=== PATIENT | female | born 1945 | race Caucasian/White ===

== ENCOUNTER 2016-10-29 09:59 | Outpatient (CLI) | payer MEDICARE, MEDICAID | END 2016-10-29 10:00 | disposition home or self-care (01) | DX: G47.33 Obstructive sleep apnea (adult) (pediatric) (principal); G47.00 Insomnia, unspecified | CPT/HCPCS: 99214; G0463 ==

== ENCOUNTER 2016-11-17 | Emergency (ER) | payer MEDICARE, MEDICAID | END 2016-11-17 23:41 | disposition home or self-care (01) ==

== ENCOUNTER 2016-12-16 10:54 | Outpatient (CLI) | payer MEDICARE, MEDICAID | END 2016-12-16 10:55 | disposition home or self-care (01) | DX: M54.89 Other dorsalgia (principal) ==

== ENCOUNTER 2016-12-28 22:06 | Emergency (ER) | payer MEDICARE, MEDICAID | END 2016-12-29 00:50 | disposition home or self-care (01) | DX: R10.9 Unspecified abdominal pain (principal); I10 Essential (primary) hypertension; G47.30 Sleep apnea, unspecified; E11.9 Type 2 diabetes mellitus without complications; Z87.440 Personal history of urinary (tract) infections; F32.9 Major depressive disorder, single episode, unspecified; F41.9 Anxiety disorder, unspecified; M19.90 Unspecified osteoarthritis, unspecified site; Z79.01 Long term (current) use of anticoagulants; Z79.891 Long term (current) use of opiate analgesic; Z79.51 Long term (current) use of inhaled steroids; Z79.899 Other long term (current) drug therapy ==

== ENCOUNTER 2017-01-02 04:14 | Emergency (ER) | payer MEDICARE, MEDICAID | END 2017-01-02 05:25 | disposition home or self-care (01) | DX: M25.562 Pain in left knee (principal); Z96.652 Presence of left artificial knee joint; I10 Essential (primary) hypertension; G47.30 Sleep apnea, unspecified; E11.9 Type 2 diabetes mellitus without complications; F03.90 Unspecified dementia, unspecified severity, without behavioral disturbance, psychotic disturbance, mood disturbance, and anxiety; M19.90 Unspecified osteoarthritis, unspecified site; Z79.01 Long term (current) use of anticoagulants ==

== ENCOUNTER 2017-01-18 09:50 | Outpatient (CLI) | payer MEDICARE, MEDICAID ==
[2017-01-18] MEDS ORDERED: IOPAMIDOL-300 100 ML VIAL IVP ONE (11:21)
[2017-01-18] MEDS ORDERED: IOPAMIDOL-300 50 ML VIAL PO ONE (11:21)
== END 2017-01-18 09:51 | disposition home or self-care (01) ==
DX: R10.32 Left lower quadrant pain (principal); K57.30 Diverticulosis of large intestine without perforation or abscess without bleeding; Z90.49 Acquired absence of other specified parts of digestive tract
CPT/HCPCS: 74177; Q9967

== ENCOUNTER 2017-01-25 10:17 | Outpatient (CLI) | payer MEDICARE, MEDICAID | END 2017-01-25 10:18 | disposition home or self-care (01) | DX: G47.33 Obstructive sleep apnea (adult) (pediatric) (principal) | CPT/HCPCS: 99214; G0463 ==

== ENCOUNTER 2017-02-02 11:04 | Outpatient (CLI) | payer MEDICARE, MEDICAID | END 2017-02-02 11:05 | disposition home or self-care (01) | DX: N83.202 Unspecified ovarian cyst, left side (principal); N85.8 Other specified noninflammatory disorders of uterus; D25.1 Intramural leiomyoma of uterus ==

== ENCOUNTER 2017-06-19 18:10 | Outpatient (CLI) | payer MEDICARE, MEDICAID | END 2017-06-19 18:11 | disposition critical access hospital (66) | LOC: EMS 18:10 | PROVIDERS: ATTEND Surgery | DX: M25.512 Pain in left shoulder (principal); M25.562 Pain in left knee; W01.0XXA Fall on same level from slipping, tripping and stumbling without subsequent striking against object, initial encounter; Y92.038 Other place in apartment as the place of occurrence of the external cause | CPT/HCPCS: A0425; A0429 ==

== ENCOUNTER 2017-06-19 18:30 | Emergency (ER) | payer MEDICARE, MEDICAID ==
--- NOTE | 2017-06-19 20:18 | CT Preliminary Report ---
Exam: CT Head W/O IMPRESSION: Generalized age-related cortical atrophic changes without evidence of acute intracranial abnormality. [facility] SITE ID: [id number]
--- NOTE | 2017-06-19 20:31 | CT Report ---
EXAM: CT HEAD EXAM DATE: 06/19/2017 08:00 p.m.. CLINICAL HISTORY: Fall, head injury. Patient on Eliquis. COMPARISON: 06/01/2015. Head MRI 07/02/2016. TECHNIQUE: Multiaxial CT images were obtained from the foramen magnum to the vertex. IV contrast: Non e. Reformats: Coronal. In accordance with CT protocol optimization, one or more of the following dose reduction techniques w ere utilized for this exam: automated exposure control, adjustment of mA and/or KV based on patient s ize, or use of iterative reconstructive technique. FINDINGS: Parenchyma: No intraparenchymal hemorrhage. No evidence of mass, midline shift, or CT findings of acu te infarction. Ribeiro-white differentiation is distinct. Extraaxial Spaces: Normal for age. No subdural or epidural collections identified. Ventricles: The ventricles and cortical sulci are enlarged, consistent with age-related tissue loss. Sinuses: Imaged paranasal sinuses, orbits, and mastoids show no significant abnormality. Bones: No evidence of fracture or calvarial defect. Other: Diffuse chronic microangiopathic white matter changes are evident. IMPRESSION: Generalized age-related cortical atrophic changes without evidence of acute intracranial abnormality. [facility] Referring Provider Line: [phone] SITE ID: [id number]
--- NOTE | 2017-06-19 20:39 | ED Physician Documentation ---
PD HPI Fall - Stated complaint Stated Complaint: GLF/L SHOULDER INJ - Chief complaint Chief Complaint: Ext Problem - History obtained from History obtained from: Patient, Family - History of Present Illness Mechanism of injury: Slipped Fall distance: Standing position Where injury occurred: Home Timing - onset: How many hours ago (1) Injury(ies) location: Head, Left Uppper Extremity (Shoulder), Left Lower Extremity (Hip and knee) Pain level max: 6 Pain level now: 3 Quality of pain: Pain, Aching, Dull Associated symptoms: No: LOC, AMS, Amnesia, Seizures, Ear drainage, Nasal drainage, Neck pain, Weakness, Paresthesias, Dyspnea, Nausea / vomiting, Hematemesis, Abdominal distension Symptoms improve with: Rest Worsens with: Movement, Palpation Contributing factors: Anticoagulated (Patient is on Eliquis). No: Intoxicated Recently seen: Not recently seen - Additional information Additional information: Patient tripped and fell while carrying water drugs today, she landed on her left shoulder, left hip left knee and did strike her head on the wall. No loss of consciousness. No vomiting Review of Systems Constitutional: denies: Fever, Chills Ears: denies: Ear pain Nose: denies: Rhinorrhea / runny nose, Congestion Throat: denies: Sore throat Cardiac: denies: Chest pain / pressure Respiratory: denies: Cough GI: denies: Abdominal Pain, Nausea, Vomiting Skin: denies: Rash Musculoskeletal: denies: Neck pain, Back pain Neurologic: denies: Focal weakness, Numbness, Confused, Altered mental status, LOC PD PAST MEDICAL HISTORY - Past Medical History Cardiovascular: Hypertension Respiratory: Sleep apnea, CPAP use Neuro: Dementia Endocrine/Autoimmune: Type 2 diabetes GI: None 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 : Chronic bladder infection, Other HEENT: None Psych: Depression, Anxiety Musculoskeletal: Osteoarthritis Derm: None - Past Surgical History Past Surgical History: Yes General: Cholecystectomy Ortho: Knee replacement HEENT: Tonsil/Adenoidectomy - Present Medications Home Medications: Ambulatory Orders Medication Instructions Recorded Confirmed Apixaban [Eliquis] 205 mg PO DAILY 06/19/17 06/19/17 Atorvastatin [Lipitor] 10 mg PO DAILY 06/19/17 06/19/17 Bupropion HCl [Bupropion HCl Sr] 150 mg PO DAILY 06/19/17 06/19/17 Fluoxetine HCl 40 mg PO DAILY 06/19/17 06/19/17 Gabapentin 100 mg PO DAILY 06/19/17 06/19/17 Gabapentin 400 mg PO DAILY PM 06/19/17 06/19/17 Lisinopril 10 mg PO DAILY 06/19/17 06/19/17 Loratadine 10 mg PO DAILY 06/19/17 06/19/17 Oxybutynin Chloride [Ditropan Xl] 10 mg PO DAILY 06/19/17 06/19/17 Prazosin [Minipress] 4 mg PO DAILY 06/19/17 06/19/17 Propranolol [Inderal] 10 mg PO DAILY 06/19/17 06/19/17 Ziprasidone HCl 60 mg PO DAILY 06/19/17 06/19/17 - Allergies Allergies/Adverse Reactions: Allergies Allergy/AdvReac Type Severity Reaction Status Date / Time hydromorphone Allergy Intermediate Itching Verified 06/19/17 18:44 iodine Allergy Intermediate Hives Verified 06/19/17 19:02 acetaminophen [From Percocet] Allergy Unknown Verified 06/19/17 19:02 acyclovir Allergy Unknown Verified 06/19/17 19:02 amoxicillin Allergy Unknown Verified 06/19/17 19:02 doxycycline Allergy Unknown Verified 06/19/17 19:02 hydrocodone bitartrate * Allergy Unknown Verified 06/19/17 19:02 [From Vicodin] naproxen [From Naprosyn] Allergy Unknown Verified 06/19/17 19:02 oxycodone HCl * Allergy Unknown Verified 06/19/17 19:02 [From Percocet] risperidone [From Risperdal] Allergy Unknown Verified 06/19/17 19:02 Tetanus Vaccines and Toxoid Allergy Hives Verified 06/19/17 19:02 [Tetanus Vaccines & Toxoid] adhesive tape AdvReac Intermediate Rash Verified 06/19/17 18:44 - Social History Does the pt smoke?: No Smoking Status: Never smoker Does the pt drink ETOH?: No Does the pt have substance abuse?: No - Immunizations Immunizations are current?: Yes - POLST Patient has POLST: No PD ED PE NORMAL - Vitals Vital signs reviewed: Yes - General General: Alert and 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, No acute distress, Well developed/nourished - HEENT HEENT: Atraumatic, PERRL, EOMI, Ears normal, Moist mucous membranes, Pharynx benign - Neck Neck: Supple, no meningeal sign, No bony TTP - Cardiac Cardiac: RRR, Strong equal pulses - Respiratory Respiratory: No respiratory distress, Clear bilaterally - Abdomen Abdomen: Soft, Non tender, Non distended - Derm Derm: Warm and dry - Extremities Extremities: No deformity, Other (Diffuse tenderness about the left shoulder, mainly over the glenohumeral joints and over the AC joint. No gross deformity. Neurovascularly intact. Axillary nerve intact. L hip Tender to palpation over the greater trochanter. neurovascularly intact. Left knee is diffusely tender. 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, No motor deficit, No sensory deficit, Normal speech GCS Score: 15 - Psych Psych: Normal mood, Normal affect Results - Vitals Vitals: Vital Signs - 24 hr 06/19/17 06/19/17 18:38 20:55 Temperature 36.4 C L 36.4 C L Heart Rate 77 72 Respiratory 18 18 Rate Blood Pressure 149/92 H 178/98 H O2 Saturation 98 98 Oxygen O2 Source [Without Activity] Room air O2 Source Room air - Rads (name of study) head CT Radiology: Prelim report reviewed, EMP read contemporaneously, See rad report ( No acute intracranial abnormality) L shoulder xray Radiology: Prelim report reviewed, EMP read contemporaneously, See rad report ( No acute bony abnormality) L hip xray Radiology: Prelim report reviewed, EMP read contemporaneously, See rad report ( No acute bony abnormality) L knee xray Radiology: Prelim report reviewed, EMP read contemporaneously, See rad report ( No acute bony abnormality) PD MEDICAL DECISION MAKING - ED course Complexity details: reviewed results, re-evaluated patient, considered differential, d/w patient ED course: Patient is a 71-year-old female status post a ground-level fall today. The patient does take Eliquis and did strike her head, therefore head CT was performed with no acute findings. No acute findings on other plain film x- rays. Declines anything for pain here for home. Ambulating well. We will have her follow-up with her doctor for further evaluation and care. Patient counseled regarding signs and symptoms for which I believe and urgent re- evaluation would be necessary. Patient with good understanding of and agreement to plan and is comfortable going home at this time This document was made in part using voice recognition software. While efforts are made to proofread this document, sound alike and grammatical errors may occur. Departure - Departure Disposition: 01 Home, Self Care Clinical Impression: Contusion, hip Qualifiers: Encounter type: initial encounter Laterality: left Qualified Code(s): S70.02XA - Contusion of left hip, initial encounter Knee contusion Qualifiers: Encounter type: initial encounter Laterality: left Qualified Code(s): S80.02XA - Contusion of left knee, initial encounter Shoulder contusion Qualifiers: Encounter type: initial encounter Laterality: left Qualified Code(s): S40.012A - Contusion of left shoulder, initial encounter Head injury Qualifiers: Encounter type: initial encounter Qualified Code(s): S09.90XA - Unspecified injury of head, initial encounter Condition: Good Instructions: ED Head Injury Closed, ED Contusion Soft Tissue Follow-Up: your,doctor in 1 week [Other] Comments: Your x-rays are normal tonight. Return if you worsen. Discharge Date/Time: 06/19/17 21:05
--- NOTE | 2017-06-19 20:54 | XRAY Preliminary Report ---
Exam: XR Hip w/Pelvis 2-3V LT IMPRESSION: 1. No fracture. 2. Increased moderate bilateral hip degenerative joint disease since 2005. [facility] SITE ID: [id number]
--- NOTE | 2017-06-19 20:55 | XRAY Preliminary Report ---
Exam: XR Shoulder 3 View LT IMPRESSION: 1. No evidence of fracture or dislocation. 2. Mild acromioclavicular and glenohumeral degenerative joint disease. [facility] SITE ID: [id number]
[2017-06-19 20:56] VITALS: BP 178/98
--- NOTE | 2017-06-19 20:56 | XRAY Preliminary Report ---
Exam: XR Knee 2 View LT IMPRESSION: 1. Left knee arthroplasty in the expected position. No evidence of fracture or loosening. [facility] SITE ID: [id number]
--- NOTE | 2017-06-19 20:56 | XRAY Report ---
EXAM: LEFT HIP AND PELVIS RADIOGRAPHY EXAM DATE: 06/19/2017 08:31 PM. HISTORY: Fall and left hip pain COMPARISONS: 09/19/2006. TECHNIQUE: 1 view of the pelvis and 1 view of the hip. FINDINGS: Bones: Normal. No fracture or bone lesion. Joints: Moderate bilateral hip degenerative joint disease, slightly progressed since 2005. Lower lumb ar degenerative disk disease. Soft Tissues: Normal. No soft tissue swelling. IMPRESSION: 1. No fracture. 2. Increased moderate bilateral hip degenerative joint disease since 2005. [facility] Referring Provider Line: [phone] SITE ID: [id number]
--- NOTE | 2017-06-19 20:57 | XRAY Report ---
EXAM: LEFT SHOULDER RADIOGRAPHY EXAM DATE: 06/19/2017 08:32 PM. CLINICAL HISTORY: Fall and left shoulder and clavicle pain. COMPARISON: 02/25/2013. TECHNIQUE: 3 views. FINDINGS: Bones: Normal. No fracture or bone lesion. Joints: Mild glenohumeral degenerative joint disease. Mild acromioclavicular degenerative joint disea se. Alignment normal. Soft tissues: The visualized hemithorax is unremarkable. No soft tissue swelling. IMPRESSION: 1. No evidence of fracture or dislocation. 2. Mild acromioclavicular and glenohumeral degenerative joint disease. [facility] Referring Provider Line: [phone] SITE ID: [id number]
--- NOTE | 2017-06-19 20:59 | XRAY Report ---
EXAM: LEFT KNEE RADIOGRAPHY EXAM DATE: 06/19/2017 08:32 PM. CLINICAL HISTORY: Fall and left knee pain. COMPARISON: 01/02/2017. TECHNIQUE: 2 views. FINDINGS: Bones: 3 component total left knee arthroplasty in the expected position. No evidence of fracture or loosening. Joints: Normal. No effusion. No subluxations. Soft Tissues: Enthesopathy of the distal quadriceps. IMPRESSION: 1. Left knee arthroplasty in the expected position. No evidence of fracture or loosening. VERON[facility]QUE Referring Provider Line: [phone] SITE ID: [id number]
== END 2017-06-19 21:05 | disposition home or self-care (01) ==
LOC: EDUNIT# → ED 18:30
DX: S40.012A Contusion of left shoulder, initial encounter (principal); S70.02XA Contusion of left hip, initial encounter; S80.02XA Contusion of left knee, initial encounter; S09.90XA Unspecified injury of head, initial encounter; W01.0XXA Fall on same level from slipping, tripping and stumbling without subsequent striking against object, initial encounter; Y92.019 Unspecified place in single-family (private) house as the place of occurrence of the external cause; Z96.652 Presence of left artificial knee joint; I10 Essential (primary) hypertension; G47.30 Sleep apnea, unspecified; F03.90 Unspecified dementia, unspecified severity, without behavioral disturbance, psychotic disturbance, mood disturbance, and anxiety; E11.9 Type 2 diabetes mellitus without complications; M19.90 Unspecified osteoarthritis, unspecified site; Z79.01 Long term (current) use of anticoagulants
CPT/HCPCS: 70450; 99283

== ENCOUNTER 2017-07-05 09:11 | Outpatient (CLI) | payer MEDICARE, MEDICAID ==
[2017-07-05 14:04] LABS: CALCIUM 9.3 mg/dL (8.5-10.3); CREATININE 1.2 mg/dL (0.4-1.0); POTASSIUM 3.8 mmol/L (3.5-5.0)
[2017-07-05 14:21] LABS: HEMOGLOBIN A1C 0.54 g/dL
== END 2017-07-05 09:12 | disposition home or self-care (01) ==
LOC: LAB.WCP 09:11
PROVIDERS: ATTEND Physician Assistant Medical
DX: R73.9 Hyperglycemia, unspecified (principal)
CPT/HCPCS: 36415; 80048; 83036

== ENCOUNTER 2017-07-27 10:20 | Outpatient (CLI) | payer MEDICARE, MEDICAID | END 2017-07-27 10:21 | disposition home or self-care (01) | LOC: SC 10:20 | PROVIDERS: ATTEND Nurse Practitioner Family | DX: G47.33 Obstructive sleep apnea (adult) (pediatric) (principal); G47.00 Insomnia, unspecified | CPT/HCPCS: 99214; G0463; 99212 ==

== ENCOUNTER 2017-08-13 11:42 | Outpatient (CLI) | payer MEDICARE, MEDICAID ==
--- NOTE | 2017-08-13 13:48 | Ultrasound Report ---
PELVIC ULTRASOUND: 08/13/2017 CLINICAL INDICATION: Followup left ovarian cyst. COMPARISON: 02/02/2017 TECHNIQUE: Transabdominal pelvic ultrasound performed for global evaluation. Transvaginal pelvic ult rasound performed for detailed evaluation. Real-time scanning performed and static images obtained. FINDINGS: The uterus is anteverted, measuring 6.4 x 4.4 x 2.6 cm. The endometrial echo complex mary ures 2 mm. An 8 mm intramural leiomyoma is noted in the right posterior myometrium. The right ovary was not confidently identified on transabdominal or transvaginal scanning, but no right adnexal mass is seen. The left ovary measures 4.1 x 3.5 x 2.0 cm, and again contains a cyst, measuring 3.8 x 3.2 x 2.0 cm. Normal flow is seen in the surrounding ovarian tissue. No free fluid is present. IMPRESSION: NO SIGNIFICANT INTERVAL CHANGE IN LEFT OVARIAN CYST. JOB #: [id number] EXT JOB #:[id number]
== END 2017-08-13 11:43 | disposition home or self-care (01) ==
LOC: DI 11:42
PROVIDERS: ATTEND Obstetrics & Gynecology
DX: N83.202 Unspecified ovarian cyst, left side (principal)
CPT/HCPCS: 76830; 76856

== ENCOUNTER 2017-09-11 00:29 | Outpatient (CLI) | payer MEDICARE, MEDICAID | END 2017-09-11 00:30 | disposition EMS.NT | LOC: EMS 00:29 | PROVIDERS: ATTEND Surgery | DX: Z03.89 Encounter for observation for other suspected diseases and conditions ruled out (principal); W01.0XXA Fall on same level from slipping, tripping and stumbling without subsequent striking against object, initial encounter; Y92.009 Unspecified place in unspecified non-institutional (private) residence as the place of occurrence of the external cause ==

== ENCOUNTER 2017-09-20 14:50 | Outpatient (CLI) | payer MEDICARE, MEDICAID | END 2017-09-20 14:51 | disposition critical access hospital (66) | LOC: EMS 14:50 | PROVIDERS: ATTEND Surgery | DX: T14.90XA Injury, unspecified, initial encounter (principal); W18.39XA Other fall on same level, initial encounter; Y92.838 Other recreation area as the place of occurrence of the external cause | CPT/HCPCS: A0425; A0427 ==

== ENCOUNTER 2017-09-20 15:14 | Emergency (ER) | payer MEDICARE, MEDICAID ==
--- NOTE | 2017-09-20 15:36 | ED Physician Documentation ---
History of Present Illness - Stated complaint Stated Complaint: GLF - Chief complaint Chief Complaint: General - History obtained from History obtained from: Patient - History of Present Illness Timing: Other (72-year-old woman has had 2 recent ground-level falls. The the first one was Wednesday night, she tripped in her bedroom and hit the floor with the left side of her face. No loss of consciousness, she did have a headache at the time but that is now gone. She had a second fall today, again at her house , simple trip and fall without loss of consciousness. Because of her anticoagulated status she sought medical attention. Of note prehospital her blood pressure was low, and she notes the paramedics told her that they were asymmetric, however on arrival here she had one low blood pressure, but subsequent blood pressures were normal and equal in both arms. She denies any other injury. 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 : Chronic bladder infection, Other HEENT: None Psych: Depression, Anxiety Musculoskeletal: Osteoarthritis Derm: None - Past Surgical History Past Surgical History: Yes General: Cholecystectomy Ortho: Knee replacement HEENT: Tonsil/Adenoidectomy - Present Medications Home Medications: Ambulatory Orders Medication Instructions Recorded Confirmed Apixaban [Eliquis] 205 mg PO DAILY 06/19/17 06/19/17 Atorvastatin [Lipitor] 10 mg PO DAILY 06/19/17 06/19/17 Bupropion HCl [Bupropion HCl Sr] 150 mg PO DAILY 06/19/17 06/19/17 Fluoxetine HCl 40 mg PO DAILY 06/19/17 06/19/17 Gabapentin 100 mg PO DAILY 06/19/17 06/19/17 Gabapentin 400 mg PO DAILY PM 06/19/17 06/19/17 Lisinopril 10 mg PO DAILY 06/19/17 06/19/17 Loratadine 10 mg PO DAILY 06/19/17 06/19/17 Oxybutynin Chloride [Ditropan Xl] 10 mg PO DAILY 06/19/17 06/19/17 Prazosin [Minipress] 4 mg PO DAILY 06/19/17 06/19/17 Propranolol [Inderal] 10 mg PO DAILY 06/19/17 06/19/17 Ziprasidone HCl 60 mg PO DAILY 06/19/17 06/19/17 - Allergies Allergies/Adverse Reactions: Allergies Allergy/AdvReac Type Severity Reaction Status Date / Time hydromorphone Allergy Intermediate Itching Verified 09/20/17 15:22 iodine Allergy Intermediate Hives Verified 09/20/17 15:22 acetaminophen [From Percocet] Allergy Unknown Verified 09/20/17 15:22 acyclovir Allergy Unknown Verified 09/20/17 15:22 amoxicillin Allergy Unknown Verified 09/20/17 15:22 doxycycline Allergy Unknown Verified 09/20/17 15:22 hydrocodone bitartrate * Allergy Unknown Verified 09/20/17 15:22 [From Vicodin] naproxen [From Naprosyn] Allergy Unknown Verified 09/20/17 15:22 oxycodone HCl * Allergy Unknown Verified 09/20/17 15:22 [From Percocet] risperidone [From Risperdal] Allergy Unknown Verified 09/20/17 15:22 Tetanus Vaccines and Toxoid Allergy Hives Verified 09/20/17 15:22 [Tetanus Vaccines & Toxoid] adhesive tape AdvReac Intermediate Rash Verified 09/20/17 15:22 - Social History Does the pt smoke?: No Smoking Status: Never smoker Does the pt drink ETOH?: No Does the pt have substance abuse?: No - Immunizations Immunizations are current?: Yes - POLST Patient has POLST: No PD ED PE NORMAL - Vitals Vital signs reviewed: Yes - General General: Alert and 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, No acute distress - HEENT HEENT: PERRL, EOMI, Ears normal, Moist mucous membranes, Pharynx benign - Neck Neck: Supple, no meningeal sign, No bony TTP - Cardiac Cardiac: RRR, No murmur, Strong equal pulses (radial) - Respiratory Respiratory: No respiratory distress, Clear bilaterally - Abdomen Abdomen: Soft, Non tender - Extremities Extremities: No edema, No calf tenderness / cord - Neuro Neuro: Alert and 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, Normal speech Eye Opening: Spontaneous Motor: Obeys Commands Verbal: Oriented GCS Score: 15 - Psych Psych: Normal mood, Normal affect Results - Vitals Vitals: Vital Signs - 24 hr 09/20/17 09/20/17 09/20/17 15:17 15:55 15:56 Temperature 36.4 C L Heart Rate 66 Respiratory 20 Rate Blood Pressure 75/45 L 108/58 L 118/65 O2 Saturation 95 09/20/17 09/20/17 09/20/17 16:13 17:17 18:23 Temperature Heart Rate 69 75 76 Respiratory 18 16 18 Rate Blood Pressure 98/46 L 121/53 L 138/66 H O2 Saturation 96 94 100 Oxygen O2 Source [] Room air O2 Source Room air - Labs Labs: Laboratory Tests 09/20/17 09/20/17 09/20/17 15:20 15:20 15:20 WBC 11.4 H RBC 4.36 Hgb 12.8 Hct 39.9 MCV 91.4 MCH 29.4 MCHC 32.2 RDW 14.9 Plt Count 257 MPV 8.8 Neut # 7.7 H Lymph # 2.2 Andrews # 0.9 Eos # 0.5 Baso # 0.1 Absolute Nucleated RBC 0.01 Nucleated RBC % 0.1 PT 12.9 H INR 1.1 Sodium 136 Potassium 3.4 L Chloride 101 Carbon Dioxide 24 Anion Gap 11.0 BUN 19 Creatinine 2.2 H Estimated GFR (MDRD) 22 L Glucose 114 H Calcium 9.2 Total Bilirubin 0.6 AST 23 ALT 29 Alkaline Phosphatase 85 Total Protein 7.4 Albumin 3.8 Globulin 3.6 Albumin/Globulin Ratio 1.1 Lipase 19 L - Rads (name of study) CT Head and cspinje Radiology: EMP read contemporaneously (She has acute on chronic sinus disease which is not bothering her. She has degenerative spine disease of the cervical spine without acute trauma.) PD MEDICAL DECISION MAKING - ED course ED course: 72-year-old woman with 2 recent falls. She is anticoagulated so CT scan was done and negative. She does have an acutely elevated creatinine at 2.2. No elevated BUN to suggest dehydration. Spoke with her PA, Gosia Borges we agreed to stop her lisinopril and she will have close follow-up. She was hypotensive on arrival but this resolved with time and IV fluids. Departure - Departure Disposition: 01 Home, Self Care Clinical Impression: Adequate anticoagulation on anticoagulant therapy ARF (acute renal failure) Qualifiers: Acute renal failure type: unspecified Qualified Code(s): N17.9 - Acute kidney failure, unspecified Fall Qualifiers: Encounter type: initial encounter Qualified Code(s): W19.XXXA - Unspecified fall, initial encounter Head injury Qualifiers: Encounter type: initial encounter Qualified Code(s): S09.90XA - Unspecified injury of head, initial encounter Condition: Good Record reviewed to determine appropriate education?: Yes Instructions: ED Head Injury Closed Comments: Stop your lisinopril, follow-up with ROBB Borges in the next 2 days, call her office tomorrow morning for an appointment. Return if worse. Discharge Date/Time: 09/20/17 18:39
[2017-09-20 15:39] LABS: BASOPHILS # (AUTO) 0.1 10^3/uL (0.0-0.1); EOSINOPHILS # (AUTO) 0.5 10^3/uL (0.0-0.7); EOSINOPHILS % (AUTO) 4.1 %; HCT - HEMATOCRIT 39.9 % (37.0-47.0); HGB - HEMOGLOBIN 12.8 g/dL (12.0-16.0); LYMPHOCYTES # (AUTO) 2.2 10^3/uL (1.5-3.5); LYMPHOCYTES % (AUTO) 19.1 %; MEAN CORPUSCULAR HEMOGLOBIN 29.4 pg (27.0-31.0); MEAN CORPUSCULAR HGB CONC 32.2 g/dL (32.0-36.0); MEAN CORPUSCULAR VOLUME 91.4 fL (81.0-99.0); MEAN PLATELET VOLUME 8.8 fL (7.9-10.8); MONOCYTES # (AUTO) 0.9 10^3/uL (0.0-1.0); MONOCYTES % (AUTO) 7.7 %; NEUTROPHILS # (AUTO) 7.7 10^3/uL (1.5-6.6); NEUTROPHILS % (AUTO) 68.1 %; NUCLEATED RED BLOOD CELLS AUTO 0.1 /100WBC; RED BLOOD COUNT 4.36 10^6/uL (4.20-5.40); RED CELL DISTRIBUTION WIDTH 14.9 % (12.0-15.0); UNCORRECTED WHITE BLOOD COUNT 11.4 x10^3/uL; WHITE BLOOD COUNT 11.4 x10^3/uL (4.8-10.8)
[2017-09-20 15:48] LABS: ALBUMIN/GLOBULIN RATIO 1.1 (1.0-2.2); BILIRUBIN,TOTAL 0.6 mg/dL (0.2-1.0); CALCIUM 9.2 mg/dL (8.5-10.3); CREATININE 2.2 mg/dL (0.4-1.0); POTASSIUM 3.4 mmol/L (3.5-5.0); TOTAL PROTEIN 7.4 g/dL (6.7-8.2)
[2017-09-20 16:01] LABS: INR 1.1 (0.8-1.2); PT - PROTHROMBIN TIME 12.9 secs (9.9-12.6)
--- NOTE | 2017-09-20 16:21 | CT Preliminary Report ---
Exam: CT HEAD W/O IMPRESSION: Acute on chronic sinus disease. No acute intracranial findings or calvarial fracture. [facility] SITE ID: [id number]
--- NOTE | 2017-09-20 16:23 | CT Report ---
EXAM: CT HEAD EXAM DATE: 09/20/2017 03:50 PM. CLINICAL HISTORY: Head injury . COMPARISON: Head CT 06/19/2017. TECHNIQUE: Multiaxial CT images were obtained from the foramen magnum to the vertex. Reformats: Coron al. IV contrast: None. In accordance with CT protocol optimization, one or more of the following dose reduction techniques w ere utilized for this exam: automated exposure control, adjustment of mA and/or KV based on patient s ize, or use of iterative reconstructive technique. FINDINGS: Parenchyma: No intraparenchymal hemorrhage. No evidence of mass, midline shift, or CT findings of inf arction. Ribeiro-white differentiation is distinct. Extraaxial Spaces: Normal for age. No subdural or epidural collections identified. Ventricles: Normal in size and position. Sinuses and Orbits: There is acute on chronic appearing maxillary, ethmoid, and sphenoid sinus diseas e. The mastoid air cells appear well-aerated. Bones: Hyperostosis frontalis is noted. IMPRESSION: Acute on chronic sinus disease. No acute intracranial findings or calvarial fracture. [facility] Referring Provider Line: [phone] SITE ID: [id number]
--- NOTE | 2017-09-20 16:29 | CT Preliminary Report ---
Exam: CT CERVICAL SPINE W/O IMPRESSION: Moderate cervical spondylosis. No acute findings. [facility] SITE ID: [id number]
--- NOTE | 2017-09-20 16:31 | CT Report ---
EXAM: CT CERVICAL SPINE WITHOUT CONTRAST DATE: 09/20/2017 03:50 PM. HISTORY: Fall neck pain. COMPARISONS: Cervical spine CT 06/01/2015. TECHNIQUE: Thin-section axial images were acquired of the cervical spine without contrast. Post-proce ssing: Coronal and sagittal reformats. Other: None. In accordance with CT protocol optimization, one or more of the following dose reduction techniques w ere utilized for this exam: automated exposure control, adjustment of mA and/or KV based on patient s ize, or use of iterative reconstructive technique. FINDINGS: Alignment: Normal. No scoliosis or spondylolisthesis. Bones: No fracture or bone lesion. Interspace Levels/Facets: C1-C2: Unremarkable. C2-C3: Unremarkable. C3-C4: There are small anterior and posterior osteophytes. Osteophytosis narrowing of the bony neural foramina, moderate bilaterally. C4-C5: Moderate anterior bridging osteophyte. Mild disk space narrowing. Osteophytes is narrowing of the bony neural foramina, minimal on the right and moderate on the left. C5-C6: Large anterior bridging osteophytes. Moderate disk space narrowing. Osteophytes cause narrowing of the bony neural foramina, mild to moderate on the right and mild on th e left. C6-C7: Small anterior bridging osteophytes. Moderate disk space narrowing. Osteophyte is narrowing of the bony neural foramina, mild bilaterally C7-T1: Unremarkable. Musculature: Normal. No fatty atrophy. Other: The paravertebral and prevertebral soft tissues are unremarkable. The lung apices are clear. IMPRESSION: Moderate cervical spondylosis. No acute findings. [facility] Referring Provider Line: [phone] SITE ID: [id number]
[2017-09-20 18:23] VITALS: BP 138/66
== END 2017-09-20 18:39 | disposition home or self-care (01) ==
LOC: EDUNIT# → ED 15:14
DX: N17.9 Acute kidney failure, unspecified (principal); Z79.01 Long term (current) use of anticoagulants; I10 Essential (primary) hypertension; J01.90 Acute sinusitis, unspecified; J32.9 Chronic sinusitis, unspecified; E11.9 Type 2 diabetes mellitus without complications; Z96.659 Presence of unspecified artificial knee joint; W01.0XXA Fall on same level from slipping, tripping and stumbling without subsequent striking against object, initial encounter; Y92.009 Unspecified place in unspecified non-institutional (private) residence as the place of occurrence of the external cause
CPT/HCPCS: 36415; 70450; 72125; 80053; 83690; 85025; 85610; 99284

== ENCOUNTER 2017-09-24 13:10 | Outpatient (CLI) | payer MEDICARE, MEDICAID ==
[2017-09-24 19:12] LABS: BASOPHILS % (AUTO) 0.4 %; EOSINOPHILS # (AUTO) 0.4 10^3/uL (0.0-0.7); EOSINOPHILS % (AUTO) 4.1 %; HCT - HEMATOCRIT 39.9 % (37.0-47.0); HGB - HEMOGLOBIN 12.9 g/dL (12.0-16.0); LYMPHOCYTES # (AUTO) 1.6 10^3/uL (1.5-3.5); LYMPHOCYTES % (AUTO) 18.8 %; MEAN CORPUSCULAR HEMOGLOBIN 29.8 pg (27.0-31.0); MEAN CORPUSCULAR HGB CONC 32.4 g/dL (32.0-36.0); MEAN PLATELET VOLUME 9.6 fL (7.9-10.8); MONOCYTES # (AUTO) 0.6 10^3/uL (0.0-1.0); MONOCYTES % (AUTO) 7.2 %; NEUTROPHILS # (AUTO) 6.1 10^3/uL (1.5-6.6); NEUTROPHILS % (AUTO) 69.5 %; RED BLOOD COUNT 4.34 10^6/uL (4.20-5.40); RED CELL DISTRIBUTION WIDTH 14.7 % (12.0-15.0); UNCORRECTED WHITE BLOOD COUNT 8.8 x10^3/uL; WHITE BLOOD COUNT 8.8 x10^3/uL (4.8-10.8)
[2017-09-24 19:40] LABS: CALCIUM 9.1 mg/dL (8.5-10.3); CREATININE 1.1 mg/dL (0.4-1.0)
== END 2017-09-24 13:11 | disposition home or self-care (01) ==
LOC: LAB.WCP 13:10
PROVIDERS: ATTEND Physician Assistant Medical
DX: N18.9 Chronic kidney disease, unspecified (principal)
CPT/HCPCS: 36415; 80048; 85025

== ENCOUNTER 2017-10-04 15:50 | Outpatient (CLI) | payer MEDICARE, MEDICAID | END 2017-10-04 15:51 | disposition EMS.NT | LOC: EMS 15:50 | PROVIDERS: ATTEND Surgery | DX: Z03.89 Encounter for observation for other suspected diseases and conditions ruled out (principal); W18.39XA Other fall on same level, initial encounter; Y92.009 Unspecified place in unspecified non-institutional (private) residence as the place of occurrence of the external cause ==

== ENCOUNTER 2017-11-04 09:52 | Outpatient (CLI) | payer MEDICARE, MEDICAID | END 2017-11-04 09:53 | disposition home or self-care (01) | LOC: SC 09:52 | PROVIDERS: ATTEND Nurse Practitioner Family | DX: G47.33 Obstructive sleep apnea (adult) (pediatric) (principal); G47.00 Insomnia, unspecified | CPT/HCPCS: 99215; G0463; 99212 ==

== ENCOUNTER 2018-03-01 08:00 | Outpatient (CLI) | payer MEDICARE, MEDICAID | END 2018-03-01 08:01 | disposition home or self-care (01) | LOC: LAB.WCP 08:00 | PROVIDERS: ATTEND Physician Assistant Medical | DX: N39.0 Urinary tract infection, site not specified (principal) | CPT/HCPCS: 87086 ==

== ENCOUNTER 2018-03-10 09:09 | Outpatient (CLI) | payer MEDICARE, MEDICAID ==
[2018-03-10 12:46] LABS: BASOPHILS % (AUTO) 0.6 %; EOSINOPHILS # (AUTO) 0.4 10^3/uL (0.0-0.7); EOSINOPHILS % (AUTO) 5.7 %; HGB - HEMOGLOBIN 12.7 g/dL (12.0-16.0); LYMPHOCYTES % (AUTO) 26.3 %; MEAN CORPUSCULAR HEMOGLOBIN 29.8 pg (27.0-31.0); MEAN CORPUSCULAR HGB CONC 33.3 g/dL (32.0-36.0); MEAN CORPUSCULAR VOLUME 89.7 fL (81.0-99.0); MEAN PLATELET VOLUME 9.8 fL (7.9-10.8); MONOCYTES # (AUTO) 0.6 10^3/uL (0.0-1.0); MONOCYTES % (AUTO) 8.1 %; NEUTROPHILS # (AUTO) 4.6 10^3/uL (1.5-6.6); NEUTROPHILS % (AUTO) 59.3 %; PLT - PLATELET COUNT 223 10^3/uL (130-450); RED BLOOD COUNT 4.25 10^6/uL (4.20-5.40); RED CELL DISTRIBUTION WIDTH 14.7 % (12.0-15.0); WHITE BLOOD COUNT 7.7 x10^3/uL (4.8-10.8)
[2018-03-10 13:10] LABS: ALBUMIN 3.5 g/dL (3.2-5.5); ALBUMIN/GLOBULIN RATIO 0.9 (1.0-2.2); ALKALINE PHOSPHATASE 67 IU/L (42-121); ALT ALANINE AMINOTRANSFERASE 33 IU/L (10-60); AST ASPARTATE AMINOTRANSFERASE 26 IU/L (10-42); BILIRUBIN,TOTAL 0.5 mg/dL (0.2-1.0); BUN - BLOOD UREA NITROGEN 15 mg/dL (6-20); CALCIUM 8.9 mg/dL (8.5-10.3); CARBON DIOXIDE - CO2 24 mmol/L (21-32); CHLORIDE 108 mmol/L (101-111); CHOL/HDL RATIO 2.8 (<4.4); CHOLESTEROL 126 mg/dL; CREATININE 1.1 mg/dL (0.4-1.0); GFR - MDRD 49 (>89); GLUCOSE 107 mg/dL (70-100); HDL CHOLESTEROL 45 mg/dL; LDL CHOLESTEROL,CALCULATED 66 mg/dL; LDL/HDL RATIO 1.5 (<4.4); SODIUM 138 mmol/L (135-145); TOTAL PROTEIN 7.2 g/dL (6.7-8.2); VLDL CHOLESTEROL 15 mg/dL
== END 2018-03-10 09:10 ==
LOC: LAB.WCP 09:09
PROVIDERS: ATTEND Physician Assistant Medical
DX: E78.5 Hyperlipidemia, unspecified (principal); J30.9 Allergic rhinitis, unspecified
CPT/HCPCS: 36415; 80053; 80061; 83721; 85025

== ENCOUNTER 2018-03-15 08:00 | Outpatient (CLI) | payer MEDICARE, MEDICAID ==
[2018-03-15 16:23] LABS: BILIRUBIN,URINE NEGATIVE (NEGATIVE); GLUCOSE, URINE (UA) NEGATIVE (NEGATIVE); KETONES,URINE (UA) NEGATIVE (NEGATIVE); LEUKOCYTE ESTERASE, URINE NEGATIVE (NEGATIVE); NITRITE,URINE NEGATIVE (NEGATIVE); OCCULT BLOOD,URINE NEGATIVE (NEGATIVE); PH,URINE 5.5 PH (5.0-7.5); PROTEIN,URINE NEGATIVE (NEGATIVE); UROBILINOGEN,URINE 0.2 (NORMAL) E.U./dL (NORMAL)
[2018-03-15 16:36] LABS: CLARITY,URINE CLEAR (CLEAR)
[2018-03-15 16:37] LABS: BACTERIA,URINE None Seen /HPF (None Seen); RBC,URINE None Seen /HPF (0-5); SQUAMOUS EPITHELIAL CELL,UR FEW Squamous (<= Few)
== END 2018-03-15 08:01 | disposition home or self-care (01) ==
LOC: LAB.R 08:00
PROVIDERS: ATTEND Obstetrics & Gynecology
DX: R35.0 Frequency of micturition (principal)
CPT/HCPCS: 81001; 87086

== ENCOUNTER 2018-05-10 09:26 | Outpatient (CLI) | payer MEDICARE, MEDICAID ==
[2018-05-10] MEDS ORDERED: ALBUTEROL NEB 2.5 MG/3 ML INH ONE (10:00)
== END 2018-05-10 23:59 ==
LOC: RT 09:26
PROVIDERS: ATTEND Physician Assistant Medical
DX: R06.00 Dyspnea, unspecified (principal)
CPT/HCPCS: 94010

== ENCOUNTER 2018-05-26 08:47 | Outpatient (CLI) | payer MEDICARE, MEDICAID | END 2018-05-26 08:48 | disposition home or self-care (01) | LOC: DI.N 08:47 | PROVIDERS: ATTEND Obstetrics & Gynecology | DX: Z53.9 Procedure and treatment not carried out, unspecified reason (principal) ==

== ENCOUNTER 2018-08-09 10:21 | Outpatient (CLI) | payer MEDICARE, MEDICAID | END 2018-08-09 10:22 | disposition home or self-care (01) | LOC: SC 10:21 | PROVIDERS: ATTEND Nurse Practitioner Family | DX: G47.33 Obstructive sleep apnea (adult) (pediatric) (principal) | CPT/HCPCS: 99214; G0463; 99212 ==

== ENCOUNTER → 2018-08-19 | Outpatient (CLI) | payer MEDICARE, MEDICAID ==
[2018-08-19 13:14] LABS: ALBUMIN 3.6 g/dL (3.2-5.5); ALBUMIN/GLOBULIN RATIO 0.8 (1.0-2.2); BILIRUBIN,TOTAL 0.6 mg/dL (0.2-1.0); CALCIUM 9.4 mg/dL (8.5-10.3); CREATININE 0.9 mg/dL (0.4-1.0); TOTAL PROTEIN 7.9 g/dL (6.7-8.2)
[2018-08-19 14:04] LABS: HB2 TOTAL 13.7 g/dL; HEMOGLOBIN A1C 0.58 g/dL
== END ==
LOC: LAB.WCP 10:02
PROVIDERS: ATTEND Physician Assistant Medical
DX: R73.9 Hyperglycemia, unspecified (principal)
CPT/HCPCS: 36415; 80053; 83036

== ENCOUNTER 2018-11-01 09:52 | Outpatient (CLI) | payer MEDICARE, MEDICAID ==
--- NOTE | 2018-11-02 09:35 | Mammography Report ---
Reason: SCREENING MAMMO Procedure Date: 11/01/2018 Accession Number: [id number] / [id number] Procedure: [facility] - Screening Mammo w/[place] CPT Code: FULL RESULT: EXAM: Screening Mammo w/[place] DATE: 11/01/2018 10:20 AM CLINICAL HISTORY: Screening encounter. Family history of breast cancer in a sister at unknown age. TECHNIQUE: Bilateral CC and MLO views were obtained. COMPARISON: 09/30/2017 through 01/02/2014. FINDINGS: The breasts demonstrate scattered fibroglandular densities bilaterally. There are large rodlike typically benign calcifications bilaterally. In the right breast is a isodense 5 mm nodule partially obscured and 2-D view which is best seen on the cc projection on 3-D slice 40 and likely corresponds to a right MLO view nodule best seen on the 3-D slice 56 central right breast 6 cm from the nipple at the 2:00 position. This requires additional imaging by ultrasound. No suspicious masses, clustered microcalcifications, or regions of architectural distortion are identified in the left breast. IMPRESSION: Incomplete examination RECOMMENDATION: Additional evaluation as above; focused right breast ultrasound. BIRADS CATEGORY 0: Incomplete examination STANDARD QUALIFYING STATEMENTS: 1. This examination was not reviewed with the aid of Computer-Aided Detection (CAD). 2. A negative or benign imaging report should not preclude biopsy if clinically suspicious findings are present. 3. Dense breasts may obscure an underlying neoplasm. 4. This examination was reviewed with the aid of 3D breast imaging (tomosynthesis).
== END 2018-11-01 09:53 | disposition home or self-care (01) ==
LOC: DI 09:52
DX: Z12.31 Encounter for screening mammogram for malignant neoplasm of breast (principal); N63.12 Unspecified lump in the right breast, upper inner quadrant; R92.8 Other abnormal and inconclusive findings on diagnostic imaging of breast; Z80.3 Family history of malignant neoplasm of breast
CPT/HCPCS: 77063; 77067

== ENCOUNTER 2018-11-22 08:59 | Outpatient (CLI) | payer MEDICARE, MEDICAID ==
--- NOTE | 2018-11-23 06:28 | Ultrasound Report ---
Reason: RT BREAST Procedure Date: 11/22/2018 Accession Number: [id number] / [id number] Procedure: US - Breast Unilateral Limited CPT Code: FULL RESULT: EXAM: Breast Unilateral Limited DATE: 11/22/2018 9:41 AM CLINICAL HISTORY: RT BREAST COMPARISON: Mammograms 11/01/2018 through 01/02/2014. TECHNIQUE: Targeted ultrasound was performed of the right breast in the area of concern identified on screening mammogram at approximately 2 o'clock and 5-6 cm distance from the nipple. Color Doppler was employed as appropriate. FINDINGS: Proximally 2 cm from the nipple at the 12:00 position a 0.6 x 0.8 x 0.3 cm cystic dilation of a glandular duct is identified, typically benign finding. Additionally, at the 2:00 position, 6 cm from the nipple, tortuous ectatic vascular structures that collapse with compression and demonstrate normal expected vascular flow with color Doppler are identified. No suspicious sonographic findings are seen. IMPRESSION: Probable benign findings RECOMMENDATION: Recommend diagnostic right breast mammogram in 6 months. BIRADS CATEGORY 3 RADIA
== END 2018-11-22 09:00 | disposition home or self-care (01) ==
LOC: DI 08:59
PROVIDERS: ATTEND Physician Assistant Medical
DX: R92.8 Other abnormal and inconclusive findings on diagnostic imaging of breast (principal)
CPT/HCPCS: 76642

== ENCOUNTER 2019-03-02 09:56 | Outpatient (CLI) | payer MEDICARE, MEDICAID ==
--- NOTE | 2019-03-02 11:17 | XRAY Report ---
Reason: DYSPNEA ON EXERTION Procedure Date: 03/02/2019 Accession Number: [id number] / [id number] Procedure: WCP - Chest 2 View X-Ray CPT Code: 76081 FULL RESULT: EXAM: CHEST RADIOGRAPHY EXAM DATE: 03/02/2019 10:09 AM. CLINICAL HISTORY: Dyspnea on exertion. COMPARISON: CHEST 2 VIEW PA/LAT 04/11/2018 9:29 AM. TECHNIQUE: 2 views. FINDINGS: Examination is limited by motion on the lateral radiograph. Lungs/Pleura: No focal opacities evident. No pleural effusion. No pneumothorax. Normal volumes. Mediastinum: The cardiomediastinal silhouette is stable with tortuous aorta. Other: None. IMPRESSION: No airspace disease is detected. RADIA
== END 2019-03-02 09:57 | disposition home or self-care (01) ==
LOC: DI.WCP 09:56
PROVIDERS: ATTEND Physician Assistant Medical
DX: R06.00 Dyspnea, unspecified (principal); R73.9 Hyperglycemia, unspecified; E78.5 Hyperlipidemia, unspecified; R19.09 Other intra-abdominal and pelvic swelling, mass and lump; N39.0 Urinary tract infection, site not specified
CPT/HCPCS: 36415; 71046; 80053; 80061; 82378; 83721; 85025; 86304; 87086

== ENCOUNTER 2019-03-02 10:13 | Outpatient (CLI) | payer MEDICARE, MEDICAID ==
[2019-03-02 13:03] LABS: BASOPHILS # (AUTO) 0.1 10^3/uL (0.0-0.1); BASOPHILS % (AUTO) 1.2 %; EOSINOPHILS # (AUTO) 0.4 10^3/uL (0.0-0.7); EOSINOPHILS % (AUTO) 4.9 %; HGB - HEMOGLOBIN 12.5 g/dL (12.0-16.0); LYMPHOCYTES # (AUTO) 1.9 10^3/uL (1.5-3.5); LYMPHOCYTES % (AUTO) 22.4 %; MEAN CORPUSCULAR HEMOGLOBIN 29.1 pg (27.0-31.0); MEAN CORPUSCULAR HGB CONC 32.9 g/dL (32.0-36.0); MEAN CORPUSCULAR VOLUME 88.6 fL (81.0-99.0); MEAN PLATELET VOLUME 9.4 fL (7.9-10.8); MONOCYTES # (AUTO) 0.6 10^3/uL (0.0-1.0); MONOCYTES % (AUTO) 7.3 %; NEUTROPHILS # (AUTO) 5.5 10^3/uL (1.5-6.6); NEUTROPHILS % (AUTO) 64.2 %; PLT - PLATELET COUNT 271 10^3/uL (130-450); RED BLOOD COUNT 4.28 10^6/uL (4.20-5.40); WHITE BLOOD COUNT 8.6 x10^3/uL (4.8-10.8)
[2019-03-02 13:48] LABS: ALBUMIN 3.6 g/dL (3.2-5.5); ALBUMIN/GLOBULIN RATIO 0.9 (1.0-2.2); ALKALINE PHOSPHATASE 82 IU/L (42-121); ALT ALANINE AMINOTRANSFERASE 25 IU/L (10-60); AST ASPARTATE AMINOTRANSFERASE 24 IU/L (10-42); BILIRUBIN,TOTAL 0.7 mg/dL (0.2-1.0); BUN - BLOOD UREA NITROGEN 17 mg/dL (6-20); CALCIUM 9.1 mg/dL (8.5-10.3); CARBON DIOXIDE - CO2 25 mmol/L (21-32); CHLORIDE 107 mmol/L (101-111); CHOL/HDL RATIO 3.2 (<4.4); CHOLESTEROL 143 mg/dL; CREATININE 0.9 mg/dL (0.4-1.0); GFR - MDRD 62 (>89); GLUCOSE 105 mg/dL (70-100); HDL CHOLESTEROL 45 mg/dL; LDL CHOLESTEROL,CALCULATED 76 mg/dL; LDL/HDL RATIO 1.7 (<4.4); SODIUM 138 mmol/L (135-145); TOTAL PROTEIN 7.4 g/dL (6.7-8.2); VLDL CHOLESTEROL 22 mg/dL
== END 2019-03-02 23:59 | disposition home or self-care (01) ==
LOC: LAB.WCP 10:13
PROVIDERS: ATTEND Physician Assistant Medical
DX: R73.9 Hyperglycemia, unspecified (principal); E78.5 Hyperlipidemia, unspecified; R19.09 Other intra-abdominal and pelvic swelling, mass and lump; N39.0 Urinary tract infection, site not specified
CPT/HCPCS: 36415; 80053; 80061; 82378; 83721; 85025; 86304; 87086

== ENCOUNTER 2019-03-13 08:08 | Outpatient (CLI) | payer MEDICARE, MEDICAID ==
--- NOTE | 2019-03-13 11:42 | Ultrasound Report ---
Reason: ADNEXAL MASS, LEFT Procedure Date: 03/13/2019 Accession Number: [id number] / [id number] Procedure: US - Pelvic w/Transvaginal CPT Code: FULL RESULT: EXAM: PELVIC ULTRASOUND EXAM DATE: 03/13/2019 08:50 AM. CLINICAL HISTORY: Adnexal mass, left. COMPARISON: PELVIC W/TRANSVAGINAL 08/13/2017 12:07 PM. TECHNIQUE: Realtime transabdominal pelvic scan performed to identify the uterus and adnexa and as an overview of other pelvic structures, followed by transvaginal scan to provide greater detail of the uterus and adnexa, with static image documentation. FINDINGS: Uterus: 7.4 x 2.4 x 4.0 cm, volume 37 cc. Anteverted position. Normal overall size and echotexture. Masses: Ill-defined heterogeneous partially calcified region measuring 1.8 x 0.8 x 0.8 cm near the cervix, likely fibroid. Endometrium: 2 mm. Normal. Cervix: Unremarkable. Right Ovary: 1.9 x 1.3 x 1.4 cm, volume 1.8 cc. Normal echotexture and blood flow. Left Ovary: 4.4 x 2.6 x 2.9 cm, volume 17 cc. Redemonstration of a septated cyst measuring 2.9 x 2.3 x 2.3 cm on today's exam. The remainder of the ovary is within normal limits. Free Fluid: None. Other: None. IMPRESSION: Septated left adnexal cyst measuring up to 2.9 cm as described. No suspicious interval change for this finding. Suspect uterine fibroids. RADIA
== END 2019-03-13 08:09 | disposition home or self-care (01) ==
LOC: DI 08:08
PROVIDERS: ATTEND Physician Assistant Medical
DX: N94.89 Other specified conditions associated with female genital organs and menstrual cycle (principal)
CPT/HCPCS: 76830; 76856

== ENCOUNTER 2019-03-30 09:30 | Outpatient (CLI) | payer MEDICARE, MEDICAID ==
[2019-03-30 12:47] LABS: BASOPHILS # (AUTO) 0.1 10^3/uL (0.0-0.1); BASOPHILS % (AUTO) 1.6 %; EOSINOPHILS # (AUTO) 0.6 10^3/uL (0.0-0.7); EOSINOPHILS % (AUTO) 6.5 %; HGB - HEMOGLOBIN 12.5 g/dL (12.0-16.0); LYMPHOCYTES # (AUTO) 2.1 10^3/uL (1.5-3.5); LYMPHOCYTES % (AUTO) 24.3 %; MEAN CORPUSCULAR HEMOGLOBIN 29.2 pg (27.0-31.0); MEAN CORPUSCULAR HGB CONC 32.6 g/dL (32.0-36.0); MEAN CORPUSCULAR VOLUME 89.5 fL (81.0-99.0); MEAN PLATELET VOLUME 9.8 fL (7.9-10.8); MONOCYTES # (AUTO) 0.7 10^3/uL (0.0-1.0); MONOCYTES % (AUTO) 8.5 %; NEUTROPHILS # (AUTO) 5.2 10^3/uL (1.5-6.6); NEUTROPHILS % (AUTO) 59.1 %; PLT - PLATELET COUNT 274 10^3/uL (130-450); RED BLOOD COUNT 4.29 10^6/uL (4.20-5.40); RED CELL DISTRIBUTION WIDTH 15.2 % (12.0-15.0); WHITE BLOOD COUNT 8.8 x10^3/uL (4.8-10.8)
[2019-03-30 13:07] LABS: ALBUMIN 3.9 g/dL (3.2-5.5); BILIRUBIN,TOTAL 0.6 mg/dL (0.2-1.0); CALCIUM 9.4 mg/dL (8.5-10.3); TOTAL PROTEIN 7.7 g/dL (6.7-8.2)
== END 2019-03-30 09:31 | disposition home or self-care (01) ==
LOC: LAB.WCP 09:30
PROVIDERS: ATTEND Physician Assistant Medical
DX: R10.32 Left lower quadrant pain (principal)
CPT/HCPCS: 36415; 80053; 83690; 85025; 87077; 87086; 87181

== ENCOUNTER 2019-03-31 14:09 | Outpatient (CLI) | payer MEDICARE, MEDICAID ==
[2019-03-31] MEDS ORDERED: IOVERSOL 320 100 ML VIAL IVP ONE (14:37)
[2019-03-31] MEDS ORDERED: IOVERSOL 320 50 ML VIAL ONE (14:37)
[2019-03-31] MEDS: IOVERSOL 320 100 ML VIAL IVP ONE (16:16)
[2019-03-31] MEDS: IOVERSOL 320 50 ML VIAL PO ONE (16:16)
--- NOTE | 2019-03-31 17:25 | CT Report ---
Reason: ABDOMINAL PAIN,LLQ Procedure Date: 03/31/2019 Accession Number: [id number] / [id number] Procedure: CT - Abdomen/Pelvis W CPT Code: FULL RESULT: EXAM: CT ABDOMEN AND PELVIS EXAM DATE: 03/31/2019 04:13 PM. CLINICAL HISTORY: ABDOMINAL PAIN,LLQ. COMPARISONS: ABDOMEN/PELVIS W/ 01/18/2017 11:07 AM. TECHNIQUE: Routine helical CT imaging was performed through the abdomen and pelvis. IV contrast: 90 cc Optiray 320 IV. Enteric contrast: Yes. Reconstructions: Coronal and sagittal. In accordance with CT protocol optimization, one or more of the following dose reduction techniques were utilized for this exam: automated exposure control, adjustment of mA and/or KV based on patient size, or use of iterative reconstructive technique. FINDINGS: Lung Bases: Unremarkable. Liver: Normal. No masses. Gallbladder/Bile Ducts: The gallbladder is surgically absent. Spleen: Normal. Pancreas: Normal. Adrenal Glands: Normal. Kidneys: There is a 4 mm nonobstructing calyceal stone inferior pole left kidney. There is a simple appearing cortical cyst in the upper pole of the right kidney measuring 19 mm. Kidneys are normal in size. No hydronephrosis. Peritoneal Cavity/Bowel: There is a fat-containing umbilical hernia measuring 3 cm in diameter. There is oral contrast within stomach, small bowel and right colon. No dilated bowel loops or transition zone. No focal bowel wall thickening. No abnormal fluid or gas collection. Pelvic Organs: Urinary bladder appears unremarkable. Uterus is anteverted. Ovaries are normal in size for age. Vasculature: No aneurysms or other significant abnormality. 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 No acute fracture. Other: None. IMPRESSION: 1. 4 mm nonobstructing left kidney stone. No ureter stone or hydronephrosis. 2. No localized acute inflammatory process of bowel. 3. Fat-containing umbilical hernia unchanged. 4. No other CT finding to explain clinical symptoms of pain. RADIA
== END 2019-03-31 14:10 | disposition home or self-care (01) ==
LOC: DI 14:09
PROVIDERS: ATTEND Physician Assistant Medical
DX: R10.32 Left lower quadrant pain (principal); N20.0 Calculus of kidney; K42.9 Umbilical hernia without obstruction or gangrene
CPT/HCPCS: 74177; Q9967

== ENCOUNTER 2019-04-06 12:50 | Outpatient (CLI) | payer MEDICARE, MEDICAID ==
[2019-04-06 19:15] LABS: BILIRUBIN,URINE NEGATIVE (NEGATIVE); GLUCOSE, URINE (UA) NEGATIVE (NEGATIVE); KETONES,URINE (UA) NEGATIVE (NEGATIVE); LEUKOCYTE ESTERASE, URINE TRACE (NEGATIVE); NITRITE,URINE POSITIVE (NEGATIVE); OCCULT BLOOD,URINE NEGATIVE (NEGATIVE); PH,URINE 6.5 PH (5.0-7.5); PROTEIN,URINE NEGATIVE (NEGATIVE); UROBILINOGEN,URINE 0.2 (NORMAL) E.U./dL (NORMAL)
[2019-04-06 19:20] LABS: CLARITY,URINE HAZY (CLEAR)
[2019-04-06 19:25] LABS: RBC,URINE None Seen /HPF (0-5); SQUAMOUS EPITHELIAL CELL,UR MANY Squamous (<= Few)
[2019-04-06 19:26] LABS: BACTERIA,URINE Moderate /HPF (None Seen)
== END 2019-04-06 12:51 | disposition home or self-care (01) ==
LOC: LAB.WCP 12:50
PROVIDERS: ATTEND Family Medicine
DX: N39.0 Urinary tract infection, site not specified (principal); R10.32 Left lower quadrant pain
CPT/HCPCS: 81001; 81003; 87086

== ENCOUNTER 2019-04-07 08:00 | Outpatient (CLI) | payer MEDICARE, MEDICAID ==
[2019-04-07 18:37] LABS: BASOPHILS # (AUTO) 0.1 10^3/uL (0.0-0.1); BASOPHILS % (AUTO) 0.8 %; EOSINOPHILS # (AUTO) 0.6 10^3/uL (0.0-0.7); EOSINOPHILS % (AUTO) 6.4 %; HGB - HEMOGLOBIN 12.5 g/dL (12.0-16.0); LYMPHOCYTES # (AUTO) 2.3 10^3/uL (1.5-3.5); LYMPHOCYTES % (AUTO) 26.2 %; MEAN CORPUSCULAR HEMOGLOBIN 29.1 pg (27.0-31.0); MEAN CORPUSCULAR HGB CONC 32.4 g/dL (32.0-36.0); MEAN CORPUSCULAR VOLUME 89.8 fL (81.0-99.0); MEAN PLATELET VOLUME 9.5 fL (7.9-10.8); MONOCYTES # (AUTO) 0.7 10^3/uL (0.0-1.0); MONOCYTES % (AUTO) 7.8 %; NEUTROPHILS # (AUTO) 5.1 10^3/uL (1.5-6.6); NEUTROPHILS % (AUTO) 58.8 %; PLT - PLATELET COUNT 260 10^3/uL (130-450); RED BLOOD COUNT 4.31 10^6/uL (4.20-5.40); RED CELL DISTRIBUTION WIDTH 14.8 % (12.0-15.0); WHITE BLOOD COUNT 8.7 x10^3/uL (4.8-10.8)
[2019-04-07 18:43] LABS: ALBUMIN 3.5 g/dL (3.2-5.5); ALBUMIN/GLOBULIN RATIO 0.9 (1.0-2.2); BILIRUBIN,TOTAL 0.5 mg/dL (0.2-1.0); CALCIUM 9.1 mg/dL (8.5-10.3); CREATININE 0.9 mg/dL (0.4-1.0); TOTAL PROTEIN 7.2 g/dL (6.7-8.2)
== END 2019-04-07 23:59 | disposition home or self-care (01) ==
LOC: LAB.WCP 08:00
PROVIDERS: ATTEND Family Medicine
DX: R10.32 Left lower quadrant pain (principal)
CPT/HCPCS: 36415; 80053; 85025

== ENCOUNTER 2019-04-13 12:40 | Outpatient (CLI) | payer MEDICARE, MEDICAID ==
[2019-04-13 20:00] LABS: BILIRUBIN,URINE NEGATIVE (NEGATIVE); OCCULT BLOOD,URINE NEGATIVE (NEGATIVE)
[2019-04-13 20:01] LABS: CLARITY,URINE HAZY (CLEAR)
[2019-04-13 20:09] LABS: EPITHELIAL CELLS,UR FEW Transitional /HPF (<= Few); RBC,URINE 0-5 /HPF (0-5); SQUAMOUS EPITHELIAL CELL,UR MANY Squamous (<= Few)
[2019-04-13 20:10] LABS: BACTERIA,URINE Rare /HPF (None Seen); CRYSTALS,URINE 3-5 Calcium Oxalate /LPF
== END 2019-04-13 12:41 | disposition home or self-care (01) ==
LOC: LAB.WCP 12:40
PROVIDERS: ATTEND Physician Assistant Medical
DX: R10.32 Left lower quadrant pain (principal)
CPT/HCPCS: 81001; 81003; 87086

== ENCOUNTER 2019-05-09 11:53 | Outpatient (CLI) | payer MEDICARE, MEDICAID ==
--- NOTE | 2019-05-09 14:52 | XRAY Report ---
Reason: KNEE PAIN,LEFT Procedure Date: 05/09/2019 Accession Number: [id number] / [id number] Procedure: WCP - Knee 3 View LT CPT Code: FULL RESULT: EXAM: LEFT KNEE RADIOGRAPHY EXAM DATE: 05/09/2019 11:46 AM. CLINICAL HISTORY: Knee pain, left, after a fall. COMPARISON: KNEE 3 VIEW LT 08/19/2018 9:32 AM. TECHNIQUE: 3 views. FINDINGS: Bones: Normal. No fractures or bone lesions. Joints: Patient is status post tricompartmental knee arthroplasty. No overt hardware failure. Small joint effusion. 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 IMPRESSION: Status post knee arthroplasty, stable appearance. RADIA
== END 2019-05-09 11:54 | disposition home or self-care (01) ==
LOC: DI.WCP 11:53
PROVIDERS: ATTEND Physician Assistant Medical
DX: M25.562 Pain in left knee (principal); Z96.652 Presence of left artificial knee joint

== ENCOUNTER 2019-05-31 10:36 | Day surgery (SDC) | payer MEDICARE, MEDICAID ==
--- NOTE | 2019-05-31 09:40 | ANESTHESIA ---
Pre-Anesthesia VS, & Labs - Diagnosis LLQ pain - Procedure colonoscopy Height 5 ft 6 in Body Mass Index 41.3 - NPO >8 hours - Is Patient ?: No Home Medications and Allergies Home Medications: Ambulatory Orders Dicyclomine [Bentyl] 10 mg PO QID 05/30/19 RX: Loratadine 10 mg PO DAILY 05/30/19 RX: Meloxicam 7.5 mg PO BID 05/30/19 RX: Montelukast Sodium 10 mg PO DAILY 05/30/19 Apixaban [Eliquis] 205 mg PO DAILY 06/19/17 Atorvastatin [Lipitor] 20 mg PO DAILY 06/19/17 Bupropion HCl [Bupropion HCl Sr] 300 mg PO DAILY 06/19/17 Fluoxetine HCl 20 mg PO DAILY 06/19/17 Gabapentin 100 mg PO DAILY 06/19/17 Gabapentin 400 mg PO DAILY PM 06/19/17 Lisinopril 10 mg PO DAILY 06/19/17 Oxybutynin Chloride [Ditropan Xl] 10 mg PO DAILY 06/19/17 Prazosin [Minipress] 5 mg PO DAILY PM 06/19/17 Propranolol [Inderal] 10 mg PO BID 06/19/17 Dicyclomine [Bentyl] 10 mg PO QID 05/30/19 Loratadine 10 mg PO DAILY 05/30/19 Meloxicam 7.5 mg PO BID 05/30/19 Montelukast Sodium 10 mg PO DAILY 05/30/19 Allergies/Adverse Reactions: Allergies Allergy/AdvReac Type Severity Reaction Status Date / Time hydromorphone Allergy Intermediate Itching Verified 05/30/19 11:56 iodine Allergy Intermediate Hives Verified 05/30/19 11:56 acetaminophen [From Percocet] Allergy Unknown Verified 05/30/19 11:56 acyclovir Allergy Unknown Verified 05/30/19 11:56 amoxicillin Allergy Unknown Verified 05/30/19 11:56 doxycycline Allergy Unknown Verified 05/30/19 11:56 hydrocodone bitartrate * Allergy Unknown Verified 05/30/19 11:56 [From Vicodin] naproxen [From Naprosyn] Allergy Unknown Verified 05/30/19 11:56 NSAIDS (Non-Steroidal Allergy Unknown Verified 05/30/19 11:56 Anti-Inflamma oxycodone HCl * Allergy Itching Verified 05/30/19 11:56 [From Percocet] risperidone [From Risperdal] Allergy Unknown Verified 05/30/19 11:56 Tetanus Vaccines and Toxoid Allergy Hives Verified 05/30/19 11:56 [Tetanus Vaccines & Toxoid] adhesive tape AdvReac Intermediate Rash Verified 05/30/19 11:56 Anes History & Medical History - Anesthetic History Anesthesia Complications: reports: No previous complications Family history of Anesthesia Complications: Denies Family history of Malignant Hyperthermia: Denies - Medical History Cardiovascular: reports: Hypertension, High cholesterol, Deep vein thrombosis Pulmonary: reports: Shortness of breath, Sleep apnea, CPAP use Gastrointestinal: reports: Other Urinary: reports: Chronic bladder infection Musculoskeletal: reports: Osteoarthritis Endocrine/Autoimmune: reports: None Blood Disorders: reports: None Skin: reports: None Smoking Status: Never smoker Psychosocial: reports: Other (bi-polar) - Surgical History General: Cholecystectomy, Appendectomy, Colonoscopy Eyes Ears Nose Throat (EENT): Tonsil/Adenoidectomy Orthopedic: Knee replacement Exam General: Alert, Oriented x3, Cooperative Dental: Poor dentition Mouth Openin Fingerbreadth Neck Mobility: Normal Mallampati classification: II Thyromental Distance: 4-6 cm Respiratory: Lungs clear, Normal breath sounds, Decreased breath sounds Cardiovascular: Regular rate Neurological: Normal speech Mental/Cognitive Status: Alert/Oriented X3, Normal for patient Cognitive Status: Within normal limits Plan Anesthesia Type: MAC Consent for Procedure(s) Verified and Reviewed: Yes Code Status: Attempt Resuscitation ASA classification: 3-Severe systemic disease Is this case an emergency?: No
[2019-05-31] MEDS ORDERED: PROPOFOL 200 MG/20 ML VIAL IVP ONE (10:37)
[2019-05-31] MEDS ORDERED: MIDAZOLAM 2 MG/2 ML VIAL IVP ONE (10:37)
[2019-05-31] MEDS ORDERED: LIDOCAINE-MPF 2% 5 ML VIAL IM ONE (10:37)
[2019-05-31] MEDS ORDERED: LACTATED RINGERS 1,000 ML IV ONE ×2 (13:23)
[2019-05-31 14:08] VITALS: BP 171/94
== END 2019-05-31 10:37 | disposition home or self-care (01) ==
LOC: SDS 10:36
PROVIDERS: ATTEND Surgery
PROC: 0DJD8ZZ Inspection of Lower Intestinal Tract, Via Natural or Artificial Opening Endoscopic (ICD-10-PCS; principal; 2019-05-31 12:30)
DX: R10.32 Left lower quadrant pain (principal); K57.30 Diverticulosis of large intestine without perforation or abscess without bleeding; I10 Essential (primary) hypertension; J45.909 Unspecified asthma, uncomplicated; G47.30 Sleep apnea, unspecified; F41.0 Panic disorder [episodic paroxysmal anxiety]; F31.9 Bipolar disorder, unspecified; Z87.440 Personal history of urinary (tract) infections
CPT/HCPCS: 45378; J7120

== ENCOUNTER 2019-06-15 10:53 | Outpatient (CLI) | payer MEDICARE, MEDICAID ==
--- NOTE | 2019-06-15 12:20 | Mammography Report ---
Reason: CYST OF RIGHT BREAST Procedure Date: 06/15/2019 Accession Number: [id number] / [id number] Procedure: CRISTOBAL - Diagnostic Dig RT CPT Code: FULL RESULT: EXAM: Diagnostic Dig RT DATE: 06/15/2019 11:57 AM CLINICAL HISTORY: Short interval follow-up for probably benign finding medial right breast. TECHNIQUE: (R) - Right CC and MLO views were obtained. Additional 90 degree ML 2-D/3-D. COMPARISON: 11/01/2018 through 01/02/2014 PARENCHYMAL PATTERN: (A) - The breasts demonstrate scattered fibroglandular densities bilaterally. FINDINGS: Right breast: There are no suspicious masses, calcifications, or areas of distortion. Previous finding of concern no longer visualized. Appearance of the breast has returned to baseline. IMPRESSION: Negative examination. BI-RADS category 1. RECOMMENDATION: (ANNUAL) - Recommend routine annual screening mammography. Next bilateral exam due in October 2019. BI-RADS CATEGORY: (1) - Negative. STANDARD QUALIFYING STATEMENTS: 1. This examination was not reviewed with the aid of Computer-Aided Detection (CAD). 2. A negative or benign imaging report should not preclude biopsy if clinically suspicious findings are present. 3. Dense breasts may obscure an underlying neoplasm. 4. This examination was reviewed with the aid of 3D breast imaging (tomosynthesis).
== END 2019-06-15 10:54 | disposition home or self-care (01) ==
LOC: DI 10:53
PROVIDERS: ATTEND Surgery
DX: N60.01 Solitary cyst of right breast (principal)

== ENCOUNTER 2019-09-12 17:22 | Outpatient (CLI) | payer MEDICARE, MEDICAID | END 2019-09-12 17:23 | disposition short-term general hospital (02) | LOC: EMS 17:22 | PROVIDERS: ATTEND Surgery | DX: R10.9 Unspecified abdominal pain (principal); R29.898 Other symptoms and signs involving the musculoskeletal system; W18.39XA Other fall on same level, initial encounter; Y92.009 Unspecified place in unspecified non-institutional (private) residence as the place of occurrence of the external cause | CPT/HCPCS: A0425; A0429 ==

== ENCOUNTER 2019-09-14 08:13 | Outpatient (CLI) | payer MEDICARE, MEDICAID ==
[2019-09-14 09:52] VITALS: BP 130/70
--- NOTE | 2019-09-14 09:52 | SLEEP CARE CONSULTATION ---
Information from patient questionnaire entered by Alysha Rangel. I have reviewed and concur with the information entered by Alysha Rangel. This document represents the service I personally performed and the decisions made by me, Neela Pacheco, RN, MSN, MANAGER PSYCHOLOGY. History of Present Illness Previous diagnosis: Mild, Obstructive Sleep Apnea-Hypopnea Syndrome AHI: 6.4 Reason for follow up: annual (last seen 2018) Accompanied by: caregiver Meri Hunt Equipment type: CPAP Equipment obtained from: [employer] Mask style: Full face (Air Fit) Mask brand: Resmed Backup mask available: Yes Last cushion change: unknown , washes daily HPI additional information: Patient has 3 surgeries planned. Left knee for repair of nerves for pain control. Possible repair of an umbilical hernia and is in discomfort and an umbilical belt has been prescribed. Seen by dentist who referred to oral surgery of right jaw. CPAP Compliance Data - Data Reviewed with Patient Average duration of nightly device use: 10 Compliance rate %: 93 (relaxes in bed with cat before sleeping ) Current pressure setting (cmH2O): 8-12 Humidity settin Average residual AHI: 3.0 (95th pressure 14.8) Average large leak: 5.9 liters per minute Subjective Patient concerns: reports: dry mouth, nose, throat, other (nasal bridge skin erythema no skin breakage). denies: aerophagia, mask discomfort, air blowing in eyes, mask leak noise, condensation in mask/hose, nasal congestion, epistaxis Observed to snore while using device: No Current pressure setting perceived as: comfortable On therapy, patient: reports: sleeping better, awakening more refreshed, being more awake and alert during the day, more rested overall. denies: drowsiness while driving (does not drive) Initial [place] Sleepiness Scale score: 4 Current [place] Sleepiness Scale score: 9 Allergies and Home Medications Known drug allergies: Yes (see list) Home medication list reviewed: Yes Allergy and home medication list: Calcium 500/D Tab two daily Fluoxetine HCL 20mg cap one daily Atorvastatin Calcium 20mg tab one daily at bedtime Oxybutynin Chloride ER 10mg tab one daily in the morning Lortadine 10mg tab one daily prn allergies Multivitamin Adult Tab one daily Gabapentin 300mg cap one at 2pm and 4 at bedtime Ziprasidone HCL 40mg cap one daily Propranolol HCL 10mg tab one twice daily Ellbutrin XL 300mg tab one daily Prazosin HCL 5mg cap one daily Breo Ellipta 200-25 mcg/inh powder Inhale one puff once daily Bupropion HCL XL 300mg daily Review of Systems Review of systems same as previous: No (see HPI) Physical Exam Blood Pressure: 130/70 Cuff size: long Heart Rate: 85 O2 Saturation: 95 Weight: 274 lb Impression and Plan 1. Obstructive Sleep Apnea-Hypopnea Syndrome, mild , with good treatment compliance and good apnea control. On CPAP therapy, the patient has better sleep quality and is more rested overall. She is here with her new caregiver Meri who is unfamiliar with CPAP equipment and its care. For oral dryness, I showed patient and her healthcare business analyst that her device she brought in was set at lowest setting of 1. I changed setting for patient to 4 and instructed how to change further. Web printed instructions given. For concerns about need for heated hose, this was ordered. It is unclear why this has not been sent. In addition to prevent her mask from leaking and from skin irritation to nasal bridge I ordered a new mask interface for her current mask, the Air touch. This has a memory foam which can be more gentle to the skin. She is also to change her mask cushion monthly to reduce further skin breakdown of skin from a worn mask cushion. The supply replacement schedule given to caregiver with instructions as well as other supplies. Until then she is to protect her nasal bridge with a bandaid when using CPAP until the area is completely healed. She has also gained weight since last seen. I counseled her how her weight gain can increase her apnea risks and CPAP pressure requirements. Currently her CPAP autorange is working to control her apnea but is at the highest range now. She is advised to attempt to lose weight. Symptoms to report for further pressure adjustment discussed. Patient agreed with plan. Patient's apnea severity and rationale for treatment to reduce apnea, improve sleep quality and reduce cardiovascular and cerebrovascular events was reviewed. I also reviewed the benefit of consistent device use of CPAP for hypertension, depression/anxiety * Continue CPAP pressure at 8-12 cmH2O * new mask cushion - Air Touch * Update CPAP supplies regularly * Adjust humidity as discussed. * Notify me if snoring with mask or feeling that the pressure is too much or too little * Attempt to lose weight * Return for follow up in 1 year , or sooner if concerns arise . I spent 100% of this 35 minute visit face to face with the patient with greater than 50% of this was spent time counseling the patient and coordination of care.
== END 2019-09-14 08:14 | disposition home or self-care (01) ==
LOC: SC 08:13
PROVIDERS: ATTEND Nurse Practitioner Family
DX: G47.33 Obstructive sleep apnea (adult) (pediatric) (principal)
CPT/HCPCS: 99214; G0463; 99212

== ENCOUNTER 2019-09-22 18:17 | Outpatient (CLI) | payer MEDICARE, MEDICAID | END 2019-09-22 18:18 | disposition critical access hospital (66) | LOC: EMS 18:17 | PROVIDERS: ATTEND Surgery | DX: R10.33 Periumbilical pain (principal) | CPT/HCPCS: A0425; A0429 ==

== ENCOUNTER 2019-09-22 18:37 | Emergency (ER) | payer MEDICARE, MEDICAID ==
[2019-09-22 18:47] VITALS: BP 195/75
--- NOTE | 2019-09-22 19:07 | ED Physician Documentation ---
History of Present Illness - Stated complaint Stated Complaint: ABD PAIN - Chief complaint Chief Complaint: Abd Pain - History obtained from History obtained from: Patient - History of Present Illness Pain level max: 6 Pain level now: 4 - Additonal information Additional information: 74-year-old female states that she has had abdominal pain for several months. She states that she is supposed to see a surgeon about her umbilical hernia. She states that she has not seen a surgeon for this. She states that it is hurting for the past several weeks. She denies any vomiting. No nausea. No diarrhea or constipation. Has not taken anything for this. Review of Systems Ten Systems: 10 systems reviewed and negative Constitutional: denies: Fever, Chills Ears: denies: Ear pain Nose: denies: Rhinorrhea / runny nose, Congestion Throat: denies: Sore throat Cardiac: denies: Chest pain / pressure Respiratory: denies: Cough GI: denies: Vomiting, Diarrhea, Hematemesis, Bloody / black stool : denies: Dysuria Skin: denies: Rash Musculoskeletal: denies: Neck pain, Back pain Neurologic: denies: Headache PD PAST MEDICAL HISTORY - Past Medical History Cardiovascular: Hypertension, High cholesterol, Deep vein thrombosis Respiratory: Shortness of breath, Sleep apnea, CPAP use Endocrine/Autoimmune: None GI: Other PRECISION DANCER: None : Chronic bladder infection HEENT: None Psych: Depression, Anxiety Musculoskeletal: Osteoarthritis Derm: None - Past Surgical History Past Surgical History: Yes General: Cholecystectomy, Appendectomy, Colonoscopy Ortho: Knee replacement HEENT: Tonsil/Adenoidectomy - Present Medications Home Medications: Ambulatory Orders Medication Instructions Recorded Confirmed Apixaban [Eliquis] 205 mg PO DAILY 06/19/17 06/19/17 Atorvastatin [Lipitor] 20 mg PO DAILY 06/19/17 05/30/19 Bupropion HCl [Bupropion HCl Sr] 300 mg PO DAILY 06/19/17 05/30/19 Fluoxetine HCl 20 mg PO DAILY 06/19/17 05/30/19 Gabapentin 100 mg PO DAILY 06/19/17 05/30/19 Gabapentin 400 mg PO DAILY PM 06/19/17 05/30/19 Lisinopril 10 mg PO DAILY 06/19/17 06/19/17 Oxybutynin Chloride [Ditropan Xl] 10 mg PO DAILY 06/19/17 05/30/19 Prazosin [Minipress] 5 mg PO DAILY PM 06/19/17 05/31/19 Propranolol [Inderal] 10 mg PO BID 06/19/17 05/30/19 Dicyclomine [Bentyl] 10 mg PO QID 05/30/19 05/30/19 Loratadine 10 mg PO DAILY 05/30/19 05/30/19 Meloxicam 7.5 mg PO BID 05/30/19 05/30/19 Montelukast Sodium 10 mg PO DAILY 05/30/19 05/30/19 - Allergies Allergies/Adverse Reactions: Allergies Allergy/AdvReac Type Severity Reaction Status Date / Time hydromorphone Allergy Intermediate Itching Verified 09/22/19 18:43 iodine Allergy Intermediate Hives Verified 09/22/19 18:43 acetaminophen [From Percocet] Allergy Unknown Verified 09/22/19 18:43 acyclovir Allergy Unknown Verified 09/22/19 18:43 amoxicillin Allergy Unknown Verified 09/22/19 18:43 doxycycline Allergy Unknown Verified 09/22/19 18:43 hydrocodone bitartrate * Allergy Unknown Verified 09/22/19 18:43 [From Vicodin] naproxen [From Naprosyn] Allergy Unknown Verified 09/22/19 18:43 NSAIDS (Non-Steroidal Allergy Unknown Verified 09/22/19 18:43 Anti-Inflamma oxycodone HCl * Allergy Itching Verified 09/22/19 18:43 [From Percocet] risperidone [From Risperdal] Allergy Unknown Verified 09/22/19 18:43 Tetanus Vaccines and Toxoid Allergy Hives Verified 09/22/19 18:43 [Tetanus Vaccines & Toxoid] adhesive tape AdvReac Intermediate Rash Verified 09/22/19 18:43 - Social History Does the pt smoke?: No Smoking Status: Never smoker Does the pt drink ETOH?: No Does the pt have substance abuse?: No - Immunizations Immunizations are current?: Yes - POLST Patient has POLST: No PD ED PE NORMAL - Vitals Vital signs reviewed: Yes - General General: Alert and 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, No acute distress, Other (Obese female) - HEENT HEENT: PERRL, Moist mucous membranes - Neck Neck: Supple, no meningeal sign - Cardiac Cardiac: RRR - Respiratory Respiratory: No respiratory distress, Clear bilaterally - Abdomen Abdomen: Soft, Non tender, Other (Small umbilical hernia, easily reducible. Rotund abdomen. Soft.) - Back Back: No CVA TTP, No spinal TTP - Derm Derm: Warm and dry - Extremities Extremities: No edema - Neuro Neuro: Alert and 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 - Psych Psych: Normal mood, Normal affect Results - Vitals Vitals: Vital Signs - 24 hr 09/22/19 18:40 Temperature 36.8 C Heart Rate 84 Respiratory 20 Rate Blood Pressure 195/75 H O2 Saturation 97 Oxygen O2 Source [Without Activity] Room air O2 Source Room air - Labs Labs: Laboratory Tests 09/22/19 09/22/19 09/22/19 19:08 19:08 19:25 WBC 9.8 RBC 4.18 L Hgb 12.4 Hct 38.5 MCV 92.1 MCH 29.7 MCHC 32.2 RDW 14.3 Plt Count 283 MPV 10.9 H Neut # (Auto) 5.8 Lymph # (Auto) 2.4 [place] # (Auto) 0.9 Eos # (Auto) 0.6 Baso # (Auto) 0.1 Absolute Nucleated RBC 0.00 Nucleated RBC % 0.0 Sodium 139 Potassium 3.6 Chloride 104 Carbon Dioxide 26 Anion Gap 9.0 BUN 13 Creatinine 1.0 Estimated GFR (MDRD) 55 L Glucose 153 H Calcium 9.2 Total Bilirubin 0.5 AST 24 ALT 27 Alkaline Phosphatase 94 Total Protein 7.2 Albumin 3.5 Globulin 3.7 Albumin/Globulin Ratio 0.9 L Lipase 24 Urine Color YELLOW Urine Clarity CLEAR Urine pH 7.0 Ur Specific [place] 1.010 Urine Protein NEGATIVE Urine Glucose (UA) NEGATIVE Urine Ketones NEGATIVE Urine Occult Blood NEGATIVE Urine Nitrite NEGATIVE Urine Bilirubin NEGATIVE Urine Urobilinogen 0.2 (NORMAL) Ur Leukocyte Esterase NEGATIVE Ur Microscopic Review NOT INDICATED Urine Culture Comments NOT INDICATED - Rads (name of study) CT abd/pelvis Radiology: Prelim report reviewed, EMP read contemporaneously, See rad report PD MEDICAL DECISION MAKING - ED course Complexity details: reviewed old records, reviewed results, re-evaluated patient, considered differential, d/w patient ED course: 74-year-old female with abdominal pain of unclear etiology. No acute laboratory findings or CT findings. She has a fat-containing, easily reducible umbilical hernia. No vomiting. No diarrhea. We will have her follow-up with her doctor for further care. Patient counseled regarding signs and symptoms for which I believe and urgent re-evaluation would be necessary. Patient with good unde rstanding of and agreement to plan and is comfortable going home at this time This document was made in part using voice recognition software. While efforts are made to proofread this document, sound alike and grammatical errors may occur. Departure - Departure Disposition: Home, Self Care Clinical Impression: Abdominal pain Condition: Good Instructions: ED Abdominal Pain Unkn Cause Follow-Up: Gosia Borges PA-C [Primary Care Provider] - Within 1 week Comments: Your laboratory testing and CT scan do not show any acute abnormalities tonight. Follow-up with your doctor for further care. Return if you worsen Discharge Date/Time: 09/22/19 20:39
[2019-09-22 19:16] LABS: BASOPHILS # (AUTO) 0.1 10^3/uL (0.0-0.1); BASOPHILS % (AUTO) 0.6 %; EOSINOPHILS # (AUTO) 0.6 10^3/uL (0.0-0.7); EOSINOPHILS % (AUTO) 5.7 %; HGB - HEMOGLOBIN 12.4 g/dL (12.0-16.0); LYMPHOCYTES # (AUTO) 2.4 10^3/uL (1.5-3.5); LYMPHOCYTES % (AUTO) 24.2 %; MEAN CORPUSCULAR HEMOGLOBIN 29.7 pg (27.0-31.0); MEAN CORPUSCULAR HGB CONC 32.2 g/dL (32.0-36.0); MEAN CORPUSCULAR VOLUME 92.1 fL (81.0-99.0); MEAN PLATELET VOLUME 10.9 fL (7.9-10.8); MONOCYTES # (AUTO) 0.9 10^3/uL (0.0-1.0); MONOCYTES % (AUTO) 9.4 %; NEUTROPHILS # (AUTO) 5.8 10^3/uL (1.5-6.6); NEUTROPHILS % (AUTO) 59.5 %; PLT - PLATELET COUNT 283 10^3/uL (130-450); RED BLOOD COUNT 4.18 10^6/uL (4.20-5.40); RED CELL DISTRIBUTION WIDTH 14.3 % (12.0-15.0); WHITE BLOOD COUNT 9.8 x10^3/uL (4.8-10.8)
[2019-09-22 19:29] LABS: ALBUMIN 3.5 g/dL (3.2-5.5); ALBUMIN/GLOBULIN RATIO 0.9 (1.0-2.2); BILIRUBIN,TOTAL 0.5 mg/dL (0.2-1.0); CALCIUM 9.2 mg/dL (8.5-10.3); TOTAL PROTEIN 7.2 g/dL (6.7-8.2)
[2019-09-22 19:40] LABS: BILIRUBIN,URINE NEGATIVE (NEGATIVE); GLUCOSE, URINE (UA) NEGATIVE (NEGATIVE); KETONES,URINE (UA) NEGATIVE (NEGATIVE); LEUKOCYTE ESTERASE, URINE NEGATIVE (NEGATIVE); NITRITE,URINE NEGATIVE (NEGATIVE); OCCULT BLOOD,URINE NEGATIVE (NEGATIVE); PROTEIN,URINE NEGATIVE (NEGATIVE); UROBILINOGEN,URINE 0.2 (NORMAL) E.U./dL (NORMAL)
[2019-09-22 19:41] LABS: CLARITY,URINE CLEAR (CLEAR)
--- NOTE | 2019-09-22 20:24 | CT Report ---
Reason: abd pain Procedure Date: 09/22/2019 Accession Number: [id number] / [id number] Procedure: CT - Abdomen/Pelvis WO CPT Code: Final Report FULL RESULT: EXAM: CT ABDOMEN AND PELVIS EXAM DATE: 09/22/2019 08:08 PM. CLINICAL HISTORY: Abd pain. COMPARISONS: ABDOMEN/PELVIS W/ 03/31/2019 4:07 PM. TECHNIQUE: Routine helical CT imaging was performed through the abdomen and pelvis. IV contrast: None. Enteric contrast: No. Reconstructions: Coronal and sagittal. In accordance with CT protocol optimization, one or more of the following dose reduction techniques were utilized for this exam: automated exposure control, adjustment of mA and/or KV based on patient size, or use of iterative reconstructive technique. FINDINGS: Lung Bases: Unremarkable. Liver: Normal. No masses. Gallbladder/Bile Ducts: Surgically absent. No ductal dilation. Spleen: Normal. Pancreas: Normal. Adrenal Glands: Normal. Kidneys: Nonobstructing left lower pole stone measuring about 4 x 5 mm. Otherwise unremarkable. No ureteral stone or hydronephrosis. Peritoneal Cavity/Bowel: Mild colonic diverticulosis. No free fluid, free air or adenopathy. No masses or acute inflammatory process. Unremarkable region of the appendix. Pelvic Organs: Normal. The bladder and visualized pelvic organs are within normal limits. Vasculature: No aneurysms or other significant abnormality. Bones: Prominent degenerative changes including prominent posterior osteophytes at L1-L2 and L2-L3. Other: Umbilical hernia measuring 5.1 x 3.6 x 3.6 cm with an opening measuring 2.4 cm, with fat involvement only, not significant changed. IMPRESSION: 1. No significant interval change of umbilical hernia. 2. Nonobstructing left renal stone. 3. Mild diverticulosis and other chronic or incidental findings. [facility]
== END 2019-09-22 20:39 | disposition home or self-care (01) ==
LOC: EDUNIT# → ED 18:37
DX: R10.9 Unspecified abdominal pain (principal); K42.9 Umbilical hernia without obstruction or gangrene; I10 Essential (primary) hypertension
CPT/HCPCS: 36415; 74176; 80053; 81001; 81003; 83690; 85025; 87086; 99284

== ENCOUNTER 2019-10-26 10:30 | Outpatient (CLI) | payer MEDICARE, MEDICAID ==
--- NOTE | 2019-10-26 12:33 | XRAY Report ---
Reason: LEFT KNEE PAIN Procedure Date: 10/26/2019 Accession Number: [id number] / [id number] Procedure: WCP - Knee 3 View LT CPT Code: Final Report FULL RESULT: EXAM: LEFT KNEE RADIOGRAPHY EXAM DATE: 10/26/2019 10:30 AM. CLINICAL HISTORY: Left knee pain. COMPARISON: KNEE 3 VIEW LT 05/09/2019 11:46 AM. TECHNIQUE: 3 views. FINDINGS: Bones: Normal. No fractures or bone lesions. Joints: The patient is status post tricompartmental knee arthroplasty without evidence of hardware failure. A joint effusion is again seen, similar appearance to prior. A 0.6 cm relatively well rounded calcific/osseous fragment projecting over the joint space on the lateral view may potentially have been present on the previous examination, potential loose body. Soft Tissues: There is partial ossification of the quadriceps tendon, essentially unchanged from prior. IMPRESSION: Arthroplasty with degenerative changes including joint effusion and potential loose body without evidence of acute hardware failure or fracture/dislocation. [facility]
== END 2019-10-26 23:59 ==
LOC: DI.WCP 10:30
PROVIDERS: ATTEND Family Medicine
DX: M25.462 Effusion, left knee (principal); Z96.652 Presence of left artificial knee joint

== ENCOUNTER 2019-10-31 11:04 | Outpatient (CLI) | payer MEDICARE, MEDICAID | END 2019-10-31 11:05 | disposition home or self-care (01) | LOC: DI 11:04 | PROVIDERS: ATTEND Physician Assistant | DX: R06.09 Other forms of dyspnea (principal); I51.7 Cardiomegaly; I27.20 Pulmonary hypertension, unspecified | CPT/HCPCS: 93306 ==

== ENCOUNTER 2019-10-31 11:04 | Outpatient (CLI) | payer MEDICARE, MEDICAID ==
--- NOTE | 2019-11-02 09:29 | Mammography Report ---
Reason: ROUTINE MAMMO Procedure Date: 10/31/2019 Accession Number: [id number] / [id number] Procedure: [facility] - Screening Mammo w/[place] CPT Code: Final Report FULL RESULT: EXAM: Screening Mammo w/[place] DATE: 10/31/2019 11:42 AM CLINICAL HISTORY: The patient is an asymptomatic 74-year-old female. Family history (sister) with breast cancer. TECHNIQUE: (B) - Bilateral CC and MLO views were obtained. COMPARISON: 06/15/2019, 11/01/2018, 09/30/2017, 09/13/2016, 01/02/2014, 07/25/2012 PARENCHYMAL PATTERN: (A) - The breasts demonstrate scattered fibroglandular densities bilaterally. FINDINGS: RIGHT BREAST: The pattern of asymmetry is stable. Few benign calcifications noted. There are no suspicious masses, calcifications, or areas of distortion. LEFT BREAST: Evaluation limited by positioning and motion artifact - MLO view. Recommend technical repeat. IMPRESSION: RIGHT BREAST: Benign examination. BI-RADS category 2. LEFT BREAST: Incomplete examination. BI-RADS category 0. RECOMMENDATION: (REPEAT) - ;eft breast MLO view. BI-RADS CATEGORY: (0) - Incomplete Examination - need additional evaluation. STANDARD QUALIFYING STATEMENTS: A negative or benign imaging report should not preclude biopsy if clinically suspicious findings are present. Dense breasts may obscure an underlying neoplasm. This examination was reviewed with the aid of 3D breast imaging (tomosynthesis).
== END 2019-10-31 11:05 | disposition home or self-care (01) ==
LOC: DI 11:04
DX: Z12.31 Encounter for screening mammogram for malignant neoplasm of breast (principal); Z80.3 Family history of malignant neoplasm of breast
CPT/HCPCS: 77063; 77067

== ENCOUNTER 2019-12-16 17:14 | Outpatient (CLI) | payer MEDICARE, MEDICAID | END 2019-12-16 17:15 | disposition EMS.NT | LOC: EMS 17:14 | PROVIDERS: ATTEND Surgery | DX: R53.1 Weakness (principal) ==

== ENCOUNTER 2020-01-04 11:10 | Outpatient (CLI) | payer MEDICARE, MEDICAID ==
--- NOTE | 2020-01-04 13:02 | Mammography Report ---
Reason: TECH REPEAT - ROUTINE MAMMO Procedure Date: 01/04/2020 Accession Number: [id number] / [id number] Procedure: [facility] - Screening Mammo w/[place] CPT Code: Final Report FULL RESULT: EXAM: Screening Mammo w/[place], No Charge Procedure DATE: 01/04/2020 11:42 AM CLINICAL HISTORY: The patient is an asymptomatic 74-year-old female. Family history (sister) with breast cancer. TECHNIQUE: (B) - Bilateral CC and MLO views were obtained. Images obtained 01/04/2020 are interpreted in conjunction with images obtained at 10/31/2019, technical repeat imaging of the left MLO view was performed. COMPARISON: 06/15/2019, 11/01/2018, 09/30/2017, 09/13/2016, 01/02/2014, 07/25/2012 PARENCHYMAL PATTERN: (A) - The breasts demonstrate scattered fibroglandular densities bilaterally. FINDINGS: RIGHT BREAST: The pattern of asymmetry is stable. Few benign calcifications noted. There are no suspicious masses, calcifications, or areas of distortion. LEFT BREAST: Typically benign coarse and vascular calcifications are redemonstrated. There are no suspicious masses, calcifications or architectural distortions. IMPRESSION: RIGHT BREAST: Benign examination. BI-RADS category 2. LEFT BREAST: Benign findings. BI-RADS category 2. RECOMMENDATION: (ANNUAL) - Recommend routine annual screening mammography. BI-RADS CATEGORY: (2) - Benign Findings. STANDARD QUALIFYING STATEMENTS: A negative or benign imaging report should not preclude biopsy if clinically suspicious findings are present. Dense breasts may obscure an underlying neoplasm. This examination was reviewed with the aid of 3D breast imaging (tomosynthesis).
--- NOTE | 2020-01-04 13:02 | Mammography Report ---
Reason: TECH REPEAT - NO CHARGE - ROUTINE MAMMO Procedure Date: 01/04/2020 Accession Number: [id number] / [id number] Procedure: MGN - No Charge Procedure CPT Code: Final Report FULL RESULT: EXAM: Screening Mammo w/[place], No Charge Procedure DATE: 01/04/2020 11:42 AM CLINICAL HISTORY: The patient is an asymptomatic 74-year-old female. Family history (sister) with breast cancer. TECHNIQUE: (B) - Bilateral CC and MLO views were obtained. Images obtained 01/04/2020 are interpreted in conjunction with images obtained at 10/31/2019, technical repeat imaging of the left MLO view was performed. COMPARISON: 06/15/2019, 11/01/2018, 09/30/2017, 09/13/2016, 01/02/2014, 07/25/2012 PARENCHYMAL PATTERN: (A) - The breasts demonstrate scattered fibroglandular densities bilaterally. FINDINGS: RIGHT BREAST: The pattern of asymmetry is stable. Few benign calcifications noted. There are no suspicious masses, calcifications, or areas of distortion. LEFT BREAST: Typically benign coarse and vascular calcifications are redemonstrated. There are no suspicious masses, calcifications or architectural distortions. IMPRESSION: RIGHT BREAST: Benign examination. BI-RADS category 2. LEFT BREAST: Benign findings. BI-RADS category 2. RECOMMENDATION: (ANNUAL) - Recommend routine annual screening mammography. BI-RADS CATEGORY: (2) - Benign Findings. STANDARD QUALIFYING STATEMENTS: A negative or benign imaging report should not preclude biopsy if clinically suspicious findings are present. Dense breasts may obscure an underlying neoplasm. This examination was reviewed with the aid of 3D breast imaging (tomosynthesis).
== END 2020-01-04 11:11 | disposition home or self-care (01) ==
LOC: DI.N 11:10
DX: Z12.31 Encounter for screening mammogram for malignant neoplasm of breast (principal)
CPT/HCPCS: 77063; 77067

== ENCOUNTER 2020-02-10 07:15 | Outpatient (CLI) | payer MEDICARE, MEDICAID | END 2020-02-10 07:16 | disposition EMS.NT | LOC: EMS 07:15 | PROVIDERS: ATTEND Surgery | DX: M25.561 Pain in right knee (principal); W08.XXXA Fall from other furniture, initial encounter; Y92.039 Unspecified place in apartment as the place of occurrence of the external cause ==

== ENCOUNTER 2020-03-15 09:41 | Outpatient (CLI) | payer MEDICARE, MEDICAID ==
[2020-03-15 14:28] LABS: ALBUMIN 3.7 g/dL (3.2-5.5); ALKALINE PHOSPHATASE 102 IU/L (42-121); ALT ALANINE AMINOTRANSFERASE 21 IU/L (10-60); AST ASPARTATE AMINOTRANSFERASE 22 IU/L (10-42); BILIRUBIN,TOTAL 0.6 mg/dL (0.2-1.0); BUN - BLOOD UREA NITROGEN 9 mg/dL (6-20); CARBON DIOXIDE - CO2 27 mmol/L (21-32); CHLORIDE 105 mmol/L (101-111); CHOL/HDL RATIO 3.6 (<4.4); CHOLESTEROL 137 mg/dL; CREATININE 0.9 mg/dL (0.4-1.0); GLUCOSE 156 mg/dL (70-100); HDL CHOLESTEROL 38 mg/dL; LDL CHOLESTEROL,CALCULATED 64 mg/dL; LDL/HDL RATIO 1.7 (<4.4); SODIUM 140 mmol/L (135-145); TOTAL PROTEIN 7.4 g/dL (6.7-8.2); VLDL CHOLESTEROL 35 mg/dL
== END 2020-03-15 23:59 | disposition home or self-care (01) ==
LOC: LAB.WCP 09:41
PROVIDERS: ATTEND Physician Assistant Medical
DX: E78.5 Hyperlipidemia, unspecified (principal)
CPT/HCPCS: 36415; 80053; 80061; 83721

== ENCOUNTER 2020-03-28 11:09 | Outpatient (CLI) | payer MEDICARE, MEDICAID ==
[2020-03-28 19:04] LABS: HB2 TOTAL 13.8 g/dL; HEMOGLOBIN A1C 0.77 g/dL; HEMOGLOBIN A1C % 7.3 % (4.6-6.2)
== END 2020-03-28 23:59 | disposition home or self-care (01) ==
LOC: LAB.WCP 11:09
PROVIDERS: ATTEND Physician Assistant Medical
DX: R73.9 Hyperglycemia, unspecified (principal)
CPT/HCPCS: 36415; 83036

== ENCOUNTER 2020-06-06 13:21 | Outpatient (CLI) | payer MEDICARE, MEDICAID ==
[2020-06-06 18:26] LABS: BASOPHILS # (AUTO) 0.1 10^3/uL (0.0-0.1); BASOPHILS % (AUTO) 0.6 %; EOSINOPHILS # (AUTO) 0.6 10^3/uL (0.0-0.7); EOSINOPHILS % (AUTO) 5.5 %; HGB - HEMOGLOBIN 12.6 g/dL (12.0-16.0); LYMPHOCYTES # (AUTO) 2.4 10^3/uL (1.5-3.5); LYMPHOCYTES % (AUTO) 22.5 %; MEAN CORPUSCULAR HEMOGLOBIN 29.3 pg (27.0-31.0); MEAN CORPUSCULAR HGB CONC 31.4 g/dL (32.0-36.0); MEAN CORPUSCULAR VOLUME 93.3 fL (81.0-99.0); MEAN PLATELET VOLUME 11.7 fL (7.9-10.8); MONOCYTES # (AUTO) 0.9 10^3/uL (0.0-1.0); MONOCYTES % (AUTO) 8.5 %; NEUTROPHILS # (AUTO) 6.6 10^3/uL (1.5-6.6); NEUTROPHILS % (AUTO) 62.3 %; PLT - PLATELET COUNT 311 10^3/uL (130-450); RED CELL DISTRIBUTION WIDTH 14.5 % (12.0-15.0); WHITE BLOOD COUNT 10.5 x10^3/uL (4.8-10.8)
[2020-06-06 19:00] LABS: ALBUMIN/GLOBULIN RATIO 1.1 (1.0-2.2); ALKALINE PHOSPHATASE 95 IU/L (42-121); ALT ALANINE AMINOTRANSFERASE 19 IU/L (10-60); AST ASPARTATE AMINOTRANSFERASE 19 IU/L (10-42); BILIRUBIN,TOTAL 0.4 mg/dL (0.2-1.0); BUN - BLOOD UREA NITROGEN 16 mg/dL (6-20); CALCIUM 9.1 mg/dL (8.5-10.3); CARBON DIOXIDE - CO2 25 mmol/L (21-32); CHLORIDE 105 mmol/L (101-111); CHOL/HDL RATIO 3.4 (<4.4); CHOLESTEROL 130 mg/dL; GLUCOSE 95 mg/dL (70-100); HDL CHOLESTEROL 38 mg/dL; LDL CHOLESTEROL,CALCULATED 64 mg/dL; LDL/HDL RATIO 1.7 (<4.4); SODIUM 139 mmol/L (135-145); TOTAL PROTEIN 7.5 g/dL (6.7-8.2); VLDL CHOLESTEROL 28 mg/dL
[2020-06-06 19:01] LABS: CREATININE,URINE 351.5 mg/dL; MICROALBUM/CREATININE RATIO,UR 5.1 ug/mg (<30.0); MICROALBUMIN,URINE 1.8 mg/dL (0-300.0)
[2020-06-06 19:25] LABS: HEMOGLOBIN A1C 0.67 g/dL; HEMOGLOBIN A1C % 6.9 % (4.6-6.2)
== END 2020-06-06 23:59 | disposition home or self-care (01) ==
LOC: LAB.WCP 13:21
PROVIDERS: ATTEND Family Medicine
DX: E11.9 Type 2 diabetes mellitus without complications (principal)
CPT/HCPCS: 36415; 80053; 80061; 82043; 82570; 83036; 83721; 85025

== ENCOUNTER 2020-06-27 12:53 | Outpatient (CLI) | payer MEDICARE, MEDICAID ==
--- NOTE | 2020-06-27 13:21 | SLEEP CARE CONSULTATION ---
Information from patient questionnaire entered by Alysha Rangel. I have reviewed and concur with the information entered by Alysha Rangel. This document represents the service I personally performed and the decisions made by , Shawna Rosario ARNP. History of Present Illness Service Date and Time: 06/27/2020 1253 Previous diagnosis: Mild, Obstructive Sleep Apnea-Hypopnea Syndrome AHI: 6.4 (in 2010) Reason for follow up: other (9 month) Equipment type: CPAP Equipment obtained from: [employer] (getting supplies as needed) Mask style: Full face Mask brand: Resmed Backup mask available: Yes (old mask) Last cushion change: 1 week ago Prior sleep studies: Yes Year and Where: 2010 - [facility] Type of Sleep Study: Polysomnography HPI additional information: NAHEED RAMIREZ was diagnosed to have mild, AHI 6.4, obstructive sleep apnea-hypopnea syndrome and returned today for CPAP therapy nine month follow- up. She states she was told it was time to update her machine since it has been 5 years. CPAP Compliance Data - Data Reviewed with Patient Average duration of nightly device use: 10 Compliance rate %: 99 (180 days) Current pressure setting (cmH2O): 8-15 Average residual AHI: 2.0 Central apnea: 0.2 Obstructive apnea: 0.3 Average large leak: 17.7 Subjective Patient concerns: denies: aerophagia, mask discomfort, air blowing in eyes, mask leak noise, condensation in mask/hose, nasal congestion, dry mouth, nose, throat, epistaxis, other Observed to snore while using device: No Current pressure setting perceived as: comfortable On therapy, patient: reports: sleeping better, awakening more refreshed, being more awake and alert during the day, more rested overall, other (does not drive). denies: drowsiness while driving Initial [place] Sleepiness Scale score: 4 (in 2010) Current [place] Sleepiness Scale score: 7 Allergies and Home Medications Drug allergies reviewed: Yes (see list) Home medication list reviewed: Yes (no changes) Review of Systems Review of systems same as previous: Yes (no changes) Physical Exam Heart Rate: 70 O2 Saturation: 97 Height: 5 ft 6 in Weight: 265 lb Body Mass Index: 42.7 BMI Classification: Morbidly Obese Impression and Plan 1. Obstructive Sleep Apnea-Hypopnea Syndrome, mild, with good treatment compliance and good apnea control. On CPAP therapy, the patient has better sleep quality and is more rested overall. The patients CPAP is over 5 years old and of reasonable use. Thus, the CPAP will be updated. A DWO prescription will be made. Compliance guidelines for new device and follow up discussed. Patient's apnea severity and rationale for treatment to reduce apnea, improve sleep quality and reduce cardiovascular and cerebrovascular events was reviewed. I also reviewed the benefit of consistent device use of CPAP for her hypertension and depression/anxiety. * Continue auto CPAP pressure at 8-15 cmH2O * Update CPAP machine * Notify me if snoring with mask or feeling that the pressure is too much or too little * Attempt to lose weight * Call this office if any problems using CPAP * Return for follow up in 1 month after getting new machine, or sooner if concerns arise Visit Type: In Office Time Spent with Patient (minutes): 17 Provider Statement: I spent 100% of the Face to Face Visit with the patient with greater than 50% spent counseling the patient and coordination of care.
== END 2020-06-27 12:54 | disposition home or self-care (01) ==
LOC: SC 12:53
PROVIDERS: ATTEND Nurse Practitioner Family
DX: G47.33 Obstructive sleep apnea (adult) (pediatric) (principal); E66.01 Morbid (severe) obesity due to excess calories; Z68.41 Body mass index [BMI] 40.0-44.9, adult
CPT/HCPCS: 99213; G0463; 99212

== ENCOUNTER 2020-08-08 12:41 | Outpatient (CLI) | payer MEDICARE, MEDICAID ==
--- NOTE | 2020-08-08 13:10 | SLEEP CARE CONSULTATION ---
Information from patient questionnaire entered by Alysha Rangel. I have reviewed and concur with the information entered by Alysha Rangel. This document represents the service I personally performed and the decisions made by , Shawna Rosario ARNP. History of Present Illness Service Date and Time: 08/08/2020 1241 Previous diagnosis: Mild, Obstructive Sleep Apnea-Hypopnea Syndrome AHI: 6.4 (in 2010) Reason for follow up: first compliance after device update Equipment type: CPAP Equipment obtained from: [employer] (getting supplies as needed) Mask style: Full face Backup mask available: Yes Last cushion change: 1 month Prior sleep studies: Yes Year and Where: 2010 - [facility] HPI additional information: NAHEED RAMIREZ was diagnosed to have mild, AHI 6.4, obstructive sleep apnea-hypopnea syndrome and returned today for CPAP therapy first compliance follow-up. Sleep Study - Results Prior sleep studies: Yes Year and Where: 2010 - [facility] CPAP Compliance Data - Data Reviewed with Patient Average duration of nightly device use: 10.55 Compliance rate %: 100 Current pressure setting (cmH2O): 8-15 Humidity settin Average residual AHI: 3.5 Central apnea: 0.6 Obstructive apnea: 1.6 On Oxygen: Yes Subjective Patient concerns: denies: aerophagia, mask discomfort, air blowing in eyes, mask leak noise, condensation in mask/hose, nasal congestion, dry mouth, nose, throat, epistaxis, other Observed to snore while using device: No Current pressure setting perceived as: comfortable On therapy, patient: reports: sleeping better, awakening more refreshed, being more awake and alert during the day, more rested overall. denies: drowsiness while driving Initial [place] Sleepiness Scale score: 4 (in 2010) Current [place] Sleepiness Scale score: 6 Allergies and Home Medications Drug allergies reviewed: Yes (no changes) Home medication list reviewed: Yes (no changes) Review of Systems Review of systems same as previous: No (possible surgery for an umbilical hernia) Physical Exam Heart Rate: 72 O2 Saturation: 98 Height: 5 ft 6 in Weight: 261 lb Body Mass Index: 42.1 BMI Classification: Morbidly Obese Impression and Plan 1. Obstructive Sleep Apnea-Hypopnea Syndrome, mild, with great treatment compliance and good apnea control. On CPAP therapy, the patient has better sleep quality and is more rested overall. She may have surgery for an umbilical hernia if her blood tests are good. She was instructed to take her CPAP machine to use post surgery/during recovery as there may not be one available for her to use. She voiced understanding. Patient's apnea severity and rationale for treatment to reduce apnea, improve sleep quality and reduce cardiovascular and cerebrovascular events was reviewed. I also reviewed the benefit of consistent device use of CPAP for hypertension and depression/anxiety. * Continue auto CPAP pressure at 8-15 cmH2O * Notify me if snoring with mask or feeling that the pressure is too much or too little * Attempt to lose weight * Call this office if any problems using CPAP * Return for follow up in 1 year, or sooner if concerns arise Counseling Topics: Spare mask, Weight loss health impact Visit Type: In Office Time Spent with Patient (minutes): 16 Provider Statement: I spent 100% of the Face to Face Visit with the patient with greater than 50% spent counseling the patient and coordination of care.
== END 2020-08-08 12:42 | disposition home or self-care (01) ==
LOC: SC 12:41
PROVIDERS: ATTEND Nurse Practitioner Family
DX: G47.33 Obstructive sleep apnea (adult) (pediatric) (principal); E66.01 Morbid (severe) obesity due to excess calories; Z68.41 Body mass index [BMI] 40.0-44.9, adult
CPT/HCPCS: 99213; G0463; 99212

== ENCOUNTER 2020-10-05 13:12 | Outpatient (CLI) | payer MEDICARE, MEDICAID | END 2020-10-05 13:13 | disposition critical access hospital (66) | LOC: EMS 13:12 | PROVIDERS: ATTEND Surgery | DX: M25.551 Pain in right hip (principal) | CPT/HCPCS: A0425; A0429 ==

== ENCOUNTER 2020-10-05 13:36 | Emergency (ER) | payer MEDICARE, MEDICAID ==
--- NOTE | 2020-10-05 14:14 | ED Physician Documentation ---
History of Present Illness - Stated complaint Stated Complaint: LEG INFECTION - Chief complaint Chief Complaint: Wound - History obtained from History obtained from: Patient - History of Present Illness Pain level max: 5 Pain level now: 3 - Additonal information Additional information: 75-year-old female states that she has had swelling behind her right knee for "some time". She states that it is been worsening recently and causing her pain. Also has pain now radiating up into her right hip. Worse with movement, better with rest. No drainage. No redness. Review of Systems Constitutional: denies: Fever, Chills Cardiac: denies: Chest pain / pressure Respiratory: denies: Cough GI: denies: Abdominal Pain, Nausea, Vomiting, Diarrhea : denies: Dysuria Skin: denies: Rash Musculoskeletal: denies: Neck pain, Back pain Neurologic: denies: Headache PD PAST MEDICAL HISTORY - Past Medical History Cardiovascular: Hypertension, High cholesterol, Deep vein thrombosis Respiratory: Shortness of breath, Sleep apnea, CPAP use Neuro: None Endocrine/Autoimmune: None GI: Other BUSINESS OFFICE COORDINATOR: None : Chronic bladder infection HEENT: None Psych: Depression, Anxiety Musculoskeletal: Osteoarthritis Derm: None - Past Surgical History Past Surgical History: Yes General: Cholecystectomy, Appendectomy, Colonoscopy Ortho: Knee replacement HEENT: Tonsil/Adenoidectomy - Present Medications Home Medications: Ambulatory Orders Medication Instructions Recorded Confirmed Atorvastatin [Lipitor] 20 mg PO DAILY 06/19/17 05/30/19 Fluoxetine HCl 20 mg PO DAILY 06/19/17 05/30/19 Gabapentin 100 mg PO DAILY 06/19/17 05/30/19 Oxybutynin Chloride [Ditropan Xl] 10 mg PO DAILY 06/19/17 05/30/19 Prazosin [Minipress] 5 mg PO DAILY PM 06/19/17 05/31/19 Propranolol [Inderal] 10 mg PO BID 06/19/17 05/30/19 buPROPion HCL [Bupropion HCl Sr] 300 mg PO DAILY 06/19/17 05/30/19 Dicyclomine [Bentyl] 10 mg PO QID 05/30/19 05/30/19 Loratadine 10 mg PO DAILY 05/30/19 05/30/19 Meloxicam 7.5 mg PO BID 05/30/19 05/30/19 Montelukast Sodium 10 mg PO DAILY 05/30/19 05/30/19 - Allergies Allergies/Adverse Reactions: Allergies Allergy/AdvReac Type Severity Reaction Status Date / Time hydromorphone Allergy Intermediate Itching Verified 10/05/20 14:06 iodine Allergy Intermediate Hives Verified 10/05/20 14:06 acetaminophen [From Percocet] Allergy Unknown Verified 10/05/20 14:06 acyclovir Allergy Unknown Verified 10/05/20 14:06 amoxicillin Allergy Unknown Verified 10/05/20 14:06 doxycycline Allergy Unknown Verified 10/05/20 14:06 hydrocodone bitartrate * Allergy Unknown Verified 10/05/20 14:06 [From Vicodin] naproxen [From Naprosyn] Allergy Unknown Verified 10/05/20 14:06 NSAIDS (Non-Steroidal Allergy Unknown Verified 10/05/20 14:06 Anti-Inflamma oxycodone HCl * Allergy Itching Verified 10/05/20 14:06 [From Percocet] risperidone [From Risperdal] Allergy Unknown Verified 10/05/20 14:06 Tetanus Vaccines and Toxoid Allergy Hives Verified 10/05/20 14:06 [Tetanus Vaccines & Toxoid] adhesive tape AdvReac Intermediate Rash Verified 10/05/20 14:06 - Social History Does the pt smoke?: No Smoking Status: Never smoker Does the pt drink ETOH?: No Does the pt have substance abuse?: No - Immunizations Immunizations are current?: Yes - POLST Patient has POLST: No PD ED PE NORMAL - Vitals Vital signs reviewed: Yes - General General: Alert and 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, No acute distress - HEENT HEENT: Moist mucous membranes - Neck Neck: Supple, no meningeal sign - Cardiac Cardiac: RRR - Respiratory Respiratory: No respiratory distress, Clear bilaterally - Derm Derm: Warm and dry - Extremities Extremities: No deformity, Normal ROM s pain, No edema, Other (Mild swelling to the posterior aspect of the right knee. No redness, no drainage. Mild tenderness. Otherwise normal examination of the right lower extremity including hip, knee and ankle.) - Neuro Neuro: Alert and 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 Results - Vitals Vitals: Vital Signs - 24 hr 10/05/20 10/05/20 13:45 15:34 Temperature 37.4 C 36.7 C Heart Rate 77 66 Respiratory 22 18 Rate Blood Pressure 203/107 H 197/82 H O2 Saturation 98 97 Oxygen O2 Source [] Room air O2 Source Room air - Rads (name of study) Duplex ultrasound right lower extremity Radiology: Prelim report reviewed, EMP read contemporaneously, See rad report (No DVT. No acute abnormality) PD MEDICAL DECISION MAKING - ED course Complexity details: reviewed results, re-evaluated patient, considered luzma aguilar, d/w patient ED course: No acute abnormality on ultrasound. Unclear etiology of her symptoms. Ambulating without difficulty. We will have her follow-up with her doctor for further care. No evidence of infection. No evidence of fracture. No bony tenderness. Patient counseled regarding signs and symptoms for which I believe and urgent re-evaluation would be necessary. Patient with good understanding of and agreement to plan and is comfortable going home at this time This document was made in part using voice recognition software. While efforts are made to proofread this document, sound alike and grammatical errors may occur. Departure - Departure Disposition: 01 Home, Self Care Clinical Impression: Leg pain Qualifiers: Laterality: right Qualified Code(s): M79.604 - Pain in right leg Condition: Good Instructions: ED Acute Pain [facility] Follow-Up: Gosia Borges PA-C [Primary Care Provider] - Within 1 week Comments: The cause of your leg pain is unclear. There is no DVT in your leg. A Rodriguez's cyst is not visible on your ultrasound. There is no sign of infection. You should follow up with your doctor for further care. Discharge Date/Time: 10/05/20 15:44
[2020-10-05 15:35] VITALS: BP 197/82
--- NOTE | 2020-10-05 15:51 | Ultrasound Report ---
PROCEDURE: Duplex Ext Veins Right INDICATIONS: R LE pain, swelling, TECHNIQUE: Real-time imaging, as well as color and pulse Doppler interrogation, were performed of the lower extr emity deep veins from the inguinal ligament to the popliteal fossa. COMPARISON: None. FINDINGS: The deep veins are normally compressible, and free of intraluminal thrombus. Color and pu lse Doppler demonstrate normal phasic intraluminal flow. There is normal augmentation response to di stal compression maneuver. Right posterior tibial and peroneal veins are patent. IMPRESSION: No DVT in the right lower extremity. Reviewed by: Joe Lucero MD on 10/05/2020 2:50 PM [facility] Approved by: Joe Lucero MD on 10/05/2020 2:50 PM [facility] Station ID: [id number]
== END 2020-10-05 15:44 | disposition home or self-care (01) ==
LOC: EDUNIT# → ED 13:36
DX: M79.604 Pain in right leg (principal); M25.551 Pain in right hip; Z86.718 Personal history of other venous thrombosis and embolism; I10 Essential (primary) hypertension
CPT/HCPCS: 99284

== ENCOUNTER 2020-10-11 11:44 | Outpatient (CLI) | payer MEDICARE, MEDICAID | END 2020-10-11 11:45 | disposition critical access hospital (66) | LOC: EMS 11:44 | PROVIDERS: ATTEND Surgery | DX: M79.661 Pain in right lower leg (principal) | CPT/HCPCS: A0425; A0429 ==

== ENCOUNTER 2020-10-11 12:05 | Emergency (ER) | payer MEDICARE, MEDICAID ==
--- NOTE | 2020-10-11 12:25 | ED Physician Documentation ---
PD HPI LOWER EXT INJURY - Stated complaint Stated Complaint: R LEG PX - Chief complaint Chief Complaint: Ext Problem - History obtained from History obtained from: Patient - Additional information Additional information: 75-year-old woman comes in for right leg pain, she is a vague historian and cannot really put a finger on how long its been going on. She was here 6 days ago and had an ultrasound done, no DVT. She went to the urgent care yesterday and it is unclear what the outcome of that visit was. She says they gave me a piece of paper and told me they would call me. Not sure who would call who about what. She has a bruise on the leg but does not remember injury. Review of Systems Constitutional: reports: Reviewed and negative Eyes: reports: Reviewed and negative Ears: reports: Reviewed and negative Nose: reports: Reviewed and negative PD PAST MEDICAL HISTORY - Past Medical History Cardiovascular: Hypertension, High cholesterol, Deep vein thrombosis Respiratory: Shortness of breath, Sleep apnea, CPAP use Neuro: None Endocrine/Autoimmune: None GI: Other VB NET DEVELOPER: None : Chronic bladder infection HEENT: None Psych: Depression, Anxiety Musculoskeletal: Osteoarthritis Derm: None - Past Surgical History Past Surgical History: Yes General: Cholecystectomy, Appendectomy, Colonoscopy Ortho: Knee replacement HEENT: Tonsil/Adenoidectomy - Present Medications Home Medications: Ambulatory Orders Medication Instructions Recorded Confirmed Atorvastatin [Lipitor] 20 mg PO DAILY 06/19/17 10/11/20 Fluoxetine HCl 20 mg PO DAILY 06/19/17 10/11/20 Gabapentin 100 mg PO DAILY 06/19/17 10/11/20 Oxybutynin Chloride [Ditropan Xl] 10 mg PO DAILY 06/19/17 05/30/19 Prazosin [Minipress] 5 mg PO DAILY PM 06/19/17 10/11/20 Propranolol [Inderal] 10 mg PO BID 06/19/17 10/11/20 buPROPion HCL [Bupropion HCl Sr] 300 mg PO DAILY 06/19/17 10/11/20 Dicyclomine [Bentyl] 10 mg PO QID 05/30/19 10/11/20 Meloxicam 7.5 mg PO BID 05/30/19 10/11/20 Montelukast Sodium 10 mg PO DAILY 05/30/19 10/11/20 Lidocaine Patch 5% [Lidoderm Patch] 1 patch TOP DAILY PRN #10 patch 10/11/20 Ondansetron [Zuplenz] 4 mg PO PRN PRN 10/11/20 10/11/20 - Allergies Allergies/Adverse Reactions: Allergies Allergy/AdvReac Type Severity Reaction Status Date / Time hydromorphone Allergy Intermediate Itching Verified 10/11/20 12:20 iodine Allergy Intermediate Hives Verified 10/11/20 12:20 acetaminophen [From Percocet] Allergy Unknown Verified 10/11/20 12:20 acyclovir Allergy Unknown Verified 10/11/20 12:20 amoxicillin Allergy Unknown Verified 10/11/20 12:20 doxycycline Allergy Unknown Verified 10/11/20 12:20 hydrocodone bitartrate * Allergy Unknown Verified 10/11/20 12:20 [From Vicodin] naproxen [From Naprosyn] Allergy Unknown Verified 10/11/20 12:20 NSAIDS (Non-Steroidal Allergy Unknown Verified 10/11/20 12:20 Anti-Inflamma oxycodone HCl * Allergy Itching Verified 10/11/20 12:20 [From Percocet] risperidone [From Risperdal] Allergy Unknown Verified 10/05/20 14:06 Tetanus Vaccines and Toxoid Allergy Hives Verified 10/05/20 14:06 [Tetanus Vaccines & Toxoid] adhesive tape AdvReac Intermediate Rash Verified 10/05/20 14:06 - Social History Does the pt smoke?: No Smoking Status: Never smoker Does the pt drink ETOH?: No Does the pt have substance abuse?: No - Immunizations Immunizations are current?: Yes - POLST Patient has POLST: No PD ED PE NORMAL - Vitals Vital signs reviewed: Yes - General General: Alert and 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, No acute distress - HEENT HEENT: PERRL, EOMI - Neck Neck: Supple, no meningeal sign, No bony TTP - Extremities Extremities: Other (There is a spotty area of ecchymosis with several quarter- sized bruises to the posterior lateral right calf. Mild tenderness there. No obvious asymmetry or limited range of motion of any joints. No evidence of infection.) - Neuro Neuro: Alert and 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 Results - Vitals Vitals: Vital Signs - 24 hr 10/11/20 10/11/20 12:07 12:11 Temperature 37.2 C Heart Rate 64 65 Respiratory 16 16 Rate Blood Pressure 174/85 H 171/88 H O2 Saturation 98 99 Oxygen O2 Source [Without Activity] Room air O2 Source Room air - Labs Labs: Laboratory Tests 10/11/20 10/11/20 10/11/20 12:40 12:40 12:40 WBC 9.2 RBC 4.45 Hgb 12.3 Hct 39.4 MCV 88.5 MCH 27.6 MCHC 31.2 L RDW 15.4 H Plt Count 286 MPV 10.4 Neut # (Auto) 5.2 Lymph # (Auto) 2.5 [place] # (Auto) 0.7 Eos # (Auto) 0.7 Baso # (Auto) 0.1 Absolute Nucleated RBC 0.00 Nucleated RBC % 0.0 PT 11.5 INR 1.0 Sodium 137 Potassium 4.0 Chloride 102 Carbon Dioxide 25 Anion Gap 10.0 BUN 15 Creatinine 1.0 Estimated GFR (MDRD) 54 L Glucose 137 H Calcium 9.6 PD MEDICAL DECISION MAKING - ED course ED course: 75-year-old woman with pain and bruising to the right calf. Ultrasound about a week ago was negative and this was repeated today and still negative. The bruising suggests on recollected trauma. She appears comfortable despite her pain level being a 10. Pain management is difficult given her extensive allergy list and a Lidoderm patch was placed. Departure - Departure Disposition: 01 Home, Self Care Clinical Impression: Leg pain Qualifiers: Laterality: right Qualified Code(s): M79.604 - Pain in right leg Condition: Good Record reviewed to determine appropriate education?: Yes Instructions: ED Acute Pain [facility] Prescriptions: Lidocaine Patch 5% [Lidoderm Patch] 1 patch TOP DAILY PRN #10 patch PRN Reason: pain Comments: The cause of your leg pain is not clear. Still no evidence of blood clots. The bruising in the setting of normal platelet levels and coagulation parameters suggests on recollected minor trauma. Follow-up with your doctor. Return if worsening.
[2020-10-11] MEDS ORDERED: LIDOCAINE PATCH 5% TOP STA ×2 (12:26→13:25)
[2020-10-11 12:49] LABS: BASOPHILS # (AUTO) 0.1 10^3/uL (0.0-0.1); BASOPHILS % (AUTO) 0.9 %; EOSINOPHILS # (AUTO) 0.7 10^3/uL (0.0-0.7); HGB - HEMOGLOBIN 12.3 g/dL (12.0-16.0); LYMPHOCYTES # (AUTO) 2.5 10^3/uL (1.5-3.5); LYMPHOCYTES % (AUTO) 26.6 %; MEAN CORPUSCULAR HEMOGLOBIN 27.6 pg (27.0-31.0); MEAN CORPUSCULAR HGB CONC 31.2 g/dL (32.0-36.0); MEAN CORPUSCULAR VOLUME 88.5 fL (81.0-99.0); MEAN PLATELET VOLUME 10.4 fL (7.9-10.8); MONOCYTES # (AUTO) 0.7 10^3/uL (0.0-1.0); NEUTROPHILS # (AUTO) 5.2 10^3/uL (1.5-6.6); PLT - PLATELET COUNT 286 10^3/uL (130-450); RED BLOOD COUNT 4.45 10^6/uL (4.20-5.40); RED CELL DISTRIBUTION WIDTH 15.4 % (12.0-15.0); WHITE BLOOD COUNT 9.2 x10^3/uL (4.8-10.8)
[2020-10-11 13:00] LABS: CALCIUM 9.6 mg/dL (8.5-10.3)
[2020-10-11 13:04] LABS: PT - PROTHROMBIN TIME 11.5 secs (9.9-12.6)
--- NOTE | 2020-10-11 13:19 | Ultrasound Report ---
PROCEDURE: Duplex Ext Veins Right INDICATIONS: RLE pain TECHNIQUE: Real-time imaging, as well as color and pulse Doppler interrogation, were performed of the lower extr emity deep veins from the inguinal ligament to the popliteal fossa. COMPARISON: None. FINDINGS: The deep veins are normally compressible, and free of intraluminal thrombus. Color and pu lse Doppler demonstrate normal phasic intraluminal flow. There is normal augmentation response to di stal compression maneuver. IMPRESSION: No sonographic evidence of DVT. Reviewed by: Celestino Downing MD on 10/11/2020 12:18 PM [facility] Approved by: Celestino Downing MD on 10/11/2020 12:18 PM [facility] Station ID: [id number]
[2020-10-11 13:56] VITALS: BP 175/103
== END 2020-10-11 14:03 | disposition home or self-care (01) ==
LOC: EDUNIT# → ED 12:05
DX: M79.661 Pain in right lower leg (principal); S80.11XA Contusion of right lower leg, initial encounter; X58.XXXA Exposure to other specified factors, initial encounter; I10 Essential (primary) hypertension; Z86.718 Personal history of other venous thrombosis and embolism; Z88.6 Allergy status to analgesic agent; Z88.5 Allergy status to narcotic agent
CPT/HCPCS: 36415; 80048; 85025; 85610; 93971; 99284; A9270

== ENCOUNTER 2020-11-15 11:48 | Outpatient (CLI) | payer MEDICARE, MEDICAID ==
[2020-11-15 18:31] LABS: CALCIUM 9.2 mg/dL (8.5-10.3)
[2020-11-15 18:53] LABS: HEMOGLOBIN A1c% 7.1 % (4.27-6.07)
== END 2020-11-15 23:59 | disposition home or self-care (01) ==
LOC: LAB.WCP 11:48
PROVIDERS: ATTEND Physician Assistant Medical
DX: E11.9 Type 2 diabetes mellitus without complications (principal)
CPT/HCPCS: 36415; 80048; 83036

== ENCOUNTER 2020-11-19 13:33 | Outpatient (CLI) | payer MEDICARE, MEDICAID ==
--- NOTE | 2020-11-19 14:44 | XRAY Report ---
PROCEDURE: Hip w/Pelvis 2-3V RT INDICATIONS: HIP PAIN,RIGHT TECHNIQUE: AP pelvis with lateral view(s) of the right hip(s). COMPARISON: None. FINDINGS: Bones: No fractures or dislocations. Pelvic ring appears intact. No suspicious bony lesions. Mild bilateral hip joint space narrowing. Moderate bilateral hip periarticular osteophyte formation. Soft tissues: The visualized bowel gas pattern is normal. No suspicious soft tissue calcifications. IMPRESSION: Bilateral hip osteoarthritis. No acute fracture. No osseous lesion. If symptoms and/or cl inical suspicion for pathology continue, further assessment with repeat plain films, or advanced imag ing (e.g., CT, MRI, or bone scan) is recommended for further assessment. Reviewed by: Ivan Drake MD on 11/19/2020 2:42 PM PST Approved by: Ivan Drake MD on 11/19/2020 2:42 PM PST Station ID: [id number]
== END 2020-11-19 13:34 | disposition home or self-care (01) ==
LOC: DI 13:33
PROVIDERS: ATTEND Physician Assistant Medical
DX: M16.0 Bilateral primary osteoarthritis of hip (principal)

== ENCOUNTER 2021-02-21 13:19 | Outpatient (CLI) | payer MEDICARE, MEDICAID ==
--- NOTE | 2021-02-21 15:00 | XRAY Report ---
PROCEDURE: Chest 2 View X-Ray INDICATIONS: DYSPNEA ON EXERTSION, ASTHMA TECHNIQUE: 2 view(s) of the chest. COMPARISON: Radiograph dated 04/11/2018. FINDINGS: Surgical changes and devices: Right upper quadrant surgical clips.. Lungs and pleura: No pleural effusions or pneumothorax. Lungs are clear. Mediastinum: Mediastinal contours are normal. Heart size is normal. Bones and chest wall: No suspicious bony abnormalities. Soft tissues appear unremarkable. IMPRESSION: Low lung volumes with scattered atelectasis. Reviewed by: Bk Nice MD on 02/21/2021 2:58 PM PDT Approved by: Bk Nice MD on 02/21/2021 2:58 PM PDT Station ID: [id number]
== END 2021-02-21 13:20 | disposition home or self-care (01) ==
LOC: DI 13:19
PROVIDERS: ATTEND Surgery
DX: Z01.818 Encounter for other preprocedural examination (principal); K42.9 Umbilical hernia without obstruction or gangrene; Z20.822 Contact with and (suspected) exposure to COVID-19
CPT/HCPCS: 71046; U0004

== ENCOUNTER 2021-02-24 06:18 | Day surgery (SDC) | payer MEDICARE, MEDICAID ==
--- OUTSIDE RECORDS SUMMARY | 2021-02-24 06:21 | EXTERNAL MEDICAL SUMMARY RPT | Continuity of Care Document ---
:1945 Demographics Phone Unavailable Preferred Language [place] Marital Status Unknown Gnosticist Affiliation Unknown Race Unknown Ethnic Group Unknown Author Organization [facility] Address [address] [phone] Phone Care Team Providers Name Role Phone Young Unavailable Unavailable Problems date description facility 20210115 Age-related nuclear cataract, right eye [facility] 20210113 Contact with and (suspected) exposure [address] 20210101 Age-related nuclear cataract, left eye [facility] [id number] Encounter for preprocedural laboratory examination [facility] [id number] Contact with and (suspected) exposure [address] Medications date description facility 20210101 [facility] Oxybutynin chloride 10 MG Extende d Release Tablet [facility] 20210101 meloxicam 7.5 MG Oral Tablet [facility] 20210101 Cholecalciferol 1000 UNT Oral Capsule [facility] 20210101 Calcium Carbonate 1500 MG Oral Tablet [facility] 20210101 montelukast 10 MG Oral Tablet [facility] Procedures date description facility 20210115 [facility] date description facility 20210113 [facility] date description facility 20210101 [facility] date description facility [id number] [facility] Vital Signs date measurement value source 20210101 weight_standard 224.98 lb 20210101 weight_metric 102.05 kg 20210101 temperature_standard 97.2 F 20210101 temperature_metric 36.22 C 20210101 respiration_rate 16 /min 20210101 height_standard 66 in 20210101 height_metric 167.64 cm 20210101 heart_rate 64 /min 20210101 BP_systolic 152 mm[Hg] 20210101 BP_diastolic 84 mm[Hg] 20210101 BMI 36.3 kg/m2 date measurement value source 20210115 weight_standard 104.33 lb 20210115 weight_metric 47.32 kg 20210115 temperature_standard 97.9 F 20210115 temperature_metric 36.61 C 20210115 respiration_rate 18 /min 20210115 height_standard 66 in 20210115 height_metric 167.64 cm 20210115 heart_rate 66 /min 20210115 BP_systolic 165 mm[Hg] 20210115 BP_diastolic 78 mm[Hg] 20210115 BMI 37.1 kg/m2 Social History date description facility [id number]
[2021-02-24] MEDS ORDERED: LACTATED RINGERS 1,000 ML IV ONE ×2 (06:50→09:01)
[2021-02-24] MEDS ORDERED: ONDANSETRON 4 MG/2 ML VIAL ONE (06:55)
[2021-02-24] MEDS ORDERED: LIDOCAINE-MPF 2% 5 ML VIAL ONE (06:55)
[2021-02-24] MEDS ORDERED: PROPOFOL 200 MG/20 ML VIAL IVP ONE ×2 (06:55→08:28)
[2021-02-24] MEDS ORDERED: DEXAMETHASONE 4 MG/ML VIAL ONE (06:55)
[2021-02-24] MEDS ORDERED: ceFAZolin 3 GM in SODIUM CHLORIDE 0.9% 100ML 100 ML IV ONE (07:00)
[2021-02-24] MEDS ORDERED: SODIUM CHLORIDE 0.9% 10 ML VIAL IVP ONE (07:08)
[2021-02-24] MEDS ORDERED: BUPIVACAINE 0.5%-EPI 1:200000 PF 30 ML VIAL ONE (07:08)
[2021-02-24] MEDS ORDERED: ceFAZolin 1 GM VIAL ONE (07:08)
[2021-02-24] MEDS ORDERED: LIDOCAINE 1% 50 ML MDV ONE (07:09)
--- NOTE | 2021-02-24 07:41 | ANESTHESIA ---
Pre-Anesthesia VS, & Labs - Diagnosis umbilical hernia - Procedure Umbilical hernia repair Vital Signs: Temp Pulse Resp BP Pulse Ox 36.8 C 81 22 110/58 L 94 02/24/21 06:26 02/24/21 06:26 02/24/21 06:26 02/24/21 06:26 02/24/21 06:26 Height: 5 ft 6 in Weight (kg): 117 kg Body Mass Index: 41.6 BMI Classification: Morbidly Obese - NPO >8 hours - Is Patient ?: No - Lab Results Current Lab Results: Laboratory Tests 02/24/21 06:43: POC Whole Bld Glucose 162 H Lab results reviewed: Yes Home Medications and Allergies Atorvastatin [Lipitor] 20 mg PO DAILY 06/19/17 Fluoxetine HCl 20 mg PO DAILY 06/19/17 Gabapentin 100 mg PO DAILY 06/19/17 Oxybutynin Chloride [Ditropan Xl] 10 mg PO DAILY 06/19/17 Prazosin [Minipress] 5 mg PO DAILY PM 06/19/17 Propranolol [Inderal] 10 mg PO BID 06/19/17 buPROPion HCL [Bupropion HCl Sr] 300 mg PO DAILY 06/19/17 Dicyclomine [Bentyl] 10 mg PO QID 05/30/19 Meloxicam 7.5 mg PO BID 05/30/19 Montelukast Sodium 10 mg PO DAILY 05/30/19 Ondansetron [Zuplenz] 4 mg PO PRN PRN 10/11/20 Allergies/Adverse Reactions: Allergies Allergy/AdvReac Type Severity Reaction Status Date / Time hydromorphone Allergy Intermediate Itching Verified 10/11/20 12:20 iodine Allergy Intermediate Hives Verified 10/11/20 12:20 acyclovir Allergy Unknown Verified 10/11/20 12:20 amoxicillin Allergy Unknown Verified 10/11/20 12:20 aspirin Allergy Unknown Verified 02/17/21 11:21 doxycycline Allergy Unknown Verified 10/11/20 12:20 hydrocodone bitartrate * Allergy Unknown Verified 10/11/20 12:20 [From Vicodin] naproxen [From Naprosyn] Allergy Unknown Verified 10/11/20 12:20 NSAIDS (Non-Steroidal Allergy Unknown Verified 10/11/20 12:20 Anti-Inflamma oxycodone HCl * Allergy Itching Verified 10/11/20 12:20 [From Percocet] risperidone [From Risperdal] Allergy Unknown Verified 10/05/20 14:06 Tetanus Vaccines and Toxoid Allergy Hives Verified 10/05/20 14:06 [Tetanus Vaccines & Toxoid] adhesive tape AdvReac Intermediate Rash Verified 10/05/20 14:06 Anes History & Medical History - Anesthetic History Anesthesia Complications: reports: Slow wake-up Family history of Anesthesia Complications: Denies Family history of Malignant Hyperthermia: Denies - Medical History Cardiovascular: reports: Hypertension, High cholesterol, Deep vein thrombosis Pulmonary: reports: Shortness of breath, Sleep apnea, CPAP use Gastrointestinal: reports: Other Urinary: reports: Chronic bladder infection Neuro: reports: None Musculoskeletal: reports: Osteoarthritis Endocrine/Autoimmune: reports: None Blood Disorders: reports: None Skin: reports: None Smoking Status: Never smoker Psychosocial: reports: Anxiety, Other (Bipolar) - Surgical History General: reports: Cholecystectomy, Appendectomy, Colonoscopy Eyes Ears Nose Throat (EENT): reports: Cataracts, Tonsil/Adenoidectomy Orthopedic: reports: Knee replacement Exam General: Alert, Oriented x3, Cooperative, Moderate distress Dental: Poor dentition, Other (patient states right mandible "broken" and is painful) Mouth Openin Fingerbreadth Neck Mobility: Normal Mallampati classification: III Respiratory: Lungs clear, Normal breath sounds, No respiratory distress, No accessory muscle use Cardiovascular: Regular rate, Normal S1, Normal S2, No murmurs Plan Anesthesia Type: General Consent for Procedure(s) Verified and Reviewed: Yes Code Status: Attempt Resuscitation ASA classification: 3-Severe systemic disease Is this case an emergency?: No
[2021-02-24] MEDS ORDERED: ePHEDrine 50 MG/ML VIAL IVP PRN (07:42)
[2021-02-24] MEDS ORDERED: HYDROmorphone 0.5 MG/0.5 ML SYRINGE IVP PRN ×2 (07:42→09:03)
[2021-02-24] MEDS ORDERED: NALOXONE 0.4 MG/ML VIAL IVP PRN (07:42)
[2021-02-24] MEDS ORDERED: METOCLOPRAMIDE 10 MG/2 ML VIAL IVP PRN (07:42)
[2021-02-24] MEDS ORDERED: MORPHINE 2 MG/ML CARPUJECT IVP PRN ×3 (07:42→10:41)
[2021-02-24] MEDS ORDERED: ONDANSETRON 4 MG/2 ML VIAL IVP PRN ×2 (07:42→09:03)
[2021-02-24] MEDS ORDERED: ATROPINE ABBOJECT 1 MG/10 ML SYRINGE IVP PRN (07:42)
[2021-02-24] MEDS ORDERED: fentaNYL 100 MCG/2 ML VIAL ONE ×2 (07:46→09:33)
[2021-02-24] MEDS ORDERED: ROCURONIUM 50 MG/5 ML VIAL ONE (07:51)
[2021-02-24] MEDS ORDERED: LACTATED RINGERS 1,000 ML IV SCH ×2 (08:00→10:00)
[2021-02-24] MEDS ORDERED: SUGAMMADEX 200 MG/2 ML VIAL IVP ONE (08:08)
[2021-02-24] MEDS ORDERED: ePHEDrine 50 MG/ML VIAL IVP ONE (08:12)
[2021-02-24] MEDS ORDERED: GLYCOPYRROLATE 1 MG/5 ML VIAL ONE (08:13)
[2021-02-24] MEDS ORDERED: ceFAZolin 1 GM VIAL IR ONE (08:14)
[2021-02-24] MEDS ORDERED: LIDOCAINE 1% 50 ML MDV SUBQ ONE ×2 (08:16)
[2021-02-24] MEDS ORDERED: BUPIVACAINE 0.5%-EPI 1:200000 PF 30 ML VIAL SUBQ ONE ×2 (08:17)
--- NOTE | 2021-02-24 08:59 | OPERATIVE REPORT ---
Operative Report - General Procedure Date: 02/24/21 Planned Procedure: Umbilical hernia repair with mesh Pre-Op Diagnosis: Large painful umbilical hernia Procedure Performed: Umbilical hernia repair with mesh Post Op Diagnosis: Large painful umbilical hernia - Procedure Note Primary Surgeon: Grace Anesthesia Provider: RAMONE Mercedes Anesthesia Technique: General LMA, Local Pathology: Hernia sac Estimated Blood Loss (mL): 5 Indications: Painful umbilical hernia limiting activities of daily living Findings: 4 x 4 centimeter umbilical hernia Complications: None apparent - Other Other Information/Narrative: After obtaining informed consent, the patient is brought the operating room and placed in the supine position on the operating table. Following successful induction of general anesthesia, appropriate padding of all bony prominences, and placement of appropriate monitors, the abdomen was prepped and draped in the standard surgical fashion. A timeout was held per scope protocol. All elements of the surgical safety checklist were followed before, during, and after the procedure. We began the procedure by infiltrating mixture of local anesthetics in and around the umbilical opening. The skin of the umbilicus was then grasped and elevated. An incision was created directly through the skin and carried down through the subcutaneous tissue to reveal the defect below.The defect was approximately 4 x 4 cm. The hernia sac was then carefully dissected free from the subcutaneous tissue and overlying skin using a mixture of sharp dissection and cautery. The umbilical sac was then amputated and passed from the table. I elected to repair the hernia directly placing an onlay patch for buttress. Interrupted #1 Prolene sutures were placed in the defect under direct vision. A 8 cm portion of Bard Prolene mesh was then placed on top of the sutures. The mesh was trimmed to an appropriate size. The sutures were fed through the mesh and tied on the anterior surface of the mesh thereby allowing the mesh to be in direct contact with the fascia and to provide a scaffolding for ingrowth. The fascia was cleared laterally on both sides the mesh tacked to the lateral aspects of the fascia as well. The wound was checked for hemostasis. It was irrigated with warm saline containing antibiotic solution and aspirated free of all fluid and particulate matter. The incision was then closed in 3 layers with Vicryl Monocryl suture and Dermabond was applied to the skin. All sponge, needle, and instrument counts were correct at the conclusion of the case. The patient was allowed to wake from anesthesia without difficulty and taken to the postanesthesia care unit in good condition.
[2021-02-24] MEDS ORDERED: SODIUM CHLORIDE FLUSH 0.9% 10 ML SYRINGE IVP PRN (09:03)
[2021-02-24] MEDS ORDERED: LORazepam 2 MG/ML VIAL IVP PRN (09:03)
[2021-02-24] MEDS ORDERED: ACETAMINOPHEN 325 MG TABLET PO PRN (09:03)
[2021-02-24] MEDS ORDERED: LABETALOL 20 MG/4 ML SYRINGE IVP PRN (09:29)
[2021-02-24] MEDS: fentaNYL 100 MCG/2 ML VIAL IVP PRN ×2 (09:33→09:48)
[2021-02-24] MEDS ORDERED: ACETAMINOPHEN 1,000 MG/100 ML 100 ML IV ONE (10:42)
--- NOTE | 2021-02-24 10:58 | ANESTHESIA POST OP EVALUATION ---
Anesthesia Post Eval - Post Anesthesia Eval Vitals: Last Vital Signs Temp 36.5 C 02/24/21 10:30 Pulse 78 02/24/21 10:51 Resp 18 02/24/21 10:51 BP 141/98 H 02/24/21 10:51 Pulse Ox 97 02/24/21 10:51 CV Function Including HR & BP: Stable Pain Control: Satisfactory Nausea & Vomiting: Negative Mental Status: Baseline Respiratory Status: Airway Patent Hydration Status: Satisfactory Anesthesia Complications: None
[2021-02-24] MEDS: KETOROLAC 15 MG/ML VIAL IVP SCH ×3 (11:03→21:28)
[2021-02-24] MEDS: GABAPENTIN 100 MG CAPSULE PO SCH (11:04)
--- NOTE | 2021-02-24 11:41 | ANESTHESIA POST OP EVALUATION ---
Anesthesia Post Eval - Post Anesthesia Eval Vitals: Last Vital Signs Temp 36.5 C 02/24/21 10:30 Pulse 78 02/24/21 11:30 Resp 18 02/24/21 11:30 BP 173/85 H 02/24/21 11:30 Pulse Ox 97 02/24/21 11:30 CV Function Including HR & BP: Stable Pain Control: Satisfactory Nausea & Vomiting: Negative Mental Status: Baseline Respiratory Status: Airway Patent Hydration Status: Satisfactory Anesthesia Complications: None
[2021-02-24] MEDS: PROPRANOLOL 10 MG TABLET PO SCH ×2 (12:11→20:59)
[2021-02-24] MEDS: INSULIN ASPART 300 UNIT/3 ML PEN SUBQ SCH ×3 (12:11→21:00)
[2021-02-24] MEDS: DICYCLOMINE 10 MG CAPSULE PO SCH ×3 (12:22→20:59)
[2021-02-24] MEDS: buPROPion XL 150 MG TABLET PO SCH (13:33)
[2021-02-24] MEDS: ceFAZolin 2 GM/50 ML 2 GM/50 ML BAG IV SCH ×2 (13:38→21:29)
--- NOTE | 2021-02-24 13:52 | PHARMACY PROGRESS NOTE ---
- Best Possible Medication History Admit Date and Time: Processed by: Pharmacy Medication History completed: Yes Patient Interview: Completed Secondary Source(s): Written medication list (PATIENT INTERVIEWED BY PHARMACY. PATIENT PROVIDED MED LIST), Physician records, Pharmacy records, Insurance records As the person ultimately responsible for medication therapy, providers are able to order a medication from an existing home medication list in [facility] via the "Reconcile Routine" prior to Confirmation of that medication by ground crewman mission support. Such practice is discouraged except when the physician, in their clinical judgment, deems that a medical need exists for a medication without regard to previous use.
[2021-02-24] MEDS: SODIUM CHLORIDE FLUSH 0.9% 10 ML SYRINGE IVP SCH (17:12)
[2021-02-24] MEDS: OXYBUTYNIN 5MG TABLET PO SCH (20:59)
[2021-02-24] MEDS ORDERED: ATORVASTATIN 10 MG TABLET PO SCH (21:00)
[2021-02-24] MEDS ORDERED: PRAZOSIN 1 MG CAPSULE PO SCH (21:00)
[2021-02-24] MEDS ORDERED: MONTELUKAST 10 MG TABLET PO SCH (21:00)
[2021-02-25] MEDS: SODIUM CHLORIDE FLUSH 0.9% 10 ML SYRINGE IVP SCH ×2 (00:18→08:57)
[2021-02-25] MEDS: KETOROLAC 15 MG/ML VIAL IVP SCH ×2 (03:32→10:29)
[2021-02-25] MEDS ORDERED: PANTOPRAZOLE 40 MG TABLET PO SCH (07:00)
[2021-02-25] MEDS: INSULIN ASPART 300 UNIT/3 ML PEN SUBQ SCH ×2 (07:54→11:45)
[2021-02-25] MEDS: OXYBUTYNIN 5MG TABLET PO SCH (08:56)
[2021-02-25] MEDS: buPROPion XL 150 MG TABLET PO SCH (08:56)
[2021-02-25] MEDS: DICYCLOMINE 10 MG CAPSULE PO SCH (08:57)
[2021-02-25] MEDS: PROPRANOLOL 10 MG TABLET PO SCH (08:57)
[2021-02-25] MEDS: GABAPENTIN 100 MG CAPSULE PO SCH (08:57)
[2021-02-25] MEDS ORDERED: FLUoxetine 10 MG CAPSULE PO SCH (09:00)
[2021-02-25] MEDS ORDERED: ENOXAPARIN 40 MG/0.4 ML SYRINGE SUBQ SCH (09:00)
--- NOTE | 2021-02-25 09:40 | PROVIDER PROGRESS NOTE ---
Subjective - General Procedure Date: 02/24/21 Post Op Days: 1 Procedure Performed: Umbilical Hernia repair - Review of Systems Wound/Incisions: positive: Healing well General: positive: No symptoms HEENT: positive: No symptoms Pulmonary: positive: No symptoms Gastrointestinal: positive: No symptoms Genitourinary: positive: No symptoms Musculoskeletal: positive: No symptoms Skin: positive: No symptoms All Other Systems: positive: Reviewed and negative Objective - Patient Data Reviewed Vital Signs: Yes Vital Signs: Vital Signs x48h Temp Pulse Pulse Resp BP Pulse Ox 02/25/21 08:00 36.7 C 64 18 123/52 L 98 02/25/21 05:42 70 18 128/66 100 02/25/21 02:30 70 Weight: Weight 02/23/21 02/24/21 02/25/21 23:59 23:59 23:59 Weight (kg) 117 kg Intake & Output: Intake and Output Totals x24h 02/23/21 02/24/21 02/25/21 23:59 23:59 23:59 Intake Total 2168 Balance 2168 - Lab Results Other Lab Results: Lab Results x24hrs 02/25/21 02/24/21 02/24/21 Range/Units 07:54 20:40 16:36 POC Whole Bld Glucose 181 H 240 H 211 H (70 - 100) mg/dL 02/24/21 Range/Units 11:30 POC Whole Bld Glucose 180 H (70 - 100) mg/dL - Current Medications Current Medications: Current Medications Generic Name Dose Route Start Last Admin Trade Name Freq PRN Reason Stop Dose Admin Acetaminophen 650 mg 02/24/21 09:03 02/25/21 00:18 Acetaminophen 325 Mg Tablet PO 650 mg Q4HR PRN Administration PAIN Atorvastatin Calcium 20 mg 02/24/21 21:00 02/24/21 20:59 Atorvastatin 10 Mg Tablet PO 20 mg QPM ARLEN Administration Bupropion HCl 300 mg 02/24/21 14:00 02/25/21 08:56 Bupropion Xl 150 Mg Tablet PO 300 mg DAILY ARLEN Administration Dicyclomine HCl 10 mg 02/24/21 13:00 02/25/21 08:57 Dicyclomine 10 Mg Capsule PO 10 mg QID ARLEN Administration Enoxaparin Sodium 40 mg 02/25/21 09:00 02/25/21 08:57 Enoxaparin 40 Mg/0.4 Ml Syringe SUBQ 40 mg DAILY ARLEN Administration Fluoxetine HCl 20 mg 02/25/21 09:00 02/25/21 08:56 Fluoxetine 10 Mg Capsule PO 20 mg DAILY ARLEN Administration Gabapentin 100 mg 02/24/21 11:00 02/25/21 08:57 Gabapentin 100 Mg Capsule PO 100 mg DAILY ARLEN Administration Insulin Aspart 1 - 5 unit 02/24/21 12:00 02/25/21 07:54 Insulin Aspart 300 Unit/3 Ml Pen SUBQ 2 unit 0800,1200,1700,2100 ARLEN Administration Protocol Ketorolac Tromethamine 15 mg 02/24/21 10:00 02/25/21 03:32 Ketorolac 15 Mg/Ml Vial IVP 03/01/21 09:59 15 mg Q6H ARLEN Administration Montelukast Sodium 10 mg 02/24/21 21:00 02/24/21 20:58 Montelukast 10 Mg Tablet PO 10 mg QPM ARLEN Administration Oxybutynin Chloride 5 mg 02/24/21 21:00 02/25/21 08:56 Oxybutynin 5mg Tablet PO 5 mg BID ARLEN Administration Pantoprazole Sodium 40 mg 02/25/21 07:00 02/25/21 06:35 Pantoprazole 40 Mg Tablet PO 40 mg QDAC ARLEN Administration Prazosin HCl 5 mg 02/24/21 21:00 02/24/21 20:58 Prazosin 1 Mg Capsule PO 5 mg QPM ARLEN Administration Propranolol HCl 10 mg 02/24/21 12:00 02/25/21 08:57 Propranolol 10 Mg Tablet PO 10 mg BID ARLEN Administration Sodium Chloride 10 ml 02/24/21 17:00 02/25/21 08:57 Sodium Chloride Flush 0.9% 10 Ml Syringe IVP 10 ml 0100,0900,1700 ARLEN Administration Sodium Chloride 10 ml 02/24/21 09:03 02/25/21 03:32 Sodium Chloride Flush 0.9% 10 Ml Syringe IVP 10 ml PRN PRN Administration NEEDED PER PROVIDER ORDERS - Physical Exam Wound/Incisions: positive: Healing well General Appearance: positive: No acute distress Eyes Bilateral: positive: Normal inspection, PERRL, EOMI ENT: positive: ENT inspection nml, Pharynx nml Neck: positive: Nml inspection, No JVD Respiratory: positive: Chest non-tender, No respiratory distress, Breath sounds nml Cardiovascular: positive: Regular rate & rhythm Abdomen: positive: Tenderness, Other (Wound is appropriately tender to palpation, Minimal bruising) Back: negative: CVA tenderness (R), CVA tenderness (L) Skin: positive: Color nml Neurologic/Psychiatric: positive: Oriented x3 ABX Reporting Has patient been on IV antibiotics over the past 48 hours?: Yes Impression/Plan - Problem List Problem List: Improved after umbilical hernia repair. Discharge to home. Follow up with me in 2 weeks.
[2021-02-25] MEDS ORDERED: oxyCODONE 5 MG TABLET PO PRN (09:54)
[2021-02-25] MEDS ORDERED: IBUPROFEN 600 MG TABLET PO PRN (09:54)
[2021-02-25] MEDS ORDERED: ACETAMINOPHEN 325 MG TABLET PO PRN (09:54)
[2021-02-25] MEDS ORDERED: ONDANSETRON 4 MG/2 ML VIAL IVP PRN (09:54)
[2021-02-25 11:24] VITALS: BP 140/90
== END 2021-02-25 13:15 | disposition home or self-care (01) ==
LOC: SDS 06:18 → MS2 10:31 → SDS 02-25 13:15
PROVIDERS: ATTEND Surgery
PROC: 0WUF0JZ Supplement Abdominal Wall with Synthetic Substitute, Open Approach (ICD-10-PCS; principal; 2021-02-24 07:30)
DX: K42.9 Umbilical hernia without obstruction or gangrene (principal); E66.01 Morbid (severe) obesity due to excess calories; Z68.41 Body mass index [BMI] 40.0-44.9, adult; G47.30 Sleep apnea, unspecified; J45.909 Unspecified asthma, uncomplicated
CPT/HCPCS: 49585; 94660; A9270; C1781; J0131; J0690; J1650; J7120

== ENCOUNTER 2021-03-03 10:33 | Outpatient (CLI) | payer MEDICARE, MEDICAID | END 2021-03-03 10:34 | disposition critical access hospital (66) | LOC: EMS 10:33 | DX: R50.9 Fever, unspecified (principal); R05 Cough; R49.0 Dysphonia; R07.0 Pain in throat | CPT/HCPCS: A0425; A0429 ==

== ENCOUNTER 2021-03-03 10:56 | Emergency (ER) | payer MEDICARE, MEDICAID ==
--- OUTSIDE RECORDS SUMMARY | 2021-03-03 11:26 | EXTERNAL MEDICAL SUMMARY RPT | Continuity of Care Document ---
:1945 Demographics Phone Unavailable Preferred Language Serbian Marital Status Unknown Zoroastrian Affiliation Unknown Race Unknown Ethnic Group Unknown Author Organization [place] Address [address] [phone] Phone Care Team Providers Name Role Phone Young Unavailable Unavailable Medications date description facility 20210101 Dicyclomine Hydrochloride 10 MG Oral Ca psule [facility] 20210101 24 HR Oxybutynin chloride 10 MG Extende d Release Tablet [facility] 20210101 meloxicam 7.5 MG Oral Tablet [facility] spital 20210101 Cholecalciferol 1000 UNT Oral Capsule [facility] 20210101 Calcium Carbonate 1500 MG Oral Tablet [facility] 20210101 montelukast 10 MG Oral Tablet [facility] ospital Problems date description facility 20210115 Age-related nuclear cataract, right eye [facility] 20210113 Contact with and (suspected) exposure [address] 20210101 Age-related nuclear cataract, left eye [facility] 20201230 Encounter for preprocedural laboratory examination [facility] [id number] Contact with and (suspected) exposure [address] Procedures date description facility 20210115 [facility] 20210113 [facility] 20210101 [facility] [id number] [facility] Vital Signs date measurement value source 20210101 weight_standard 224.98 lb 20210101 weight_metric 102.05 kg 20210101 temperature_standard 97.2 F 20210101 temperature_metric 36.22 C 20210101 respiration_rate 16 /min 20210101 height_standard 66 in 20210101 height_metric 167.64 cm 20210101 heart_rate 64 /min 20210101 BP_systolic 152 mm[Hg] 20210101 BP_diastolic 84 mm[Hg] 20210101 BMI 36.3 kg/m2 20210115 weight_standard 104.33 lb 20210115 weight_metric 47.32 kg 20210115 temperature_standard 97.9 F 20210115 temperature_metric 36.61 C 20210115 respiration_rate 18 /min 20210115 height_standard 66 in 20210115 height_metric 167.64 cm 20210115 heart_rate 66 /min 20210115 BP_systolic 165 mm[Hg] 20210115 BP_diastolic 78 mm[Hg] 20210115 BMI 37.1 kg/m2
--- NOTE | 2021-03-03 11:54 | ED Physician Documentation ---
History of Present Illness - Stated complaint Stated Complaint: COUGH/FEVER - Chief complaint Chief Complaint: Resp - Additonal information Additional information: 75-year-old female presents the emergency department for evaluation of increas ing lower abdominal pain at the site of her recent umbilical hernia repair, cough, shortness of air as well as subjective fevers. She underwent an umbilical hernia repair here [address] Cannon. She was discharged appropriately following the surgery. Had been doing well until 2 days ago when she began feeling the cough subjective fevers and shortness of air especially with exertion. She also reports that she removed her abdominal wrap yesterday and noted that she had increased swelling at the site of surgery with more pain than she had been used to. She denies any melena or hematochezia. Reports some mild chest pain. not well described, Not present right now. Patient is a very poor historian denies any past medical problems with the exception of diabetes though she has quite an extensive medication list. Review of Systems Constitutional: reports: Fever, Chills Eyes: reports: Reviewed and negative Ears: reports: Reviewed and negative Nose: reports: Reviewed and negative Throat: reports: Reviewed and negative Cardiac: reports: Chest pain / pressure. denies: Palpitations Respiratory: reports: Dyspnea, Cough, Wheezing GI: reports: Abdominal Pain. 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 : Chronic bladder infection HEENT: Chronic vision loss Psych: Depression, Anxiety Musculoskeletal: Osteoarthritis Derm: None - Past Surgical History Past Surgical History: Yes General: Cholecystectomy, Appendectomy, Colonoscopy Ortho: Knee replacement HEENT: Cataracts, Tonsil/Adenoidectomy - Present Medications Home Medications: Ambulatory Orders Medication Instructions Recorded Confirmed Atorvastatin [Lipitor] 20 mg PO DAILY 06/19/17 03/03/21 Gabapentin 100 mg PO DAILY 06/19/17 03/03/21 Oxybutynin Chloride [Ditropan Xl] 10 mg PO DAILY 06/19/17 03/03/21 Prazosin [Minipress] 5 mg PO QPM 06/19/17 03/03/21 Propranolol [Inderal] 10 mg PO BID 06/19/17 03/03/21 Dicyclomine [Bentyl] 10 mg PO QID PRN 05/30/19 03/03/21 Calcium Carbonate [Calcium] 1,200 mg PO DAILY 02/24/21 03/03/21 Cholecalciferol [Vitamin D3] 25 mcg PO DAILY 02/24/21 03/03/21 Fluoxetine HCl [Prozac] 20 mg PO DAILY 02/24/21 03/03/21 Gabapentin [Neurontin] 400 mg PO QPM 02/24/21 02/24/21 Lactobacillus Acidophilus 1 tab PO DAILY 02/24/21 03/03/21 [Probiotic Acidophilus] buPROPion HCL [Bupropion Xl] 300 mg PO DAILY 02/24/21 03/03/21 oxyCODONE [Roxicodone] 5 mg PO Q4-6H PRN #20 tablet 02/25/21 Albuterol Sulf [Ventolin Hfa 2 puffs PO Q4HR PRN 03/03/21 03/03/21 Inhaler] Fluticasone/Salmeterol [Advair 1 puffs PO DAILY 03/03/21 03/03/21 250-50 Diskus] Meloxicam [Mobic] 1 tab PO BID 03/03/21 03/03/21 Montelukast [Singulair] 1 tab PO DAILY 03/03/21 03/03/21 - Allergies Allergies/Adverse Reactions: Allergies Allergy/AdvReac Type Severity Reaction Status Date / Time hydromorphone Allergy Intermediate Itching Verified 03/03/21 11:04 iodine Allergy Intermediate Hives Verified 03/03/21 11:04 acyclovir Allergy Unknown Verified 03/03/21 11:04 amoxicillin Allergy Unknown Verified 03/03/21 11:04 aspirin Allergy Unknown Verified 03/03/21 11:04 doxycycline Allergy Unknown Verified 03/03/21 11:04 hydrocodone bitartrate * Allergy Unknown Verified 03/03/21 11:04 [From Vicodin] naproxen [From Naprosyn] Allergy Unknown Verified 03/03/21 11:04 NSAIDS (Non-Steroidal Allergy Unknown Verified 03/03/21 11:04 Anti-Inflamma oxycodone HCl * Allergy Itching Verified 03/03/21 11:04 [From Percocet] risperidone [From Risperdal] Allergy Unknown Verified 03/03/21 11:04 Tetanus Vaccines and Toxoid Allergy Hives Verified 03/03/21 11:04 [Tetanus Vaccines & Toxoid] adhesive tape AdvReac Intermediate Rash Verified 03/03/21 11:04 - Social History Does the pt smoke?: No Smoking Status: Never smoker Does the pt drink ETOH?: No Does the pt have substance abuse?: No - Immunizations Immunizations are current?: Yes - POLST Patient has POLST: No PD ED PE EXPANDED - General General: Alert, No acute distress - Cardiac Cardiac: Regular Rate, Radial strong equal, Pedal strong equal, Cap refill < 2 sec - Respiratory Respiratory: Clear to ausultation anant. No: Distress, Labored - Abdomen Abdomen: Tender to palpation, Other (lower umbilicus incision with generalized ecchymosis surrounding. Large area of firm swellign with but not erythema. no drainage) - Derm Derm: Normal color, Warm and dry, Bruising (periumbilical) - Neuro Neuro: Alert and Oriented X 3, CNII-XII intact - GCS Eye Opening: Spontaneous Motor: Obeys Commands Verbal: Oriented Total: 15 Results - Vitals Vitals: Vital Signs - 24 hr 03/03/21 03/03/21 11:04 11:55 Temperature 37.2 C Heart Rate 69 70 Respiratory 19 20 Rate Blood Pressure 167/92 H 160/138 H O2 Saturation 95 96 Oxygen O2 Source [] Room air O2 Source Room air - EKG (time done) 1136 Rate: Rate (enter#) (68) Rhythm: NSR [place]: Normal Intervals: Prolonged QT QRS: Normal Ischemia: Normal ST segments Compare to prior EKG: Unchanged from prior EKG Computer interpretation: Agree with computer - Labs Labs: Laboratory Tests 03/03/21 03/03/21 03/03/21 11:58 11:58 11:58 WBC 9.5 RBC 4.63 Hgb 13.5 Hct 41.4 MCV 89.4 MCH 29.2 MCHC 32.6 RDW 14.2 Plt Count 327 MPV 10.9 H Neut # (Auto) 6.1 Lymph # (Auto) 1.7 Gilchrist # (Auto) 0.9 Eos # (Auto) 0.7 Baso # (Auto) 0.0 Absolute Nucleated RBC 0.00 Nucleated RBC % 0.0 Sodium 134 L Potassium 3.4 L Chloride 100 L Carbon Dioxide 25 Anion Gap 9.0 BUN 7 Creatinine 0.8 Estimated GFR (MDRD) 70 L Glucose 165 H Lactic Acid Calcium 9.0 Total Bilirubin 0.7 AST 15 ALT 13 Alkaline Phosphatase 100 Troponin I High Sens 6.8 B-Natriuretic Peptide Total Protein 7.1 Albumin 3.6 Globulin 3.5 Albumin/Globulin Ratio 1.0 Lipase 15 L 03/03/21 03/03/21 11:58 12:19 WBC RBC Hgb Hct MCV MCH MCHC RDW Plt Count MPV Neut # (Auto) Lymph # (Auto) Gilchrist # (Auto) Eos # (Auto) Baso # (Auto) Absolute Nucleated RBC Nucleated RBC % Sodium Potassium Chloride Carbon Dioxide Anion Gap BUN Creatinine Estimated GFR (MDRD) Glucose Lactic Acid 0.9 Calcium Total Bilirubin AST ALT Alkaline Phosphatase Troponin I High Sens B-Natriuretic Peptide 291 H Total Protein Albumin Globulin Albumin/Globulin Ratio Lipase - Rads (name of study) CXR Radiology: Final report received (No pneumonia found. Source of chest pain is not seen.) CT chest Radiology: Final report received (No underlying pneumonia or neoplasm is found.) CT abd w/o Radiology: Final report received (Midline periumbilical herniation through the defect centered at and to the right of midline which measures up to 6.2 cm. This allows 11 cm diameter bowel herniation to extend into the subcutaneous fat near the pelvic midline showing no sign of incarceration or strangulation.) PD MEDICAL DECISION MAKING - ED course Complexity details: reviewed results, re-evaluated patient, d/w patient, d/w strategic solutions consultant (Grace) ED course: 75-year-old female presents the emergency department for evaluation of lower abdominal pain and swelling at the site of her recent umbilical hernia repair. Patient has no fevers or vomiting. Screening labs show no leukocytosis. On exam she does have a hard palpable lump that is consistent with a reoccurrence of the abdominal hernia. Given the recent surgical instrumentation a repeat CT was performed today and it does unfortunately show periumbilical herniation to the right of the midline measuring up to 6.2 cm. Reassuringly patient has no fevers, leukocytosis vomiting or melena. Her pain is relatively well controlled despite recurrence of this herniation. I did discuss this with our on-call surgeon Dr. Cannon who did not do the surgery. Unfortunately at this point the patient will need to be referred to [facility] for long-term abdominal hernia defect repair. I discussed with the patient that it was important she return to the emergency department for fevers melena nausea vomiting or worsening abdominal pain The other reason that the patient visited the emergency department was for shortness of air. She is not hypoxic chest x-ray and CT of the chest do not show any pneumonia or findings consistent with congestive heart failure. Her high-sensitivity troponin Is normal. Her BNP is only mildly elevated but there is no lower leg swelling edema. She has no crackles. My suspicion is lower for this patient that she has a PE as she has no pleuritic component of chest pain. Unfortunately given severe contrast allergy did not complete the CT pulmonary angio but patient had admitted to me that she had not used her inhalers recently which is likely the cause of her shortness of air. Departure - Departure Disposition: 01 Home, Self Care Clinical Impression: Lower abdominal pain, Periumbilical hernia, Shortness of breath Condition: Stable Record reviewed to determine appropriate education?: Yes Follow-Up: Nick Edwards MD [Provider Admit Priv/Credential] - Gosia Borges PA-C [Primary Care Provider] - Comments: Bhavna and fortunately the repair of your umbilical hernia has failed. You now have a reoccurrence of your umbilical hernia. This case was discussed with Dr. Cannon. You need to continue to follow-up with her in office but unfortunately you will require referral to [facility] for long- term repair of this hernia. If at any point you have fevers, black stools severe or worsening abdominal pain or uncontrolled vomiting please return immediately to the emergency department. Your labs today did not show any worrisome findings. Your chest x-ray and CAT scans did not show any pneumonia. Please continue to take your inhalers as already prescribed.
[2021-03-03 12:08] LABS: BASOPHILS % (AUTO) 0.4 %; EOSINOPHILS # (AUTO) 0.7 10^3/uL (0.0-0.7); EOSINOPHILS % (AUTO) 7.4 %; HCT - HEMATOCRIT 41.4 % (37.0-47.0); HGB - HEMOGLOBIN 13.5 g/dL (12.0-16.0); LYMPHOCYTES # (AUTO) 1.7 10^3/uL (1.5-3.5); LYMPHOCYTES % (AUTO) 17.6 %; MEAN CORPUSCULAR HEMOGLOBIN 29.2 pg (27.0-31.0); MEAN CORPUSCULAR HGB CONC 32.6 g/dL (32.0-36.0); MEAN CORPUSCULAR VOLUME 89.4 fL (81.0-99.0); MEAN PLATELET VOLUME 10.9 fL (7.9-10.8); MONOCYTES # (AUTO) 0.9 10^3/uL (0.0-1.0); MONOCYTES % (AUTO) 9.4 %; NEUTROPHILS # (AUTO) 6.1 10^3/uL (1.5-6.6); NEUTROPHILS % (AUTO) 64.5 %; PLT - PLATELET COUNT 327 10^3/uL (130-450); RED BLOOD COUNT 4.63 10^6/uL (4.20-5.40); RED CELL DISTRIBUTION WIDTH 14.2 % (12.0-15.0); WHITE BLOOD COUNT 9.5 x10^3/uL (4.8-10.8)
--- NOTE | 2021-03-03 12:08 | XRAY Report ---
PROCEDURE: Chest 1 View X-Ray INDICATIONS: Chest Pain TECHNIQUE: One view of the chest was acquired. COMPARISON: 02/21/2021 2 view chest FINDINGS: Surgical changes and devices: None. Lungs and pleura: No pleural effusions or pneumothorax. Lungs are mildly abnormal with reduced insp iratory volumes crowding the bronchovascular markings. Mediastinum: Mediastinal contours appear normal. Heart size is normal. Bones and chest wall: No suspicious bony lesions. Overlying soft tissues appear unremarkable. IMPRESSION: No pneumonia found, reduced inspiratory volume. Source of chest pain is not seen. Reviewed by: Ulices Dalal MD on 03/03/2021 12:07 PM PDT Approved by: Ulices Dalal MD on 03/03/2021 12:07 PM PDT Station ID: [id number]
[2021-03-03 12:38] LABS: ALBUMIN 3.6 g/dL (3.2-5.5); BILIRUBIN,TOTAL 0.7 mg/dL (0.2-1.0); CREATININE 0.8 mg/dL (0.4-1.0); POTASSIUM 3.4 mmol/L (3.5-5.0); TOTAL PROTEIN 7.1 g/dL (6.7-8.2)
--- NOTE | 2021-03-03 13:19 | CT Report ---
PROCEDURE: CHEST WO INDICATIONS: Chest Pain TECHNIQUE: Noncontrast 5 mm thick sections acquired from the pulmonary apices to the posterior costophrenic angl es. 7 mm thick coronal and sagittal MIP reformats were then acquired. For radiation dose reduction, the following was used: automated exposure control, adjustment of mA and/or kV according to patient size. COMPARISON: Chest plain films 02/21/2021 and 03/02/2019 reviewed. FINDINGS: Image quality: Excellent. Lungs and pleura: No acute air space opacities. No pleural effusions or pneumothorax. Central and peripheral airways are patent and normal in caliber. Mediastinum: Heart size is normal. No pericardial effusion. No mediastinal adenopathy by size crit eria. Thoracic aorta and central pulmonary arteries are normal in size. Esophagus is normal in angel lynn. No hiatal hernia. Bones and chest wall: No suspicious bony lesions. No vertebral body compression fractures. No axil joselo or supraclavicular adenopathy by size criteria. The thyroid is not well seen due to noncontrast technique. Abdomen: Visualized upper abdominal solid organs and bowel loops appear normal in the absence of con trast. IMPRESSION: A source of chest pain is not seen. No underlying pneumonia or neoplasm is found. No mediastinal or h ilar adenopathy is present. No acute bone or soft tissue lesion is found. Reviewed by: Ulices Dalal MD on 03/03/2021 1:18 PM PDT Approved by: Ulices Dalal MD on 03/03/2021 1:18 PM PDT Station ID: [id number]
--- NOTE | 2021-03-03 13:25 | CT Report ---
PROCEDURE: Abdomen/Pelvis WO INDICATIONS: hernia repair with increased swelling TECHNIQUE: Noncontrast 5 mm thick sections acquired from the diaphragms to the symphysis. 5 mm coronal and sagi ttal reformats were then performed. For radiation dose reduction, the following was used: automated exposure control, adjustment of mA and/or kV according to patient size. COMPARISON: None. FINDINGS: Image quality: Reduced by absence of both oral and intravenous contrast.. ABDOMEN: Lung bases: Lung bases are clear. Heart size is normal. Solid organs: Liver and spleen are normal in size. Gallbladder has been previously resected. Pancr eas is normal in contours. No adrenal nodules. Kidneys are normal in size, without hydronephrosis o r nephrolithiasis except at the lower third collecting system of the left kidney where a 4 x 6 mm non obstructive calculus can be seen.. Peritoneum and bowel: Unenhanced bowel loops demonstrate normal wall thickness and caliber. No free fluid or air. Nodes and vessels: No retroperitoneal or mesenteric adenopathy by size criteria. Aorta and inferior vena cava are normal in caliber. Miscellaneous: There is a midline ventral hernia through a periumbilical rectus sheath defect measuri ng up to 6.2 cm transverse dimension. Mesentery and bowel extends into the subcutaneous fat in this a brenda, as a herniation measuring up to 11.5 cm showing no evidence of incarceration or strangulation at this time.. PELVIS: Genitourinary: Bladder wall thickness is normal. Miscellaneous: No inguinal hernias or adenopathy. Bones: No suspicious bony lesions. No vertebral body compression fractures. IMPRESSION: Incidental note is made of a 4 x 6 mm nonobstructive lower third left renal collecting system calculu s. There is a midline periumbilical herniation through the defect centered at and to the right of midlin e which measures up to 6.2 centimeters, allowing a 11 cm diameter bowel herniation to extend into the subcutaneous fat near the pelvic midline, showing no sign of incarceration or strangulation. Prior cholecystectomy. Reviewed by: Ulices Dalal MD on 03/03/2021 1:24 PM PDT Approved by: Ulices Dalal MD on 03/03/2021 1:24 PM PDT Station ID: [id number]
[2021-03-03 13:59] VITALS: BP 178/87
== END 2021-03-03 14:06 | disposition home or self-care (01) ==
LOC: EDUNIT# → ED 10:56
DX: K42.9 Umbilical hernia without obstruction or gangrene (principal); G89.18 Other acute postprocedural pain
CPT/HCPCS: 36415; 80053; 83605; 83690; 83880; 84484; 85025; 93005; 99284

== ENCOUNTER 2021-03-04 21:55 | Outpatient (CLI) | payer MEDICARE, MEDICAID | END 2021-03-04 21:56 | disposition EMS.NT | LOC: EMS 21:55 | DX: Z03.89 Encounter for observation for other suspected diseases and conditions ruled out (principal) ==

== ENCOUNTER 2021-03-14 08:00 | Outpatient (CLI) | payer MEDICARE, MEDICAID ==
[2021-03-14 18:10] LABS: ALBUMIN 3.8 g/dL (3.2-5.5); ALBUMIN/GLOBULIN RATIO 1.1 (1.0-2.2); ALKALINE PHOSPHATASE 90 IU/L (42-121); ALT ALANINE AMINOTRANSFERASE 18 IU/L (10-60); AST ASPARTATE AMINOTRANSFERASE 18 IU/L (10-42); BILIRUBIN,TOTAL 0.6 mg/dL (0.2-1.0); BUN - BLOOD UREA NITROGEN 12 mg/dL (6-20); CALCIUM 9.1 mg/dL (8.5-10.3); CARBON DIOXIDE - CO2 27 mmol/L (21-32); CHLORIDE 105 mmol/L (101-111); CHOL/HDL RATIO 3.7 (<4.4); CHOLESTEROL 162 mg/dL; CREATININE 1.1 mg/dL (0.4-1.0); GFR - MDRD 49 (>89); GLUCOSE 135 mg/dL (70-100); HDL CHOLESTEROL 44 mg/dL; LDL CHOLESTEROL,CALCULATED 95 mg/dL; LDL/HDL RATIO 2.2 (<4.4); POTASSIUM 3.7 mmol/L (3.5-5.0); SODIUM 141 mmol/L (135-145); TOTAL PROTEIN 7.2 g/dL (6.7-8.2); TRIGLYCERIDES 113 mg/dL; VLDL CHOLESTEROL 23 mg/dL
[2021-03-14 18:39] LABS: ESTIMATED AVERAGE GLUCOSE 166 mg/dL (70-100); HEMOGLOBIN A1c% 7.4 % (4.27-6.07)
== END 2021-03-14 23:59 | disposition home or self-care (01) ==
LOC: LAB.WCP 08:00
PROVIDERS: ATTEND Physician Assistant Medical
DX: E11.9 Type 2 diabetes mellitus without complications (principal)
CPT/HCPCS: 36415; 80053; 80061; 83036; 83721

== ENCOUNTER 2021-04-18 11:56 | Outpatient (CLI) | payer MEDICARE, MEDICAID ==
--- NOTE | 2021-04-18 14:03 | DEXA Report ---
PROCEDURE: Dexa Spine and/or Hip INDICATIONS: post menopausal TECHNIQUE: Dual energy x-ray absorptiometry (DXA) was performed on a [employer] System. Regions measur ed are the AP Spine, femoral neck, and if needed forearm. COMPARISON: None. FINDINGS: Lumbar Spine: Bone Mineral Density 1.758 g/cm/cm,T score 4.8. There is interval 19.5% increase in total lumbar sp ine bone mineral density. Left Hip: Bone Mineral Density 0.980 g/cm/cm,T score -0.2, there is interval 5.7% increase in left total hip b one mineral density. Left Femoral Neck: Bone Mineral Density 0.914 g/cm/cm, T score -0.9. (T score greater or equal to -1.0: NORMAL) (T score from -1.1 to -2.4: OSTEOPENIA) (T score less than or equal to -2.5 to: OSTEOPOROSIS) Impression: Normal bone mineral density. Patients with diagnosis of osteoporosis or osteopenia should have regular bone mineral density assess ment. For those eligible for Medicare, routine testing is allowed once every 2 years. Testing frequ ency can be increased for patients who have rapidly progressing disease or for those who are receivin g medical therapy to restore bone mass. Reviewed by: Natalio Denson MD on 04/18/2021 2:02 PM PDT Approved by: Natalio Denson MD on 04/18/2021 2:02 PM PDT Station ID: [id number]
== END 2021-04-18 11:57 | disposition home or self-care (01) ==
LOC: DI 11:56
PROVIDERS: ATTEND Physician Assistant Medical
DX: Z78.0 Asymptomatic menopausal state (principal); K42.9 Umbilical hernia without obstruction or gangrene; K56.600 Partial intestinal obstruction, unspecified as to cause; E66.01 Morbid (severe) obesity due to excess calories; I10 Essential (primary) hypertension

== ENCOUNTER 2021-04-18 11:59 | Outpatient (CLI) | payer MEDICARE, MEDICAID ==
--- NOTE | 2021-04-21 13:44 | Mammography Report ---
BILATERAL DIGITAL SCREENING MAMMOGRAM 3D/2D: 04/18/2021 CLINICAL: Routine screening. Routine screening. Comparison is made to exams dated: 01/04/2020 mammogram, 10/31/2019 mammogram, 06/15/2019 mammogram, 11/01 mammogram, 09/30/2017 mammogram, and 09/21/2016 mammogram - [facility]. There are scattered fibroglandular elements in both breasts. No significant masses, calcifications, or other findings are seen in either breast. There has been no significant interval change. IMPRESSION: NEGATIVE There is no mammographic evidence of malignancy. A 1 year screening mammogram is recommended. This exam was interpreted at Station ID: [id number]. NOTE: For mammograms, a report in lay terms will be sent to the patient. Approximately 15% of breast malignancies will not be visualized mammographically. In the management of a palpable breast mass, a negative mammogram must not discourage biopsy of a clinically suspicious lesion. Electronically Signed By: Esau munoz/mandie:04/18/2021 13:04:09 ACR BI-RADS Category 1: Negative 3341F PARENCHYMAL PATTERN: (A) - The breast(s) demonstrate(s) scattered fibroglandular densities. BI-RADS CATEGORY: (1) - 1 RECOMMENDATION: (ANNUAL) - Recommend routine annual screening mammography. [id number] 1 year screening LATERALITY: (B)
== END 2021-04-18 12:00 | disposition home or self-care (01) ==
LOC: DI 11:59
DX: Z12.31 Encounter for screening mammogram for malignant neoplasm of breast (principal)

== ENCOUNTER 2021-04-18 19:44 | Outpatient (CLI) | payer MEDICARE, MEDICAID | END 2021-04-18 19:45 | disposition critical access hospital (66) | LOC: EMS 19:44 | DX: R10.9 Unspecified abdominal pain (principal) | CPT/HCPCS: A0425; A0429 ==

== ENCOUNTER 2021-04-18 20:20 | Emergency (ER) | payer MEDICARE, MEDICAID ==
[2021-04-18] MEDS ORDERED: ONDANSETRON 4 MG/2 ML VIAL IVP STA ×2 (20:32→21:35)
[2021-04-18 20:53] LABS: BASOPHILS # (AUTO) 0.1 10^3/uL (0.0-0.1); BASOPHILS % (AUTO) 0.6 %; EOSINOPHILS # (AUTO) 0.4 10^3/uL (0.0-0.7); EOSINOPHILS % (AUTO) 2.6 %; HCT - HEMATOCRIT 43.3 % (37.0-47.0); HGB - HEMOGLOBIN 13.9 g/dL (12.0-16.0); LYMPHOCYTES # (AUTO) 2.3 10^3/uL (1.5-3.5); LYMPHOCYTES % (AUTO) 13.7 %; MEAN CORPUSCULAR HEMOGLOBIN 28.7 pg (27.0-31.0); MEAN CORPUSCULAR HGB CONC 32.1 g/dL (32.0-36.0); MEAN CORPUSCULAR VOLUME 89.3 fL (81.0-99.0); MEAN PLATELET VOLUME 10.8 fL (7.9-10.8); MONOCYTES # (AUTO) 0.9 10^3/uL (0.0-1.0); MONOCYTES % (AUTO) 5.3 %; NEUTROPHILS # (AUTO) 13.3 10^3/uL (1.5-6.6); NEUTROPHILS % (AUTO) 77.3 %; PLT - PLATELET COUNT 345 10^3/uL (130-450); RED BLOOD COUNT 4.85 10^6/uL (4.20-5.40); RED CELL DISTRIBUTION WIDTH 14.3 % (12.0-15.0); WHITE BLOOD COUNT 17.1 x10^3/uL (4.8-10.8)
[2021-04-18 21:05] LABS: ALBUMIN 4.4 g/dL (3.2-5.5); ALBUMIN/GLOBULIN RATIO 1.2 (1.0-2.2); BILIRUBIN,TOTAL 0.9 mg/dL (0.2-1.0); CALCIUM 9.4 mg/dL (8.5-10.3); POTASSIUM 3.6 mmol/L (3.5-5.0)
[2021-04-18 21:27] LABS: BILIRUBIN,URINE NEGATIVE (NEGATIVE); GLUCOSE, URINE (UA) NEGATIVE (NEGATIVE); KETONES,URINE (UA) TRACE mg/dL (NEGATIVE); LEUKOCYTE ESTERASE, URINE SMALL (NEGATIVE); NITRITE,URINE NEGATIVE (NEGATIVE); OCCULT BLOOD,URINE MODERATE (NEGATIVE); PROTEIN,URINE 30 mg/dL (NEGATIVE); UROBILINOGEN,URINE 0.2 (NORMAL) E.U./dL (NORMAL)
[2021-04-18] MEDS ORDERED: HYDROmorphone 1 MG/ML CARPUJECT IVP STA (21:35)
[2021-04-18] MEDS ORDERED: SODIUM CHLORIDE 0.9% 1,000 ML IV STA (21:35)
[2021-04-18 21:37] LABS: BACTERIA,URINE Moderate /HPF (None Seen); CLARITY,URINE HAZY (CLEAR); SQUAMOUS EPITHELIAL CELL,UR MANY Squamous (<= Few)
[2021-04-18 21:39] LABS: WBC,URINE >25 /HPF (0-5)
[2021-04-18] MEDS ORDERED: diphenhydrAMINE INJ 50 MG/ML VIAL IVP STA (22:02)
[2021-04-18] MEDS ORDERED: DEXAMETHASONE 10 MG/ML VIAL IVP STA (22:03)
--- NOTE | 2021-04-18 22:03 | ED Physician Documentation ---
PD HPI ABD PAIN - Stated complaint Stated Complaint: ABD PAIN - Chief complaint Chief Complaint: General - History obtained from History obtained from: Patient - History of Present Illness Timing - onset: Today (He had hernia repair on 02/24/[address] Cannon with recurrence of it within a week later and has had distention since that time. However today with increased pain, firmness and tenderness and repetitive vomiting.) Timing - duration: Days Timing - details: Abrupt onset, Still present Quality: Cramping, Aching, Pain Location: Periumbilical Improved by: Vomiting Worsened by: Eating Associated symptoms: Nausea, Vomiting. No: Fever, Diarrhea, Constipation, Dysuria Recently seen: Not recently seen (has appt with surgery at this coming week to schedule operative time; no current pain meds (had had Rx but not continued by PCP since was over a month out from surgery.) Review of Systems Constitutional: denies: Fever, Chills, Myalgias Nose: denies: Rhinorrhea / runny nose, Congestion Throat: denies: Sore throat Cardiac: denies: Chest pain / pressure Respiratory: denies: Cough GI: reports: Abdominal Pain, Nausea, Vomiting. denies: Constipation, Diarrhea : denies: Dysuria Neurologic: reports: Generalized weakness. 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 : Chronic bladder infection HEENT: Chronic vision loss Psych: Depression, Anxiety Musculoskeletal: Osteoarthritis Derm: None - Past Surgical History Past Surgical History: Yes General: Cholecystectomy, Appendectomy, Colonoscopy Ortho: Knee replacement HEENT: Cataracts, Tonsil/Adenoidectomy - Present Medications Home Medications: Ambulatory Orders Medication Instructions Recorded Confirmed Atorvastatin [Lipitor] 20 mg PO DAILY 06/19/17 03/03/21 Gabapentin 100 mg PO DAILY 06/19/17 03/03/21 Oxybutynin Chloride [Ditropan Xl] 10 mg PO DAILY 06/19/17 03/03/21 Prazosin [Minipress] 5 mg PO QPM 06/19/17 03/03/21 Propranolol [Inderal] 10 mg PO BID 06/19/17 03/03/21 Dicyclomine [Bentyl] 10 mg PO QID PRN 05/30/19 03/03/21 Calcium Carbonate [Calcium] 1,200 mg PO DAILY 02/24/21 03/03/21 Cholecalciferol [Vitamin D3] 25 mcg PO DAILY 02/24/21 03/03/21 Fluoxetine HCl [Prozac] 20 mg PO DAILY 02/24/21 03/03/21 Gabapentin [Neurontin] 400 mg PO QPM 02/24/21 02/24/21 Lactobacillus Acidophilus 1 tab PO DAILY 02/24/21 03/03/21 [Probiotic Acidophilus] buPROPion HCL [Bupropion Xl] 300 mg PO DAILY 02/24/21 03/03/21 oxyCODONE [Roxicodone] 5 mg PO Q4-6H PRN #20 tablet 02/25/21 Albuterol Sulf [Ventolin Hfa 2 puffs PO Q4HR PRN 03/03/21 03/03/21 Inhaler] Fluticasone/Salmeterol [Advair 1 puffs PO DAILY 03/03/21 03/03/21 250-50 Diskus] Meloxicam [Mobic] 1 tab PO BID 03/03/21 03/03/21 Montelukast [Singulair] 1 tab PO DAILY 03/03/21 03/03/21 Acetaminophen [Tylenol] 650 mg PO TID #30 tab 04/19/21 Docusate Sodium 100Mg Capsule 100 mg PO DAILY #20 cap 04/19/21 [Colace 100Mg Capsule] Morphine Ir [Ms Ir] 7.5 mg PO BID PRN #8 tablet 04/19/21 Ondansetron Odt [Zofran] 4 mg TL Q6H PRN #10 tablet 04/19/21 - Allergies Allergies/Adverse Reactions: Allergies Allergy/AdvReac Type Severity Reaction Status Date / Time hydromorphone Allergy Intermediate Itching Verified 03/03/21 11:04 iodine Allergy Intermediate Hives Verified 03/03/21 11:04 acyclovir Allergy Unknown Verified 03/03/21 11:04 amoxicillin Allergy Unknown Verified 03/03/21 11:04 aspirin Allergy Unknown Verified 03/03/21 11:04 doxycycline Allergy Unknown Verified 03/03/21 11:04 hydrocodone bitartrate * Allergy Unknown Verified 03/03/21 11:04 [From Vicodin] naproxen [From Naprosyn] Allergy Unknown Verified 03/03/21 11:04 NSAIDS (Non-Steroidal Allergy Unknown Verified 03/03/21 11:04 Anti-Inflamma oxycodone HCl * Allergy Itching Verified 03/03/21 11:04 [From Percocet] risperidone [From Risperdal] Allergy Unknown Verified 03/03/21 11:04 Tetanus Vaccines and Toxoid Allergy Hives Verified 03/03/21 11:04 [Tetanus Vaccines & Toxoid] adhesive tape AdvReac Intermediate Rash Verified 03/03/21 11:04 - Social History Does the pt smoke?: No Smoking Status: Never smoker Does the pt drink ETOH?: No Does the pt have substance abuse?: No - Immunizations Immunizations are current?: Yes - POLST Patient has POLST: No PD ED PE NORMAL - Vitals Vital signs reviewed: Yes - General General: Alert and 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, Well developed/nourished, Other (appears in pain and is holding emesis bag. ) - HEENT HEENT: Pharynx benign - Neck Neck: Supple, no meningeal sign, No adenopathy - Cardiac Cardiac: RRR, No murmur - Respiratory Respiratory: Clear bilaterally - Abdomen Abdomen: Other (obese, umbilical hernia large defect felt left periumbilical, with tenderness and feels firm, bowel sounds present and hyperactive. Feels c/w incarceration. ) - Female Female : Deferred - Rectal Rectal: Deferred - Derm Derm: Normal color, Warm and dry - Extremities Extremities: No edema, No calf tenderness / cord - Neuro Neuro: Alert and 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, No motor deficit, Normal speech Results - Vitals Vitals: Vital Signs - 24 hr 04/18/21 04/18/21 04/19/21 20:22 22:22 00:36 Temperature 36.0 C L 36.8 C 36.7 C Heart Rate 80 71 83 Respiratory 20 12 26 H Rate Blood Pressure 173/92 H 143/101 H 184/153 H O2 Saturation 94 95 92 04/19/21 04/19/21 01:23 01:48 Temperature 36.7 C Heart Rate 82 82 Respiratory 19 19 Rate Blood Pressure 123/81 H 123/81 H O2 Saturation 96 96 Oxygen O2 Source [] Room air O2 Source Nasal cannula Oxygen Flow Rate 2 - Labs Labs: Laboratory Tests 06/04/18/21 04/18/21 20:46 20:46 21:12 WBC 17.1 H RBC 4.85 Hgb 13.9 Hct 43.3 MCV 89.3 MCH 28.7 MCHC 32.1 RDW 14.3 Plt Count 345 MPV 10.8 Neut # (Auto) 13.3 H Lymph # (Auto) 2.3 [place] # (Auto) 0.9 Eos # (Auto) 0.4 Baso # (Auto) 0.1 Absolute Nucleated RBC 0.00 Nucleated RBC % 0.0 Sodium 134 L Potassium 3.6 Chloride 99 L Carbon Dioxide 23 Anion Gap 12.0 BUN 16 Creatinine 1.0 Estimated GFR (MDRD) 54 L Glucose 201 H Calcium 9.4 Total Bilirubin 0.9 AST 18 ALT 20 Alkaline Phosphatase 101 Total Protein 8.0 Albumin 4.4 Globulin 3.6 Albumin/Globulin Ratio 1.2 Lipase 16 L Urine Color YELLOW Urine Clarity HAZY Urine pH 6.0 Ur Specific [place] 1.025 Urine Protein 30 H Urine Glucose (UA) NEGATIVE Urine Ketones TRACE Urine Occult Blood MODERATE H Urine Nitrite NEGATIVE Urine Bilirubin NEGATIVE Urine Urobilinogen 0.2 (NORMAL) Ur Leukocyte Esterase SMALL H Urine RBC 11-25 H Urine WBC >25 H Ur Squamous Epith Cells MANY Squamous H Urine Bacteria Moderate H Ur Microscopic Review INDICATED Urine Culture Comments NOT INDICATED - Rads (name of study) abd/pelvic CT Radiology: Prelim report reviewed, See rad report PD MEDICAL DECISION MAKING - ED course Complexity details: reviewed results (CT abd showing hernia with some fluid in hernia sac and bowel obstruction pattern. ), re-evaluated patient (she is feeling better after reduction, even though hernia is out again, but not hurting like it did. Not nauseated. She is feeling able to try going home.), considered differential (tender and firm hernia area with vomiting, c/w likely incarceration vs obstruction. ), d/w patient, d/w [employer] hyperion consultant (Surgery manager validation contacted and he came it and was able to reduce the hernia without sedation. ) ED course: Given IV pain meds. I tried to reduce the hernia but was very tender. Departure - Departure Disposition: 01 Home, Self Care Clinical Impression: Incarcerated umbilical hernia, Small bowel obstruction, partial Condition: Stable Record reviewed to determine appropriate education?: Yes Instructions: ED Hernia Inguinal Follow-Up: Young,Gosia L, PA-C [Primary Care Provider] - Prescriptions: Docusate Sodium 100Mg Capsule [Colace 100Mg Capsule] 100 mg PO DAILY #20 cap Morphine Ir [Ms Ir] 7.5 mg PO BID PRN #8 tablet PRN Reason: Pain Acetaminophen [Tylenol] 650 mg PO TID #30 tab Ondansetron Odt [Zofran] 4 mg TL Q6H PRN #10 tablet PRN Reason: Nausea / Vomiting Comments: Your hernia appeared to be causing a blockage of flow through the intestine (bowel obstruction). This can happen randomly due to twisting or trapping of the intestine in the hernia sac. This led to the increased pain and vomiting today. It should be improved now that it had been reduced even if the hernia comes back out. However it could retwist again. Return to the ER if you have increased pain associated with vomiting again. Otherwise the hernia will be distended and have some pain to it as it has over the past month. You can use Tylenol 4 times a day regularly for the pain and ondansetron if needed for nausea. Also use docusate stool softener daily. To that add half a tablet of the morphine 2 or 3 times daily if needed for worse pain. I wrote a limited prescription for you to help in the short-term. Follow-up with the on Wednesday as planned for surgical evaluation to repair the hernia. Return to the ER if worse as needed. I am prescribing a short course of narcotic pain medication for you. These are potentially dangerous and addictive medications that should be used carefully. These medications may constipate you. Take an [id number] stool softener such as docusate twice daily with plenty of water while taking these medications. If you go 24 hours without a bowel movement, take [id number] MiraLAX, per package instructions. Do not drink or drive while taking these medications. If you received narcotic or sedating medications while in the emergency department do not drive for 24 hours. Store this medication in a safe, secure place and out of reach of children. It is a violation of federal law to give or sell this medication to another person or to use in a manner other than prescribed. The ED will not refill narcotic prescriptions, including prescriptions lost or s tolen. You can dispose of unwanted medications at the [facility]'s office or at several pharmacies such as [facility]. Discharge Date/Time: 04/19/21 02:00
[2021-04-18] MEDS ORDERED: IOVERSOL 320 100 ML VIAL IVP ONE ×2 (22:44→23:21)
[2021-04-19] MEDS ORDERED: MORPHINE 2 MG/ML CARPUJECT IVP STA (00:07)
[2021-04-19] MEDS ORDERED: KETAMINE 500 MG/10 ML VIAL IVP STA (00:25)
[2021-04-19] MEDS ORDERED: MIDAZOLAM 2 MG/2 ML VIAL IVP STA (00:26)
[2021-04-19 01:23] VITALS: BP 123/81
--- NOTE | 2021-04-19 08:03 | CT Report ---
PROCEDURE: Abdomen/Pelvis W INDICATIONS: prior hernia, now firm and vomiting CONTRAST: IV CONTRAST: Optiray 320 ml: 100 PO CONTRAST: *NO PO CONTRAST TECHNIQUE: After the administration of intravenous contrast, 5 mm thick sections acquired from the diaphragms to the symphysis. 5 mm thick coronal and sagittal reformats were acquired. For radiation dose reducti on, the following was used: automated exposure control, adjustment of mA and/or kV according to aletha ent size. COMPARISON: None. FINDINGS: Image quality: Excellent. ABDOMEN: Lung bases: Lung bases are clear. Heart size is normal. Solid organs: Liver and spleen are normal in size and enhancement. Gallbladder is surgically absent Biliary system is non dilated. Pancreas enhances normally. No adrenal nodules. Kidneys demonstra te normal size and enhancement, without hydronephrosis. 6 x 4 mm nonobstructing lower pole left janessa l stone. Peritoneum and bowel: Bowel loops demonstrate normal wall thickness and caliber. No free fluid or a ir. Nodes and vessels: No retroperitoneal or mesenteric adenopathy by size criteria. Aorta and inferior vena cava are normal in size. Miscellaneous: Large ventral hernia through which small bowel enters, resulting in a small bowel obst ruction within the hernia and diffuse small bowel obstruction. There is mild ascites within the herni a. Small bowel loops are dilated to 3.5 cm. PELVIS: Genitourinary: Bladder wall thickness is normal. Miscellaneous: No inguinal hernias or adenopathy. Bones: No suspicious bony lesions. No vertebral body compression fractures. Degenerative spine wit h calcified disc protrusions at L1-L2 and L2-L3 contributing to multilevel canal stenosis, severe at L1-L2 and L2-L3 and L3-L4. IMPRESSION: 1. There is a large ventral abdominal wall hernia which contains obstructed small bowel. The obstruct ion appears to occur within the hernia. 2. Severe lumbar degenerative change with significant multilevel canal stenosis. 3. Incidental left renal stone. A preliminary report with the above findings was provided at the time of the study by [employer]. Reviewed by: Juliocesar Yap MD on 04/19/2021 7:02 AM [facility] Approved by: Juliocesar Yap MD on 04/19/2021 7:02 AM LADON[facility] Station ID: [id number]
--- NOTE | 2021-04-19 12:22 | CONSULTATION NOTE ---
Referring Provider Name of Referring Provider:: mehdi Consult Date: 04/18/21 Chief Complaint - Chief Complaint Chief Complaint: Abdominal pain History of Present Illness - History Obtained From History obtained from: Patient - History of Present Illness HPI Comment/Other: I was called by the emergency room regarding this postoperative patient from last month. She underwent a hernia repair with immediate recurrence. Presented this time with abdominal pain. She states the pain is crampy/colicky does not radiate is generalized is associated with nausea and emesis. She denies prior. Alleviating factors are lying still and medication. She denies anorexia fever chills diarrhea. In the ER she underwent imaging without obstruction. Although there was a question of partial small bowel obstruction but no secondary findings on my review of CT scan concerning for acute abdomen. That was similar to her exam which was benign. I reviewed and discussed CT scan with radiology. This is a large ventral hernia with small bowel dilitation and fluid consistent with pSBO. Patient was seen and examined within 30 minutes of the emergency room call Review of systems was performed without additional findings other than HPI. History - Past Medical History Cardiovascular: reports: Hypertension, High cholesterol, Deep vein thrombosis Respiratory: reports: Shortness of breath, Sleep apnea, CPAP use Neuro: reports: None Endocrine/Autoimmune: reports: None GI: reports: Other HOME IMPROVEMENT ADVISOR: reports: None : reports: Chronic bladder infection HEENT: reports: Chronic vision loss Psych: reports: Depression, Anxiety Musculoskeletal: reports: Osteoarthritis Derm: reports: None MRSA Hx?: No - Past Surgical History General: reports: Cholecystectomy, Appendectomy, Colonoscopy Ortho: reports: Knee replacement HEENT: reports: Cataracts, Tonsil/Adenoidectomy - POLST Patient has POLST: No Meds/Allgy - Home Medications Home Medications: Ambulatory Orders Medication Instructions Recorded Confirmed Atorvastatin [Lipitor] 20 mg PO DAILY 06/19/17 03/03/21 Gabapentin 100 mg PO DAILY 06/19/17 03/03/21 Oxybutynin Chloride [Ditropan Xl] 10 mg PO DAILY 06/19/17 03/03/21 Prazosin [Minipress] 5 mg PO QPM 06/19/17 03/03/21 Propranolol [Inderal] 10 mg PO BID 06/19/17 03/03/21 Dicyclomine [Bentyl] 10 mg PO QID PRN 05/30/19 03/03/21 Calcium Carbonate [Calcium] 1,200 mg PO DAILY 02/24/21 03/03/21 Cholecalciferol [Vitamin D3] 25 mcg PO DAILY 02/24/21 03/03/21 Fluoxetine HCl [Prozac] 20 mg PO DAILY 02/24/21 03/03/21 Gabapentin [Neurontin] 400 mg PO QPM 02/24/21 02/24/21 Lactobacillus Acidophilus 1 tab PO DAILY 02/24/21 03/03/21 [Probiotic Acidophilus] buPROPion HCL [Bupropion Xl] 300 mg PO DAILY 02/24/21 03/03/21 oxyCODONE [Roxicodone] 5 mg PO Q4-6H PRN #20 tablet 02/25/21 Albuterol Sulf [Ventolin Hfa 2 puffs PO Q4HR PRN 03/03/21 03/03/21 Inhaler] Fluticasone/Salmeterol [Advair 1 puffs PO DAILY 03/03/21 03/03/21 250-50 Diskus] Meloxicam [Mobic] 1 tab PO BID 03/03/21 03/03/21 Montelukast [Singulair] 1 tab PO DAILY 03/03/21 03/03/21 Acetaminophen [Tylenol] 650 mg PO TID #30 tab 04/19/21 Docusate Sodium 100Mg Capsule 100 mg PO DAILY #20 cap 04/19/21 [Colace 100Mg Capsule] Morphine Ir [Ms Ir] 7.5 mg PO BID PRN #8 tablet 04/19/21 Ondansetron Odt [Zofran] 4 mg TL Q6H PRN #10 tablet 04/19/21 - Allergies Allergies/Adverse Reactions: Allergies Allergy/AdvReac Type Severity Reaction Status Date / Time hydromorphone Allergy Intermediate Itching Verified 03/03/21 11:04 iodine Allergy Intermediate Hives Verified 03/03/21 11:04 acyclovir Allergy Unknown Verified 03/03/21 11:04 amoxicillin Allergy Unknown Verified 03/03/21 11:04 aspirin Allergy Unknown Verified 03/03/21 11:04 doxycycline Allergy Unknown Verified 03/03/21 11:04 hydrocodone bitartrate * Allergy Unknown Verified 03/03/21 11:04 [From Vicodin] naproxen [From Naprosyn] Allergy Unknown Verified 03/03/21 11:04 NSAIDS (Non-Steroidal Allergy Unknown Verified 03/03/21 11:04 Anti-Inflamma oxycodone HCl * Allergy Itching Verified 03/03/21 11:04 [From Percocet] risperidone [From Risperdal] Allergy Unknown Verified 03/03/21 11:04 Tetanus Vaccines and Toxoid Allergy Hives Verified 03/03/21 11:04 [Tetanus Vaccines & Toxoid] adhesive tape AdvReac Intermediate Rash Verified 03/03/21 11:04 Exam - Physical Exam General Appearance: positive: No acute distress Eyes Bilateral: positive: Normal inspection ENT: positive: ENT inspection nml Neck: positive: Trachea midline Respiratory: positive: No respiratory distress Cardiovascular: positive: Regular rate & rhythm Peripheral Pulses: positive: 2+ Abdomen: positive: Other (Obese, obvious hernia which was reducible. No peritoneal findings.) Skin: positive: Color nml Extremities: positive: Full ROM Neurologic/Psychiatric: positive: Oriented x3 Conclusion and Plan - Lab Results Laboratory Results 04/18/21 21:12: Urine Color YELLOW, Urine Clarity HAZY, Urine pH 6.0, Ur Specific [place] 1.025, Urine Protein 30 H, Urine Glucose (UA) NEGATIVE, Urine Ketones TRACE, Urine Occult Blood MODERATE H, Urine Nitrite NEGATIVE, Urine Bilirubin NEGATIVE, Urine Urobilinogen 0.2 (NORMAL), Ur Leukocyte Esterase SMALL H, Urine RBC 11-25 H, Urine WBC >25 H, Ur Squamous Epith Cells MANY Squamous H, Urine Bacteria Moderate H, Ur Microscopic Review INDICATED, Urine Culture Comments NOT INDICATED 04/18/21 20:46: Sodium 134 L, Potassium 3.6, Chloride 99 L, Carbon Dioxide 23, Anion Gap 12.0, BUN 16, Creatinine 1.0, Estimated GFR (MDRD) 54 L, Glucose 201 H, Calcium 9.4, Total Bilirubin 0.9, AST 18, ALT 20, Alkaline Phosphatase 101, Total Protein 8.0, Albumin 4.4, Globulin 3.6, Albumin/Globulin Ratio 1.2, Lipase 16 L 04/18/21 20:46: WBC 17.1 H, RBC 4.85, Hgb 13.9, Hct 43.3, MCV 89.3, MCH 28.7, MCHC 32.1, RDW 14.3, Plt Count 345, MPV 10.8, Neut # (Auto) 13.3 H, Lymph # (Auto) 2.3, Iron # (Auto) 0.9, Eos # (Auto) 0.4, Baso # (Auto) 0.1, Absolute Nucleated RBC 0.00, Nucleated RBC % 0.0 - Consultation Note Consultation Note: Morbidly obese female with recurrent incisional hernia and signs of partial obstruction. At this time there is no immediate surgical need. She is scheduled to be transferred to [place] for elective evaluation. 3 with the emergency physician regarding diet trial and home if able otherwise I will be happy to admit. This was discussed with the patient she understands the risk benefits of inpatient versus home management.
== END 2021-04-19 02:00 | disposition home or self-care (01) ==
LOC: EDUNIT# → ED 20:20 → SUPCPDRO 20:20 → ED 04-19 02:00
DX: K42.9 Umbilical hernia without obstruction or gangrene (principal); K56.600 Partial intestinal obstruction, unspecified as to cause; E66.01 Morbid (severe) obesity due to excess calories; I10 Essential (primary) hypertension
CPT/HCPCS: 36415; 74177; 80053; 81001; 83690; 85025; 93005; 96361; 96374; 96375; 96376; 99284; 99285; J1170; J1200; Q9967; 81003; 87086

== ENCOUNTER 2021-05-13 07:00 | Outpatient (CLI) | payer MEDICARE, MEDICAID | END 2021-05-13 23:59 | disposition home or self-care (01) | LOC: COV 07:00 | PROVIDERS: ATTEND Surgery | DX: Z01.812 Encounter for preprocedural laboratory examination (principal); Z20.822 Contact with and (suspected) exposure to COVID-19 ==

== ENCOUNTER 2021-05-13 13:31 | Outpatient (CLI) | payer MEDICARE, MEDICAID ==
[2021-05-13] MEDS ORDERED: GADOBUTROL 10 MMOL/10 ML VIAL ONE (13:55)
[2021-05-13] MEDS ORDERED: GADOBUTROL 10 MMOL/10 ML VIAL IVP ONE (15:01)
--- NOTE | 2021-05-13 15:47 | MRI Report ---
PROCEDURE: Brain W/WO INDICATIONS: ANISOCORIA CONTRAST: IV CONTRAST: Gadavist ml: 10 TECHNIQUE: Noncontrast axial T1 spin echo, axial T2 fast spin echo, sagittal and axial FLAIR, coronal T2 fast sp in echo, axial gradient echo, axial diffusion and ADC through the brain. After the administration of contrast, axial and coronal T1 spin echo with fat saturation through the brain. COMPARISON: 07/02/2016.. FINDINGS: Image quality: Degraded by patient motion artifact. CSF spaces: Basal cisterns are patent. No extra-axial fluid collections. Ventricles are normal in size and shape. Brain: No midline shift. No intracranial bleeds or masses. No abnormal intracranial enhancement. There is cerebral volume loss for age. There is periventricular white matter chronic small vessel is chemic change. The brainstem appears normal. Diffusion-weighted images demonstrate no acute ischemi c insults. No chronic ischemic insults. Normal intravascular flow voids are present. Dural sinuses demonstrate normal postcontrast enhancement. Fluid-containing pituitary fossa compatible with empty s virid[place] or partial intrasella is stable compared to the prior exam. Skull and face: Calvarial marrow is normal in signal. Orbits appear normal. Sinuses: Mucosal thickening noted in the maxillary sinuses bilaterally, the ethmoid air cells bilater ally, the left sphenoid sinus and the left frontal recess. 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 Mastoids appear clear. IMPRESSION: 1. Image quality degraded by patient motion artifact. 2. No acute intracranial disease process. 3. No abnormal intracranial mass or mass effect. 4. No suspicious postcontrast enhancement. 5. Pansinusitis. Reviewed by: Allison Randolph MD, PhD on 05/13/2021 3:45 PM PDT Approved by: Allison Randolph MD, PhD on 05/13/2021 3:45 PM PDT Station ID: [id number]
== END 2021-05-13 13:32 | disposition home or self-care (01) ==
LOC: DI 13:31
PROVIDERS: ATTEND Physician Assistant Medical
DX: H57.02 Anisocoria (principal); J32.4 Chronic pansinusitis; Z01.812 Encounter for preprocedural laboratory examination; Z20.822 Contact with and (suspected) exposure to COVID-19
CPT/HCPCS: 70553; A9585; U0004

== ENCOUNTER 2021-06-23 08:00 | Outpatient (CLI) | payer MEDICARE, MEDICAID ==
[2021-06-23 18:32] LABS: ALBUMIN 3.7 g/dL (3.2-5.5); ALBUMIN/GLOBULIN RATIO 1.1 (1.0-2.2); BILIRUBIN,TOTAL 0.6 mg/dL (0.2-1.0); POTASSIUM 3.4 mmol/L (3.5-5.0); TOTAL PROTEIN 7.2 g/dL (6.7-8.2)
[2021-06-23 20:27] LABS: ESTIMATED AVERAGE GLUCOSE 148 mg/dL (70-100); HEMOGLOBIN A1c% 6.8 % (4.27-6.07)
== END 2021-06-23 23:59 | disposition home or self-care (01) ==
LOC: LAB.WCP 08:00
PROVIDERS: ATTEND Physician Assistant Medical
DX: E11.9 Type 2 diabetes mellitus without complications (principal)
CPT/HCPCS: 36415; 80053; 83036

== ENCOUNTER 2021-07-09 14:31 | Outpatient (CLI) | payer MEDICARE, MEDICAID | END 2021-07-09 14:32 | disposition EMS.NT | LOC: EMS 14:31 | DX: I10 Essential (primary) hypertension (principal) ==

== ENCOUNTER 2021-08-14 13:11 | Outpatient (CLI) | payer MEDICARE, MEDICAID ==
--- NOTE | 2021-08-14 13:59 | SLEEP CARE CONSULTATION ---
Information from patient questionnaire entered by Cece Rogers. I have reviewed and concur with the information entered by Cece Rogers. This document represents the service I personally performed and the decisions made by , Shawna Rosario ARNP. History of Present Illness Service Date and Time: 08/14/2021 1311 Previous diagnosis: Mild, Obstructive Sleep Apnea-Hypopnea Syndrome AHI: 6.4 (in 2010) Reason for follow up: annual Equipment type: CPAP Equipment obtained from: [employer] (getting supplies as needed) Mask style: Full face Backup mask available: Yes (old mask) Last cushion change: 3-4 weeks ago Prior sleep studies: Yes Year and Where: 2010 - [facility] Type of Sleep Study: Polysomnography HPI additional information: NAHEED RAMIREZ was diagnosed to have mild, AHI 6.4, obstructive sleep apnea-hypopnea syndrome and returned today with caregiver for CPAP therapy annual follow-up. Sleep Study - Results Type of Sleep Study: Polysomnography Prior sleep studies: Yes Year and Where: 2010 [facility] Sleep CPAP Compliance Data - Data Reviewed with Patient Average duration of nightly device use: 9 hours 25 minutes Compliance rate %: 96 Current pressure setting (cmH2O): 8-15 Average residual AHI: 3.9 Central apnea: .4 Obstructive apnea: .9 Hypopnea: 1.4 Subjective Patient concerns: denies: aerophagia, mask discomfort, air blowing in eyes, mask leak noise, condensation in mask/hose, nasal congestion, dry mouth, nose, throat, epistaxis, other Observed to snore while using device: No Current pressure setting perceived as: comfortable On therapy, patient: reports: sleeping better, awakening more refreshed, being more awake and alert during the day, more rested overall. denies: drowsiness while driving (she does not drive) Initial [place] Sleepiness Scale score: 4 (in 2010) Current [place] Sleepiness Scale score: 5 Allergies and Home Medications Home medication list reviewed: Yes (Losartan, Metformin) Review of Systems Review of systems same as previous: No (Hernia repair, 2 months ago, end of April) Physical Exam Blood Pressure: 160/88 (right arm) Cuff size: long Heart Rate: 68 O2 Saturation: 97 Height: 5 ft 6 in Weight: 241 lb 9.6 oz Weight change since last visit: 20 lb loss Body Mass Index: 38.9 BMI Classification: Obese Impression and Plan 1. Obstructive Sleep Apnea-Hypopnea Syndrome, mild, with good treatment co mpliance and good apnea control. On CPAP therapy, the patient has better sleep quality and is more rested overall. Patient is very satisfied with current CPAP therapy and has significant improvement of her sleep apnea. Patient has no complaints or issues with CPAP use. Patient states she has lost weight and got down as much as 235 pounds with adjusting her diet to try and help control her diabetes. Patient has lost weight since her last visit. Currently patients BMI is 38.9. Patient encouraged to continue to try to lose weight. The patient's CPAP pressure range should accommodate some weight loss. Symptoms to report for additional pressure adjustment discussed. Patient's apnea severity and rationale for treatment to reduce apnea, improve sleep quality and reduce cardiovascular and cerebrovascular events was reviewed. I also reviewed the benefit of consistent device use of CPAP for hypertension, depression and anxiety. * Continue auto CPAP pressure at 8-15 cmH2O * Notify me if snoring with mask or feeling that the pressure is too much or too little * Continue to try to lose weight * Call this office if any problems using CPAP * Return for follow up in 1 year, or sooner if concerns arise Counseling Topics: Spare mask, Weight loss health impact Visit Type: In Office Time Spent with Patient (minutes): 16 Provider Statement: I spent 100% of the Face to Face Visit with the patient with greater than 50% spent counseling the patient and coordination of care.
[2021-08-14 14:00] VITALS: BP 160/88
== END 2021-08-14 13:12 | disposition home or self-care (01) ==
LOC: SC 13:11
PROVIDERS: ATTEND Nurse Practitioner Family
DX: G47.33 Obstructive sleep apnea (adult) (pediatric) (principal); E66.9 Obesity, unspecified; Z68.38 Body mass index [BMI] 38.0-38.9, adult
CPT/HCPCS: 99212; G0463

== ENCOUNTER 2021-08-20 07:18 | Outpatient (CLI) | payer MEDICARE, MEDICAID | END 2021-08-20 07:19 | disposition EMS.NT | LOC: EMS 07:18 | DX: I10 Essential (primary) hypertension (principal) ==

== ENCOUNTER 2021-09-02 21:47 | Outpatient (CLI) | payer MEDICARE, MEDICAID | END 2021-09-02 21:48 | disposition EMS.NT | LOC: EMS 21:47 | DX: I10 Essential (primary) hypertension (principal) ==

== ENCOUNTER 2021-09-23 08:00 | Outpatient (CLI) | payer MEDICARE, MEDICAID ==
[2021-09-23 12:01] LABS: BASOPHILS # (AUTO) 0.1 10^3/uL (0.0-0.1); BASOPHILS % (AUTO) 1.1 %; EOSINOPHILS # (AUTO) 0.7 10^3/uL (0.0-0.7); EOSINOPHILS % (AUTO) 7.9 %; HCT - HEMATOCRIT 41.9 % (37.0-47.0); LYMPHOCYTES % (AUTO) 24.2 %; MEAN CORPUSCULAR HEMOGLOBIN 27.5 pg (27.0-31.0); MEAN CORPUSCULAR VOLUME 88.6 fL (81.0-99.0); MEAN PLATELET VOLUME 11.1 fL (7.9-10.8); MONOCYTES # (AUTO) 0.6 10^3/uL (0.0-1.0); NEUTROPHILS # (AUTO) 4.9 10^3/uL (1.5-6.6); NEUTROPHILS % (AUTO) 59.4 %; PLT - PLATELET COUNT 302 10^3/uL (130-450); RED BLOOD COUNT 4.73 10^6/uL (4.20-5.40); RED CELL DISTRIBUTION WIDTH 14.3 % (12.0-15.0); WHITE BLOOD COUNT 8.3 x10^3/uL (4.8-10.8)
[2021-09-23 12:21] LABS: ALBUMIN 3.8 g/dL (3.2-5.5); ALKALINE PHOSPHATASE 85 IU/L (42-121); ALT ALANINE AMINOTRANSFERASE 18 IU/L (10-60); AST ASPARTATE AMINOTRANSFERASE 16 IU/L (10-42); BILIRUBIN,TOTAL 0.5 mg/dL (0.2-1.0); BUN - BLOOD UREA NITROGEN 20 mg/dL (6-20); CALCIUM 9.5 mg/dL (8.5-10.3); CARBON DIOXIDE - CO2 27 mmol/L (21-32); CHLORIDE 103 mmol/L (101-111); CHOL/HDL RATIO 4.3 (<4.4); CHOLESTEROL 170 mg/dL; GFR - MDRD 54 (>89); GLUCOSE 126 mg/dL (70-100); HDL CHOLESTEROL 40 mg/dL; LDL CHOLESTEROL,CALCULATED 95 mg/dL; LDL/HDL RATIO 2.4 (<4.4); POTASSIUM 4.4 mmol/L (3.5-5.0); SODIUM 138 mmol/L (135-145); TOTAL PROTEIN 7.6 g/dL (6.7-8.2); TRIGLYCERIDES 173 mg/dL; VLDL CHOLESTEROL 35 mg/dL
[2021-09-23 12:27] LABS: THYROID STIMULATING HORMONE 2.11 uIU/mL (0.34-5.60)
[2021-09-23 12:49] LABS: ESTIMATED AVERAGE GLUCOSE 128 mg/dL (70-100); HEMOGLOBIN A1c% 6.1 % (4.27-6.07)
[2021-09-23 12:56] LABS: CREATININE,URINE 91.7 mg/dL; MICROALBUM/CREATININE RATIO,UR 14.2 ug/mg (<30.0); MICROALBUMIN,URINE 1.3 mg/dL (0-300.0)
== END 2021-09-23 23:59 ==
LOC: LAB.WCP 08:00
PROVIDERS: ATTEND Physician Assistant Medical
DX: E11.9 Type 2 diabetes mellitus without complications (principal); J45.909 Unspecified asthma, uncomplicated
CPT/HCPCS: 36415; 80053; 80061; 82043; 82570; 83036; 83721; 84443; 85025

== ENCOUNTER 2021-11-16 19:31 | Outpatient (CLI) | payer MEDICARE, MEDICAID | END 2021-11-16 19:32 | disposition EMS.NT | LOC: EMS 19:31 | DX: I10 Essential (primary) hypertension (principal) ==

== ENCOUNTER 2021-11-24 19:21 | Outpatient (CLI) | payer MEDICARE, MEDICAID | END 2021-11-24 19:22 | disposition EMS.NT | LOC: EMS 19:21 | DX: Z03.89 Encounter for observation for other suspected diseases and conditions ruled out (principal) ==

== ENCOUNTER 2021-11-27 08:35 | Outpatient (CLI) | payer MEDICARE, MEDICAID ==
[2021-11-27 12:34] LABS: BASOPHILS # (AUTO) 0.1 10^3/uL (0.0-0.1); BASOPHILS % (AUTO) 0.8 %; EOSINOPHILS # (AUTO) 0.6 10^3/uL (0.0-0.7); EOSINOPHILS % (AUTO) 6.2 %; HCT - HEMATOCRIT 40.9 % (37.0-47.0); HGB - HEMOGLOBIN 12.9 g/dL (12.0-16.0); LYMPHOCYTES # (AUTO) 2.3 10^3/uL (1.5-3.5); MEAN CORPUSCULAR HGB CONC 31.5 g/dL (32.0-36.0); MEAN CORPUSCULAR VOLUME 88.9 fL (81.0-99.0); MONOCYTES # (AUTO) 0.8 10^3/uL (0.0-1.0); MONOCYTES % (AUTO) 8.2 %; NEUTROPHILS # (AUTO) 6.4 10^3/uL (1.5-6.6); NEUTROPHILS % (AUTO) 62.2 %; PLT - PLATELET COUNT 324 10^3/uL (130-450); RED CELL DISTRIBUTION WIDTH 16.8 % (12.0-15.0); WHITE BLOOD COUNT 10.3 x10^3/uL (4.8-10.8)
[2021-11-27 13:02] LABS: BILIRUBIN,TOTAL 0.8 mg/dL (0.2-1.0); CALCIUM 9.2 mg/dL (8.5-10.3); POTASSIUM 4.1 mmol/L (3.5-5.0); TOTAL PROTEIN 8.1 g/dL (6.7-8.2)
== END 2021-11-27 08:36 | disposition home or self-care (01) ==
LOC: LAB.N 08:35
PROVIDERS: ATTEND Family Medicine
DX: R10.12 Left upper quadrant pain (principal)
CPT/HCPCS: 36415; 80053; 85025

== ENCOUNTER 2021-11-28 07:59 | Outpatient (CLI) | payer MEDICARE, MEDICAID ==
[2021-11-28] MEDS ORDERED: IOPAMIDOL-300 50 ML VIAL ONE (08:12)
[2021-11-28] MEDS ORDERED: IOVERSOL 320 100 ML VIAL IVP ONE ×2 (08:12→09:41)
[2021-11-28] MEDS ORDERED: IOPAMIDOL-300 50 ML VIAL PO ONE (09:42)
--- NOTE | 2021-11-28 15:49 | CT Report ---
PROCEDURE: Abdomen/Pelvis W INDICATIONS: LEFT UPPER QUAD ABD PAIN CONTRAST: IV CONTRAST: Optiray 320 ml: 100 PO CONTRAST: Isovue 300 ml50 TECHNIQUE: After the administration of oral and intravenous contrast, 5 mm thick sections acquired from the diap hragms to the symphysis. 5 mm thick coronal and sagittal reformats were acquired. For radiation dos e reduction, the following was used: automated exposure control, adjustment of mA and/or kV accordin g to patient size. COMPARISON: CT abdomen and pelvis with contrast, 04/08/2021 and . FINDINGS: Image quality: Excellent. ABDOMEN: Lung bases: Respiratory motion artifacts and bibasilar atelectasis. Heart size is normal. Small hia seamus hernia. Solid organs: Mild hepatic steatosis. Liver and spleen are normal in size and enhancement. Gallblad treva is surgically absent. Biliary system is non dilated. Pancreas enhances normally. No adrenal no dules. Kidneys demonstrate normal size and enhancement, without hydronephrosis. There is a 6 mm stone in th e inferior pole of the left kidney, unchanged. A 2.5 cm low dense nodule in the superior pole of the right kidney is most likely a cyst. The left renal cortical nodules are also likely cysts. Peritoneum and bowel: There is gastric antral thickening. Bowel loops demonstrate normal wall thickn ess and caliber. Redundant sigmoid colon. Diverticulosis without diverticulitis. No free fluid or ai r. Nodes and vessels: No retroperitoneal or mesenteric adenopathy by size criteria. Aorta and inferior vena cava are normal in size. Miscellaneous: There are postsurgical changes related to ventral hernia appear. The large ventral her jose manuel seen on the last exam is no longer present. There is a 2.4 x 1.8 cm fluid collection at midline a long the surgical scar, most likely a postoperative seroma. PELVIS: Genitourinary: Uterus is normal. There is a 2.1 x 3.6 cm cyst in the left ovary, likely a dominant ov danish follicle. Right ovary is unremarkable. Bladder wall thickness is normal. Miscellaneous: No inguinal hernias or adenopathy. Bones: No suspicious bony lesions. No vertebral body compression fractures. There are degenerative changes in lumbar spine. IMPRESSION: 1. There is gastric antral thickening, which may be secondary to peptic ulcer disease or gastritis. R ecommend clinical correlation. 2. Mild hepatic steatosis. 3. Diverticulosis without diverticulitis. 4. Post surgical changes related to ventral hernia repair. There is a 2.4 x 1.8 cm fluid collection a long the surgical scar at midline, most likely a postoperative seroma. 5. A 6 mm nonobstructive left renal stone. 6. There is a 2.1 x 3.6 cm left ovarian cyst. Reviewed by: Sharmaine Nieves MD on 11/28/2021 3:48 PM PST Approved by: Sharmaine Nieves MD on 11/28/2021 3:48 PM PST Station ID: [id number]
== END 2021-11-28 08:00 | disposition home or self-care (01) ==
LOC: DI 07:59
PROVIDERS: ATTEND Family Medicine
DX: R10.12 Left upper quadrant pain (principal); R93.3 Abnormal findings on diagnostic imaging of other parts of digestive tract; K76.0 Fatty (change of) liver, not elsewhere classified; K57.90 Diverticulosis of intestine, part unspecified, without perforation or abscess without bleeding; R93.5 Abnormal findings on diagnostic imaging of other abdominal regions, including retroperitoneum; N20.0 Calculus of kidney; N83.202 Unspecified ovarian cyst, left side
CPT/HCPCS: 74177; Q9967; 82565

== ENCOUNTER 2021-11-30 09:39 | Outpatient (CLI) | payer MEDICARE, MEDICAID | END 2021-11-30 09:40 | disposition EMS.NT | LOC: EMS 09:39 | DX: R73.9 Hyperglycemia, unspecified (principal) ==

== ENCOUNTER 2021-12-08 22:05 | Outpatient (CLI) | payer MEDICARE, MEDICAID | END 2021-12-08 22:06 | disposition critical access hospital (66) | LOC: EMS 22:05 | DX: R10.9 Unspecified abdominal pain (principal) | CPT/HCPCS: A0425; A0429 ==

== ENCOUNTER 2021-12-08 22:24 | Emergency (ER) | payer MEDICARE, MEDICAID ==
--- NOTE | 2021-12-08 22:27 | ED Physician Documentation ---
PD HPI ABD PAIN - Stated complaint Stated Complaint: ABD PAIN - History obtained from History obtained from: Patient, EMS - History of Present Illness Timing - onset: How many days ago (3-4) Timing - details: Gradual onset, Waxing and waning Pain level now: 5 Quality: Pain Location: Other (across upper abdomen but predominantly LUQ) Radiation: Other (does not radiate) Improved by: Other (no ameliorating factors) Worsened by: Other (no exacerbating factors) Associated symptoms: Nausea (mild, occasional). No: Fever, Vomiting, Diarrhea, Constipation, Melena, Hematochezia - Additional information Additional information: BIBA. c/o abdominal pain across upper abdomen but predominantly LUQ. She describes waxing and waning pain x 1 week, worse past 3-4 days. She had outpatient blood tests and CT A/P 10 days ago. She has h/o ventral hernia for which she was evaluated in this ED March 2021; the hernia was reduced in ED and she was discharged, subsequently had surgical repair of the hernia at [facility]. Review of Systems Constitutional: reports: Reviewed and negative Cardiac: reports: Reviewed and negative Respiratory: reports: Reviewed and negative GI: reports: Abdominal Pain, Abdominal Swelling, Nausea. 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 : Chronic bladder infection HEENT: Chronic vision loss Psych: Depression, Anxiety Musculoskeletal: Osteoarthritis Derm: None - Past Surgical History Past Surgical History: Yes General: Cholecystectomy, Appendectomy, Colonoscopy Ortho: Knee replacement HEENT: Cataracts, Tonsil/Adenoidectomy - Present Medications Home Medications: Ambulatory Orders Medication Instructions Recorded Confirmed Atorvastatin [Lipitor] 20 mg PO DAILY 06/19/17 12/08/21 Gabapentin 100 mg PO DAILY 06/19/17 12/08/21 Oxybutynin Chloride [Ditropan Xl] 10 mg PO DAILY 06/19/17 12/08/21 Prazosin [Minipress] 5 mg PO QPM 06/19/17 12/08/21 Propranolol [Inderal] 10 mg PO BID 06/19/17 12/08/21 Dicyclomine [Bentyl] 10 mg PO QID PRN 05/30/19 12/08/21 Calcium Carbonate [Calcium] 1,200 mg PO DAILY 02/24/21 12/08/21 Cholecalciferol [Vitamin D3] 25 mcg PO DAILY 02/24/21 12/08/21 Fluoxetine HCl [Prozac] 20 mg PO DAILY 02/24/21 12/08/21 Gabapentin [Neurontin] 400 mg PO QPM 02/24/21 12/08/21 Lactobacillus Acidophilus 1 tab PO DAILY 02/24/21 12/08/21 [Probiotic Acidophilus] buPROPion HCL [Bupropion Xl] 300 mg PO DAILY 02/24/21 12/08/21 oxyCODONE [Roxicodone] 5 mg PO Q4-6H PRN #20 tablet 02/25/21 12/08/21 Albuterol Sulf [Ventolin Hfa 2 puffs PO Q4HR PRN 03/03/21 12/08/21 Inhaler] Fluticasone/Salmeterol [Advair 1 puffs PO DAILY 03/03/21 12/08/21 250-50 Diskus] Meloxicam [Mobic] 1 tab PO BID 03/03/21 12/08/21 Montelukast [Singulair] 1 tab PO DAILY 03/03/21 12/08/21 Acetaminophen [Tylenol] 650 mg PO TID #30 tab 04/19/21 12/08/21 Docusate Sodium 100Mg Capsule 100 mg PO DAILY #20 cap 04/19/21 12/08/21 [Colace 100Mg Capsule] Morphine Ir [Ms Ir] 7.5 mg PO BID PRN #8 tablet 04/19/21 12/08/21 Ondansetron Odt [Zofran] 4 mg TL Q6H PRN #10 tablet 04/19/21 12/08/21 Esomeprazole Magnesium 20 mg PO DAILY #14 tab 12/09/21 - Allergies Allergies/Adverse Reactions: Allergies Allergy/AdvReac Type Severity Reaction Status Date / Time hydromorphone Allergy Intermediate Itching Verified 12/08/21 22:30 iodine Allergy Intermediate Hives Verified 12/08/21 22:30 acyclovir Allergy Unknown Verified 12/08/21 22:30 amoxicillin Allergy Unknown Verified 12/08/21 22:30 aspirin Allergy Unknown Verified 12/08/21 22:30 doxycycline Allergy Unknown Verified 12/08/21 22:30 hydrocodone bitartrate * Allergy Unknown Verified 12/08/21 22:30 [From Vicodin] naproxen [From Naprosyn] Allergy Unknown Verified 12/08/21 22:30 NSAIDS (Non-Steroidal Allergy Unknown Verified 12/08/21 22:30 Anti-Inflamma oxycodone HCl * Allergy Itching Verified 12/08/21 22:30 [From Percocet] risperidone [From Risperdal] Allergy Unknown Verified 12/08/21 22:30 Tetanus Vaccines and Toxoid Allergy Hives Verified 12/08/21 22:30 [Tetanus Vaccines & Toxoid] adhesive tape AdvReac Intermediate Rash Verified 12/08/21 22:30 - Social History Does the pt smoke?: No Smoking Status: Never smoker Does the pt drink ETOH?: No Does the pt have substance abuse?: No - Immunizations Immunizations are current?: Yes - POLST Patient has POLST: No PD ED PE NORMAL - Vitals Vital signs reviewed: Yes - General General: Alert and 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, No acute distress, Other (obese female in NAD) - HEENT HEENT: Moist mucous membranes - Neck Neck: Supple, no meningeal sign - Cardiac Cardiac: RRR, No murmur - Respiratory Respiratory: No respiratory distress, Clear bilaterally - Abdomen Abdomen: Normal bowel sounds, Soft, Non distended, Other (midline surgical scar without tenderness or areas of firmness; there is mild-moderate TTP LUQ , mild epigastric TTP. no rebound or guarding) - Derm Derm: Normal color, Warm and dry Results - Vitals Vitals: Oxygen O2 Source [Without Activity] Room air O2 Source Room air - Labs Labs: Laboratory Tests 12/08/21 12/08/21 22:37 22:37 WBC 9.6 RBC 4.31 Hgb 12.2 Hct 37.9 MCV 87.9 MCH 28.3 MCHC 32.2 RDW 15.9 H Plt Count 296 MPV 11.0 H Neut # (Auto) 5.0 Lymph # (Auto) 2.9 [place] # (Auto) 0.8 Eos # (Auto) 0.8 H Baso # (Auto) 0.1 Absolute Nucleated RBC 0.00 Nucleated RBC % 0.0 Sodium 139 Potassium 3.3 L Chloride 104 Carbon Dioxide 25 Anion Gap 10.0 BUN 17 Creatinine 1.0 Estimated GFR (MDRD) 54 L Glucose 120 H Calcium 8.7 Total Bilirubin 0.6 AST 16 ALT 18 Alkaline Phosphatase 93 Total Protein 7.3 Albumin 3.5 Globulin 3.8 Albumin/Globulin Ratio 0.9 L Lipase 32 PD MEDICAL DECISION MAKING - ED course Complexity details: reviewed results, re-evaluated patient, considered differential, d/w patient ED course: presents with abdominal pain which she says has been episodic for approximately 1 week although she had outpatient blood tests and CT A/P 10 days ago with indication noted to be left upper quadrant pain. She is in NAD on my evaluation and reevaluation. She is tender to palpation LUQ and epigastrium without rebound or guarding. There are no areas of firmness on abdominal exam to suggest recurrence of ventral hernia. CBC and ER abdominal panel have no concerning findings/abnormalities. She says she does not feel constipated and has not noted decreased stool output. Her CT A/P performed 10 days ago showed mild gastric antral thickening, s/o PUD/gastritis. Other findings include left renal calculus, left ovarian cyst, small fluid collection in midline adjacent to scar s/o postoperative seroma, and divericulosis. The gastric wall thickening would be c/w potential cause for her symptoms at this time; the other findings are incidental. She is given maalox and viscous lidocaine PO, PPI IV, but declines IV pain medication (morphine had been discussed and she initially agreed but subsequently decided she didnt need it). She is requesting d/c home. She is instructed to follow up with primary care provider but return if worse in any way Departure - Departure Disposition: 01 Home, Self Care Clinical Impression: Abdominal pain Qualifiers: Abdominal location: upper abdomen, unspecified Qualified Code(s): R10.10 - Upper abdominal pain, unspecified Condition: Good Instructions: ED Abdominal Pain Female Non-Specific Abdominal Pain Follow-Up: Gosia Borges PA-C [Primary Care Provider] - Prescriptions: Esomeprazole Magnesium 20 mg PO DAILY #14 tab Comments: Your blood tests tonight do not have any significant nor concerning abnormalities. The cause of your pain is unclear at this time. As we discussed, the CT scan performed 11/28/21 showed some mild stomach wall irritation which could be consistent with an ulcer or gastritis (these do not typically show on a CT scan but can be diagnosed, if necessary, with an upper endoscopy). A prescription for an acid-blocking medication has been electronically submitted to [facility] pharmacy in [place]. Contact your primary care provider to let them know you had to come to the emergency department because of abdominal pain, as well as to arrange for follow-up with your primary care provider. Discharge Date/Time: 12/09/21 02:35
[2021-12-08 23:22] LABS: BASOPHILS # (AUTO) 0.1 10^3/uL (0.0-0.1); BASOPHILS % (AUTO) 0.8 %; EOSINOPHILS # (AUTO) 0.8 10^3/uL (0.0-0.7); HCT - HEMATOCRIT 37.9 % (37.0-47.0); HGB - HEMOGLOBIN 12.2 g/dL (12.0-16.0); LYMPHOCYTES # (AUTO) 2.9 10^3/uL (1.5-3.5); LYMPHOCYTES % (AUTO) 30.1 %; MEAN CORPUSCULAR HEMOGLOBIN 28.3 pg (27.0-31.0); MEAN CORPUSCULAR HGB CONC 32.2 g/dL (32.0-36.0); MEAN CORPUSCULAR VOLUME 87.9 fL (81.0-99.0); MONOCYTES # (AUTO) 0.8 10^3/uL (0.0-1.0); MONOCYTES % (AUTO) 8.6 %; NEUTROPHILS % (AUTO) 51.8 %; PLT - PLATELET COUNT 296 10^3/uL (130-450); RED BLOOD COUNT 4.31 10^6/uL (4.20-5.40); RED CELL DISTRIBUTION WIDTH 15.9 % (12.0-15.0); WHITE BLOOD COUNT 9.6 x10^3/uL (4.8-10.8)
[2021-12-08 23:33] LABS: ALBUMIN 3.5 g/dL (3.2-5.5); ALBUMIN/GLOBULIN RATIO 0.9 (1.0-2.2); BILIRUBIN,TOTAL 0.6 mg/dL (0.2-1.0); CALCIUM 8.7 mg/dL (8.5-10.3); POTASSIUM 3.3 mmol/L (3.5-5.0); TOTAL PROTEIN 7.3 g/dL (6.7-8.2)
[2021-12-09] MEDS ORDERED: MORPHINE 2 MG/ML CARPUJECT IVP STA (00:20)
[2021-12-09] MEDS ORDERED: LIDOCAINE VISCOUS 2% 15 ML UDC MM STA (00:20)
[2021-12-09] MEDS ORDERED: MAG HYDROX/AL HYDROX/SIMETH 30 ML UDC PO STA (00:20)
[2021-12-09] MEDS ORDERED: PANTOPRAZOLE 40 MG VIAL IVP STA (00:25)
[2021-12-09 02:14] VITALS: BP 132/80
== END 2021-12-09 02:35 | disposition home or self-care (01) ==
LOC: EDUNIT# → ED 22:24
DX: R10.10 Upper abdominal pain, unspecified (principal); I10 Essential (primary) hypertension; Z86.718 Personal history of other venous thrombosis and embolism
CPT/HCPCS: 36415; 80053; 83690; 85025; 93005; 96374; 99284; A9270

== ENCOUNTER 2021-12-19 08:00 | Outpatient (CLI) | payer MEDICARE, MEDICAID ==
[2021-12-19 20:50] LABS: FECAL OCCULT BLOOD (FIT) POSITIVE (NEGATIVE)
== END 2021-12-19 23:59 | disposition home or self-care (01) ==
LOC: LAB 08:00
PROVIDERS: ATTEND Physician Assistant Medical
DX: R10.12 Left upper quadrant pain (principal)
CPT/HCPCS: 82274

== ENCOUNTER 2021-12-31 13:15 | Outpatient (CLI) | payer MEDICARE, MEDICAID ==
--- NOTE | 2021-12-31 16:37 | Ultrasound Report ---
PROCEDURE: Pelvic w/Transvaginal INDICATIONS: LEFT ADNEXAL MASS TECHNIQUE: Real-time scanning was performed of the pelvic organs, with image documentation. Additional endovagi nal scanning was necessary due to incomplete visualization of the adnexal and endometrial structures by transabdominal scanning. COMPARISON: CT of abdomen and pelvis dated 11/28/2021. FINDINGS: Transabdominal scanning: Limited scanning through the kidneys shows no hydronephrosis. No pathologi c free abdominal or pelvic fluid. Endovaginal scanning: Uterus: Anteverted uterus is normal in size at 6 x 2.5 x 3.9 cm. Myometrium is heterogeneous in echot exture. No discrete uterine fibroids. The endometrium measures 3.1 mm in combined thickness. No endo metrial mass or fluid is seen. Ovaries: Right ovary is not visualized. No gross abnormality is seen in right adnexa. Left ovary vesna sures 5 x 3.3 x 2.9 cm in size. 3 x 3 x 2.2 cm simple cyst is seen in left ovary. A 2.4 x 1.6 x 2.1 c m simple cyst is also seen in left ovary. No solid-appearing ovarian lesion. IMPRESSION: 1. 2 simple cysts in left ovary as above. No solid-appearing ovarian lesion. Right ovary is not visua lized, no gross right adnexal mass is seen. 2. Normal-appearing uterus and endometrium. Reviewed by: Natalio Denson MD on 12/31/2021 4:35 PM PST Approved by: Natalio Denson MD on 12/31/2021 4:35 PM PST Station ID: [id number]
== END 2021-12-31 13:16 | disposition home or self-care (01) ==
LOC: DI 13:15
PROVIDERS: ATTEND Physician Assistant Medical
DX: N83.202 Unspecified ovarian cyst, left side (principal)

== ENCOUNTER 2022-01-18 02:31 | Emergency (ER) | payer MEDICARE, MEDICAID ==
[2022-01-18 03:14] LABS: BASOPHILS # (AUTO) 0.1 10^3/uL (0.0-0.1); BASOPHILS % (AUTO) 0.9 %; EOSINOPHILS # (AUTO) 0.8 10^3/uL (0.0-0.7); EOSINOPHILS % (AUTO) 8.5 %; HGB - HEMOGLOBIN 12.6 g/dL (12.0-16.0); LYMPHOCYTES # (AUTO) 2.5 10^3/uL (1.5-3.5); LYMPHOCYTES % (AUTO) 28.1 %; MEAN CORPUSCULAR HEMOGLOBIN 29.3 pg (27.0-31.0); MEAN CORPUSCULAR HGB CONC 33.2 g/dL (32.0-36.0); MEAN CORPUSCULAR VOLUME 88.4 fL (81.0-99.0); MEAN PLATELET VOLUME 10.5 fL (7.9-10.8); MONOCYTES # (AUTO) 0.7 10^3/uL (0.0-1.0); MONOCYTES % (AUTO) 7.4 %; NEUTROPHILS # (AUTO) 4.9 10^3/uL (1.5-6.6); NEUTROPHILS % (AUTO) 54.9 %; PLT - PLATELET COUNT 305 10^3/uL (130-450); RED CELL DISTRIBUTION WIDTH 14.4 % (12.0-15.0); WHITE BLOOD COUNT 8.9 x10^3/uL (4.8-10.8)
[2022-01-18] MEDS: DEXAMETHASONE 10 MG/ML VIAL IVP STA (03:14)
[2022-01-18] MEDS: diphenhydrAMINE INJ 50 MG/ML VIAL IVP STA (03:14)
[2022-01-18] MEDS ORDERED: IOVERSOL 320 100 ML VIAL IVP ONE (03:23)
[2022-01-18 03:28] LABS: ALBUMIN 3.5 g/dL (3.2-5.5); BILIRUBIN,TOTAL 0.5 mg/dL (0.2-1.0); CALCIUM 8.5 mg/dL (8.5-10.3); CREATININE 0.9 mg/dL (0.4-1.0); POTASSIUM 3.2 mmol/L (3.5-5.0); TOTAL PROTEIN 6.9 g/dL (6.7-8.2)
--- NOTE | 2022-01-18 03:45 | ED Physician Documentation ---
PD HPI ABD PAIN - Stated complaint Stated Complaint: L ABD PX - Chief complaint Chief Complaint: Abd Pain - History obtained from History obtained from: Patient - Additional information Additional information: Patient presenting for evaluation of left Upper quadrant painThis been intermittent for the past 1 week and progressively getting worse. She denies associated nausea or vomiting. The pain is sharp. Nothing makes it better or worse. She believes she has been having regular bowel movements. Denies dysuria or hematuria. Denies chest pain, back pain, fever, cough or congestion.She was seen approximately 1 month ago for similar pain without clear etiology. She has known ovarian cyst. Review of Systems Constitutional: denies: Fever Nose: denies: Congestion Cardiac: denies: Chest pain / pressure, Palpitations Respiratory: denies: Dyspnea, Cough GI: reports: Abdominal Pain. 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 : Chronic bladder infection HEENT: Chronic vision loss Psych: Depression, Anxiety Musculoskeletal: Osteoarthritis Derm: None - Past Surgical History Past Surgical History: Yes General: Cholecystectomy, Appendectomy, Colonoscopy Ortho: Knee replacement HEENT: Cataracts, Tonsil/Adenoidectomy - Present Medications Home Medications: Ambulatory Orders Medication Instructions Recorded Confirmed Atorvastatin [Lipitor] 20 mg PO DAILY 06/19/17 12/08/21 Gabapentin 100 mg PO DAILY 06/19/17 12/08/21 Oxybutynin Chloride [Ditropan Xl] 10 mg PO DAILY 06/19/17 12/08/21 Prazosin [Minipress] 5 mg PO QPM 06/19/17 12/08/21 Propranolol [Inderal] 10 mg PO BID 06/19/17 12/08/21 Dicyclomine [Bentyl] 10 mg PO QID PRN 05/30/19 12/08/21 Calcium Carbonate [Calcium] 1,200 mg PO DAILY 02/24/21 12/08/21 Cholecalciferol [Vitamin D3] 25 mcg PO DAILY 02/24/21 12/08/21 Fluoxetine HCl [Prozac] 20 mg PO DAILY 02/24/21 12/08/21 Gabapentin [Neurontin] 400 mg PO QPM 02/24/21 12/08/21 Lactobacillus Acidophilus 1 tab PO DAILY 02/24/21 12/08/21 [Probiotic Acidophilus] buPROPion HCL [Bupropion Xl] 300 mg PO DAILY 02/24/21 12/08/21 oxyCODONE [Roxicodone] 5 mg PO Q4-6H PRN #20 tablet 02/25/21 12/08/21 Albuterol Sulf [Ventolin Hfa 2 puffs PO Q4HR PRN 03/03/21 12/08/21 Inhaler] Fluticasone/Salmeterol [Advair 1 puffs PO DAILY 03/03/21 12/08/21 250-50 Diskus] Meloxicam [Mobic] 1 tab PO BID 03/03/21 12/08/21 Montelukast [Singulair] 1 tab PO DAILY 03/03/21 12/08/21 Acetaminophen [Tylenol] 650 mg PO TID #30 tab 04/19/21 12/08/21 Docusate Sodium 100Mg Capsule 100 mg PO DAILY #20 cap 04/19/21 12/08/21 [Colace 100Mg Capsule] Morphine Ir [Ms Ir] 7.5 mg PO BID PRN #8 tablet 04/19/21 12/08/21 Ondansetron Odt [Zofran] 4 mg TL Q6H PRN #10 tablet 04/19/21 12/08/21 Esomeprazole Magnesium 20 mg PO DAILY #14 tab 12/09/21 - Allergies Allergies/Adverse Reactions: Allergies Allergy/AdvReac Type Severity Reaction Status Date / Time hydromorphone Allergy Intermediate Itching Verified 12/08/21 22:30 iodine Allergy Intermediate Hives Verified 12/08/21 22:30 acyclovir Allergy Unknown Verified 12/08/21 22:30 amoxicillin Allergy Unknown Verified 12/08/21 22:30 aspirin Allergy Unknown Verified 12/08/21 22:30 doxycycline Allergy Unknown Verified 12/08/21 22:30 hydrocodone bitartrate * Allergy Unknown Verified 12/08/21 22:30 [From Vicodin] naproxen [From Naprosyn] Allergy Unknown Verified 12/08/21 22:30 NSAIDS (Non-Steroidal Allergy Unknown Verified 12/08/21 22:30 Anti-Inflamma oxycodone HCl * Allergy Itching Verified 12/08/21 22:30 [From Percocet] risperidone [From Risperdal] Allergy Unknown Verified 12/08/21 22:30 Tetanus Vaccines and Toxoid Allergy Hives Verified 12/08/21 22:30 [Tetanus Vaccines & Toxoid] adhesive tape AdvReac Intermediate Rash Verified 12/08/21 22:30 - Social History Does the pt smoke?: No Smoking Status: Never smoker Does the pt drink ETOH?: No Does the pt have substance abuse?: No - Immunizations Immunizations are current?: Yes - POLST Patient has POLST: No PD ED PE NORMAL - General General: Alert and 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, No acute distress, Well developed/nourished - HEENT HEENT: Atraumatic, Moist mucous membranes - Neck Neck: Supple, no meningeal sign - Cardiac Cardiac: RRR, No murmur, Strong equal pulses - Respiratory Respiratory: No respiratory distress, Clear bilaterally - Abdomen Abdomen: Normal bowel sounds, Soft, Non distended, Other (Left upper quadrant tenderness to palpation, no rebound no guarding, protuberant abdomen, Well- healed lower abdominal incision, No appreciable masses or hernia) - Back Back: No CVA TTP - Derm Derm: Normal color - Extremities Extremities: No edema - Neuro Neuro: Normal speech - Psych Psych: Normal mood, Normal affect Results - Vitals Vitals: Vital Signs - 24 hr 01/18/22 01/18/22 01/18/22 02:32 02:54 04:19 Temperature 36.3 C L Heart Rate 65 68 64 Respiratory 20 16 16 Rate Blood Pressure 190/96 H 179/83 H O2 Saturation 96 97 97 01/18/22 01/18/22 05:00 05:28 Temperature Heart Rate 58 L 58 L Respiratory 17 17 Rate Blood Pressure 171/74 H 171/74 H O2 Saturation 94 94 Oxygen O2 Source [Without Activity] Room air O2 Source Room air - EKG (time done) 0305 Rate: Rate (enter#) (60) Rhythm: NSR [place]: Normal Ischemia: No: ST elevation c/w ischemia Computer interpretation: Agree with computer - Labs Labs: Laboratory Tests 01/18/22 01/18/22 03:06 03:06 WBC 8.9 RBC 4.30 Hgb 12.6 Hct 38.0 MCV 88.4 MCH 29.3 MCHC 33.2 RDW 14.4 Plt Count 305 MPV 10.5 Neut # (Auto) 4.9 Lymph # (Auto) 2.5 [place] # (Auto) 0.7 Eos # (Auto) 0.8 H Baso # (Auto) 0.1 Absolute Nucleated RBC 0.00 Nucleated RBC % 0.0 Sodium 138 Potassium 3.2 L Chloride 105 Carbon Dioxide 23 Anion Gap 10.0 BUN 15 Creatinine 0.9 Estimated GFR (MDRD) 61 L Glucose 126 H Calcium 8.5 Total Bilirubin 0.5 AST 16 ALT 15 Alkaline Phosphatase 84 Total Protein 6.9 Albumin 3.5 Globulin 3.4 Albumin/Globulin Ratio 1.0 Lipase 30 PD MEDICAL DECISION MAKING - ED course Complexity details: reviewed results, d/w patient ED course: Patient presenting for evaluation of left upper quadrant pain that has been intermittent for the last week. She has had similar pains in the past with unclear etiology. Labs are reassuring. CT scan without acute findings. Symptoms improved with GI cocktail in the emergency department. Patient was offered IV pain medication but did not want any. She understands that the source of her symptoms is unclear. It was recommended that she follow-up with her primary care doctor. Departure - Departure Disposition: 01 Home, Self Care Clinical Impression: Left upper quadrant pain Condition: Stable Instructions: ED Abdominal Pain Female Non-Specific Abdominal Pain Comments: You were evaluated for pain in the upper portion of your abdomen. Your labs and CT scan did not reveal a cause for this pain.Please follow-up with your primary care doctor. You may need to be referred to a GI doctor if the pain continues. There is still a small cyst in the left ovary. Discharge Date/Time: 01/18/22 05:32
[2022-01-18] MEDS: IOVERSOL 320 100 ML VIAL IVP ONE (04:01)
[2022-01-18 05:21] VITALS: BP 171/74
[2022-01-18] MEDS: MAG HYDROX/AL HYDROX/SIMETH 30 ML UDC PO STA (05:23)
[2022-01-18] MEDS: LIDOCAINE VISCOUS 2% 15 ML UDC MM STA (05:23)
[2022-01-18] MEDS ORDERED: GI COCKTAIL 120 ML BOTTLE PO SCH (06:00)
--- NOTE | 2022-01-18 08:58 | CT Report ---
PROCEDURE: Abdomen/Pelvis W INDICATIONS: L abd pain CONTRAST: IV CONTRAST: Optiray 320 ml: 100 PO CONTRAST: *NO PO CONTRAST TECHNIQUE: After the administration of IV contrast, 5 mm thick sections acquired from the diaphragms to the symp hysis. 5 mm thick coronal and sagittal reformats were acquired. For radiation dose reduction, the f ollowing was used: automated exposure control, adjustment of mA and/or kV according to patient size. COMPARISON: 11/28/2021, 11/18/2020 FINDINGS: Image quality: Excellent. ABDOMEN: Lung bases: Lung bases are clear. Heart size is normal. Solid organs: Liver and spleen are normal in size and enhancement. Gallbladder has been removed. B iliary system is non dilated. Pancreas enhances normally. No adrenal nodules. Kidneys demonstrate normal size and enhancement, without hydronephrosis. A simple appearing 2.5 cm right kidney cyst can be seen. There is a nonobstructing stone within the left kidney measuring 7 mm and 732 [address]oun[address] un its. Peritoneum and bowel: Bowel loops demonstrate normal wall thickness and caliber. No free fluid or a ir. A right lower quadrant and the stomach staple line can be seen. Nodes and vessels: No retroperitoneal or mesenteric adenopathy by size criteria. Aorta and inferior vena cava are normal in size. Miscellaneous: No ventral hernias. Postoperative repair of the anterior abdominal wall can be seen, without recurrent hernia. PELVIS: Genitourinary: Bladder wall thickness is normal. The uterus demonstrates an unremarkable appearance for age. No adnexal masses are seen. Miscellaneous: No inguinal hernias or adenopathy. Bones: No suspicious bony lesions. No vertebral body compression fractures. Prominent lumbar degen erative changes are seen. IMPRESSION: A cause of left-sided abdominal pain is not seen. Incidental note is made of: Cholecystectomy 7 mm nonobstructing left kidney stone measuring 732 Hounsfield units Simple appearing right renal cyst Right lower quadrant anastomotic staple line Note: No significant discrepancy from the preliminary report. Reviewed by: Aftab Mcfadden MD on 01/18/2022 7:57 AM LADONNA Approved by: Aftab Mcfadden MD on 01/18/2022 7:57 AM LADONNA Station ID: [id number]
== END 2022-01-18 05:32 | disposition home or self-care (01) ==
LOC: EDUNIT# → ED 02:31 → SUPCPDRO 02:31 → ED 05:32
DX: R10.12 Left upper quadrant pain (principal)
CPT/HCPCS: 36415; 74177; 80053; 83690; 85025; 93005; 96374; 99284; A9270; J1200; Q9967

== ENCOUNTER 2022-01-27 08:38 | Outpatient (CLI) | payer MEDICARE, MEDICAID ==
[2022-01-27 13:28] LABS: THYROID STIMULATING HORMONE 2.47 uIU/mL (0.34-5.60)
[2022-01-27 13:30] LABS: ALBUMIN 4.1 g/dL (3.2-5.5); ALBUMIN/GLOBULIN RATIO 1.1 (1.0-2.2); ALKALINE PHOSPHATASE 93 IU/L (42-121); ALT ALANINE AMINOTRANSFERASE 18 IU/L (10-60); AST ASPARTATE AMINOTRANSFERASE 17 IU/L (10-42); BILIRUBIN,TOTAL 0.6 mg/dL (0.2-1.0); BUN - BLOOD UREA NITROGEN 9 mg/dL (6-20); CALCIUM 8.8 mg/dL (8.5-10.3); CARBON DIOXIDE - CO2 26 mmol/L (21-32); CHLORIDE 101 mmol/L (101-111); CHOL/HDL RATIO 4.1 (<4.4); CHOLESTEROL 200 mg/dL; GFR - MDRD 54 (>89); GLUCOSE 134 mg/dL (70-100); HDL CHOLESTEROL 49 mg/dL; LDL CHOLESTEROL,CALCULATED 117 mg/dL; LDL/HDL RATIO 2.4 (<4.4); POTASSIUM 3.3 mmol/L (3.5-5.0); SODIUM 136 mmol/L (135-145); TOTAL PROTEIN 7.7 g/dL (6.7-8.2); TRIGLYCERIDES 168 mg/dL; VLDL CHOLESTEROL 34 mg/dL
[2022-01-27 14:15] LABS: ESTIMATED AVERAGE GLUCOSE 131 mg/dL (70-100); HEMOGLOBIN A1c% 6.2 % (4.27-6.07)
== END 2022-01-27 08:39 | disposition home or self-care (01) ==
LOC: LAB.N 08:38
PROVIDERS: ATTEND Physician Assistant Medical
DX: E11.9 Type 2 diabetes mellitus without complications (principal)
CPT/HCPCS: 36415; 80053; 80061; 83036; 83721; 84443

== ENCOUNTER 2022-02-24 06:11 | Outpatient (CLI) | payer MEDICARE, MEDICAID | END 2022-02-24 06:12 | disposition critical access hospital (66) | LOC: EMS 06:11 | DX: R10.32 Left lower quadrant pain (principal) | CPT/HCPCS: A0425; A0429 ==

== ENCOUNTER 2022-02-24 06:30 | Emergency (ER) | payer MEDICARE, MEDICAID ==
--- NOTE | 2022-02-24 07:17 | ED Physician Documentation ---
PD HPI ABD PAIN - Stated complaint Stated Complaint: LLQ PX - Chief complaint Chief Complaint: Abd Pain - History obtained from History obtained from: Patient - History of Present Illness Timing - onset: How many weeks ago (several) Timing - duration: Weeks (several) Timing - details: Gradual onset Pain level max: 5 Pain level now: 5 Quality: Aching, Pain Location: LLQ Radiation: No: Chest, , Lower back, Left flank, Left shoulder, Right flank, Right shoulder, Upper back Improved by: No: Eating, Laying still, Vomiting, BM, Position Worsened by: Position (lying on her left side). No: Eating, Moving, Breathing, Palpation Associated symptoms: Hematochezia (states has had this for months, scheduled for colonoscopy). No: Fever, Nausea, Vomiting, Hematemesis, Diarrhea, Constipation, Melena, Dysuria, Hematuria, Chest pain, Dizzy, Near syncope / syncope, Loss of appetite, Weight loss - Additional information Additional information: 76 year old female states that she has a left ovarian cyst and has had pain for several weeks, states worse recently. 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: None : Chronic bladder infection HEENT: Chronic vision loss Psych: Depression, Anxiety Musculoskeletal: Osteoarthritis Derm: None - Past Surgical History Past Surgical History: Yes General: Cholecystectomy, Appendectomy, Colonoscopy Ortho: Knee replacement HEENT: Cataracts, Tonsil/Adenoidectomy - Present Medications Home Medications: Ambulatory Orders Medication Instructions Recorded Confirmed Atorvastatin [Lipitor] 20 mg PO DAILY 06/19/17 12/08/21 Gabapentin 100 mg PO DAILY 06/19/17 12/08/21 Oxybutynin Chloride [Ditropan Xl] 10 mg PO DAILY 06/19/17 12/08/21 Prazosin [Minipress] 5 mg PO QPM 06/19/17 12/08/21 Propranolol [Inderal] 10 mg PO BID 06/19/17 12/08/21 Dicyclomine [Bentyl] 10 mg PO QID PRN 05/30/19 12/08/21 Calcium Carbonate [Calcium] 1,200 mg PO DAILY 02/24/21 12/08/21 Cholecalciferol [Vitamin D3] 25 mcg PO DAILY 02/24/21 12/08/21 Fluoxetine HCl [Prozac] 20 mg PO DAILY 02/24/21 12/08/21 Gabapentin [Neurontin] 400 mg PO QPM 02/24/21 12/08/21 Lactobacillus Acidophilus 1 tab PO DAILY 02/24/21 12/08/21 [Probiotic Acidophilus] buPROPion HCL [Bupropion Xl] 300 mg PO DAILY 02/24/21 12/08/21 oxyCODONE [Roxicodone] 5 mg PO Q4-6H PRN #20 tablet 02/25/21 12/08/21 Albuterol Sulf [Ventolin Hfa 2 puffs PO Q4HR PRN 03/03/21 12/08/21 Inhaler] Fluticasone/Salmeterol [Advair 1 puffs PO DAILY 03/03/21 12/08/21 250-50 Diskus] Meloxicam [Mobic] 1 tab PO BID 03/03/21 12/08/21 Montelukast [Singulair] 1 tab PO DAILY 03/03/21 12/08/21 Acetaminophen [Tylenol] 650 mg PO TID #30 tab 04/19/21 12/08/21 Docusate Sodium 100Mg Capsule 100 mg PO DAILY #20 cap 04/19/21 12/08/21 [Colace 100Mg Capsule] Morphine Ir [Ms Ir] 7.5 mg PO BID PRN #8 tablet 04/19/21 12/08/21 Ondansetron Odt [Zofran] 4 mg TL Q6H PRN #10 tablet 04/19/21 12/08/21 Esomeprazole Magnesium 20 mg PO DAILY #14 tab 12/09/21 - Allergies Allergies/Adverse Reactions: Allergies Allergy/AdvReac Type Severity Reaction Status Date / Time hydromorphone Allergy Intermediate Itching Verified 02/24/22 06:43 iodine Allergy Intermediate Hives Verified 02/24/22 06:43 acyclovir Allergy Unknown Verified 02/24/22 06:43 amoxicillin Allergy Unknown Verified 02/24/22 06:43 aspirin Allergy Unknown Verified 02/24/22 06:43 doxycycline Allergy Unknown Verified 02/24/22 06:43 hydrocodone bitartrate * Allergy Unknown Verified 02/24/22 06:43 [From Vicodin] naproxen [From Naprosyn] Allergy Unknown Verified 02/24/22 06:43 NSAIDS (Non-Steroidal Allergy Unknown Verified 02/24/22 06:43 Anti-Inflamma oxycodone HCl * Allergy Itching Verified 02/24/22 06:43 [From Percocet] risperidone [From Risperdal] Allergy Unknown Verified 02/24/22 06:43 Tetanus Vaccines and Toxoid Allergy Hives Verified 02/24/22 06:43 [Tetanus Vaccines & Toxoid] adhesive tape AdvReac Intermediate Rash Verified 02/24/22 06:43 - Social History Does the pt smoke?: No Smoking Status: Never smoker Does the pt drink ETOH?: No Does the pt have substance abuse?: No - Immunizations Immunizations are current?: Yes - POLST Patient has POLST: No PD ED PE NORMAL - Vitals Vital signs reviewed: Yes - General General: Alert and 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, No acute distress - HEENT HEENT: PERRL, Moist mucous membranes - Neck Neck: Supple, no meningeal sign - Cardiac Cardiac: RRR, Strong equal pulses - Respiratory Respiratory: No respiratory distress, Clear bilaterally - Abdomen Abdomen: Soft, Non distended, Other (mild TTP LLQ. no peritoneal signs) - Back Back: No CVA TTP, No spinal TTP - Derm Derm: Warm and dry - Extremities Extremities: No edema - Neuro Neuro: Alert and 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 - Psych Psych: Normal mood, Normal affect Results - Vitals Vitals: Vital Signs - 24 hr 02/24/22 02/24/22 02/24/22 06:36 08:00 10:00 Temperature 36.3 C L 36.7 C Heart Rate 73 86 67 Respiratory 16 18 16 Rate Blood Pressure 218/93 H 188/90 H 187/84 H O2 Saturation 97 95 97 Oxygen O2 Source [Without Activity] Room air O2 Source Room air - Labs Labs: Laboratory Tests 02/24/22 02/24/22 02/24/22 07:05 07:05 09:23 WBC 8.7 RBC 4.24 Hgb 12.2 Hct 37.4 MCV 88.2 MCH 28.8 MCHC 32.6 RDW 13.2 Plt Count 313 MPV 10.5 Neut # (Auto) 5.5 Lymph # (Auto) 1.9 [place]ock # (Auto) 0.6 Eos # (Auto) 0.6 Baso # (Auto) 0.1 Absolute Nucleated RBC 0.00 Nucleated RBC % 0.0 Sodium 141 Potassium 3.5 Chloride 107 Carbon Dioxide 26 Anion Gap 8.0 BUN 12 Creatinine 0.9 Estimated GFR (MDRD) 61 L Glucose 151 H Calcium 8.8 Total Bilirubin 0.5 AST 14 ALT 14 Alkaline Phosphatase 92 Total Protein 6.9 Albumin 3.4 Globulin 3.5 Albumin/Globulin Ratio 1.0 Lipase 25 Urine Color STRAW Urine Clarity CLEAR Urine pH 6.0 Ur Specific [place] 1.010 Urine Protein NEGATIVE Urine Glucose (UA) NEGATIVE Urine Ketones NEGATIVE Urine Occult Blood NEGATIVE Urine Nitrite POSITIVE H Urine Bilirubin NEGATIVE Urine Urobilinogen 0.2 (NORMAL) Ur Leukocyte Esterase NEGATIVE Urine RBC None Seen Urine WBC 0-3 Ur Squamous Epith Cells RARE Squamous Urine Bacteria Many H Ur Microscopic Review INDICATED Urine Culture Comments INDICATED - Rads (name of study) CT abd pel Radiology: Final report received, EMP read contemporaneously, See rad report PD MEDICAL DECISION MAKING - ED course Complexity details: reviewed results, re-evaluated patient, considered differential, d/w patient ED course: No acute findings on CT scan. Patient declines anything for pain here or for home. We will have her follow-up with her doctor for further care. Patient is well-appearing, nontoxic. Afebrile. Tolerating p.o. without difficulty. At the time of discharge, patient states she has no pain. Patient counseled regarding signs and symptoms for which I believe and urgent re-evaluation would be necessary. Patient with good understanding of and agreement to plan and is comfortable going home at this time This document was made in part using voice recognition software. While efforts are made to proofread this document, sound alike and grammatical errors may occur. Departure - Departure Disposition: 01 Home, Self Care Clinical Impression: Abdominal pain Qualifiers: Abdominal location: unspecified location Qualified Code(s): R10.9 - Unspecified abdominal pain Condition: Good Instructions: ED Abdominal Pain Female Non-Specific Abdominal Pain Follow-Up: Gosia Borges PA-C [Provider Admit Priv/Credential] - Within 1 week Comments: Please follow-up with your doctor for further care. Return if you worsen. Continue your tramadol at home IMPRESSION: 1. No CT evidence of acute process. 2. Etiology of left-sided abdominal pain not evident. 3. Chronic left adnexal cyst. 4. Nonobstructing 7 mm left lower pole kidney stone. Discharge Date/Time: 02/24/22 10:37
[2022-02-24 07:22] LABS: ALBUMIN 3.4 g/dL (3.2-5.5); BILIRUBIN,TOTAL 0.5 mg/dL (0.2-1.0); CALCIUM 8.8 mg/dL (8.5-10.3); CREATININE 0.9 mg/dL (0.4-1.0); POTASSIUM 3.5 mmol/L (3.5-5.0); TOTAL PROTEIN 6.9 g/dL (6.7-8.2)
[2022-02-24 07:28] LABS: BASOPHILS # (AUTO) 0.1 10^3/uL (0.0-0.1); BASOPHILS % (AUTO) 0.8 %; EOSINOPHILS # (AUTO) 0.6 10^3/uL (0.0-0.7); EOSINOPHILS % (AUTO) 6.9 %; HCT - HEMATOCRIT 37.4 % (37.0-47.0); HGB - HEMOGLOBIN 12.2 g/dL (12.0-16.0); LYMPHOCYTES # (AUTO) 1.9 10^3/uL (1.5-3.5); MEAN CORPUSCULAR HEMOGLOBIN 28.8 pg (27.0-31.0); MEAN CORPUSCULAR HGB CONC 32.6 g/dL (32.0-36.0); MEAN CORPUSCULAR VOLUME 88.2 fL (81.0-99.0); MEAN PLATELET VOLUME 10.5 fL (7.9-10.8); MONOCYTES # (AUTO) 0.6 10^3/uL (0.0-1.0); MONOCYTES % (AUTO) 6.9 %; NEUTROPHILS # (AUTO) 5.5 10^3/uL (1.5-6.6); NEUTROPHILS % (AUTO) 62.9 %; PLT - PLATELET COUNT 313 10^3/uL (130-450); RED BLOOD COUNT 4.24 10^6/uL (4.20-5.40); RED CELL DISTRIBUTION WIDTH 13.2 % (12.0-15.0); WHITE BLOOD COUNT 8.7 x10^3/uL (4.8-10.8)
[2022-02-24] MEDS ORDERED: diphenhydrAMINE INJ 50 MG/ML VIAL IVP STA (07:34)
[2022-02-24] MEDS ORDERED: DEXAMETHASONE 10 MG/ML VIAL IVP STA (07:34)
[2022-02-24] MEDS ORDERED: IOPAMIDOL-300 100 ML VIAL ONE (07:40)
[2022-02-24] MEDS ORDERED: IOPAMIDOL-300 100 ML VIAL IVP ONE (08:19)
--- NOTE | 2022-02-24 08:43 | CT Report ---
PROCEDURE: Abdomen/Pelvis W INDICATIONS: LLQ abd pain CONTRAST: IV CONTRAST: Optiray 320 ml: 100 PO CONTRAST: *NO PO CONTRAST TECHNIQUE: After the administration of IV contrast, 5 mm thick sections acquired from the diaphragms to the symp hysis. 5 mm thick coronal and sagittal reformats were acquired. For radiation dose reduction, the f ollowing was used: automated exposure control, adjustment of mA and/or kV according to patient size. COMPARISON: 01/18/2022, 03/31/2019 FINDINGS: Image quality: Excellent. ABDOMEN: Lung bases: Lung bases are clear. Heart size is normal. Solid organs: Liver and spleen are normal in size and enhancement. Gallbladder is surgically absent . Biliary tree is mildly dilated, expected postcholecystectomy. Pancreas enhances normally. No adre nal nodules. Kidneys demonstrate normal size and enhancement, without hydronephrosis. Nonobstructing left lower pole 7 mm kidney stone. 3.1 cm partially exophytic cortical cyst arising from the upper p ole right kidney. Peritoneum and bowel: Bowel loops demonstrate normal wall thickness and caliber. Portions the descen ding colon are featureless. Occasional colonic diverticula are scattered throughout. No pericolonic i nflammation. There is a bowel anastomosis in the mid abdomen. No free fluid or air. Nodes and vessels: No retroperitoneal or mesenteric adenopathy by size criteria. Aorta and inferior vena cava are normal in size. Miscellaneous: No ventral hernias. Surgical change of prior umbilical hernia repair. PELVIS: Genitourinary: Bladder wall thickness is normal. Uterus and right ovarian tissue are age-appropriat e. There is a bilobed left adnexal cystic structure in the left adnexa, stable for greater than 2 yea rs. Miscellaneous: No inguinal hernias or adenopathy. Bones: No suspicious bony lesions. No vertebral body compression fractures. Degenerative changes t hroughout the lumbar spine. IMPRESSION: 1. No CT evidence of acute process. 2. Etiology of left-sided abdominal pain not evident. 3. Chronic left adnexal cyst. 4. Nonobstructing 7 mm left lower pole kidney stone. Reviewed by: Leny Hightower MD on 02/24/2022 8:41 AM PDT Approved by: Leny Hightower MD on 02/24/2022 8:41 AM PDT Station ID: [id number]
[2022-02-24 09:53] LABS: BILIRUBIN,URINE NEGATIVE (NEGATIVE); CLARITY,URINE CLEAR (CLEAR); GLUCOSE, URINE (UA) NEGATIVE (NEGATIVE); KETONES,URINE (UA) NEGATIVE (NEGATIVE); LEUKOCYTE ESTERASE, URINE NEGATIVE (NEGATIVE); NITRITE,URINE POSITIVE (NEGATIVE); OCCULT BLOOD,URINE NEGATIVE (NEGATIVE); PROTEIN,URINE NEGATIVE (NEGATIVE); UROBILINOGEN,URINE 0.2 (NORMAL) E.U./dL (NORMAL)
[2022-02-24 10:04] LABS: BACTERIA,URINE Many /HPF (None Seen); RBC,URINE None Seen /HPF (0-5); SQUAMOUS EPITHELIAL CELL,UR RARE Squamous (<= Few); WBC,URINE 0-3 /HPF (0-5)
[2022-02-24 10:05] VITALS: BP 187/84
--- NOTE | 2022-02-26 15:50 | ED Physician Documentation ---
ED Addendum - Addendum Addendum: 02/26/22 15:48 Urine culture came back positive for Klebsiella pneumoniae. We will prescribe Macrobid for home. Sent to [facility]. This document was made in part using voice recognition software. While efforts are made to proofread this document, sound alike and grammatical errors may occur. Departure - Departure Disposition: Home, Self Care Clinical Impression: Abdominal pain Qualifiers: Abdominal location: unspecified location Qualified Code(s): R10.9 - Unspecified abdominal pain UTI (urinary tract infection) Qualifiers: Urinary tract infection type: acute cystitis Hematuria presence: without hematuria Qualified Code(s): N30.00 - Acute cystitis without hematuria Condition: Good Instructions: ED Abdominal Pain Female Non-Specific Abdominal Pain Follow-Up: Gosia Borges PA-C [Provider Admit Priv/Credential] - Within 1 week Prescriptions: Nitrofurantoin [Macrobid] 100 mg PO BID #10 cap Comments: Please follow-up with your doctor for further care. Return if you worsen. Continue your tramadol at home IMPRESSION: 1. No CT evidence of acute process. 2. Etiology of left-sided abdominal pain not evident. 3. Chronic left adnexal cyst. 4. Nonobstructing 7 mm left lower pole kidney stone. Discharge Date/Time: 02/24/22 10:37
== END 2022-02-24 10:37 | disposition home or self-care (01) ==
LOC: EDUNIT# → ED 06:30
DX: R10.32 Left lower quadrant pain (principal); I10 Essential (primary) hypertension; N83.202 Unspecified ovarian cyst, left side; N39.0 Urinary tract infection, site not specified; B96.1 Klebsiella pneumoniae [K. pneumoniae] as the cause of diseases classified elsewhere
CPT/HCPCS: 36415; 74177; 80053; 81001; 83690; 85025; 87077; 87086; 87181; 96374; 99282; 99284; J1200; Q9967; 81003

== ENCOUNTER 2022-03-02 22:27 | Outpatient (CLI) | payer MEDICARE, MEDICAID | END 2022-03-02 22:28 | disposition EMS.NT | LOC: EMS 22:27 | DX: Z03.89 Encounter for observation for other suspected diseases and conditions ruled out (principal) ==

== ENCOUNTER 2022-07-09 12:24 | Outpatient (CLI) | payer MEDICARE, MEDICAID ==
--- NOTE | 2022-07-09 14:30 | XRAY Report ---
PROCEDURE: Lumbar Spine 2 View INDICATIONS: LOW BACK PAIN TECHNIQUE: 2 views of the lumbar spine were acquired. COMPARISON: None. FINDINGS: Bones: 5 [id number] vertebrae are present. There is normal bony alignment. No vertebral body compression fractures. No suspicious bony lesions. There is severe degenerative disc disease noted all levels throughout the patient's lumbar spine. If further evaluation for radicular symptoms is of concern MRI of the lumbar spine may be of further tiffany ue. Patient is status post cholecystectomy. Soft tissues: Overlying bowel gas pattern is normal. No suspicious soft tissue calcifications. IMPRESSION: 1. No evidence for acute osseous abnormality involving the lumbar spine. 2. Severe diffuse degenerative disc disease noted all levels of the lumbar spine. If further evaluati on for radicular symptoms is of clinical concern MRI of the lumbar spine may be of further clinical v alue. Reviewed by: Christoph Dawkins MD on 07/09/2022 2:28 PM PDT Approved by: Christoph Dawkins MD on 07/09/2022 2:28 PM PDT Station ID: [id number]
--- NOTE | 2022-07-09 14:32 | XRAY Report ---
PROCEDURE: Ribs w/PA Chest LT INDICATIONS: LEFT RIB PAIN TECHNIQUE: 2 views of the left ribs were acquired, along with a single view chest. COMPARISON: Single view of the chest dated March 03, 2021 FINDINGS: Surgical changes and devices: None. Bones and chest wall: No fractures or dislocations. No suspicious bony lesions. Overlying soft tis sues appear unremarkable. Lungs and pleura: No pleural effusions or pneumothorax. Lungs appear clear. Mediastinum: Mediastinal contours appear normal. Heart size is normal. IMPRESSION: Negative chest and left rib detail films. Reviewed by: Christoph Dawkins MD on 07/09/2022 2:31 PM PDT Approved by: Christoph Dawkins MD on 07/09/2022 2:31 PM PDT Station ID: [id number]
== END 2022-07-09 12:25 | disposition home or self-care (01) ==
LOC: DI.N 12:24
PROVIDERS: ATTEND Physician Assistant Medical
DX: M51.36 Other intervertebral disc degeneration, lumbar region (principal); R07.81 Pleurodynia

== ENCOUNTER 2022-07-16 10:40 | Outpatient (CLI) | payer MEDICARE, MEDICAID ==
--- NOTE | 2022-07-16 16:05 | XRAY Report ---
PROCEDURE: Thoracic Spine 2 View INDICATIONS: RIB PAIN LEFT SIDE TECHNIQUE: 3 views of the thoracic spine were acquired. COMPARISON: CT chest 03/03/2021. FINDINGS: Bones: No acute fractures or dislocations. No suspicious bony lesions. 12 pairs of ribs are noted, and appear intact where visualized. Multilevel degenerative endplate changes are seen. Soft tissues: No paravertebral stripe thickening. IMPRESSION: Mild spondylosis. No acute osseous abnormality. If symptoms persist or there is continued clinical co ncern, further evaluation with MRI or CT may be helpful. Reviewed by: Esau Kwan MD on 07/16/2022 4:03 PM PDT Approved by: Esau Kwan MD on 07/16/2022 4:03 PM PDT Station ID: [id number]
== END 2022-07-16 10:41 | disposition home or self-care (01) ==
LOC: DI.N 10:40
PROVIDERS: ATTEND Physician Assistant Medical
DX: R07.81 Pleurodynia (principal); M47.814 Spondylosis without myelopathy or radiculopathy, thoracic region

== ENCOUNTER 2022-08-03 11:12 | Outpatient (CLI) | payer MEDICARE, MEDICAID | END 2022-08-03 11:13 | disposition EMS.NT | LOC: EMS 11:12 | DX: M25.552 Pain in left hip (principal); W01.0XXA Fall on same level from slipping, tripping and stumbling without subsequent striking against object, initial encounter; Y92.29 Other specified public building as the place of occurrence of the external cause ==

== ENCOUNTER 2022-08-04 10:54 | Outpatient (CLI) | payer MEDICARE, MEDICAID ==
--- NOTE | 2022-08-04 16:34 | XRAY Report ---
PROCEDURE: Hip w/Pelvis 1V LT INDICATIONS: L HIP PX AFTER A FALL TECHNIQUE: AP pelvis with lateral view(s) of the left hip(s). COMPARISON: 11/19/2020 FINDINGS: Bones: No fractures or dislocations. Mild symmetric bilateral hip joint space loss and prominent vilma tabular spurring. Pelvic ring appears intact. Multilevel disc and endplate degeneration in the lumbar spine. No suspicious bony lesions. Soft tissues: The visualized bowel gas pattern is normal. No suspicious soft tissue calcifications. IMPRESSION: 1. No hip or pelvic fracture. 2. Stable bilateral hip osteoarthritic changes. Reviewed by: Leny Hightower MD on 08/04/2022 4:33 PM PDT Approved by: Leny Hightower MD on 08/04/2022 4:33 PM PDT Station ID: [id number]
--- NOTE | 2022-08-04 17:49 | XRAY Report ---
PROCEDURE: Ankle 3 View LT INDICATIONS: L ANKLE PX AFTER A FALL TECHNIQUE: 3 views of the ankle were acquired. COMPARISON: None FINDINGS: Bones: No fractures or dislocations. Ankle mortise is normally aligned. No suspicious bony lesions . Corticated density associated with the medial malleolus and probably reflects old ununited fractur e. Soft tissues: No tibiotalar joint effusion. Achilles tendon appears normal. Generalized soft tissu e swelling IMPRESSION: Soft tissue swelling without evidence of acute fracture. 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
== END 2022-08-04 23:59 | disposition home or self-care (01) ==
LOC: DI.N 10:54
PROVIDERS: ATTEND Emergency Medicine
DX: S70.02XA Contusion of left hip, initial encounter (principal); S93.432A Sprain of tibiofibular ligament of left ankle, initial encounter; M16.0 Bilateral primary osteoarthritis of hip

== ENCOUNTER 2022-08-26 11:19 | Outpatient (CLI) | payer MEDICARE, MEDICAID ==
--- NOTE | 2022-08-26 17:48 | MRI Report ---
PROCEDURE: LUMBAR SPINE WO INDICATIONS: LOW BACK PAIN TECHNIQUE: Noncontrast sagittal T1 spin echo and T2 fast echo, sagittal STIR, axial T1 and T2 fast spin echo thr ough the lumbar spine. In cases with scoliosis, additional coronal T2 fast spin echo may be performe d. COMPARISON: Correlation is made with prior lumbar spine CT, 01/31/2016 FINDINGS: Image quality: Excellent. Alignment and Curvature: There is minimal retrolisthesis at L1-L2, L2-L3, L3-L4, and at L4-L5. Bone Marrow: Marrow is of normal overall signal. No acute vertebral body compression fractures. Spinal Cord: Conus medullaris terminates at the L1 level. Visualized cord demonstrates normal signa l and size. Paraspinous Soft Tissues: No paravertebral masses. Is partial visualization of a simple appearing r ight renal cyst that measures up to 2.8 cm on these images. T12-L1: Normal in appearance. L1-L2: Moderate loss of disc height and signal are seen. Moderate disc bulge is seen, with a sudhakar tral disc extrusion, with inferior migration of the disc material. Partially bridging anterior osteop hytes are seen. Moderate facet hypertrophy is seen. Moderate bilateral neural foraminal narrowing is seen. At least moderate central canal narrowing is seen at this level, as on series 7 image 3. L2-L3: Moderate disc bulge is seen at this level. Moderate facet hypertrophy is seen. Moderate disc bulge is seen, with a central disc extrusion, with inferior migration of disc material. Note is made of an annular fissure posteriorly. Moderate facet hypertrophy is seen. Moderate bilateral ne ural foraminal narrowing is seen. Moderate central canal narrowing is seen. L3-L4: At least moderate loss of disc height and disc signal can be seen. Reactive marrow endplate changes are seen, which are hyperintense on T1-weighted and T2-weighted imaging, without significant increased STIR signal. These imaging findings are most consistent with fatty metaplasia (Modic type 2 change). Moderate to prominent disc bulge is seen, with a central/right disc extrusion, with mild inferior migration of the disc material. There is moderate left-sided and moderate to severe right-si ded neuroforaminal narrowing. There is a degree of compression seen upon the exiting right L3 nerve r oot. Severe central canal narrowing is seen, as on series 7 image 8. L4-L5: Moderate loss of disc height and signal are seen. Moderate disc bulge is seen at this level . Moderate facet hypertrophy is seen. There is moderate to severe right-sided neuroforaminal narr owing, with a mild degree of compression upon the exiting right L4 nerve root. There is moderate left -sided neuroforaminal narrowing. Moderate central canal narrowing is seen. L5-S1: The disc height is well-preserved. There is loss of disc signal seen. Moderate disc bulge is seen, which is eccentric to the left. At least moderate facet hypertrophy is seen. There is moderate to severe left-sided neuroforaminal narrowing, with a degree of compression upon the exiting left L5 nerve root. No significant right-sided neuroforaminal narrowing is seen. Minimal central canal narro wing is seen. IMPRESSION: Multiple levels of relatively prominent lumbar spine degenerative change can be seen. Central disc extrusions can be seen at L1-L2, L2-L3, and L3-L4. Several sites of significant neuroforaminal narrowing can be seen, with associated exiting nerve root compression. Reviewed by: Aftab Mcfadden MD on 08/26/2022 4:46 PM LADONNA Approved by: Aftab Mcfadden MD on 08/26/2022 4:46 PM LADONNA Station ID: [id number]
== END 2022-08-26 11:20 | disposition home or self-care (01) ==
LOC: DI 11:19
PROVIDERS: ATTEND Physician Assistant Medical
DX: M51.26 Other intervertebral disc displacement, lumbar region (principal); M51.36 Other intervertebral disc degeneration, lumbar region; M48.061 Spinal stenosis, lumbar region without neurogenic claudication; M47.816 Spondylosis without myelopathy or radiculopathy, lumbar region; M51.37 Other intervertebral disc degeneration, lumbosacral region; M48.07 Spinal stenosis, lumbosacral region; M47.817 Spondylosis without myelopathy or radiculopathy, lumbosacral region

== ENCOUNTER 2022-09-03 09:21 | Outpatient (CLI) | payer MEDICARE, MEDICAID ==
[2022-09-03 10:02] VITALS: BP 128/78
--- NOTE | 2022-09-03 10:02 | SLEEP CARE CONSULTATION ---
Information from patient questionnaire entered by Gabby Ozuna. I have reviewed and concur with the information entered by Gabby Ozuna. This document represents the service I personally performed and the decisions made by , Shawna Rosario ARNP. History of Present Illness Service Date and Time: 09/03/2022920 Previous diagnosis: Mild, Obstructive Sleep Apnea-Hypopnea Syndrome AHI: 6.4 (in 2010) Reason for follow up: annual (LAST SEEN 07/2021) Accompanied by: Caregiver Equipment type: CPAP (RESMED) Equipment obtained from: [email or web address] (getting supplies as needed) Mask style: Full face Backup mask available: Yes (old mask) Last cushion change: 3 months Prior sleep studies: Yes [facility] Type of Sleep Study: Polysomnography HPI additional information: NAHEED RAMIREZ was diagnosed to have mild, AHI 6.4, obstructive sleep apnea-hypopnea syndrome and returned today for CPAP therapy annual follow-up. Sleep Study - Results Type of Sleep Study: Polysomnography Prior sleep studies: Yes Year and Where: 2010 - [facility] Sleep CPAP Compliance Data - Data Reviewed with Patient Average duration of nightly device use: 9 HRS, 15 MIN Compliance rate %: 100 (03/06/2022-09/01/2022; 180/180 days used) Current pressure setting (cmH2O): 8-15 Average residual AHI: 1.6 Central apnea: 0.2 Obstructive apnea: 0.3 Compliance data discussion: She has a cat that interrupts her sleep and she has back/hip pain that wakes up her up at night too. Subjective Patient concerns: denies: aerophagia, mask discomfort, air blowing in eyes, mask leak noise, condensation in mask/hose, nasal congestion, dry mouth, nose, throat, epistaxis Observed to snore while using device: No Current pressure setting perceived as: comfortable On therapy, patient: reports: sleeping better, awakening more refreshed, being more awake and alert during the day, more rested overall, other. denies: drowsiness while driving Initial Caroline Sleepiness Scale score: 4 (in 2010) Current Caroline Sleepiness Scale score: 11 (09/03/2022) Allergies and Home Medications Drug allergies reviewed: Yes (as listed in EMR) Home medication list reviewed: Yes (Tinzanidine (erin relaxation for arthritis)) Allergy and home medication list: Allergies hydromorphone Allergy (Intermediate, Verified 02/24/22 06:43) Itching iodine Allergy (Intermediate, Verified 02/24/22 06:43) Hives acyclovir Allergy (Verified 02/24/22 06:43) Unknown amoxicillin Allergy (Verified 02/24/22 06:43) Unknown aspirin Allergy (Verified 02/24/22 06:43) Unknown doxycycline Allergy (Verified 02/24/22 06:43) Unknown hydrocodone bitartrate * [From Vicodin] Allergy (Verified 02/24/22 06:43) Unknown naproxen [From Naprosyn] Allergy (Verified 02/24/22 06:43) Unknown NSAIDS (Non-Steroidal Anti-Inflamma Allergy (Verified 02/24/22 06:43) Unknown risperidone [From Risperdal] Allergy (Verified 02/24/22 06:43) Unknown Tetanus Vaccines and Toxoid [Tetanus Vaccines & Toxoid] Allergy (Verified 02/24/22 06:43) Hives adhesive tape Adverse Reaction (Intermediate, Verified 02/24/22 06:43) Rash Review of Systems Review of systems same as previous: No (Arthritis in lumbar and hips) Physical Exam Vital signs obtained and entered by: GABBY Melendez MA Blood Pressure: 128/78 Heart Rate: 69 O2 Saturation: 97 Height: 5 ft 6 in Weight: 249 lb 12.8 oz Body Mass Index: 40.3 BMI Classification: Morbidly Obese Impression and Plan 1. Obstructive Sleep Apnea-Hypopnea Syndrome, mild, with good treatment compliance and good apnea control. On CPAP therapy, the patient has better sleep quality and is more rested overall. Patient Caroline score has increased because she has significant interruptions in her sleep. This is due to back and hip pain and also a cat at home. Patient has significant improvement of their sleep apnea and is satisfied with current CPAP therapy. Patient denies problems with oral dryness, nasal congestion, epistaxis, skin irritation or aerophagia. Patient's apnea severity and rationale for treatment to reduce apnea, improve sleep quality and reduce cardiovascular and cerebrovascular events was reviewed. I also reviewed the benefit of consistent device use of CPAP for hypertension, depression and anxiety. 2. Obesity, unspecified. Currently patients BMI is 40.3. Obesity increases the risk of apnea, CPAP pressure requirements and overall health risks especially cardiovascular and diabetes. Thus patient is advised to lose weight. * Continue auto CPAP pressure at 8-15 cmH2O * Update supplies * Notify me if snoring with mask or feeling that the pressure is too much or too little * Attempt to lose weight * Call this office if any problems using CPAP * Return for follow up in 1 year, or sooner if concerns arise Counseling Topics: Spare mask, Weight loss health impact Visit Type: In Office Other Participants: Caregiver Time Spent with Patient (minutes): 20 Provider Statement: I spent 100% of the Face to Face Visit with the patient with greater than 50% spent counseling the patient and coordination of care.
== END 2022-09-03 09:22 | disposition home or self-care (01) ==
LOC: SC 09:21
PROVIDERS: ATTEND Nurse Practitioner Family
DX: G47.33 Obstructive sleep apnea (adult) (pediatric) (principal); E66.01 Morbid (severe) obesity due to excess calories; Z68.41 Body mass index [BMI] 40.0-44.9, adult
CPT/HCPCS: 99213; G0463; 99212

== ENCOUNTER 2022-10-16 23:18 | Outpatient (CLI) | payer MEDICARE, MEDICAID | END 2022-10-16 23:19 | disposition critical access hospital (66) | LOC: EMS 23:18 | DX: R42 Dizziness and giddiness (principal); I95.1 Orthostatic hypotension; R40.0 Somnolence; R47.81 Slurred speech | CPT/HCPCS: A0425; A0427 ==

== ENCOUNTER 2022-10-16 23:40 | Emergency (ER) | payer MEDICARE, MEDICAID ==
--- NOTE | 2022-10-16 23:47 | ED Physician Documentation ---
History of Present Illness - Stated complaint Stated Complaint: DIZZY, SLURRED SPEECH, ? OD - History obtained from History obtained from: Patient, EMS - History of Present Illness Timing: Today Pain level max: 0 Pain level now: 0 - Additonal information Additional information: HPI from patient with further information from EMS report. BIBA for near-syncope. Patient tells me she was ambulating with her walker and then tried to get into a recliner but thinks she might have positioned herself incorrectly when she went to sit in the recliner, causing her to slide down and off of the recliner. She denies injury, denies having any pain. She is unsure if she lost consciousness. EMS noted normal BP and pulse when she was lying down (101/61, pulse 79) but (+) orthostatics with sitting and standing blood pressures of 90/72 and 80/46 respectively, and pulse of 80 and 57 (sitting , standing). Per EMS, she did report feeling lightheaded and generalized weakness when standing. FSBS for EMS was 167. 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 : Chronic bladder infection HEENT: Chronic vision loss Psych: Depression, Anxiety Musculoskeletal: Osteoarthritis Derm: None - Past Surgical History Past Surgical History: Yes General: Cholecystectomy, Appendectomy, Colonoscopy, Other Ortho: Knee replacement HEENT: Cataracts, Tonsil/Adenoidectomy - Present Medications Home Medications: Ambulatory Orders Medication Instructions Recorded Confirmed Gabapentin 100 mg PO DAILY 06/19/17 10/16/22 Prazosin [Minipress] 5 mg PO QPM 06/19/17 10/16/22 Dicyclomine [Bentyl] 10 mg PO QID PRN 05/30/19 10/16/22 Calcium Carbonate [Calcium] 1,200 mg PO DAILY 02/24/21 10/16/22 Cholecalciferol [Vitamin D3] 25 mcg PO DAILY 02/24/21 10/16/22 Fluoxetine HCl [Prozac] 20 mg PO DAILY 02/24/21 10/16/22 Gabapentin [Neurontin] 400 mg PO QPM 02/24/21 10/16/22 Lactobacillus Acidophilus 1 tab PO DAILY 02/24/21 10/16/22 [Probiotic Acidophilus] buPROPion HCL [Bupropion Xl] 300 mg PO DAILY 02/24/21 10/16/22 Albuterol Sulf [Ventolin Hfa 2 puffs PO Q4HR PRN 03/03/21 10/16/22 Inhaler] Montelukast [Singulair] 1 tab PO DAILY 03/03/21 10/16/22 Acetaminophen [Tylenol] 650 mg PO TID #30 tab 04/19/21 10/16/22 Amlodipine Besylate [Norvasc] 2.5 mg PO DAILY 03/25/22 10/16/22 Fluticasone [Flonase] 1 sprays JUD BID 03/25/22 10/16/22 Loratadine [Claritin] 10 mg PO DAILY 03/25/22 10/16/22 Losartan [Cozaar] 50 mg PO BID 03/25/22 10/16/22 Metoprolol Succinate [Toprol Xl] 50 mg PO BID 03/25/22 10/16/22 Olopatadine HCl [Eye Allergy Itch 1 drops OP BID PRN 03/25/22 10/16/22 Relief] Potassium Chloride [Micro-K] 10 meq PO DAILY 03/25/22 10/16/22 metFORMIN [Glucophage] 500 mg PO BIDWM 03/25/22 10/16/22 Oxybutynin [Ditropan] See Rx Instructions .ROUTE .COMPLEX 09/03/22 10/16/22 tiZANidine [Zanaflex] See Rx Instructions .ROUTE .COMPLEX 09/03/22 10/16/22 - Allergies Allergies/Adverse Reactions: Allergies Allergy/AdvReac Type Severity Reaction Status Date / Time hydromorphone Allergy Intermediate Itching Verified 10/16/22 23:49 iodine Allergy Intermediate Hives Verified 10/16/22 23:49 acyclovir Allergy Unknown Verified 10/16/22 23:49 amoxicillin Allergy Unknown Verified 10/16/22 23:49 aspirin Allergy Unknown Verified 10/16/22 23:49 doxycycline Allergy Unknown Verified 10/16/22 23:49 hydrocodone bitartrate * Allergy Unknown Verified 10/16/22 23:49 [From Vicodin] naproxen [From Naprosyn] Allergy Unknown Verified 10/16/22 23:49 NSAIDS (Non-Steroidal Allergy Unknown Verified 10/16/22 23:49 Anti-Inflamma risperidone [From Risperdal] Allergy Unknown Verified 10/16/22 23:49 Tetanus Vaccines and Toxoid Allergy Hives Verified 10/16/22 23:49 [Tetanus Vaccines & Toxoid] adhesive tape AdvReac Intermediate Rash Verified 10/16/22 23:49 - Social History Does the pt smoke?: No Smoking Status: Never smoker Does the pt drink ETOH?: No Does the pt have substance abuse?: No - Immunizations Immunizations are current?: Yes - POLST Patient has POLST: No PD ED PE NORMAL - Vitals Vital signs reviewed: Yes - General General: Alert and 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, No acute distress, Well developed/nourished - HEENT HEENT: Moist mucous membranes - Neck Neck: Supple, no meningeal sign - Cardiac Cardiac: RRR - Respiratory Respiratory: No respiratory distress, Clear bilaterally - Abdomen Abdomen: Soft, Non tender - Derm Derm: Normal color, Warm and dry - Extremities Extremities: No deformity, No tenderness to palpate, Normal ROM s pain - Neuro Neuro: Alert and 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, 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, No motor deficit, No sensory deficit, Normal speech Eye Opening: Spontaneous Motor: Obeys Commands Verbal: Oriented GCS Score: 15 Results - Vitals Vitals: Oxygen O2 Source [] Room air O2 Source Room air - EKG (time done) No standard instances Rate: Rate (enter#) (57) Rhythm: NSR [place]: Normal Intervals: Normal IA QRS: Normal Ischemia: Normal ST segments - Labs Labs: Laboratory Tests 10/17/22 10/17/22 01:33 01:33 WBC 5.9 RBC 3.78 L Hgb 11.2 L Hct 35.5 L MCV 93.9 MCH 29.6 MCHC 31.5 L RDW 14.2 Plt Count 196 MPV 10.5 Neut # (Auto) 3.9 Lymph # (Auto) 1.1 L [place] # (Auto) 0.9 Eos # (Auto) 0.0 Baso # (Auto) 0.0 Absolute Nucleated RBC 0.00 Nucleated RBC % 0.0 Sodium 135 Potassium 3.5 Chloride 105 Carbon Dioxide 24 Anion Gap 6.0 BUN 13 Creatinine 1.5 H Estimated GFR (MDRD) 34 L Glucose 161 H Calcium 8.2 L Total Bilirubin 0.3 AST 16 ALT 17 Alkaline Phosphatase 66 Total Protein 6.3 L Albumin 3.3 Globulin 3.0 Albumin/Globulin Ratio 1.1 Lipase 22 PD Medical Decision Making - ED course Complexity details: reviewed results, re-evaluated patient, considered differential, d/w patient ED course: BIBA for possible syncope. On my HPI, patient describes sliding out of a recliner she was trying to sit in. She is unsure if she lost consciousness. No report from patient, nor findings on exam, of injury. No concerning findings on CBC, ER abdominal panel (mildly elevated creatinine at 1.5) . She has negative orthostatic vital signs in ED (no significant change in BP, pulse from lying down to sitting to standing) and she was asymptomatic when these orthostatic vital signs were measured including when standing. Cause of tonight's episode is not apparent at this time. Results d/w patient, return precautions discussed Departure - Departure Disposition: 01 Home, Self Care Clinical Impression: Near syncope Condition: Good Instructions: ED Near Syncope Unkn Discharge Date/Time: 10/17/22 07:20
[2022-10-17 01:42] LABS: BASOPHILS % (AUTO) 0.3 %; EOSINOPHILS % (AUTO) 0.3 %; HCT - HEMATOCRIT 35.5 % (37.0-47.0); HGB - HEMOGLOBIN 11.2 g/dL (12.0-16.0); LYMPHOCYTES # (AUTO) 1.1 10^3/uL (1.5-3.5); LYMPHOCYTES % (AUTO) 18.4 %; MEAN CORPUSCULAR HEMOGLOBIN 29.6 pg (27.0-31.0); MEAN CORPUSCULAR HGB CONC 31.5 g/dL (32.0-36.0); MEAN CORPUSCULAR VOLUME 93.9 fL (81.0-99.0); MEAN PLATELET VOLUME 10.5 fL (7.9-10.8); MONOCYTES # (AUTO) 0.9 10^3/uL (0.0-1.0); MONOCYTES % (AUTO) 14.9 %; NEUTROPHILS # (AUTO) 3.9 10^3/uL (1.5-6.6); NEUTROPHILS % (AUTO) 65.4 %; PLT - PLATELET COUNT 196 10^3/uL (130-450); RED BLOOD COUNT 3.78 10^6/uL (4.20-5.40); RED CELL DISTRIBUTION WIDTH 14.2 % (12.0-15.0); WHITE BLOOD COUNT 5.9 x10^3/uL (4.8-10.8)
[2022-10-17 01:53] LABS: ALBUMIN 3.3 g/dL (3.2-5.5); ALBUMIN/GLOBULIN RATIO 1.1 (1.0-2.2); BILIRUBIN,TOTAL 0.3 mg/dL (0.2-1.0); CALCIUM 8.2 mg/dL (8.5-10.3); CREATININE 1.5 mg/dL (0.4-1.0); POTASSIUM 3.5 mmol/L (3.5-5.0); TOTAL PROTEIN 6.3 g/dL (6.7-8.2)
[2022-10-17 05:49] VITALS: BP 122/96
== END 2022-10-17 07:20 | disposition home or self-care (01) ==
LOC: EDUNIT# → ED 23:40
DX: R55 Syncope and collapse (principal)
CPT/HCPCS: 36415; 80053; 83690; 85025; 93005; 99283

== ENCOUNTER 2022-11-13 10:19 | Outpatient (CLI) | payer MEDICARE, MEDICAID | END 2022-11-13 10:20 | disposition EMS.NT | LOC: EMS 10:19 | DX: R42 Dizziness and giddiness (principal) | CPT/HCPCS: A0425; A0429 ==

== ENCOUNTER 2022-11-13 11:13 | Emergency (ER) | payer MEDICARE, MEDICAID ==
--- NOTE | 2022-11-13 11:37 | ED Physician Documentation ---
PD HPI Fall - Stated complaint Stated Complaint: GLF - Chief complaint Chief Complaint: Neuro - History obtained from History obtained from: Patient - History of Present Illness Mechanism of injury: Lost balance (she states she has had some dizziness when getting up quickly for weeks or months. No recent change in medications. She got up today and felt dizzy, lost balance and fell to right. She remembers it. No LOC. struck head but no vomiting nor headache. She says fell on pillows. Caregivers called EMS.) Fall distance: Standing position Timing - onset: How many hours ago (1), Today Injury(ies) location: Head Associated symptoms: No: LOC, AMS, Amnesia, Neck pain, Nausea / vomiting Worsens with: Palpation Contributing factors: No: Anticoagulated (Medics were informed that the patient was on anticoagulants and so pt brought as modified trauma. However, the patient states she is only on aspirin. 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 : Chronic bladder infection HEENT: Chronic vision loss Psych: Depression, Anxiety Musculoskeletal: Osteoarthritis Derm: None - Past Surgical History Past Surgical History: Yes General: Cholecystectomy, Appendectomy, Colonoscopy, Other Ortho: Knee replacement HEENT: Cataracts, Tonsil/Adenoidectomy - Present Medications Home Medications: Ambulatory Orders Medication Instructions Recorded Confirmed Gabapentin 100 mg PO DAILY 06/19/17 10/16/22 Prazosin [Minipress] 5 mg PO QPM 06/19/17 10/16/22 Dicyclomine [Bentyl] 10 mg PO QID PRN 05/30/19 10/16/22 Calcium Carbonate [Calcium] 1,200 mg PO DAILY 02/24/21 10/16/22 Cholecalciferol [Vitamin D3] 25 mcg PO DAILY 02/24/21 10/16/22 Fluoxetine HCl [Prozac] 20 mg PO DAILY 02/24/21 10/16/22 Gabapentin [Neurontin] 400 mg PO QPM 02/24/21 10/16/22 Lactobacillus Acidophilus 1 tab PO DAILY 02/24/21 10/16/22 [Probiotic Acidophilus] buPROPion HCL [Bupropion Xl] 300 mg PO DAILY 02/24/21 10/16/22 Albuterol Sulf [Ventolin Hfa 2 puffs PO Q4HR PRN 03/03/21 10/16/22 Inhaler] Montelukast [Singulair] 1 tab PO DAILY 03/03/21 10/16/22 Acetaminophen [Tylenol] 650 mg PO TID #30 tab 04/19/21 10/16/22 Amlodipine Besylate [Norvasc] 2.5 mg PO DAILY 03/25/22 10/16/22 Fluticasone [Flonase] 1 sprays JUD BID 03/25/22 10/16/22 Loratadine [Claritin] 10 mg PO DAILY 03/25/22 10/16/22 Losartan [Cozaar] 50 mg PO BID 03/25/22 10/16/22 Metoprolol Succinate [Toprol Xl] 50 mg PO BID 03/25/22 10/16/22 Olopatadine HCl [Eye Allergy Itch 1 drops OP BID PRN 03/25/22 10/16/22 Relief] Potassium Chloride [Micro-K] 10 meq PO DAILY 03/25/22 10/16/22 metFORMIN [Glucophage] 500 mg PO BIDWM 03/25/22 10/16/22 Oxybutynin [Ditropan] See Rx Instructions .ROUTE .COMPLEX 09/03/22 10/16/22 tiZANidine [Zanaflex] See Rx Instructions .ROUTE .COMPLEX 09/03/22 10/16/22 - Allergies Allergies/Adverse Reactions: Allergies Allergy/AdvReac Type Severity Reaction Status Date / Time hydromorphone Allergy Intermediate Itching Verified 10/16/22 23:49 iodine Allergy Intermediate Hives Verified 10/16/22 23:49 acyclovir Allergy Unknown Verified 10/16/22 23:49 amoxicillin Allergy Unknown Verified 10/16/22 23:49 aspirin Allergy Unknown Verified 10/16/22 23:49 doxycycline Allergy Unknown Verified 10/16/22 23:49 hydrocodone bitartrate * Allergy Unknown Verified 10/16/22 23:49 [From Vicodin] naproxen [From Naprosyn] Allergy Unknown Verified 10/16/22 23:49 NSAIDS (Non-Steroidal Allergy Unknown Verified 10/16/22 23:49 Anti-Inflamma risperidone [From Risperdal] Allergy Unknown Verified 10/16/22 23:49 Tetanus Vaccines and Toxoid Allergy Hives Verified 10/16/22 23:49 [Tetanus Vaccines & Toxoid] adhesive tape AdvReac Intermediate Rash Verified 10/16/22 23:49 - Living Situation Living Situation: reports: Alone Living Arrangement: reports: Assisted living - Social History Does the pt smoke?: No Smoking Status: Never smoker Does the pt drink ETOH?: No Does the pt have substance abuse?: No - Immunizations Immunizations are current?: Yes - POLST Patient has POLST: No PD ED PE NORMAL - Vitals Vital signs reviewed: Yes - General General: Alert and 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, No acute distress, Well developed/nourished - HEENT HEENT: Atraumatic, PERRL, EOMI (no nystagmus) - Neck Neck: Supple, no meningeal sign, No bony TTP - Cardiac Cardiac: RRR, No murmur - Respiratory Respiratory: Clear bilaterally - Abdomen Abdomen: Soft, Non tender - Derm Derm: Normal color, Warm and dry - Extremities Extremities: Normal ROM s pain - Neuro 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: 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 and 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, 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, No motor deficit, No sensory deficit, Normal speech Eye Opening: Spontaneous Motor: Obeys Commands Verbal: Oriented GCS Score: 15 Results - Vitals Vitals: Vital Signs - 24 hr 11/13/22 13:49 Heart Rate 64 Respiratory 21 Rate Blood Pressure 159/137 H O2 Saturation 95 Oxygen O2 Source [Without Activity] Room air O2 Source Room air - Labs Labs: Laboratory Tests 11/13/22 11/13/22 11:49 11:49 WBC 8.9 RBC 4.37 Hgb 12.6 Hct 40.3 MCV 92.2 MCH 28.8 MCHC 31.3 L RDW 14.0 Plt Count 288 MPV 10.6 Neut # (Auto) 5.5 Lymph # (Auto) 2.0 [place] # (Auto) 0.7 Eos # (Auto) 0.5 Baso # (Auto) 0.1 Absolute Nucleated RBC 0.00 Nucleated RBC % 0.0 Sodium 139 Potassium 3.7 Chloride 105 Carbon Dioxide 22 Anion Gap 12.0 BUN 18 Creatinine 1.1 H Estimated GFR (MDRD) 48 L Glucose 108 H Calcium 8.9 Magnesium 1.8 Total Bilirubin 0.7 AST 16 ALT 16 Alkaline Phosphatase 71 Total Protein 7.1 Albumin 3.9 Globulin 3.2 Albumin/Globulin Ratio 1.2 Lipase 25 - Rads (name of study) head CT Radiology: Prelim report reviewed (no ICH nor acute process), See rad report PD Medical Decision Making - ED course Complexity details: reviewed old records (external pharmacy audit through [facility] d/w patient Reviewed Lab Results: head CT without ICH/acute process. Basic labs showing normal sodium and lytes, renal function and sugar as potential causes of postural dizziness. Social Determinants of Health: she lives in assisted living so will have caregivers closely available to check on her periodically through the day. Departure - Departure Disposition: 01 Home, Self Care Clinical Impression: Postural dizziness Fall from slip, trip, or stumble Qualifiers: Encounter type: initial encounter Qualified Code(s): W01.0XXA - Fall on same level from slipping, tripping and stumbling without subsequent striking against object, initial encounter Condition: Stable Record reviewed to determine appropriate education?: Yes Instructions: ED Vertigo Unspecified Comments: Your head CT scan as well as basic blood tests including blood count and chemistry panel are normal. No signs of more significant cause. Your blood pressure was slightly elevated/moderately elevated here but that may be reflective of the situation and also not having had your morning blood pressure medicines. See how it does over the next few days. At this point stay well-hydrated and I would suggest just changing position slowly going to a sitting first and then standing and see if you feel less dizzy with that. Follow-up with your primary care if persistent symptoms. Discharge Date/Time: 11/13/22 13:51
[2022-11-13] MEDS ORDERED: ACETAMINOPHEN 325 MG TABLET PO STA (11:44)
[2022-11-13 11:55] LABS: BASOPHILS # (AUTO) 0.1 10^3/uL (0.0-0.1); BASOPHILS % (AUTO) 0.7 %; EOSINOPHILS # (AUTO) 0.5 10^3/uL (0.0-0.7); EOSINOPHILS % (AUTO) 5.4 %; HCT - HEMATOCRIT 40.3 % (37.0-47.0); HGB - HEMOGLOBIN 12.6 g/dL (12.0-16.0); LYMPHOCYTES % (AUTO) 22.9 %; MEAN CORPUSCULAR HEMOGLOBIN 28.8 pg (27.0-31.0); MEAN CORPUSCULAR HGB CONC 31.3 g/dL (32.0-36.0); MEAN CORPUSCULAR VOLUME 92.2 fL (81.0-99.0); MEAN PLATELET VOLUME 10.6 fL (7.9-10.8); MONOCYTES # (AUTO) 0.7 10^3/uL (0.0-1.0); MONOCYTES % (AUTO) 8.1 %; NEUTROPHILS # (AUTO) 5.5 10^3/uL (1.5-6.6); NEUTROPHILS % (AUTO) 62.1 %; PLT - PLATELET COUNT 288 10^3/uL (130-450); RED BLOOD COUNT 4.37 10^6/uL (4.20-5.40); WHITE BLOOD COUNT 8.9 x10^3/uL (4.8-10.8)
[2022-11-13 12:08] LABS: ALBUMIN 3.9 g/dL (3.2-5.5); ALBUMIN/GLOBULIN RATIO 1.2 (1.0-2.2); BILIRUBIN,TOTAL 0.7 mg/dL (0.2-1.0); CALCIUM 8.9 mg/dL (8.5-10.3); CREATININE 1.1 mg/dL (0.4-1.0); MAGNESIUM 1.8 mg/dL (1.7-2.8); POTASSIUM 3.7 mmol/L (3.5-5.0); TOTAL PROTEIN 7.1 g/dL (6.7-8.2)
--- NOTE | 2022-11-13 12:32 | CT Report ---
PROCEDURE: HEAD WO INDICATIONS: fall with headache TECHNIQUE: Noncontrast 4.5 mm thick angled axial sections acquired from the foramen magnum to the vertex. For r adiation dose reduction, the following was used: automated exposure control, adjustment of mA and/or kV according to patient size. COMPARISON: 05/23/2020. FINDINGS: Image quality: Excellent. CSF spaces: Basal cisterns are patent. No extra-axial fluid collections. Ventricles are normal in size and shape. Incidental note is made of the presence of an empty sella, unchanged. Brain: No midline shift. No intracranial masses or hemorrhage. Ribeior-white matter interface is norm al. Age-related volume loss and small vessel ischemic change. Skull and face: Calvarium and visualized facial bones are intact, without suspicious lesions. Sinuses: Frontal debris in the sphenoid sinus. Mucosal thickening in the ethmoid sinuses. Air-fluid l evel in the right maxillary sinus and near complete opacification of the left maxillary sinus. IMPRESSION: 1. Acute on chronic sinusitis. 2. No evidence acute intracranial process. Reviewed by: Juliocesar Yap MD on 11/13/2022 12:31 PM PST Approved by: Juliocesar Yap MD on 11/13/2022 12:31 PM PST Station ID: [id number]
[2022-11-13 13:50] VITALS: BP 159/137
== END 2022-11-13 13:51 | disposition home or self-care (01) ==
LOC: EDUNIT# → ED 11:13
DX: R42 Dizziness and giddiness (principal); I10 Essential (primary) hypertension
CPT/HCPCS: 36415; 70450; 80053; 83690; 83735; 85025; 99283; 99284; A9270

== ENCOUNTER 2022-11-17 09:26 | Outpatient (CLI) | payer MEDICARE, MEDICAID ==
--- NOTE | 2022-11-17 15:37 | Mammography Report ---
BILATERAL DIGITAL SCREENING MAMMOGRAM 3D/2D: 11/17/2022 CLINICAL: Family history of breast cancer. Routine screening. Comparison is made to exams dated: 04/18/2021 mammogram, 01/04/2020 mammogram, 10/31/2019 mammogram, 05/26 mammogram, 11/22/2018 ultrasound, and 11/01/2018 mammogram - [facility]. There are scattered areas of fibroglandular density in both breasts (category b / 25%-50% glandular t issue). There are benign calcifications in both breasts. No significant masses, calcifications, or other findings are seen in either breast. There has been no significant interval change. IMPRESSION: BENIGN There is no mammographic evidence of malignancy. A 1 year screening mammogram is recommended. Based on the Tyrer Cuzick model (a risk assessment model) the patients lifetime risk is 7.1% and her 10 year risk is 7.1%. According to the ACR, ACS, and NCCN guidelines, an annual breast MRI exam donny g with mammogram is recommended if the patients lifetime risk is 20% or greater. This exam was interpreted at Station ID: [id number]. NOTE: For mammograms, a report in lay terms will be sent to the patient. Approximately 15% of breast malignancies will not be visualized mammographically. In the management of a palpable breast mass, a negative mammogram must not discourage biopsy of a clinically suspicious lesion. Electronically Signed By: Valdez cortes/penrad:11/17/2022 10:20:49 ACR BI-RADS Category 2: Benign Finding(s) 3342F PARENCHYMAL PATTERN: (A) - The breast(s) demonstrate(s) scattered fibroglandular densities. BI-RADS CATEGORY: (2) - 2 RECOMMENDATION: (ANNUAL) - Recommend routine annual screening mammography. [id number] 1 year screening LATERALITY: (B)
== END 2022-11-17 09:27 | disposition home or self-care (01) ==
LOC: DI.N 09:26
DX: Z12.31 Encounter for screening mammogram for malignant neoplasm of breast (principal); Z80.3 Family history of malignant neoplasm of breast

== ENCOUNTER 2022-12-30 09:55 | Outpatient (CLI) | payer MEDICARE, MEDICAID ==
[2022-12-30 12:33] LABS: ALBUMIN/GLOBULIN RATIO 1.2 (1.0-2.2); ALKALINE PHOSPHATASE 77 IU/L (42-121); ALT ALANINE AMINOTRANSFERASE 20 IU/L (10-60); AST ASPARTATE AMINOTRANSFERASE 17 IU/L (10-42); BILIRUBIN,TOTAL 0.7 mg/dL (0.2-1.0); BUN - BLOOD UREA NITROGEN 18 mg/dL (6-20); CALCIUM 9.4 mg/dL (8.5-10.3); CARBON DIOXIDE - CO2 28 mmol/L (21-32); CHLORIDE 106 mmol/L (101-111); CHOL/HDL RATIO 3.3 (<4.4); CHOLESTEROL 172 mg/dL; CREATININE 0.9 mg/dL (0.4-1.0); GFR - MDRD 61 (>89); GLUCOSE 135 mg/dL (70-100); HDL CHOLESTEROL 52 mg/dL; LDL CHOLESTEROL,CALCULATED 92 mg/dL; LDL/HDL RATIO 1.8 (<4.4); POTASSIUM 4.1 mmol/L (3.5-5.0); SODIUM 141 mmol/L (135-145); TOTAL PROTEIN 7.4 g/dL (6.7-8.2); TRIGLYCERIDES 142 mg/dL; VLDL CHOLESTEROL 28 mg/dL
[2022-12-30 12:38] LABS: THYROID STIMULATING HORMONE 1.92 uIU/mL (0.34-5.60)
[2022-12-30 20:42] LABS: ESTIMATED AVERAGE GLUCOSE 128 mg/dL (70-100); HEMOGLOBIN A1c% 6.1 % (4.27-6.07)
== END 2022-12-30 23:59 | disposition home or self-care (01) ==
LOC: EMS 09:55 → LAB.N 09:56 → EMS 12-31 10:46
PROVIDERS: ATTEND Physician Assistant Medical
DX: E11.9 Type 2 diabetes mellitus without complications (principal)
CPT/HCPCS: 36415; 80053; 80061; 83036; 83721; 84443

== ENCOUNTER 2022-12-31 10:40 | Outpatient (CLI) | payer MEDICARE, MEDICAID | END 2022-12-31 23:59 | disposition EMS.NT | LOC: EMS 10:40 | DX: Z03.89 Encounter for observation for other suspected diseases and conditions ruled out (principal) ==

== ENCOUNTER 2023-02-18 19:36 | Outpatient (CLI) | payer MEDICARE, MEDICAID | END 2023-02-18 19:37 | disposition critical access hospital (66) | LOC: EMS 19:36 | DX: M25.562 Pain in left knee (principal); M25.552 Pain in left hip; M54.2 Cervicalgia; R51.9 Headache, unspecified; R42 Dizziness and giddiness; W07.XXXA Fall from chair, initial encounter; Y92.89 Other specified places as the place of occurrence of the external cause | CPT/HCPCS: A0425; A0429 ==

== ENCOUNTER 2023-02-18 19:58 | Emergency (ER) | payer MEDICARE, MEDICAID ==
--- NOTE | 2023-02-18 20:06 | ED Physician Documentation ---
History of Present Illness - Stated complaint Stated Complaint: GLF - Additonal information Additional information: 77-year-old female who has a history of hypertension presents to the emergency department after a fall at a local laundromat. She sat on a wooden bench outside when the leg gave away and she fell onto her left hip. She did strike her head on the concrete but there was no loss of consciousness. She is not anticoagulated. EMS was summoned to the scene and she was able to stand and ambulate to the [facility]. She was placed in a rigid cervical collar given reports of neck pain. On presentation she reports that her left hip and knee hurt. She has had a total knee replacement in this leg. 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 : Chronic bladder infection HEENT: Chronic vision loss Psych: Depression, Anxiety Musculoskeletal: Osteoarthritis Derm: None - Past Surgical History Past Surgical History: Yes General: Cholecystectomy, Appendectomy, Colonoscopy, Other Ortho: Knee replacement HEENT: Cataracts, Tonsil/Adenoidectomy - Present Medications Home Medications: Ambulatory Orders Medication Instructions Recorded Confirmed Gabapentin 100 mg PO DAILY 06/19/17 10/16/22 Prazosin [Minipress] 5 mg PO QPM 06/19/17 10/16/22 Dicyclomine [Bentyl] 10 mg PO QID PRN 05/30/19 10/16/22 Calcium Carbonate [Calcium] 1,200 mg PO DAILY 02/24/21 10/16/22 Cholecalciferol [Vitamin D3] 25 mcg PO DAILY 02/24/21 10/16/22 Fluoxetine HCl [Prozac] 20 mg PO DAILY 02/24/21 10/16/22 Gabapentin [Neurontin] 400 mg PO QPM 02/24/21 10/16/22 Lactobacillus Acidophilus 1 tab PO DAILY 02/24/21 10/16/22 [Probiotic Acidophilus] buPROPion HCL [Bupropion Xl] 300 mg PO DAILY 02/24/21 10/16/22 Albuterol Sulf [Ventolin Hfa 2 puffs PO Q4HR PRN 03/03/21 10/16/22 Inhaler] Montelukast [Singulair] 1 tab PO DAILY 03/03/21 10/16/22 Acetaminophen [Tylenol] 650 mg PO TID #30 tab 04/19/21 10/16/22 Amlodipine Besylate [Norvasc] 2.5 mg PO DAILY 03/25/22 10/16/22 Fluticasone [Flonase] 1 sprays JUD BID 03/25/22 10/16/22 Loratadine [Claritin] 10 mg PO DAILY 03/25/22 10/16/22 Losartan [Cozaar] 50 mg PO BID 03/25/22 10/16/22 Metoprolol Succinate [Toprol Xl] 50 mg PO BID 03/25/22 10/16/22 Olopatadine HCl [Eye Allergy Itch 1 drops OP BID PRN 03/25/22 10/16/22 Relief] Potassium Chloride [Micro-K] 10 meq PO DAILY 03/25/22 10/16/22 metFORMIN [Glucophage] 500 mg PO BIDWM 03/25/22 10/16/22 Oxybutynin [Ditropan] See Rx Instructions .ROUTE .COMPLEX 09/03/22 10/16/22 tiZANidine [Zanaflex] See Rx Instructions .ROUTE .COMPLEX 09/03/22 10/16/22 - Allergies Allergies/Adverse Reactions: Allergies Allergy/AdvReac Type Severity Reaction Status Date / Time hydromorphone Allergy Intermediate Itching Verified 10/16/22 23:49 iodine Allergy Intermediate Hives Verified 10/16/22 23:49 acyclovir Allergy Unknown Verified 10/16/22 23:49 amoxicillin Allergy Unknown Verified 10/16/22 23:49 aspirin Allergy Unknown Verified 10/16/22 23:49 doxycycline Allergy Unknown Verified 10/16/22 23:49 hydrocodone bitartrate * Allergy Unknown Verified 10/16/22 23:49 [From Vicodin] naproxen [From Naprosyn] Allergy Unknown Verified 10/16/22 23:49 NSAIDS (Non-Steroidal Allergy Unknown Verified 10/16/22 23:49 Anti-Inflamma risperidone [From Risperdal] Allergy Unknown Verified 10/16/22 23:49 Tetanus Vaccines and Toxoid Allergy Hives Verified 10/16/22 23:49 [Tetanus Vaccines & Toxoid] adhesive tape AdvReac Intermediate Rash Verified 10/16/22 23:49 - Social History Does the pt smoke?: No Smoking Status: Never smoker Does the pt drink ETOH?: No Does the pt have substance abuse?: No - Immunizations Immunizations are current?: Yes - POLST Patient has POLST: No PD ED PE EXPANDED - General General: Alert - HEENT HEENT: Pupils unequal, EOMI, Other (Negative for raccoon eyes stephenson sign or hemotympanums). No: PERRL (anascoria noted at baseline) - Neck Neck: Supple w/out meningeal sx, Other (arrives in rigid cervical collar). No: Adenopathy, Bony TTP - Cardiac Cardiac: Regular Rate, Radial strong equal, Pedal strong equal - Abdomen Abdomen: Normal Bowel sounds. No: Tender to palpation - Extremities Extremities: Left hip (Full active and passive range of motion of the left hip. Some pain elicited with internal rotation. No malrotation or shortening of the leg), Left knee (Normal flexion extension. No laxity noted. No traumatic ecchymosis or abrasions. Distal 2+ DP pulse preserved), Pedal Pulses Present - Neuro Neuro: Alert and Oriented X 3, CNII-XII intact - GCS Eye Opening: Spontaneous Motor: Obeys Commands Verbal: Oriented Total: 15 Results - Vitals Vitals: Vital Signs - 24 hr 02/18/23 20:00 Temperature 37.3 C Heart Rate 80 Respiratory 18 Rate Blood Pressure 174/86 H O2 Saturation 98 Oxygen O2 Source [Without Activity] Room air O2 Source Room air - Rads (name of study) ct cervical Relevant Findings:: Final report received (No fracture or subluxation. Extensive multilevel degenerative changes throughout the cervical spine) ct head Relevant Findings:: Final report received (Limited study due to motion artifact demonstrates no definite acute intracranial abnormality) pelvic CT Relevant Findings:: Final report received (No acute fracture or dislocation) left knee Relevant Findings:: EMP independent interpretation of test (No acute fracture or dislocation. Hardware noted to be well-seated) PD Medical Decision Making - ED course Complexity details: reviewed results, re-evaluated patient, considered differential, d/w patient ED course: 77-year-old female presents emergency department for evaluation of closed head injury with left hip and left knee pain. She was sitting on a wooden Bench which gave way and she fell onto her left side. Reports striking her head. On the scene for EMS she was ambulatory but she was placed in a rigid collar. Presentation to the ER she is nonfocal. At baseline she is known to have anisocoria. Given the history of mechanism reported headache and neck pain after trauma CT of the head was completed that showed no acute intracranial findings. Cervical spine CT showed no traumatic injuries though we do note moderate degenerative disc disease. Patient reported that she had pain in her left hip especially with internal rotation and as such I did initially order an x-ray of the hip to rule out occult fracture but the x-ray technologist felt that given her large body habitus simple x-ray imaging would be insufficient thus a pelvic CT was completed and no CT evidence of fracture is seen. Her left knee x-ray is interpreted by myself also shows no acute fractures. Following this the patient was road tested in the ER and had a stable gait. Given no obvious traumatic injuries on exam with a normal neurological exam she is discharged home in stable condition. I suspect she will feel sore and have bruising after this fall. The usual emergent return precautions were discussed for worsening symptoms Departure - Departure Disposition: 01 Home, Self Care Clinical Impression: Ground-level fall, Left hip pain Left knee pain Qualifiers: Chronicity: acute Qualified Code(s): M25.562 - Pain in left knee Condition: Stable Record reviewed to determine appropriate education?: Yes Instructions: ED Contusion Lower Extr Ch Comments: As discussed at the bedside the CT of your head and neck did not show any traumatic injuries. You do have degenerative disc disease of your cervical spine which is not unexpected. The pelvic CT did not show any fracture of your pelvis or hip. My interpretation of your left knee x-rays that there is no fracture. At this point I suspect that you have contusion or bruising from the fall that should start to get better over the next several days. Discussed this ED visit with your primary care provider. Return to the ER if you find that your symptoms are worsening
--- NOTE | 2023-02-18 20:47 | CT Report ---
PROCEDURE: HEAD WO INDICATIONS: fall, left sided [place] TECHNIQUE: Noncontrast 4.5 mm thick angled axial sections acquired from the foramen magnum to the vertex. For r adiation dose reduction, the following was used: automated exposure control, adjustment of mA and/or kV according to patient size. COMPARISON: CT head 11/13/2022. FINDINGS: Image quality: Evaluation is limited by motion artifact. CSF spaces: There is mild cerebral volume loss with prominence of the ventricles and sulci. Basal ci sterns are patent. No extra-axial fluid collections. Brain: No definite intracranial hemorrhage, mass, or mass effect. Ribeiro-white matter interface is leon ssly preserved. There are subcortical and periventricular white matter hypodensities consistent with chronic small vessel ischemic changes. Skull and face: Calvarium and visualized facial bones are intact, without suspicious lesions. Sinuses: Visualized sinuses demonstrate near complete mucosal opacification of the left maxillary si nus. Mild mucosal thickening also demonstrated within the bilateral ethmoid and right maxillary sinus es. IMPRESSION: 1. Limited study due to motion artifact demonstrates no definite acute intracranial abnormality. Reviewed by: Mahesh Green MD on 02/18/2023 8:46 PM PDT Approved by: Mahesh Green MD on 02/18/2023 8:46 PM PDT Station ID: [id number]
--- NOTE | 2023-02-18 20:50 | CT Report ---
PROCEDURE: CERVICAL SPINE WO INDICATIONS: fall neck pain TECHNIQUE: Noncontrast 3 mm thick sections acquired from the skull base to the T4 level. Sagittal and coronal r eformats were then constructed. For radiation dose reduction, the following was used: automated exp osure control, adjustment of mA and/or kV according to patient size. COMPARISON: CT cervical spine 09/20/2017. FINDINGS: Image quality: Excellent. Bones: No fractures or subluxation. Straightening of the cervical lordosis is demonstrated. There is minimal anterolisthesis at C2-C3, C3-C4, and C4-C5. There is multilevel degenerative disc disease an d facet arthropathy throughout the cervical spine. Prominent anterior bridging osteophytes demonstrat ed within the mid and lower cervical spine. There are periarticular erosions along the facet joints. Visualized superior ribs are intact. Soft tissues: Prevertebral soft tissues are normal in thickness. No paravertebral hematomas. No ap ical pneumothoraces. IMPRESSION: 1. No fracture or subluxation. 2. Extensive multilevel degenerative changes throughout the cervical spine as described. Reviewed by: Mahesh Green MD on 02/18/2023 8:49 PM PDT Approved by: Mahesh Green MD on 02/18/2023 8:49 PM PDT Station ID: [id number]
--- NOTE | 2023-02-18 20:56 | CT Report ---
PROCEDURE: PELVIS WO INDICATIONS: left hip pain TECHNIQUE: Noncontrast 3 mm axial sections acquired through the bony pelvis, with coronal and sagittal reformatt ing. For radiation dose reduction, the following was used: automated exposure control, adjustment of mA and/or kV according to patient size. COMPARISON: CT abdomen pelvis 02/24/2022. FINDINGS: Image quality: Excellent. Bones: No fracture or dislocation. There is mild axial joint space narrowing the hips bilaterally. M oderate degenerative disease and facet arthropathy demonstrated within the lower lumbar spine. Soft tissues: No discrete hematoma collections. There is prolapse of the pelvic floor noted. No intr aperineal free fluid in the visualized pelvis. There is a cyst in the left hemipelvis measuring up to 3.9 cm likely representing an ovarian or paraovarian cyst. This appears similar in size compared to the prior study. The visualized bowel loops are normal in caliber. IMPRESSION: 1. No fracture or dislocation. Reviewed by: Mahesh Green MD on 02/18/2023 8:55 PM PDT Approved by: Mahesh Green MD on 02/18/2023 8:55 PM PDT Station ID: [id number]
[2023-02-18 21:26] VITALS: BP 158/102
--- NOTE | 2023-02-18 21:57 | XRAY Report ---
PROCEDURE: Knee 2 View LT INDICATIONS: pain after fall TECHNIQUE: 2 views of the left knee were acquired. COMPARISON: None. FINDINGS: Bones: A left knee prosthesis is demonstrated. No acute fracture or dislocation. No suspicious perip rosthetic lucencies. Soft tissues: No knee joint effusion. There are calcifications along the quadriceps tendon distally. IMPRESSION: 1. No acute fracture or dislocation. Reviewed by: Mahesh Green MD on 02/18/2023 9:56 PM PDT Approved by: Mahesh Green MD on 02/18/2023 9:56 PM PDT Station ID: [id number]
== END 2023-02-18 21:26 | disposition home or self-care (01) ==
LOC: EDUNIT# → ED 19:58
DX: M25.562 Pain in left knee (principal); W17.89XA Other fall from one level to another, initial encounter; I10 Essential (primary) hypertension
CPT/HCPCS: 99283; 99284

== ENCOUNTER 2023-03-17 17:44 | Outpatient (CLI) | payer MEDICARE, MEDICAID | END 2023-03-17 17:45 | disposition critical access hospital (66) | LOC: EMS 17:44 | DX: R06.02 Shortness of breath (principal); R05.9 Cough, unspecified | CPT/HCPCS: A0425; A0429 ==

== ENCOUNTER 2023-03-17 18:05 | Emergency (ER) | payer MEDICARE, MEDICAID ==
[2023-03-17] MEDS ORDERED: ACETAMINOPHEN 500 MG TABLET PO STA (18:13)
[2023-03-17] MEDS ORDERED: IPRATROPIUM/ALBUTEROL 3 ML NEB INH STA (18:13)
--- NOTE | 2023-03-17 18:14 | ED Physician Documentation ---
PD HPI CHEST PAIN - Stated complaint Stated Complaint: SOA - Chief complaint Chief Complaint: Resp - History obtained from History obtained from: Patient - Additional information Additional information: 77-year-old woman with COPD presents with shortness of breath. She states that she saw a cord in her house and it had shorted out and there was a fog smell and then she got short of breath suddenly today. Is associated with a dry cough. Of note she has ongoing left chest pain since the left chest wall injury about 3 months ago. She states she had previous imaging that was negative for rib fra cture. She denies pedal edema or calf pain. 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 : Chronic bladder infection HEENT: Chronic vision loss Psych: Depression, Anxiety Musculoskeletal: Osteoarthritis Derm: None - Past Surgical History Past Surgical History: Yes General: Cholecystectomy, Appendectomy, Colonoscopy, Other Ortho: Knee replacement HEENT: Cataracts, Tonsil/Adenoidectomy - Present Medications Home Medications: Ambulatory Orders Medication Instructions Recorded Confirmed Gabapentin 100 mg PO DAILY 06/19/17 03/17/23 Prazosin [Minipress] 5 mg PO QPM 06/19/17 03/17/23 Dicyclomine [Bentyl] 10 mg PO QID PRN 05/30/19 03/17/23 Calcium Carbonate [Calcium] 1,200 mg PO DAILY 02/24/21 03/17/23 Cholecalciferol [Vitamin D3] 25 mcg PO DAILY 02/24/21 03/17/23 Fluoxetine HCl [Prozac] 20 mg PO DAILY 02/24/21 03/17/23 Gabapentin [Neurontin] 400 mg PO QPM 02/24/21 03/17/23 Lactobacillus Acidophilus 1 tab PO DAILY 02/24/21 03/17/23 [Probiotic Acidophilus] buPROPion HCL [Bupropion Xl] 300 mg PO DAILY 02/24/21 03/17/23 Albuterol Sulf [Ventolin Hfa 2 puffs PO Q4HR PRN 03/03/21 03/17/23 Inhaler] Montelukast [Singulair] 1 tab PO DAILY 03/03/21 03/17/23 Acetaminophen [Tylenol] 650 mg PO TID #30 tab 04/19/21 03/17/23 Amlodipine Besylate [Norvasc] 2.5 mg PO DAILY 03/25/22 03/17/23 Fluticasone [Flonase] 1 sprays JUD BID 03/25/22 03/17/23 Loratadine [Claritin] 10 mg PO DAILY 03/25/22 03/17/23 Losartan [Cozaar] 50 mg PO BID 03/25/22 03/17/23 Metoprolol Succinate [Toprol Xl] 50 mg PO BID 03/25/22 03/17/23 Olopatadine HCl [Eye Allergy Itch 1 drops OP BID PRN 03/25/22 03/17/23 Relief] Potassium Chloride [Micro-K] 10 meq PO DAILY 03/25/22 03/17/23 metFORMIN [Glucophage] 500 mg PO BIDWM 03/25/22 03/17/23 Oxybutynin [Ditropan] See Rx Instructions .ROUTE .COMPLEX 09/03/22 03/17/23 tiZANidine [Zanaflex] See Rx Instructions .ROUTE .COMPLEX 09/03/22 03/17/23 predniSONE [Deltasone] 20 mg PO [id number] #21 tab 03/17/23 - Allergies Allergies/Adverse Reactions: Allergies Allergy/AdvReac Type Severity Reaction Status Date / Time hydromorphone Allergy Intermediate Itching Verified 03/17/23 18:13 iodine Allergy Intermediate Hives Verified 03/17/23 18:13 acyclovir Allergy Unknown Verified 03/17/23 18:13 amoxicillin Allergy Unknown Verified 03/17/23 18:13 aspirin Allergy Unknown Verified 03/17/23 18:13 doxycycline Allergy Unknown Verified 03/17/23 18:13 hydrocodone bitartrate * Allergy Unknown Verified 03/17/23 18:13 [From Vicodin] naproxen [From Naprosyn] Allergy Unknown Verified 03/17/23 18:13 NSAIDS (Non-Steroidal Allergy Unknown Verified 03/17/23 18:13 Anti-Inflamma risperidone [From Risperdal] Allergy Unknown Verified 03/17/23 18:13 Tetanus Vaccines and Toxoid Allergy Hives Verified 03/17/23 18:13 [Tetanus Vaccines & Toxoid] adhesive tape AdvReac Intermediate Rash Verified 03/17/23 18:13 - Social History Does the pt smoke?: No Smoking Status: Never smoker Does the pt drink ETOH?: No Does the pt have substance abuse?: No - Immunizations Immunizations are current?: Yes - POLST Patient has POLST: No PD ED PE NORMAL - Vitals Vital signs reviewed: Yes - General General: Alert and 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, Other (Occasional dry cough and winces when she coughs.) - HEENT HEENT: Other (Anisocoria, right pupil larger than left) - Cardiac Cardiac: RRR, No murmur - Respiratory Respiratory: No respiratory distress, Other (Mild expiratory wheezes, excellent air motion) - Abdomen Abdomen: Non tender - Neuro Neuro: Alert and 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, Normal speech Results - Vitals Vitals: Vital Signs - 24 hr 03/17/23 03/17/23 18:10 18:24 Temperature 37.1 C Heart Rate 81 69 Respiratory 16 20 Rate Blood Pressure 145/87 H O2 Saturation 98 Oxygen O2 Source [Without Activity] Room air O2 Source Room air - Rads (name of study) 1V CXR Relevant Findings:: Final report received, EMP independent interpretation of test PD Medical Decision Making - ED course ED course: 77-year-old woman presents with apparent asthma or COPD exacerbation related to smoke in her house. Very mild wheezing on exam. [place] better after a DuoNeb and was clear on repeat exam by auscultation. Chest x-ray was negative. Vital signs unremarkable. Departure - Departure Disposition: 01 Home, Self Care Clinical Impression: Wheezy bronchitis Condition: Good Record reviewed to determine appropriate education?: Yes Instructions: ED Bronchitis Asthmatic Prescriptions: predniSONE [Deltasone] 20 mg PO [id number] #21 tab Comments: Chest x-ray looking okay. I am prescribing prednisone for the inflammation in your lung. Call your doctor to arrange a follow-up appointment, make the next available appointment. In the interim, return anytime if worse or if new symptoms develop.
[2023-03-17 18:15] VITALS: BP 145/87
--- NOTE | 2023-03-17 18:39 | XRAY Report ---
PROCEDURE: Chest 1 View X-Ray INDICATIONS: cough TECHNIQUE: One view of the chest was acquired. COMPARISON: 07/09/2022 chest x-ray FINDINGS: Surgical changes and devices: None. Lungs and pleura: No pleural effusions or pneumothorax. Lungs are clear. Mediastinum: Mediastinal contours appear normal. Heart size is normal. Bones and chest wall: No suspicious bony lesions. Overlying soft tissues appear unremarkable. IMPRESSION: No acute process. Reviewed by: Ivan Drake MD on 03/17/2023 5:37 PM AKDT Approved by: Ivan Drake MD on 03/17/2023 5:37 PM AKDT Station ID: [id number]
[2023-03-17] MEDS ORDERED: predniSONE 20 MG TABLET PO STA (18:59)
== END 2023-03-17 19:38 | disposition home or self-care (01) ==
LOC: EDUNIT# → ED 18:05
DX: J40 Bronchitis, not specified as acute or chronic (principal)
CPT/HCPCS: 71045; 94640; 99283; 99284; A9270; J7512

== ENCOUNTER 2023-04-22 10:26 | Outpatient (CLI) | payer MEDICARE, MEDICAID ==
--- NOTE | 2023-04-22 18:36 | CT Report ---
PROCEDURE: CHEST WO INDICATIONS: LEFT SIDE RIB PAIN TECHNIQUE: Noncontrast 1mm axial images were acquired from the pulmonary apices to the posterior costophrenic an gles. Axial 5 mm soft tissue kernel reconstructions were performed as well as 8 mm axial MIP and cor onal and sagittal 5 mm reformations. For radiation dose reduction, the following was used: automate d exposure control, adjustment of mA and/or kV according to patient size. COMPARISON: None FINDINGS: Image quality: Excellent. Lungs and pleura: No consolidation. No pleural effusions. No pneumothorax. No suspicious pulmonary n odules which require follow up. Mediastinum: Heart size is normal. No pericardial effusion. No large vessel abnormality. No mediastin al adenopathy by size criteria. Chest wall and lower neck: Thyroid is unremarkable. No axillary or supraclavicular adenopathy by size . Bones: No aggressive osseous abnormality. The thoracic spine has multilevel degenerative changes. Upper Abdomen: Unremarkable. IMPRESSION: No acute abnormality of the chest. No abnormality of the left ribs. Reviewed by: Valdez Carias on 04/22/2023 5:35 PM LADONNA Approved by: Valdez Carias on 04/22/2023 5:35 PM AKDT Station ID: [id number]
== END 2023-04-22 10:27 | disposition home or self-care (01) ==
LOC: DI 10:26
PROVIDERS: ATTEND Physician Assistant Medical
DX: R07.81 Pleurodynia (principal)

== ENCOUNTER 2023-04-23 11:20 | Outpatient (CLI) | payer MEDICARE, MEDICAID ==
[2023-04-23 11:27] LABS: BILIRUBIN,URINE NEGATIVE (NEGATIVE); GLUCOSE, URINE (UA) NEGATIVE (NEGATIVE); KETONES,URINE (UA) NEGATIVE (NEGATIVE); LEUKOCYTE ESTERASE, URINE SMALL (NEGATIVE); NITRITE,URINE NEGATIVE (NEGATIVE); OCCULT BLOOD,URINE TRACE-INTA (NEGATIVE); PROTEIN,URINE NEGATIVE (NEGATIVE); UROBILINOGEN,URINE 0.2 (NORMAL) E.U./dL (NORMAL)
[2023-04-23 11:38] LABS: BACTERIA,URINE Moderate /HPF (None Seen); CLARITY,URINE SL. CLOUDY (CLEAR); RBC,URINE 0-5 /HPF (0-5); SQUAMOUS EPITHELIAL CELL,UR MANY Squamous (<= Few); WBC,URINE >25 /HPF (0-5)
== END 2023-04-23 11:21 | disposition home or self-care (01) ==
LOC: LAB 11:20
PROVIDERS: ATTEND Urology
DX: R32 Unspecified urinary incontinence (principal)
CPT/HCPCS: 81001; 87086

== ENCOUNTER 2023-06-25 09:37 | Outpatient (CLI) | payer MEDICARE, MEDICAID ==
--- NOTE | 2023-06-25 14:50 | CT Report ---
PROCEDURE: HEAD WO INDICATIONS: TRAUMATIC HEADACHE TECHNIQUE: Noncontrast 4.5 mm thick angled axial sections acquired from the foramen magnum to the vertex. For r adiation dose reduction, the following was used: automated exposure control, adjustment of mA and/or kV according to patient size. COMPARISON: CT head 02/18/2023. FINDINGS: Image quality: Excellent. CSF spaces: Basal cisterns are patent. No extra-axial fluid collections. Ventricles are normal in size and shape. Brain: No midline shift. No intracranial masses or hemorrhage. Ribeiro-white matter interface is norm al. Skull and face: Calvarium and visualized facial bones are intact, without suspicious lesions. Hyper ostosis frontalis internus. Sinuses: Fluid filling the visualized paranasal sinuses with air-fluid levels. The mastoids are clear . IMPRESSION: 1.No acute intracranial pathology. 2.Air-fluid levels within the paranasal sinuses, correlate for acute sinusitis. Reviewed by: Osbaldo Spears MD on 06/25/2023 2:48 PM PDT Approved by: Osbaldo Spears MD on 06/25/2023 2:48 PM PDT Station ID: [id number]
== END 2023-06-25 09:38 | disposition home or self-care (01) ==
LOC: DI 09:37
PROVIDERS: ATTEND Physician Assistant Medical
DX: G44.309 Post-traumatic headache, unspecified, not intractable (principal)

== ENCOUNTER 2023-07-10 05:54 | Outpatient (CLI) | payer MEDICARE, MEDICAID | END 2023-07-10 23:59 | disposition short-term general hospital (02) | LOC: EMS 05:54 | DX: R10.12 Left upper quadrant pain (principal); R10.32 Left lower quadrant pain; R42 Dizziness and giddiness | CPT/HCPCS: A0425; A0429 ==

== ENCOUNTER 2023-09-03 10:31 | Outpatient (CLI) | payer MEDICARE, MEDICAID ==
--- NOTE | 2023-09-03 11:17 | Sleep Patient Instructions ---
Sleep Center Visit Summary - Patient Visit Information Reason for Visit: Annual visit - Patient Instructions Additional Instructions: You will continue with CPAP therapy with pressure set at 8-15 cmH2O. A supply prescription will be updated with your DME. We encourage you to continue to try to lose weight. Please follow up with the sleep care office in 1 year. - Clinic Information Contact: [facility] [address] [place] [address] [email or web address] T: [phone]
--- NOTE | 2023-09-03 11:22 | SLEEP CARE CONSULTATION ---
Information from patient questionnaire entered by Gabby Ozuna. I have reviewed and concur with the information entered by Gabby Ozuna. This document represents the service I personally performed and the decisions made by , Shawna Rosario ARNP. History of Present Illness Service Date and Time: 09/03/2023 1031 Previous diagnosis: Mild, Obstructive Sleep Apnea-Hypopnea Syndrome AHI: 6.4 (in 2010) Reason for follow up: annual (LAST SEEN 08/2022) Equipment type: CPAP (RESMED AIRSINCE 10) Equipment obtained from: [facility] (getting supplies as needed) Mask style: Full face (Vitera) Backup mask available: Yes (other mask) Prior sleep studies: Yes Year and Where: [address] - 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 Sleep Study - Results Type of Sleep Study: Polysomnography Prior sleep studies: Yes Year and Where: 2010 [facility] Sleep CPAP Compliance Data - Data Reviewed with Patient Average duration of nightly device use: 8 HR 6 MINS Compliance rate %: 99 (09/01/2022-08/31/2023; 365/365 days used) Current pressure setting (cmH2O): 8-15 Average residual AHI: 3.2 Central apnea: 0.3 Obstructive apnea: 1.1 Average large leak: 5.1 l/min Subjective Patient concerns: reports: mask leak noise, nasal congestion. denies: aerophagia, mask discomfort, air blowing in eyes, condensation in mask/hose, dry mouth, nose, throat, epistaxis Observed to snore while using device: No Current pressure setting perceived as: comfortable On therapy, patient: reports: sleeping better, awakening more refreshed, being more awake and alert during the day, more rested overall. denies: drowsiness while driving Initial Ambia Sleepiness Scale score: 4 (in 2010) Current Ambia Sleepiness Scale score: 6 Allergies and Home Medications Known drug allergies: Yes (as listed) Drug allergies reviewed: Yes Home medication list reviewed: Yes (no changes) Allergy and home medication list: Allergies hydromorphone Allergy (Intermediate, Verified 09/02/23 13:52) Itching iodine Allergy (Intermediate, Verified 09/02/23 13:52) Hives acyclovir Allergy (Verified 09/02/23 13:52) Unknown amoxicillin Allergy (Verified 09/02/23 13:52) Unknown aspirin Allergy (Verified 09/02/23 13:52) Unknown doxycycline Allergy (Verified 09/02/23 13:52) Unknown hydrocodone bitartrate * [From Vicodin] Allergy (Verified 09/02/23 13:52) Unknown naproxen [From Naprosyn] Allergy (Verified 09/02/23 13:52) Unknown NSAIDS (Non-Steroidal Anti-Inflamma Allergy (Verified 09/02/23 13:52) Unknown risperidone [From Risperdal] Allergy (Verified 09/02/23 13:52) Unknown Tetanus Vaccines and Toxoid [Tetanus Vaccines & Toxoid] Allergy (Verified 09/02/23 13:52) Hives adhesive tape Adverse Reaction (Intermediate, Verified 09/02/23 13:52) Rash Review of Systems Review of systems same as previous: Yes (no changes) Physical Exam Vital signs obtained and entered by: Shawna Velez NP Blood Pressure: 152/79 Cuff size: wrist (right) Heart Rate: 59 O2 Saturation: 99 Height: 5 ft 6 in Weight: 249 lb 9.6 oz Body Mass Index: 40.3 BMI Classification: Morbidly Obese Impression and Plan 1. Obstructive Sleep Apnea-Hypopnea Syndrome, mild, with good treatment compliance and good apnea control. On CPAP therapy, the patient has better sleep quality and is more rested overall. Patient states her headgear is stretched out and she cannot get it good seal on her mask. She is unclear if she is getting replacements of the headgear but states she does have many cushion replacements. I fit her to a [facility] Simplus fullface mask, medium cushion for her to use and encouraged her to reach out to her DME, [facility], to get more supplies. She voiced understanding. Patient's apnea severity and rationale for treatment to reduce apnea, improve sleep quality and reduce cardiovascular and cerebrovascular events was reviewed. I also reviewed the benefit of consistent device use of CPAP for hypertension, depression and anxiety. 2. Obesity, unspecified. Currently patients BMI is 40.3. Obesity increases the risk of apnea, CPAP pressure requirements and overall health risks especially cardiovascular and diabetes. Thus patient is advised to lose weight. * Continue auto CPAP pressure at 8-15 cmH2O * Fit to [employer] Simplus full face, medium cushion * Update supply prescription * Notify me if snoring with mask or feeling that the pressure is too much or too little * Attempt to lose weight * Call this office if any problems using CPAP * Return for follow up in 1 year, or sooner if concerns arise Mask provided: Yes Counseling Topics: Spare mask, Weight loss health impact Prescriptions: Device supplies Follow up with Sleep Care in: 1 year Visit Type: In Office Time Spent with Patient (minutes): 27 Provider Statement: I spent 100% of the Face to Face Visit with the patient with greater than 50% spent counseling the patient and coordination of care.
[2023-09-03 11:24] VITALS: BP 152/79; O2SAT 99
== END 2023-09-03 10:32 | disposition home or self-care (01) ==
LOC: SC 10:31
PROVIDERS: ATTEND Nurse Practitioner Family
DX: G47.33 Obstructive sleep apnea (adult) (pediatric) (principal); E66.01 Morbid (severe) obesity due to excess calories; Z68.41 Body mass index [BMI] 40.0-44.9, adult
CPT/HCPCS: 99213; G0463; 99212

== ENCOUNTER 2023-09-13 18:26 | Outpatient (CLI) | payer MEDICARE, MEDICAID | END 2023-09-13 18:27 | disposition left against medical advice (07) | LOC: EMS 18:26 | DX: M54.2 Cervicalgia (principal); M25.559 Pain in unspecified hip; W01.0XXA Fall on same level from slipping, tripping and stumbling without subsequent striking against object, initial encounter; Y92.811 Bus as the place of occurrence of the external cause ==

== ENCOUNTER 2023-09-22 09:24 | Emergency (ER) | payer MEDICARE, MEDICAID ==
--- NOTE | 2023-09-22 10:39 | ED Physician Documentation ---
History of Present Illness - Stated complaint Stated Complaint: HIP PX, LT SD PX - Chief complaint Chief Complaint: Trauma Ext - History obtained from History obtained from: Patient - Additonal information Additional information: The patient comes to the emergency department chief complaint of left hip and shoulder pain after a fall from the bus steps about a week and a half ago. The patient states that the time, she declined ambulance transport and has been limping around since. She has been able to ambulate but it does hurt a little in the hip and she states her left anterior shoulder has been sore. This is limited her range of motion somewhat. No other injuries or complaints. No rib pain. No abdominal pain. She has some very mild left knee pain and has a history of a knee replacement, but again, has been able to walk on the knee without difficulty. 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 : Chronic bladder infection HEENT: Chronic vision loss Psych: Depression, Anxiety Musculoskeletal: Osteoarthritis Derm: None - Past Surgical History Past Surgical History: Yes General: Cholecystectomy, Appendectomy, Colonoscopy, Other Ortho: Knee replacement HEENT: Cataracts, Tonsil/Adenoidectomy - Present Medications Home Medications: Ambulatory Orders Medication Instructions Recorded Confirmed Gabapentin 100 mg PO DAILY 06/19/17 09/22/23 Prazosin [Minipress] 10 mg PO QPM 06/19/17 09/22/23 Dicyclomine [Bentyl] 10 mg PO QID PRN 05/30/19 09/22/23 Calcium Carbonate [Calcium] 1,200 mg PO DAILY 02/24/21 09/22/23 Cholecalciferol [Vitamin D3] 25 mcg PO DAILY 02/24/21 09/22/23 Fluoxetine HCl [Prozac] 20 mg PO DAILY 02/24/21 09/22/23 Gabapentin [Neurontin] 400 mg PO QPM 02/24/21 09/22/23 Lactobacillus Acidophilus 1 tab PO DAILY 02/24/21 09/22/23 [Probiotic Acidophilus] buPROPion HCL [Bupropion Xl] 300 mg PO DAILY 02/24/21 09/22/23 Montelukast [Singulair] 1 tab PO DAILY 03/03/21 09/22/23 Amlodipine Besylate [Norvasc] 2.5 mg PO BID 03/25/22 09/22/23 Loratadine [Claritin] 10 mg PO DAILY 03/25/22 09/22/23 Losartan [Cozaar] 50 mg PO BID 03/25/22 09/22/23 Metoprolol Succinate [Toprol Xl] 50 mg PO BID 03/25/22 09/22/23 Potassium Chloride [Micro-K] 10 meq PO DAILY 03/25/22 09/22/23 metFORMIN [Glucophage] 500 mg PO BIDWM 03/25/22 09/22/23 Oxybutynin [Ditropan] 10 mg PO DAILY 09/03/22 09/22/23 tiZANidine [Zanaflex] 4 mg PO BID 09/03/22 09/22/23 Acetaminophen [Tylenol] 650 mg PO TID PRN 09/22/23 09/22/23 Meloxicam 7.5 mg PO BID 09/22/23 09/22/23 - Allergies Allergies/Adverse Reactions: Allergies Allergy/AdvReac Type Severity Reaction Status Date / Time hydromorphone Allergy Intermediate Itching Verified 09/02/23 13:52 iodine Allergy Intermediate Hives Verified 09/02/23 13:52 acyclovir Allergy Unknown Verified 09/02/23 13:52 amoxicillin Allergy Unknown Verified 09/02/23 13:52 aspirin Allergy Unknown Verified 09/02/23 13:52 doxycycline Allergy Unknown Verified 09/02/23 13:52 hydrocodone bitartrate * Allergy Unknown Verified 09/02/23 13:52 [From Vicodin] naproxen [From Naprosyn] Allergy Unknown Verified 09/02/23 13:52 NSAIDS (Non-Steroidal Allergy Unknown Verified 09/02/23 13:52 Anti-Inflamma risperidone [From Risperdal] Allergy Unknown Verified 09/02/23 13:52 Tetanus Vaccines and Toxoid Allergy Hives Verified 09/02/23 13:52 [Tetanus Vaccines & Toxoid] adhesive tape AdvReac Intermediate Rash Verified 09/02/23 13:52 - Social History Does the pt smoke?: No Smoking Status: Never smoker Does the pt drink ETOH?: No Does the pt have substance abuse?: No - Immunizations Immunizations are current?: Yes - POLST Patient has POLST: No PD ED PE NORMAL - Vitals Vital signs reviewed: Yes - General General: Alert and 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, No acute distress - HEENT HEENT: Atraumatic, PERRL, EOMI, Moist mucous membranes - Cardiac Cardiac: Strong equal pulses - Respiratory Respiratory: No respiratory distress - Abdomen Abdomen: Soft, Non tender, Non distended - Derm Derm: Normal color, Warm and dry, No rash - Extremities Extremities: No deformity, No edema, Other (Tenderness palpation without deformity over anterior left shoulder and lateral left hip.) - Neuro Neuro: Alert and 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, No motor deficit, No sensory deficit - Psych Psych: Normal mood, Normal affect Results - Vitals Vitals: Oxygen O2 Source [Without Activity] Room air O2 Source Room air - Rads (name of study) L hip XR Relevant Findings:: Final report received, See rad report (neg) L shoulder XR Relevant Findings:: Final report received, See rad report (neg) PD Medical Decision Making - ED course Complexity details: reviewed results, re-evaluated patient, considered differential, d/w patient ED course: The patient declined symptomatic treatment in the emergency department. She was worked up with x-ray of the left shoulder, hip, and pelvis. X-rays were negative. We have discussed symptomatic management at home, as well as the usual indications for return. Departure - Departure Disposition: 01 Home, Self Care Clinical Impression: Shoulder contusion Qualifiers: Encounter type: initial encounter Laterality: left Qualified Code(s): S40.012A - Contusion of left shoulder, initial encounter Contusion of left hip Qualifiers: Encounter type: initial encounter Qualified Code(s): S70.02XA - Contusion of left hip, initial encounter Condition: Stable Instructions: ED Contusion Hip, ED Contusion Shoulder Comments: Your x-rays do not show any acute injuries. You have some arthritis in both your hip and shoulder and some of the pain you have been having since the fall may be due to this. Overall, your pain is expected to resolve over time. You may take ibuprofen, which is unrelated to aspirin, 600 mg every 6 hours and Tylenol/acetaminophen, which is also unrelated to aspirin, 650 mg every 4 hours. Please follow-up with your primary doctor as needed. Forms: PCP List Discharge Date/Time: 09/22/23 11:37
--- NOTE | 2023-09-22 10:41 | XRAY Report ---
PROCEDURE: Hip w/Pelvis 2-3V LT INDICATIONS: L hip pain TECHNIQUE: AP pelvis with lateral view(s) of the left hip(s). COMPARISON: None. FINDINGS: Bones: No fractures or dislocations. No suspicious bony lesions. Soft tissues: No suspicious soft tissue calcifications or masses. IMPRESSION: No acute bony abnormality. If there remains a high clinical concern for fracture, including inability to bear weight, consider cross-sectional imaging to exclude an occult fracture. Reviewed by: Zurdo Lomax on 09/22/2023 10:39 AM [facility] Approved by: Zurdo Lomax on 09/22/2023 10:39 AM [facility] Station ID: [id number]
--- NOTE | 2023-09-22 10:42 | XRAY Report ---
PROCEDURE: Shoulder 3 View LT INDICATIONS: trauma TECHNIQUE: 3 views of the shoulder were acquired. COMPARISON: None. FINDINGS: Bones: No fractures or dislocations. No suspicious bony lesions. Visualized ribs appear intact. Gl enohumeral and acromioclavicular joint space narrowing with associated bulky osteophytosis. Soft tissues: No suspicious soft tissue calcifications. The visualized lungs are within normal limi ts. IMPRESSION: No acute bony abnormality. If pain persists with conservative management, consider repeat radiographs in 10-14 days or cross-sectional imaging. Severe left shoulder osteoarthritis. Reviewed by: Zurdo Lomax on 09/22/2023 10:40 AM [facility] Approved by: Zurdo Lomax on 09/22/2023 10:40 AM [facility] Station ID: [id number]
[2023-09-22 11:41] VITALS: BP 166/82; O2SAT 98
== END 2023-09-22 11:37 | disposition home or self-care (01) ==
LOC: ED 09:24
DX: S40.012A Contusion of left shoulder, initial encounter (principal); S70.02XA Contusion of left hip, initial encounter; W10.8XXA Fall (on) (from) other stairs and steps, initial encounter; Y92.811 Bus as the place of occurrence of the external cause; I10 Essential (primary) hypertension; E78.00 Pure hypercholesterolemia, unspecified; Z79.899 Other long term (current) drug therapy; Z79.84 Long term (current) use of oral hypoglycemic drugs
CPT/HCPCS: 99283; 99284

== ENCOUNTER 2023-11-19 09:30 | Outpatient (CLI) | payer MEDICARE, MEDICAID ==
--- NOTE | 2023-11-22 09:23 | Mammography Report ---
BILATERAL DIGITAL SCREENING MAMMOGRAM 3D/2D: 11/19/2023 CLINICAL: Routine screening. Comparison is made to exams dated: 11/17/2022 mammogram, 04/18/2021 mammogram, 01/04/2020 mammogram, 10/31/2019 mammogram, 06/15/2019 mammogram, and 11/01/2018 mammogram - [facility]. There are scattered areas of fibroglandular density in both breasts (category b / 25%-50% glandular t issue). There are grouped fine heterogeneous calcifications in the right breast at 8 o'clock middle depth. T hese are more prominent and increased in number of calcifications. No other significant masses, calcifications, or other findings are seen in either breast. IMPRESSION: INCOMPLETE: NEEDS ADDITIONAL IMAGING EVALUATION The grouped fine heterogeneous calcifications in the right breast are indeterminate. Diagnostic mamm ogram for additional views to include mediolateral and spot magnification views is recommended. Based on the Tyrer Cuzick model (a risk assessment model) the patient's lifetime risk is 6.5% and her 10 year risk is 0.0%. According to the ACR, ACS, and NCCN guidelines, an annual breast MRI exam donny g with mammogram is recommended if the patients lifetime risk is 20% or greater. This exam was interpreted at Station ID: [id number]. NOTE: For mammograms, a report in lay terms will be sent to the patient. Approximately 15% of breast malignancies will not be visualized mammographically. In the management of a palpable breast mass, a negative mammogram must not discourage biopsy of a clinically suspicious lesion. Electronically Signed By: Torey Eric M.D. aty/:11/20/2023 08:54:55 ACR BI-RADS Category 0: Incomplete 3340F PARENCHYMAL PATTERN: (A) - The breast(s) demonstrate(s) scattered fibroglandular densities. BI-RADS CATEGORY: (0) - 0 RECOMMENDATION: (ADDMAM) - Recommend additional mammographic views. [id number] Immediate follow-up LATERALITY: (R)
== END 2023-11-19 09:31 | disposition home or self-care (01) ==
LOC: DI 09:30
DX: Z12.31 Encounter for screening mammogram for malignant neoplasm of breast (principal); R92.323 Mammographic fibroglandular density, bilateral breasts; R92.1 Mammographic calcification found on diagnostic imaging of breast

== ENCOUNTER 2023-12-02 10:25 | Outpatient (CLI) | payer MEDICARE, MEDICAID ==
--- NOTE | 2023-12-02 12:35 | XRAY Report ---
PROCEDURE: Shoulder 2+V LT INDICATIONS: LEFT SHOULDER IMPINGMENT SYNDROME TECHNIQUE: 3 views of the shoulder were acquired. COMPARISON: None. FINDINGS: Bones: No fractures or dislocations. No suspicious bony lesions. Visualized ribs appear intact. G lenohumeral and acromioclavicular joint space narrowing with associated osteophytosis. Bulky osteophy melody along the glenohumeral joint. Soft tissues: No suspicious soft tissue calcifications. The visualized lungs are within normal limi ts. IMPRESSION: Marked left glenohumeral. Moderate acromioclavicular osteoarthritis. Reviewed by: Zurdo Lomax MD on 12/02/2023 12:33 PM PST Approved by: Zurdo Lomax MD on 12/02/2023 12:33 PM PST Station ID: [id number]
--- NOTE | 2023-12-02 12:36 | XRAY Report ---
PROCEDURE: Hips w/Pelvis 2-3V BL INDICATIONS: LEFT HIP PAIN TECHNIQUE: 2 view(s) of the hip were acquired. COMPARISON: None FINDINGS: Bones: No fractures or dislocations. No suspicious bony lesions. The visualized pelvic ring appear s intact. Nonuniform joint space narrowing with osteophytosis. Soft tissues: No suspicious soft tissue calcifications or masses. IMPRESSION: No acute bony abnormality. Moderate bilateral hip osteoarthritis. Kellgren-Harry scale of osteoarthritis: 2. Reviewed by: Zurdo Lomax MD on 12/02/2023 12:35 PM PST Approved by: Zurdo Lomax MD on 12/02/2023 12:35 PM PST Station ID: [id number]
== END 2023-12-02 10:26 | disposition home or self-care (01) ==
LOC: DI.N 10:25
PROVIDERS: ATTEND Physician Assistant Medical
DX: M75.42 Impingement syndrome of left shoulder (principal); M19.012 Primary osteoarthritis, left shoulder; M25.712 Osteophyte, left shoulder; M16.0 Bilateral primary osteoarthritis of hip

== ENCOUNTER 2023-12-24 10:34 | Outpatient (CLI) | payer MEDICARE, MEDICAID ==
--- NOTE | 2023-12-27 10:13 | Mammography Report ---
UNILATERAL RIGHT DIGITAL DIAGNOSTIC MAMMOGRAM 3D/2D WITH LATEROMEDIAL MAGNIFICATION: 12/24/2023 CLINICAL: Patient returns for magnification views of microcalcifications in the right breast. Comparison is made to exams dated: 11/19/2023 mammogram, 11/17/2022 mammogram, and 04/18/2021 mammogram - [facility]. There are scattered areas of fibroglandular density in the right breast (category b / 25%-50% glandul ar tissue). The grouped fine heterogeneous calcifications in the right breast at 8 o'clock middle depth are seen in additional views. There is architectural distortion associated with the calcifications. No other significant masses or calcifications are seen in the breast. IMPRESSION: INCOMPLETE: NEEDS ADDITIONAL IMAGING EVALUATION The architectural distortion in the right breast at 8 o'clock middle depth are indeterminate. A targ eted ultrasound of the right breast is recommended and will be performed immediately following this e xam. Based on the Tyrer Cuzick model (a risk assessment model) the patient's lifetime risk is 6.5% and her 10 year risk is 0.0%. According to the ACR, ACS, and NCCN guidelines, an annual breast MRI exam donny g with mammogram is recommended if the patient's lifetime risk is 20% or greater. This exam was interpreted at Station ID: [id number]. NOTE: For mammograms, a report in lay terms will be sent to the patient. Approximately 15% of breast malignancies will not be visualized mammographically. In the management of a palpable breast mass, a negative mammogram must not discourage biopsy of a clinically suspicious lesion. Electronically Signed By: Sangita Peter M.D. lk/:12/24/2023 11:35:53 ACR BI-RADS Category 0: Incomplete 3340F PARENCHYMAL PATTERN: (A) - The breast(s) demonstrate(s) scattered fibroglandular densities. BI-RADS CATEGORY: (0) - 0 Ultrasound [id number] Immediate follow-up LATERALITY: (B)
--- NOTE | 2023-12-27 10:13 | Ultrasound Report ---
LIMITED ULTRASOUND OF RIGHT BREAST AND AXILLA: 12/24/2023 Comparison is made to exams dated: 12/24/2023 mammogram, 11/19/2023 mammogram, 11/17/2022 mammogram, 03/26 mammogram, 01/04/2020 mammogram, and 10/31/2019 mammogram - [facility]. Color flow and real-time ultrasound of the right breast 7-9 o'clock, and axilla regions were performe d on the areas of interest. Ribeiro scale images of the real-time examination were reviewed. There area of architectural distotrion associated with the fine calcifications in the right breast at 8 o'clock middle depth is not seen by ultrasound. IMPRESSION: SUSPICIOUS OF MALIGNANCY Suspicious calcifications in the right breast with associated architectural distortion not seen on ul trasound. Stereotactic biopsy recommended. This was discussed with the pt by Dr. Kwan at the time of the exam. This exam was interpreted at Station ID: [id number]. Electronically Signed By: Sangita Peter M.D. lk/:12/24/2023 12:42:24 Ultrasound BI-RADS: 4b Moderate suspicion of malignancy BI-RADS CATEGORY: (4b) - Mod Susp Biopsy follow-up [id number] Immediate follow-up LATERALITY: (B)
== END 2023-12-24 10:35 | disposition home or self-care (01) ==
LOC: DI 10:34
PROVIDERS: ATTEND Physician Assistant Medical
DX: R92.8 Other abnormal and inconclusive findings on diagnostic imaging of breast (principal); R92.1 Mammographic calcification found on diagnostic imaging of breast; R92.321 Mammographic fibroglandular density, right breast

== ENCOUNTER 2023-12-30 12:44 | Outpatient (CLI) | payer OTHER, MEDICARE, MEDICAID | END 2023-12-30 12:45 | disposition critical access hospital (66) | LOC: EMS 12:44 | DX: M25.561 Pain in right knee (principal); V49.10XA Passenger injured in collision with unspecified motor vehicles in nontraffic accident, initial encounter; Y92.481 Parking lot as the place of occurrence of the external cause | CPT/HCPCS: A0425; A0429 ==

== ENCOUNTER 2023-12-30 13:03 | Emergency (ER) | payer OTHER, MEDICARE, MEDICAID ==
[2023-12-30 13:39] VITALS: O2SAT 98
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
[2023-12-30 16:24] VITALS: BP 118/100
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
== END 2023-12-30 16:22 | disposition home or self-care (01) ==
LOC: EDUNIT# → ED 13:03
DX: S80.01XA Contusion of right knee, initial encounter (principal); V89.2XXA Person injured in unspecified motor-vehicle accident, traffic, initial encounter; Y92.481 Parking lot as the place of occurrence of the external cause; I10 Essential (primary) hypertension; E78.00 Pure hypercholesterolemia, unspecified; Z79.899 Other long term (current) drug therapy; Z79.84 Long term (current) use of oral hypoglycemic drugs
CPT/HCPCS: 99283

== ENCOUNTER 2024-01-04 07:39 | Outpatient (CLI) | payer MEDICARE, MEDICAID ==
[2024-01-04] MEDS ORDERED: LIDOCAINE-MPF 1% 5 ML VIAL ONE (07:49)
[2024-01-04] MEDS ORDERED: LIDOCAINE 1%-EPI 1:100000 20 ML MDV ONE (08:10)
[2024-01-04] MEDS: LIDOCAINE 1%-EPI 1:100000 20 ML MDV SUBQ ONE (10:18)
[2024-01-04] MEDS: LIDOCAINE-MPF 1% 5 ML VIAL TD ONE (10:19)
--- NOTE | 2024-01-06 12:28 | Mammography Report ---
STEREOTACTIC GUIDED BIOPSY RIGHT BREAST USING VACUUM DEVICE WITH MARKING DEVICE INSERTED AND [facility]- - RIGHT BREAST POST-PROCEDURE IMAGING FOR MARKER PLACEMENT: 01/04/2024 CLINICAL: Right breast stereotactic biopsy for architectural distortion and calcifications. Correlation is made to exams dated: 12/24/2023 mammogram, 11/19/2023 mammogram, 11/17/2022 mammogram, mammogram, 01/04/2020 mammogram, and 10/31/2019 mammogram - [facility]. A stereotactic guided biopsy was performed for the concerning area of calcifications located in the r ight breast at 8 o'clock middle depth. This was described on the previous mammography report. The s kin was prepped in the usual manner. Local anesthetic was administered to the access site. A skin n ick was made in the breast. The abnormality was approached from the craniocaudal aspect. A 10 gauge biopsy needle was placed adjacent to the abnormality under computer guidance and confirmatory stereo tactic mammography images were obtained to document needle placement. Once the needle was documented to be in the correct location, twelve specimens were obtained using a vacuum assisted device. A cli p was inserted into the biopsy cavity. Post procedure mammographic imaging demonstrates the location device at the targeted area. The specimens were sent to the laboratory for pathological analysis. Two attempts and approaches were made. The specimen radiographs do not show definite calcifications. IMPRESSION: STEREOTACTIC GUIDED BIOPSY MALIGNANT Stereotactic guided biopsy of the area of calcifications in the right breast at 8 o'clock middle dept h was successful. 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 Oncologic/surgical consultat ion recommended. Please note DCIS was not identified, and no definite calcifications were seen on stereotatic biopsy s pecimen radiographs following two attempts at removal. The clip is at the anticipated location. This exam was interpreted at Station ID: [id number]. Ricky Reynoso M.D. lc/:01/06/2024 11:57:26 BI-RADS CATEGORY: () - Unspecified - other recall n/a LATERALITY: (B)
== END 2024-01-04 07:40 | disposition home or self-care (01) ==
LOC: DI 07:39
PROVIDERS: ATTEND Physician Assistant Medical
DX: C50.511 Malignant neoplasm of lower-outer quadrant of right female breast (principal); Z17.0 Estrogen receptor positive status [ER+]
CPT/HCPCS: 19081

== ENCOUNTER 2024-02-14 08:19 | Day surgery (SDC) | payer MEDICARE, MEDICAID ==
[~2024-02-14 08:19] MED LIST: ceFAZolin 2 GM VIAL ONE
[2024-02-14] MEDS ORDERED: PROPOFOL 200 MG/20 ML VIAL IVP ONE ×2 (09:22→11:59)
[2024-02-14] MEDS ORDERED: fentaNYL 100 MCG/2 ML VIAL ONE ×4 (09:22→13:39)
[2024-02-14] MEDS: ACETAMINOPHEN 500 MG TABLET PO ONE (09:26)
[2024-02-14] MEDS ORDERED: DEXAMETHASONE 4 MG/ML VIAL ONE (11:53)
[2024-02-14] MEDS ORDERED: SODIUM CHLORIDE 0.9% 10 ML VIAL IVP ONE (11:59)
[2024-02-14] MEDS ORDERED: ePHEDrine 50 MG/ML VIAL IVP ONE (11:59)
[2024-02-14] MEDS: LIDOCAINE 1%-EPI 1:100000 20 ML MDV SUBQ ONE (12:16)
[2024-02-14] MEDS: BUPIVACAINE 0.5% PF 10 ML VIAL IM ONE (12:16)
[2024-02-14] MEDS ORDERED: GLYCOPYRROLATE 1 MG/5 ML VIAL ONE (12:21)
--- NOTE | 2024-02-14 12:35 | ANESTHESIA ---
Pre-Anesthesia VS, & Labs - Diagnosis right breast invasive ductal carcinoma - Procedure right breast wire localized lumpectomy Vital Signs: Temp Pulse Resp BP Pulse Ox O2 Flow Rate 37.4 C 64 16 132/88 H 97 02/14/24 09:17 02/14/24 09:17 02/14/24 09:17 02/14/24 09:17 02/14/24 09:17 Height: 5 ft 5 in Weight (kg): 113.9 kg Body Mass Index: 41.8 BMI Classification: Morbidly Obese - NPO >8 hours - Is Patient ?: No - Lab Results Current Lab Results: Laboratory Tests 02/14/24 09:23: POC Whole Bld Glucose 152 H Lab results reviewed: Yes Home Medications and Allergies Home Medications: Ambulatory Orders Albuterol Sulf [Ventolin Hfa Inhaler] 1 - 2 puffs INH Q4HR PRN 02/04/24 Atorvastatin [Lipitor] 20 mg PO QPM 02/04/24 Fluticasone [Flonase] 1 sprays JUD BID 02/04/24 Fluticasone/Salmeterol [Advair 250-50 Diskus] 1 each IH BID 02/04/24 Lidocaine Patch 5% [Lidoderm Patch] 1 each TOP DAILY 02/04/24 Olopatadine HCl [Eye Allergy Itch Relief] 1 drops EACHEYE BID 02/04/24 Gabapentin 100 mg PO DAILY 06/19/17 Prazosin [Minipress] 10 mg PO QPM 06/19/17 Dicyclomine [Bentyl] 10 mg PO QID PRN 05/30/19 Calcium Carbonate [Calcium] 1,200 mg PO DAILY 02/24/21 Cholecalciferol [Vitamin D3] 25 mcg PO DAILY 02/24/21 Fluoxetine HCl [Prozac] 20 mg PO DAILY 02/24/21 Gabapentin [Neurontin] 400 mg PO QPM 02/24/21 Lactobacillus Acidophilus [Probiotic Acidophilus] 1 tab PO DAILY 02/24/21 buPROPion HCL [Bupropion Xl] 300 mg PO DAILY 02/24/21 Montelukast [Singulair] 1 tab PO DAILY 03/03/21 Amlodipine Besylate [Norvasc] 2.5 mg PO BID 03/25/22 Loratadine [Claritin] 10 mg PO DAILY 03/25/22 Losartan [Cozaar] 50 mg PO BID 03/25/22 Metoprolol Succinate [Toprol Xl] 75 mg PO DAILY 03/25/22 Potassium Chloride [Micro-K] 10 meq PO DAILY 03/25/22 metFORMIN [Glucophage] 500 mg PO BIDWM 03/25/22 Oxybutynin [Ditropan] 10 mg PO DAILY 09/03/22 tiZANidine [Zanaflex] 4 mg PO TID PRN 09/03/22 Acetaminophen [Tylenol] 650 mg PO TID PRN 09/22/23 Meloxicam 7.5 mg PO BID 09/22/23 Albuterol Sulf [Ventolin Hfa Inhaler] 1 - 2 puffs INH Q4HR PRN 02/04/24 Atorvastatin [Lipitor] 20 mg PO QPM 02/04/24 Fluticasone [Flonase] 1 sprays JUD BID 02/04/24 Fluticasone/Salmeterol [Advair 250-50 Diskus] 1 each IH BID 02/04/24 Lidocaine Patch 5% [Lidoderm Patch] 1 each TOP DAILY 02/04/24 Olopatadine HCl [Eye Allergy Itch Relief] 1 drops EACHEYE BID 02/04/24 Allergies/Adverse Reactions: Allergies Allergy/AdvReac Type Severity Reaction Status Date / Time hydromorphone Allergy Intermediate Itching Verified 02/14/24 09:25 iodine Allergy Intermediate Hives Verified 02/14/24 09:25 acyclovir Allergy Unknown Verified 02/14/24 09:25 amoxicillin Allergy Unknown Verified 02/14/24 09:25 aspirin Allergy Unknown Verified 02/14/24 09:25 doxycycline Allergy Unknown Verified 02/14/24 09:25 hydrocodone bitartrate * Allergy Unknown Verified 02/14/24 09:25 [From Vicodin] naproxen [From Naprosyn] Allergy Unknown Verified 02/14/24 09:25 NSAIDS (Non-Steroidal Allergy Unknown Verified 02/14/24 09:25 Anti-Inflamma risperidone [From Risperdal] Allergy Unknown Verified 02/14/24 09:25 Tetanus Vaccines and Toxoid Allergy Hives Verified 02/14/24 09:25 [Tetanus Vaccines & Toxoid] adhesive tape AdvReac Intermediate Rash Verified 02/14/24 09:25 Anes History & Medical History - Anesthetic History Anesthesia Complications: reports: Post-Operative Nausea/Vomiting, Slow wake-up - Medical History Cardiovascular: reports: Hypertension, High cholesterol, Deep vein thrombosis Pulmonary: reports: Asthma, Shortness of breath, Sleep apnea, CPAP use Gastrointestinal: reports: Other Urinary: reports: Chronic bladder infection, Kidney stones Neuro: reports: Other (cognitive decline) Musculoskeletal: reports: Osteoarthritis Endocrine/Autoimmune: reports: Type 2 diabetes Blood Disorders: reports: None Skin: reports: None Smoking Status: Never smoker History of Cancer?: Yes (breast) - Surgical History General: reports: Cholecystectomy, Appendectomy, Colonoscopy, Other Eyes Ears Nose Throat (EENT): reports: Cataracts, Tonsil/Adenoidectomy Orthopedic: reports: Knee replacement Exam General: Alert, Oriented x3, Cooperative, No acute distress Dental: Poor dentition Mouth Openin Fingerbreadth Neck Mobility: Normal Mallampati classification: III Thyromental Distance: less than 4 cm Mental/Cognitive Status: Alert/Oriented X3, Normal for patient Plan Anesthesia Type: General Consent for Procedure(s) Verified and Reviewed: Yes Code Status: Attempt Resuscitation ASA classification: 3-Severe systemic disease Is this case an emergency?: No
[2024-02-14] MEDS ORDERED: NALOXONE 0.4 MG/ML VIAL IVP PRN (12:36)
[2024-02-14] MEDS ORDERED: ONDANSETRON 4 MG/2 ML VIAL IVP PRN ×2 (12:36→13:37)
[2024-02-14] MEDS ORDERED: ATROPINE ABBOJECT 1 MG/10 ML SYRINGE IVP PRN (12:36)
[2024-02-14] MEDS ORDERED: MORPHINE 2 MG/ML CARPUJECT IVP PRN (12:36)
[2024-02-14] MEDS ORDERED: HYDROmorphone 0.5 MG/0.5 ML SYRINGE IVP PRN ×2 (12:36→13:37)
[2024-02-14] MEDS ORDERED: LACTATED RINGERS 1,000 ML IV SCH (13:00)
[2024-02-14] MEDS: LACTATED RINGERS 100 ML IV ONE ×2 (13:19→13:43)
[2024-02-14] MEDS ORDERED: oxyCODONE 5 MG TABLET PO PRN (13:37)
[2024-02-14] MEDS ORDERED: ACETAMINOPHEN 500 MG TABLET PO PRN (13:37)
[2024-02-14] MEDS: LACTATED RINGERS 1,000 ML IV ONE ×2 (13:43→14:04)
[2024-02-14] MEDS: fentaNYL 100 MCG/2 ML VIAL IVP PRN (13:43)
--- NOTE | 2024-02-14 13:43 | OPERATIVE REPORT ---
Operative Report - General Procedure Date: 02/14/24 Planned Procedure: Right wire localized lumpectomy Pre-Op Diagnosis: Invasive ductal carcinoma Procedure Performed: Right wire localized lumpectomy Post Op Diagnosis: Invasive ductal carcinoma - Procedure Note Primary Surgeon: Dr. Shrery Saez Anesthesia Provider: Laurie Lee CRNA Anesthesia Technique: General LMA Pathology: 1. Right lumpectomy, oriented short superior, long lateral, double anterior 2. Reexcision of medial margin oriented short superior, long lateral, double anterior, clip inferior Estimated Blood Loss (mL): 20 Drain/Tube Type: Shahram Gregory round drain (right breast) Indications: The patient had calcifications identified on her mammogram of her right breast. Follow-up imaging and biopsy revealed invasive ductal carcinoma. She was seen a nd evaluated in the clinic. I also discussed the patient with medical oncology. Due to the patient's age, comorbidities, and the low-grade nature of her tumor, additional assessment of the patient's axilla beyond her imaging prior to surgery was not recommended. We discussed the risks, benefits, and alternatives of lumpectomy including bleeding, infection, damage to surrounding structures, positive margin requiring reexcision, and the need for further surgery or procedure. The patient voiced understanding, her questions were answered, and she wished to proceed. A consent was signed by the patient prior to surgery. Findings: 1.Right lumpectomy specimen oriented short superior, long lateral, double anterior 2. There was a dark nodule along the superior medial margin and the tumor appeared to be close to the inferior medial margin, so the entire medial margin was reexcised and oriented short superior, long lateral, double anterior, clip inferior Complications: None - Other Other Information/Narrative: The patient was taken to the operating room and placed in the supine position. Preop antibiotics were given. ERAS medications were given. The patient was prepped and draped in the usual sterile fashion. A preop surgical timeout was performed. Attention was turned to the patient's right breast. An incision was made which incorporated [the wire], following the patient's skin folds, at the 7 o'clock position. Skin flaps were raised superiorly and inferiorly to the incision. The dis section was carried down to centimeters from the skin using electrocautery.. At this point, serrated scissors were used to perform a lumpectomy staying approximately 2 cm away from the wire in the medial, superior, and posterior positions. The lumpectomy specimen was removed and inspected. It was sent to radiology and the specimen, calcifications, and wire were present within the specimen. There was a palpable mass close to the inferior, medial margin. On inspection of the lumpectomy cavity, there was a dark nodule possibly representing a lymph node along the superior medial margin. The medial margin was completely reexcised and oriented short superior, long lateral, double anterior, clip inferior. The edges of the lumpectomy cavity were inspected and there were no additional palpable abnormalities. Hemostasis was confirmed. The lumpectomy cavity was irrigated with warm normal saline. Clips were placed in the superior, inferior, medial, lateral, anterior, and posterior margins of the lumpectomy cavity. A 7 Chinese EDITH drain was placed in the lumpectomy cavity due to its size. This was sewn into place using a 3-0 nylon suture. The deep dermal tissues were closed with 3-0 Vicryl in an interrupted fashion. The skin was closed with 4-0 Monocryl in a running subcuticular fashion. The patient tolerated the procedure well. There were no complications. Synoptic Breast SNB - [place] Node Biopsy Operation performed with curative intent: Yes Tracer(s) used to identify sentinel nodes in the upfront surgery (non- neoadjuvant) setting (select all that apply): N/A (After discussion with medical oncology, no sentinel lymph node biopsy was performed due to this patient's age and comorbidities. It was felt not likely to guide her future treatment.) Tracer(s) used to identify sentinel nodes in the neoadjuvant setting (select all that apply): N/A All nodes (colored or non-colored) present at the end of a dye-filled lymphatic channel were removed: N/A All significantly radioactive nodes were removed: N/A All palpably suspicious nodes were removed: N/A Biopsy-proven positive nodes marked with clips prior to chemotherapy were identified and removed: N/A
[2024-02-14] MEDS ORDERED: LIDOCAINE 1%-EPI 1:100000 20 ML MDV ONE (13:50)
[2024-02-14] MEDS ORDERED: BUPIVACAINE 0.5% PF 10 ML VIAL ONE (13:51)
[2024-02-14] MEDS ORDERED: ONDANSETRON 4 MG/2 ML VIAL ONE (14:27)
[2024-02-14 14:31] VITALS: BP 140/76; O2SAT 100
--- NOTE | 2024-02-14 15:39 | ANESTHESIA POST OP EVALUATION ---
Anesthesia Post Eval - Post Anesthesia Eval Vitals: Last Vital Signs Temp 36.9 C 02/14/24 14:48 Pulse 78 02/14/24 14:48 Resp 14 02/14/24 14:48 BP 140/76 H 02/14/24 14:48 Pulse Ox 100 02/14/24 14:48 O2 Flow Rate CV Function Including HR & BP: Stable Pain Control: Satisfactory Nausea & Vomiting: Negative Mental Status: Baseline Respiratory Status: Airway Patent Hydration Status: Satisfactory Anesthesia Complications: None
== END 2024-02-14 08:20 | disposition home or self-care (01) ==
LOC: SDS 08:19
PROVIDERS: ATTEND Surgery
PROC: 0HBT0ZZ Excision of Right Breast, Open Approach (ICD-10-PCS; principal; 2024-02-14 12:15)
DX: C50.911 Malignant neoplasm of unspecified site of right female breast (principal); Z17.0 Estrogen receptor positive status [ER+]; J45.909 Unspecified asthma, uncomplicated; E11.9 Type 2 diabetes mellitus without complications; G47.30 Sleep apnea, unspecified; E66.01 Morbid (severe) obesity due to excess calories; Z68.41 Body mass index [BMI] 40.0-44.9, adult; Z79.84 Long term (current) use of oral hypoglycemic drugs
CPT/HCPCS: 19281; 19301; 76098; A9270; J7120

== ENCOUNTER 2024-02-14 11:55 | Day surgery (SDC) | payer MEDICARE, MEDICAID ==
[~2024-02-14 11:55] MED LIST changes: +LIDOCAINE 1%-EPI 1:100000 20 ML MDV ONE; +LIDOCAINE-MPF 1% 5 ML VIAL ONE; -ceFAZolin 2 GM VIAL ONE
[2024-02-14] MEDS: LIDOCAINE-MPF 1% 5 ML VIAL TD ONE (13:52)
== END 2024-02-14 11:56 | disposition home or self-care (01) ==
LOC: DI 11:55
PROVIDERS: ATTEND Surgery
DX: Z53.9 Procedure and treatment not carried out, unspecified reason (principal)

== ENCOUNTER 2024-03-19 05:02 | Outpatient (CLI) | payer MEDICARE, MEDICAID | END 2024-03-19 23:59 | disposition critical access hospital (66) | LOC: EMS 05:02 | PROVIDERS: ATTEND Emergency Medicine | DX: G89.18 Other acute postprocedural pain (principal) | CPT/HCPCS: A0425; A0429 ==

== ENCOUNTER 2024-05-08 07:33 | Outpatient (CLI) | payer MEDICARE, MEDICAID | END 2024-05-08 23:59 | disposition critical access hospital (66) | LOC: EMS 07:33 | DX: M54.2 Cervicalgia (principal); R61 Generalized hyperhidrosis | CPT/HCPCS: A0425; A0429 ==

== ENCOUNTER 2024-05-08 07:55 | Emergency (ER) | payer MEDICARE, MEDICAID ==
[2024-05-08] MEDS: traMADol 50 MG TABLET PO STA (08:12)
--- NOTE | 2024-05-08 08:21 | ED Physician Documentation ---
History of Present Illness - Stated complaint Stated Complaint: NECK PX - Chief complaint Chief Complaint: Cardiac - History obtained from History obtained from: Patient, EMS - History of Present Illness Pain level max: 6 Pain level now: 0 - Additonal information Additional information: Patient is a 78-year-old female who presents to the emergency department stating that she has had left-sided neck pain for the past 2 days, worse with movement, better with rest. Has not taken anything for pain at home. No chest pain. No shortness of breath. She states that she has also had night sweats for the past 2 nights. It has been very warm lately. No abdominal pain, nausea, vomiting. No diarrhea or constipation. No falls. No trauma. No numbness or tingling. No facial droop. No difficulty with speech or swallowing. 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 : Chronic bladder infection, Kidney stones HEENT: Chronic vision loss Psych: Depression, Anxiety, Bipolar disorder, Post traumatic stress disorder Musculoskeletal: Osteoarthritis, Chronic back pain Derm: None - Past Surgical History Past Surgical History: Yes General: Cholecystectomy, Appendectomy, Colonoscopy, Other Ortho: Knee replacement /MARKETING 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: Other HEENT: Cataracts, Tonsil/Adenoidectomy - Present Medications Home Medications: Ambulatory Orders Medication Instructions Recorded Confirmed Gabapentin 100 mg PO DAILY 06/19/17 04/25/24 Prazosin [Minipress] 10 mg PO QPM 06/19/17 04/25/24 Dicyclomine [Bentyl] 10 mg PO QID PRN 05/30/19 04/25/24 Calcium Carbonate [Calcium] 1,200 mg PO DAILY 02/24/21 04/25/24 Cholecalciferol [Vitamin D3] 25 mcg PO DAILY 02/24/21 04/25/24 Fluoxetine HCl [Prozac] 20 mg PO DAILY 02/24/21 04/25/24 Gabapentin [Neurontin] 400 mg PO QPM 02/24/21 04/25/24 Lactobacillus Acidophilus 1 tab PO DAILY 02/24/21 04/25/24 [Probiotic Acidophilus] buPROPion HCL [Bupropion Xl] 300 mg PO DAILY 02/24/21 04/25/24 Montelukast [Singulair] 1 tab PO DAILY 03/03/21 04/25/24 Amlodipine Besylate [Norvasc] 2.5 mg PO BID 03/25/22 04/25/24 Loratadine [Claritin] 10 mg PO DAILY 03/25/22 04/25/24 Losartan [Cozaar] 50 mg PO BID 03/25/22 04/25/24 Metoprolol Succinate [Toprol Xl] 75 mg PO DAILY 03/25/22 04/25/24 Potassium Chloride [Micro-K] 10 meq PO DAILY 03/25/22 04/25/24 metFORMIN [Glucophage] 500 mg PO BIDWM 03/25/22 04/25/24 Oxybutynin [Ditropan] 10 mg PO DAILY 09/03/22 04/25/24 tiZANidine [Zanaflex] 4 mg PO TID PRN 09/03/22 04/25/24 Acetaminophen [Tylenol] 650 mg PO TID PRN 09/22/23 04/25/24 Meloxicam 7.5 mg PO BID 09/22/23 04/25/24 Albuterol Sulf [Ventolin Hfa 1 - 2 puffs INH Q4HR PRN 02/04/24 04/25/24 Inhaler] Atorvastatin [Lipitor] 20 mg PO QPM 02/04/24 04/25/24 Fluticasone Propion/Salmeterol 1 each IH BID 02/04/24 04/25/24 [Advair 250-50 Diskus] Fluticasone [Flonase] 1 sprays JUD BID 02/04/24 04/25/24 Lidocaine Patch 5% [Lidoderm Patch] 1 each TOP DAILY 02/04/24 04/25/24 Olopatadine HCl [Eye Allergy Itch 1 drops EACHEYE BID 02/04/24 04/25/24 Relief] polyethylene glycoL 3350(BULK) 17 gm PO DAILY #238 gm 02/14/24 04/25/24 [Miralax] oxyCODONE [Roxicodone] 5 mg PO Q4H PRN #5 tablet 03/13/24 04/25/24 traMADol [Ultram] 50 mg PO Q4-6H PRN #10 tablet 03/19/24 04/25/24 traMADol [Ultram] 50 - 100 mg PO Q6H PRN #14 tablet 05/08/24 - Allergies Allergies/Adverse Reactions: Allergies Allergy/AdvReac Type Severity Reaction Status Date / Time aspirin Allergy Intermediate Hives Verified 05/08/24 08:05 iodine Allergy Intermediate Hives Verified 05/08/24 08:05 acyclovir Allergy Unknown Verified 05/08/24 08:05 amoxicillin Allergy Unknown Verified 05/08/24 08:05 doxycycline Allergy Unknown Verified 05/08/24 08:05 naproxen [From Naprosyn] Allergy Unknown Verified 05/08/24 08:05 risperidone [From Risperdal] Allergy Unknown Verified 05/08/24 08:05 Tetanus Vaccines and Toxoid Allergy Hives Verified 05/08/24 08:05 [Tetanus Vaccines & Toxoid] hydromorphone AdvReac Intermediate Itching Verified 05/08/24 08:05 adhesive tape AdvReac Mild Rash Verified 05/08/24 08:05 hydrocodone bitartrate * AdvReac Mild Itching Verified 05/08/24 08:05 [From Vicodin] - Social History Does the pt smoke?: No Smoking Status: Never smoker Does the pt drink ETOH?: No Does the pt have substance abuse?: No - Immunizations Immunizations are current?: Yes - POLST Patient has POLST: No PD ED PE NORMAL - Vitals Vital signs reviewed: Yes - General General: Alert and 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, No acute distress - HEENT HEENT: PERRL, Moist mucous membranes, Pharynx benign - Neck Neck: Supple, no meningeal sign, No bony TTP, No bruit, Other (Tender to palpation left paracervical, reproduces her pain. 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 Relevant findings are: Rate: Rate (enter#) (84) Rhythm: NSR [place]: Normal Intervals: Normal NE QRS: Normal Ischemia: Non specific changes - Labs Labs: Laboratory Tests 05/08/24 05/08/24 08:20 08:20 WBC 10.4 RBC 4.49 Hgb 13.0 Hct 40.1 MCV 89.3 MCH 29.0 MCHC 32.4 RDW 13.9 Plt Count 293 MPV 10.0 Neut # (Auto) 6.9 H Lymph # (Auto) 2.0 Allen # (Auto) 1.1 H Eos # (Auto) 0.2 Baso # (Auto) 0.1 Absolute Nucleated RBC 0.00 Nucleated RBC % 0.0 Sodium 138 Potassium 2.8 L Chloride 98 L Carbon Dioxide 31 Anion Gap 9.0 BUN 7 Creatinine 0.9 Estimated GFR (MDRD) 61 L Glucose 163 H Calcium 9.2 Total Bilirubin 1.1 H AST 11 ALT 10 Alkaline Phosphatase 92 Troponin I High Sens 10.6 Total Protein 7.4 Albumin 3.9 Globulin 3.5 Albumin/Globulin Ratio 1.1 Lipase < 10 L - Rads (name of study) cxr Relevant Findings:: Final report received, See rad report PD Medical Decision Making - ED course Complexity details: reviewed results, re-evaluated patient, considered differential (No ST elevation MO, no aortic dissection, no PE, no tension pneumothorax, no aortic aneurysm), d/w patient ED course: Patient is a 78-year-old female with left-sided neck pain. No evidence of acute MO, PE, carotid dissection. No falls. No trauma. Pain well-controlled with a dose of tramadol here. Will prescribe pain medication for home. Symptoms consistent with muscular spasm. Normal neurological exam. Cranial nerves intact. Patient counseled regarding signs and symptoms for which I believe and urgent re-evaluation would be necessary. Patient with good understanding of and agreement to plan and is comfortable going home at this time This document was made in part using voice recognition software. While efforts are made to proofread this document, sound alike and grammatical errors may occur. Departure - Departure Disposition: 01 Home, Self Care Clinical Impression: Neck muscle spasm Condition: Good Instructions: ED Spasm Neck No Injury Follow-Up: Gosia Borges PA-C [Primary Care Provider] - Within 1 week Prescriptions: traMADol [Ultram] 50 - 100 mg PO Q6H PRN #14 tablet PRN Reason: back pain Comments: Your prescription was sent to [facility] in [place]. This should improve over the next few days. Continue to gently move your neck at home. You can use the medication as needed to help with pain. The rest of your testing does not show any significant abnormalities. Please return if you worsen. Forms: PCP List Discharge Date/Time: 05/08/24 09:45
[2024-05-08 08:26] LABS: BASOPHILS # (AUTO) 0.1 10^3/uL (0.0-0.1); BASOPHILS % (AUTO) 0.6 %; EOSINOPHILS # (AUTO) 0.2 10^3/uL (0.0-0.7); EOSINOPHILS % (AUTO) 2.1 %; HCT - HEMATOCRIT 40.1 % (37.0-47.0); LYMPHOCYTES % (AUTO) 19.3 %; MEAN CORPUSCULAR HGB CONC 32.4 g/dL (32.0-36.0); MEAN CORPUSCULAR VOLUME 89.3 fL (81.0-99.0); MONOCYTES # (AUTO) 1.1 10^3/uL (0.0-1.0); MONOCYTES % (AUTO) 10.8 %; NEUTROPHILS # (AUTO) 6.9 10^3/uL (1.5-6.6); NEUTROPHILS % (AUTO) 66.8 %; PLT - PLATELET COUNT 293 10^3/uL (130-450); RED BLOOD COUNT 4.49 10^6/uL (4.20-5.40); RED CELL DISTRIBUTION WIDTH 13.9 % (12.0-15.0); WHITE BLOOD COUNT 10.4 x10^3/uL (4.8-10.8)
[2024-05-08 08:47] LABS: ALBUMIN 3.9 g/dL (3.2-5.5); ALBUMIN/GLOBULIN RATIO 1.1 (1.0-2.2); ALKALINE PHOSPHATASE 92 IU/L (42-121); ALT ALANINE AMINOTRANSFERASE 10 IU/L (10-60); AST ASPARTATE AMINOTRANSFERASE 11 IU/L (10-42); BILIRUBIN,TOTAL 1.1 mg/dL (0.2-1.0); BUN - BLOOD UREA NITROGEN 7 mg/dL (6-20); CALCIUM 9.2 mg/dL (8.5-10.3); CARBON DIOXIDE - CO2 31 mmol/L (21-32); CHLORIDE 98 mmol/L (101-111); CREATININE 0.9 mg/dL (0.6-1.3); GFR - MDRD 61 (>89); GLUCOSE 163 mg/dL (74-104); POTASSIUM 2.8 mmol/L (3.5-4.5); SODIUM 138 mmol/L (135-145); TOTAL PROTEIN 7.4 g/dL (6.4-8.9)
[2024-05-08 08:48] LABS: TROPONIN I HIGH SENSITIVITY 10.6 ng/L (2.3-14.8)
[2024-05-08 08:49] LABS: LIPASE < 10 U/L (11-82)
--- NOTE | 2024-05-08 09:02 | XRAY Report ---
PROCEDURE: Chest 1V INDICATIONS: night sweats TECHNIQUE: One view of the chest was acquired. COMPARISON: Chest radiograph 03/17/2023. FINDINGS: Surgical changes and devices: None. Lungs and pleura: No pleural effusions or pneumothorax. Lungs are clear. Mediastinum: Mediastinal contours appear normal. Heart size is normal. Bones and chest wall: No suspicious bony lesions. Overlying soft tissues appear unremarkable. IMPRESSION: No acute cardiopulmonary process. Reviewed by: Esau Kwan MD on 05/08/2024 9:00 AM PDT Approved by: Esau Kwan MD on 05/08/2024 9:00 AM PDT Station ID: [id number]
[2024-05-08] MEDS: POTASSIUM BICARB 25 MEQ TABLET PO STA (09:15)
[2024-05-08 09:31] VITALS: BP 165/103; O2SAT 99
== END 2024-05-08 09:45 | disposition home or self-care (01) ==
LOC: EDUNIT# → ED 07:55
DX: M62.830 Muscle spasm of back (principal); I10 Essential (primary) hypertension; E78.00 Pure hypercholesterolemia, unspecified; E11.9 Type 2 diabetes mellitus without complications; J45.909 Unspecified asthma, uncomplicated; G47.30 Sleep apnea, unspecified; Z79.84 Long term (current) use of oral hypoglycemic drugs; F32.A Depression, unspecified; F41.9 Anxiety disorder, unspecified
CPT/HCPCS: 36415; 71045; 80053; 83690; 84484; 85025; 93005; 99284; A9270

== ENCOUNTER 2024-05-09 07:49 | Outpatient (CLI) | payer MEDICARE, MEDICAID | END 2024-05-09 23:59 | disposition critical access hospital (66) | LOC: EMS 07:49 | DX: M25.512 Pain in left shoulder (principal) | CPT/HCPCS: A0425; A0429 ==

== ENCOUNTER 2024-05-09 08:09 | Emergency (ER) | payer MEDICARE, MEDICAID ==
[2024-05-09] MEDS: traMADol 50 MG TABLET PO STA (08:43)
[2024-05-09] MEDS: diazePAM 5 MG TABLET PO STA (08:43)
--- NOTE | 2024-05-09 08:53 | XRAY Report ---
PROCEDURE: Shoulder 2+V LT INDICATIONS: shoulder pain TECHNIQUE: 3 views of the shoulder were acquired. COMPARISON: None. FINDINGS: Bones: No fractures or dislocations. Severe glenohumeral joint degenerative arthritis. Ill-defined sclerotic areas in the humeral head and neck are of uncertain etiology. Visualized ribs appear intact . Soft tissues: No suspicious soft tissue calcifications. The visualized lungs are within normal limi ts. IMPRESSION: 1. Severe glenohumeral joint degenerative arthritis. 2. Ill-defined sclerotic areas in the humeral head and neck are of uncertain etiology. Cannot exclude metastatic disease. Comment: Consider nonemergent shoulder CT. Reviewed by: Juliocesar Yap MD on 05/09/2024 8:52 AM PDT Approved by: Juliocesar Yap MD on 05/09/2024 8:52 AM PDT Station ID: [id number]
--- NOTE | 2024-05-09 09:37 | ED Physician Documentation ---
History of Present Illness - Stated complaint Stated Complaint: L SHOULDER PX - Chief complaint Chief Complaint: Ext Problem - History obtained from History obtained from: Patient, EMS - History of Present Illness Timing: Yesterday Pain level max: 8 Pain level now: 8 - Additonal information Additional information: 78-year-old female with left shoulder pain. She is also complaining of left side and neck pain. She was seen here yesterday for same. She improved with tramadol. She said she took one dose of tramadol last night, which did help. She did not take any this morning, but was still hurting so decided to call 911 again. No new injuries. She states her shoulder hurts more than her neck. No fall. No trauma. No head injury. No numbness or tingling. No weakness. No swelling. 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 : Chronic bladder infection, Kidney stones HEENT: Chronic vision loss Psych: Depression, Anxiety, Bipolar disorder, Post traumatic stress disorder Musculoskeletal: Osteoarthritis, Chronic back pain Derm: None - Past Surgical History Past Surgical History: Yes General: Cholecystectomy, Appendectomy, Colonoscopy, Other Ortho: Knee replacement /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: Other HEENT: Cataracts, Tonsil/Adenoidectomy - Present Medications Home Medications: Ambulatory Orders Medication Instructions Recorded Confirmed Gabapentin 100 mg PO DAILY 06/19/17 04/25/24 Prazosin [Minipress] 10 mg PO QPM 06/19/17 04/25/24 Dicyclomine [Bentyl] 10 mg PO QID PRN 05/30/19 04/25/24 Calcium Carbonate [Calcium] 1,200 mg PO DAILY 02/24/21 04/25/24 Cholecalciferol [Vitamin D3] 25 mcg PO DAILY 02/24/21 04/25/24 Fluoxetine HCl [Prozac] 20 mg PO DAILY 02/24/21 04/25/24 Gabapentin [Neurontin] 400 mg PO QPM 02/24/21 04/25/24 Lactobacillus Acidophilus 1 tab PO DAILY 02/24/21 04/25/24 [Probiotic Acidophilus] buPROPion HCL [Bupropion Xl] 300 mg PO DAILY 02/24/21 04/25/24 Montelukast [Singulair] 1 tab PO DAILY 03/03/21 04/25/24 Amlodipine Besylate [Norvasc] 2.5 mg PO BID 03/25/22 04/25/24 Loratadine [Claritin] 10 mg PO DAILY 03/25/22 04/25/24 Losartan [Cozaar] 50 mg PO BID 03/25/22 04/25/24 Metoprolol Succinate [Toprol Xl] 75 mg PO DAILY 03/25/22 04/25/24 Potassium Chloride [Micro-K] 10 meq PO DAILY 03/25/22 04/25/24 metFORMIN [Glucophage] 500 mg PO BIDWM 03/25/22 04/25/24 Oxybutynin [Ditropan] 10 mg PO DAILY 09/03/22 04/25/24 tiZANidine [Zanaflex] 4 mg PO TID PRN 09/03/22 04/25/24 Acetaminophen [Tylenol] 650 mg PO TID PRN 09/22/23 04/25/24 Meloxicam 7.5 mg PO BID 09/22/23 04/25/24 Albuterol Sulf [Ventolin Hfa 1 - 2 puffs INH Q4HR PRN 02/04/24 04/25/24 Inhaler] Atorvastatin [Lipitor] 20 mg PO QPM 02/04/24 04/25/24 Fluticasone Propion/Salmeterol 1 each IH BID 02/04/24 04/25/24 [Advair 250-50 Diskus] Fluticasone [Flonase] 1 sprays JUD BID 02/04/24 04/25/24 Lidocaine Patch 5% [Lidoderm Patch] 1 each TOP DAILY 02/04/24 04/25/24 Olopatadine HCl [Eye Allergy Itch 1 drops EACHEYE BID 02/04/24 04/25/24 Relief] polyethylene glycoL 3350(BULK) 17 gm PO DAILY #238 gm 02/14/24 04/25/24 [Miralax] oxyCODONE [Roxicodone] 5 mg PO Q4H PRN #5 tablet 03/13/24 04/25/24 traMADol [Ultram] 50 mg PO Q4-6H PRN #10 tablet 03/19/24 04/25/24 traMADol [Ultram] 50 - 100 mg PO Q6H PRN #14 tablet 05/08/24 - Allergies Allergies/Adverse Reactions: Allergies Allergy/AdvReac Type Severity Reaction Status Date / Time aspirin Allergy Intermediate Hives Verified 05/09/24 08:27 iodine Allergy Intermediate Hives Verified 05/09/24 08:27 acyclovir Allergy Unknown Verified 05/09/24 08:27 amoxicillin Allergy Unknown Verified 05/09/24 08:27 doxycycline Allergy Unknown Verified 05/09/24 08:27 naproxen [From Naprosyn] Allergy Unknown Verified 05/09/24 08:27 risperidone [From Risperdal] Allergy Unknown Verified 05/09/24 08:27 Tetanus Vaccines and Toxoid Allergy Hives Verified 05/09/24 08:27 [Tetanus Vaccines & Toxoid] hydromorphone AdvReac Intermediate Itching Verified 05/09/24 08:27 adhesive tape AdvReac Mild Rash Verified 05/09/24 08:27 hydrocodone bitartrate * AdvReac Mild Itching Verified 05/09/24 08:27 [From Vicodin] - Social History Does the pt smoke?: No Smoking Status: Never smoker Does the pt drink ETOH?: No Does the pt have substance abuse?: No - Immunizations Immunizations are current?: Yes - POLST Patient has POLST: No PD ED PE NORMAL - Vitals Vital signs reviewed: Yes - General General: Alert and 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, No acute distress, Well developed/nourished, Other (smiling, laughing) - HEENT HEENT: PERRL, Moist mucous membranes, Pharynx benign - Neck Neck: Supple, no meningeal sign, No bony TTP (no midline TTP. No stepoff or deformity. L sided paracervical spasm and tenderness. FROM of the neck present.), No JVD, No bruit - Cardiac Cardiac: RRR - Respiratory Respiratory: No respiratory distress, Clear bilaterally - Abdomen Abdomen: Soft, Non tender, Non distended - Back Back: No spinal TTP - Derm Derm: Warm and dry - Extremities Extremities: Other (L shoulder - limited ROM 2/2 pain, but when distracted uses the arm freely including using it to push off the bed. no bony tenderness. NVI. 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, No motor deficit, No sensory deficit - Psych Psych: Normal mood, Normal affect Results - Vitals Vitals: Vital Signs - 24 hr 05/09/24 05/09/24 08:22 10:48 Temperature 36.2 C L 36.2 C L Heart Rate 94 84 Respiratory 20 19 Rate Blood Pressure 149/91 H 173/86 H O2 Saturation 96 94 Oxygen O2 Source [Without Activity] Room air O2 Source Room air - Rads (name of study) L shoulder xray Relevant Findings:: Final report received, See rad report PD Medical Decision Making - ED course Complexity details: reviewed results, re-evaluated patient, d/w patient ED course: Patient with left shoulder and left neck pain. Seen here yesterday for same. Improved with tramadol. She did not take medication this morning. Her pain again improved with tramadol in the emergency department. She uses the arm freely including pushing off the bed when distracted but complains of pain when closely examining the arm. Does have arthritis on x-ray. Instructed her that a follow up outpatient CT is recommended of her shoulder. we will have her follow up with her doctor for further care. Patient counseled regarding signs and symptoms for which I believe an urgent re-evaluation would be necessary. Patient with good understanding of and agreement to plan and is comfortable going home at this time. This document was made in part using voice recognition software. While efforts are made to proofread this document, sound alike and grammatical errors may occur. Departure - Departure Disposition: 01 Home, Self Care Clinical Impression: Neck muscle spasm, Shoulder arthritis Condition: Good Instructions: ED Neck Pain No Trauma, ED Degenerative Joint Disease Follow-Up: Gosia Borges PA-C [Primary Care Provider] - Within 1 week Comments: Please continue the medications that were given to you yesterday. Please follow-up with your doctor for further care. It is recommended that you have a CT scan of your shoulder not emergently with your doctor. Your x-ray reading is below. PROCEDURE: Shoulder 2+V LT INDICATIONS: shoulder pain TECHNIQUE: 3 views of the shoulder were acquired. COMPARISON: None. FINDINGS: Bones: No fractures or dislocations. Severe glenohumeral joint degenerative arthritis. Ill-defined sclerotic areas in the humeral head and neck are of uncertain etiology. Visualized ribs appear intact. Soft tissues: No suspicious soft tissue calcifications. The visualized lungs are within normal limits. IMPRESSION: 1. Severe glenohumeral joint degenerative arthritis. 2. Ill-defined sclerotic areas in the humeral head and neck are of uncertain etiology. Cannot exclude metastatic disease. Comment: Consider nonemergent shoulder CT. Forms: PCP List Discharge Date/Time: 05/09/24 10:35
[2024-05-09 10:57] VITALS: BP 173/86; O2SAT 94
== END 2024-05-09 10:35 | disposition home or self-care (01) ==
LOC: EDUNIT# → ED 08:09
DX: M19.012 Primary osteoarthritis, left shoulder (principal); M62.830 Muscle spasm of back; I10 Essential (primary) hypertension; E78.00 Pure hypercholesterolemia, unspecified; E11.9 Type 2 diabetes mellitus without complications; J45.909 Unspecified asthma, uncomplicated; G47.30 Sleep apnea, unspecified; Z79.84 Long term (current) use of oral hypoglycemic drugs; F32.A Depression, unspecified; F41.9 Anxiety disorder, unspecified
CPT/HCPCS: 73030; 99283; A9270

== ENCOUNTER 2024-05-11 15:15 | Outpatient (CLI) | payer MEDICARE, MEDICAID | END 2024-05-11 23:59 | disposition critical access hospital (66) | LOC: EMS 15:15 | DX: M25.511 Pain in right shoulder (principal); T50.906A Underdosing of unspecified drugs, medicaments and biological substances, initial encounter; Z91.128 Patient's intentional underdosing of medication regimen for other reason | CPT/HCPCS: A0425; A0429 ==

== ENCOUNTER 2024-05-11 15:39 | Emergency (ER) | payer MEDICARE, MEDICAID ==
--- NOTE | 2024-05-11 16:15 | ED Physician Documentation ---
History of Present Illness - Stated complaint Stated Complaint: R SHOULDER PX - Chief complaint Chief Complaint: Ext Problem - History obtained from History obtained from: Patient, EMS - Additonal information Additional information: The patient comes to the emergency department via EMS for chief complaint of right shoulder pain. She has been seen the last 2 days here for left shoulder pain and states that now it is moved to the right. Medics state that the patient's primary care physician was trying to review the patient's meds to see which when she should and should not be on, and so the patient did not take any of her home pain meds which include gabapentin and meloxicam. The patient according to records has also been on tramadol. She cannot give me a clear answer as to why she is chronically on pain medication. She denies any injury to the right shoulder. No new abdominal pain. She states she has pain all over right now but the worst is her right shoulder PD PAST MEDICAL HISTORY - Past Medical History Past Medical History: Yes Cardiovascular: Hypertension, High cholesterol, Deep vein thrombosis Respiratory: Asthma, Shortness of breath, Sleep apnea, CPAP use Neuro: None Endocrine/Autoimmune: Type 2 diabetes GI: Other CYCLE LIAISON: None : Chronic bladder infection, Kidney stones HEENT: Chronic vision loss Psych: Depression, Anxiety, Bipolar disorder, Post traumatic stress disorder Musculoskeletal: Osteoarthritis, Chronic back pain Derm: None - Past Surgical History Past Surgical History: Yes General: Cholecystectomy, Appendectomy, Colonoscopy, Other Ortho: Knee replacement /CYCLE LIAISON: Other HEENT: Cataracts, Tonsil/Adenoidectomy - Present Medications Home Medications: Ambulatory Orders Medication Instructions Recorded Confirmed Gabapentin 100 mg PO DAILY 06/19/17 05/11/24 Prazosin [Minipress] 10 mg PO QPM 06/19/17 05/11/24 Dicyclomine [Bentyl] 10 mg PO QID PRN 05/30/19 05/11/24 Calcium Carbonate [Calcium] 1,200 mg PO DAILY 02/24/21 05/11/24 Cholecalciferol [Vitamin D3] 25 mcg PO DAILY 02/24/21 05/11/24 Fluoxetine HCl [Prozac] 20 mg PO DAILY 02/24/21 05/11/24 Gabapentin [Neurontin] 400 mg PO QPM 02/24/21 05/11/24 Lactobacillus Acidophilus 1 tab PO DAILY 02/24/21 05/11/24 [Probiotic Acidophilus] buPROPion HCL [Bupropion Xl] 300 mg PO DAILY 02/24/21 05/11/24 Montelukast [Singulair] 1 tab PO DAILY 03/03/21 05/11/24 Amlodipine Besylate [Norvasc] 2.5 mg PO BID 03/25/22 05/11/24 Loratadine [Claritin] 10 mg PO DAILY 03/25/22 05/11/24 Losartan [Cozaar] 50 mg PO BID 03/25/22 05/11/24 Metoprolol Succinate [Toprol Xl] 75 mg PO DAILY 03/25/22 05/11/24 Potassium Chloride [Micro-K] 10 meq PO DAILY 03/25/22 05/11/24 metFORMIN [Glucophage] 500 mg PO BIDWM 03/25/22 05/11/24 Oxybutynin [Ditropan] 10 mg PO DAILY 09/03/22 05/11/24 tiZANidine [Zanaflex] 4 mg PO TID PRN 09/03/22 05/11/24 Acetaminophen [Tylenol] 650 mg PO TID PRN 09/22/23 05/11/24 Meloxicam 7.5 mg PO BID 09/22/23 05/11/24 Albuterol Sulf [Ventolin Hfa 1 - 2 puffs INH Q4HR PRN 02/04/24 05/11/24 Inhaler] Atorvastatin [Lipitor] 20 mg PO QPM 02/04/24 05/11/24 Fluticasone [Flonase] 1 sprays JUD BID 02/04/24 05/11/24 Olopatadine HCl [Eye Allergy Itch 1 drops EACHEYE BID 02/04/24 05/11/24 Relief] polyethylene glycoL 3350(BULK) 17 gm PO DAILY #238 gm 02/14/24 05/11/24 [Miralax] traMADol [Ultram] 50 mg PO Q4-6H PRN #10 tablet 03/19/24 05/11/24 - Allergies Allergies/Adverse Reactions: Allergies Allergy/AdvReac Type Severity Reaction Status Date / Time aspirin Allergy Intermediate Hives Verified 05/11/24 15:54 iodine Allergy Intermediate Hives Verified 05/11/24 15:54 acyclovir Allergy Unknown Verified 05/11/24 15:54 amoxicillin Allergy Unknown Verified 05/11/24 15:54 doxycycline Allergy Unknown Verified 05/11/24 15:54 naproxen [From Naprosyn] Allergy Unknown Verified 05/11/24 15:54 risperidone [From Risperdal] Allergy Unknown Verified 05/11/24 15:54 Tetanus Vaccines and Toxoid Allergy Hives Verified 05/11/24 15:54 [Tetanus Vaccines & Toxoid] hydromorphone AdvReac Intermediate Itching Verified 05/11/24 15:54 adhesive tape AdvReac Mild Rash Verified 05/11/24 15:54 hydrocodone bitartrate * AdvReac Mild Itching Verified 05/11/24 15:54 [From Vicodin] - Social History Does the pt smoke?: No Smoking Status: Never smoker Does the pt drink ETOH?: No Does the pt have substance abuse?: No - Immunizations Immunizations are current?: Yes - POLST Patient has POLST: No PD ED PE NORMAL - Vitals Vital signs reviewed: Yes - General General: No acute distress, Well developed/nourished, Other (Awake, frequently pauses and closes her eyes) - HEENT HEENT: Atraumatic, EOMI, Moist mucous membranes - Neck Neck: Supple, no meningeal sign - Cardiac Cardiac: RRR, No murmur - Respiratory Respiratory: No respiratory distress, Clear bilaterally - Abdomen Abdomen: Soft, Non tender, Non distended - Derm Derm: Warm and dry - Extremities Extremities: No deformity - Neuro Neuro: Alert and 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 - Psych Psych: Normal mood, Normal affect Results - Vitals Vitals: Vital Signs - 24 hr 05/11/24 05/11/24 15:47 16:55 Temperature 37.0 C Heart Rate 90 88 Respiratory 20 17 Rate Blood Pressure 168/76 H 156/70 H O2 Saturation 95 0 L Oxygen O2 Source [Without Activity] Room air O2 Source Room air PD Medical Decision Making - ED course Complexity details: reviewed old records, considered differential, d/w patient ED course: The patient was extremely difficult to interview between being unable to give a concise and clear history as to her reason for being on chronic pain meds as well as her psychosocial presentation, which included long pauses, closing her eyes, dramatic answers, and emotional outbursts. I advised the patient that I would need to examine her because she is telling me that she does not usually have right shoulder pain. She yelled "do not touch my neck!", and then shook her fist at me when I palpated her shoulder. The patient was advised that this was inappropriate behavior and that she would be discharged with no further intervention if she did not behave in a more appropriate manner. The patient did improve her interaction with the staff after this and then began to state "I am just not a good person". She stated this repeatedly and when the statements were not acknowledged, she finally just rested comfortably in bed. The patient was given doses of Toradol and gabapentin which most closely delia her home regimen. She was stable for discharge. I have advised her that this is her third visit in a row to the emergency department for what seems to be migrating pain complaints, and she needs to sort this out with her primary doctor. Departure - Departure Disposition: 01 Home, Self Care Clinical Impression: Chronic pain Qualifiers: Chronic pain type: chronic pain syndrome Qualified Code(s): G89.4 - Chronic pain syndrome Condition: Stable Instructions: ED Chronic Pain Management Comments: You have been here multiple times in the last 3 days for migrating pain complaints. Today, you have been disrespectful to staff and have not cooperated with our questioning to try to understand why you are hurting in a new place. We are available for true emergencies, but it is clear that you need very much to follow-up with your primary doctor who knows you for your ongoing chronic pain. Please make the next available appointment to be seen by your primary. Forms: PCP List
[2024-05-11] MEDS: GABAPENTIN 100 MG CAPSULE PO STA (16:27)
[2024-05-11] MEDS: KETOROLAC 30 MG/ML VIAL IM STA (16:28)
[2024-05-11 18:14] VITALS: BP 157/66; O2SAT 96
== END 2024-05-11 18:04 | disposition home or self-care (01) ==
LOC: EDUNIT# → ED 15:39
DX: G89.4 Chronic pain syndrome (principal); I10 Essential (primary) hypertension; E78.00 Pure hypercholesterolemia, unspecified; E11.9 Type 2 diabetes mellitus without complications; Z79.899 Other long term (current) drug therapy; Z79.84 Long term (current) use of oral hypoglycemic drugs
CPT/HCPCS: 99283; A9270

== ENCOUNTER 2024-05-16 13:33 | Outpatient (CLI) | payer MEDICARE, MEDICAID ==
[2024-05-16 17:57] LABS: BASOPHILS # (AUTO) 0.1 10^3/uL (0.0-0.1); BASOPHILS % (AUTO) 0.6 %; EOSINOPHILS # (AUTO) 0.5 10^3/uL (0.0-0.7); EOSINOPHILS % (AUTO) 4.3 %; HCT - HEMATOCRIT 39.8 % (37.0-47.0); HGB - HEMOGLOBIN 12.4 g/dL (12.0-16.0); LYMPHOCYTES % (AUTO) 28.2 %; MEAN CORPUSCULAR HEMOGLOBIN 27.9 pg (27.0-31.0); MEAN CORPUSCULAR HGB CONC 31.2 g/dL (32.0-36.0); MEAN CORPUSCULAR VOLUME 89.6 fL (81.0-99.0); MEAN PLATELET VOLUME 10.7 fL (7.9-10.8); MONOCYTES # (AUTO) 1.1 10^3/uL (0.0-1.0); MONOCYTES % (AUTO) 10.4 %; NEUTROPHILS # (AUTO) 5.9 10^3/uL (1.5-6.6); NEUTROPHILS % (AUTO) 56.2 %; PLT - PLATELET COUNT 477 10^3/uL (130-450); RED BLOOD COUNT 4.44 10^6/uL (4.20-5.40); RED CELL DISTRIBUTION WIDTH 13.1 % (12.0-15.0); WHITE BLOOD COUNT 10.5 x10^3/uL (4.8-10.8)
[2024-05-16 18:12] LABS: ALBUMIN 3.9 g/dL (3.2-5.5); ALKALINE PHOSPHATASE 91 IU/L (42-121); ALT ALANINE AMINOTRANSFERASE 11 IU/L (10-60); AST ASPARTATE AMINOTRANSFERASE 15 IU/L (10-42); BILIRUBIN,TOTAL 0.4 mg/dL (0.2-1.0); BUN - BLOOD UREA NITROGEN 11 mg/dL (6-20); CALCIUM 9.6 mg/dL (8.5-10.3); CARBON DIOXIDE - CO2 31 mmol/L (21-32); CHLORIDE 96 mmol/L (101-111); CHOL/HDL RATIO 5.2 (<4.4); CHOLESTEROL 198 mg/dL; CREATININE 1.1 mg/dL (0.6-1.3); GFR - MDRD 48 (>89); GLUCOSE 158 mg/dL (74-104); HDL CHOLESTEROL 38 mg/dL; LDL CHOLESTEROL,CALCULATED 135 mg/dL; LDL/HDL RATIO 3.6 (<4.4); POTASSIUM 2.9 mmol/L (3.5-4.5); SODIUM 136 mmol/L (135-145); TOTAL PROTEIN 7.7 g/dL (6.4-8.9); TRIGLYCERIDES 126 mg/dL; VLDL CHOLESTEROL 25 mg/dL
[2024-05-16 18:26] LABS: THYROID STIMULATING HORMONE 1.98 uIU/mL (0.34-5.60)
[2024-05-16 22:36] LABS: ESTIMATED AVERAGE GLUCOSE 143 mg/dL (70-100); HEMOGLOBIN A1c% 6.6 % (4.27-6.07)
== END 2024-05-16 13:34 | disposition home or self-care (01) ==
LOC: LAB.N 13:33
PROVIDERS: ATTEND Physician Assistant Medical
DX: I10 Essential (primary) hypertension (principal); E11.9 Type 2 diabetes mellitus without complications
CPT/HCPCS: 36415; 80053; 80061; 83036; 83721; 84443; 85025

== ENCOUNTER 2024-05-16 13:37 | Outpatient (CLI) | payer MEDICARE, MEDICAID ==
--- NOTE | 2024-05-16 20:02 | XRAY Report ---
PROCEDURE: Shoulder 2+V RT INDICATIONS: SHOULDER IMPINGEMENT SYNDROME, RIGHT TECHNIQUE: 3 views of the shoulder were acquired. COMPARISON: None. FINDINGS: Bones: No fractures or dislocations. No suspicious bony lesions. Visualized ribs appear intact. Se wayne glenohumeral joint degenerative change with osteophytes and joint space loss. AC joint hypertrop hy with moderate downward going component. Soft tissues: No suspicious soft tissue calcifications. The visualized lungs are within normal limi ts. IMPRESSION: 1. Severe glenohumeral joint degenerative change. 2. AC joint hypertrophy with moderate downward going component. Reviewed by: Juliocesar Yap MD on 05/16/2024 8:01 PM PDT Approved by: Juliocesar Yap MD on 05/16/2024 8:01 PM PDT Station ID: [id number]
== END 2024-05-16 13:38 | disposition home or self-care (01) ==
LOC: DI.N 13:37
PROVIDERS: ATTEND Physician Assistant Medical
DX: M19.011 Primary osteoarthritis, right shoulder (principal)

== ENCOUNTER 2024-06-20 08:00 | Outpatient (CLI) | payer MEDICARE, MEDICAID | END 2024-06-20 23:59 | disposition home or self-care (01) | LOC: LAB.WCP 08:00 | PROVIDERS: ATTEND Physician Assistant Medical | DX: R39.11 Hesitancy of micturition (principal) | CPT/HCPCS: 87086; 87181 ==

== ENCOUNTER 2024-07-13 14:48 | Outpatient (CLI) | payer MEDICARE, MEDICAID | END 2024-07-13 14:49 | disposition EMS.NT | LOC: EMS 14:48 | DX: Z03.89 Encounter for observation for other suspected diseases and conditions ruled out (principal) ==

== ENCOUNTER 2025-01-26 09:41 | Inpatient (IN) ==
--- OUTSIDE RECORDS SUMMARY | 2025-01-26 09:58 | EXTERNAL MEDICAL SUMMARY RPT | Continuity of Care Document ---
Author Organization [facility] Address [address] [place] [id number] Phone Problems date description facility 2024-10-28 00:02 Contusion of left knee, initial encounter [facility] 2024-11-01 06:47 Contusion of left knee, initial encounter [facility] 2024-11-01 09:54 Pain in left knee [facility] 2024-11-13 12:49 Malignant neoplasm o f lower-outer quadrant of right female breast [facility] 2024-11-13 12:49 Type 2 diabetes mellitus withou t complications [facility] 2024-11-13 12:49 Estrogen receptor positive stat us [ER+] [facility] 2024-11-14 00:04 Malignant neoplasm o f lower-outer quadrant of right female breast [facility] 2024-11-14 00:04 Type 2 diabetes mellitus withou t complications [facility] 2024-11-14 00:04 Estrogen receptor positive stat us [ER+] [facility] 2024-11-14 09:21 Type 2 diabetes mellitus withou t complications [facility] 2024-11-16 11:15 Bipolar disorder, unspecified [facility] 2024-11-16 11:15 Anxiety disorder, unspecified [facility] 2024-11-16 11:15 Post-traumatic stress disorder, unspecified [facility] 2024-11-16 13:50 Encounter for observ ation for other suspected diseases and conditions ruled out [facility] 2024-11-22 07:43 Type 2 diabetes mellitus withou t complications [facility] 2024-11-22 07:43 Essential (primary) hypertensio n [facility] 2024-11-22 07:43 Age-related osteopor osis without current pathological fracture [facility] 2024-11-22 09:40 Type 2 diabetes mellitus withou t complications [facility] 2024-11-22 09:40 Essential (primary) hypertensio n [facility] 2024-11-22 09:40 Age-related osteopor osis without current pathological fracture [facility] 2024-12-11 10:48 Cervicalgia [facility] 2024-12-11 10:48 Unspecified injury of right hip , initial encounter [facility] 2024-12-11 14:10 Type 2 diabetes mellitus withou t complications [facility] 2024-12-11 14:10 Essential (primary) hypertensio n [facility] 2024-12-11 14:10 Age-related osteopor osis without current pathological fracture [facility] 2024-12-11 14:18 Type 2 diabetes mellitus withou t complications [facility] 2024-12-11 14:18 Essential (primary) hypertensio n [facility] 2024-12-11 14:18 Age-related osteopor osis without current pathological fracture [facility] 2024-12-19 12:47 Headache, unspecified [facility] 2024-12-19 14:09 Encounter for observ ation for other suspected diseases and conditions ruled out [facility] 2025-01-01 11:07 Type 2 diabetes mellitus withou t complications [facility] 2025-01-01 11:07 Essential (primary) hypertensio n [facility] 2025-01-01 11:07 Age-related osteopor osis without current pathological fracture [facility] 2025-01-01 12:31 Type 2 diabetes mellitus withou t complications [facility] 2025-01-01 12:31 Essential (primary) hypertensio n [facility] 2025-01-01 12:31 Age-related osteopor osis without current pathological fracture [facility] 2025-01-04 09:55 Malignant neoplasm o f lower-outer quadrant of right female breast [facility] 2025-01-04 09:55 Malignant neoplasm o f unspecified site of right female breast [facility] 2025-01-07 22:13 Other acute postprocedural pain [facility] 2025-01-07 22:13 Pain in right shoulder [facility] 2025-01-07 22:13 Pain in left [facility] 2025-01-07 22:13 Pain [facility] right knee [facility] 2025-01-07 22:13 Cervicalgia [facility] 2025-01-07 22:13 Other chest pain [facility] 2025-01-07 22:13 Unspecified injury of right hip , initial encounter [facility] 2025-01-11 09:56 Malignant neoplasm o f lower-outer quadrant of right female breast [facility] 2025-01-11 09:56 Malignant neoplasm o f unspecified site of right female breast [facility] Results/Labs test date facility value unit notes Result panel 1 NUCLEATED RED BLOOD CELLS AUTO 2024-11-13 12:55 [facility] 0.0 /100wbc (missing) NRBC ABSOLUTE COUNT (AUTO) 2024-11-13 12:55 [facility] 0.00 x10 3/ul (missing) BASOPHILS # (AUTO) 2024-11-13 12:55 [facility] 0.1 10 3/ul (missing) BILIRUBIN,TOTAL 2024-11-13 12:55 [facility] 0.3 mg /dl As of April 2023 testing method has changed, this may include reference ranges. EOSINOPHILS # (AUTO) 2024-11-13 12:55 [facility] 0.7 10 3/ul (missing) MONOCYTES # (AUTO) 2024-11-13 12:55 [facility] 0.7 10 3/ul (missing) CREATININE 2024-11-13 12:55 [facility] 1.0 mg/dl As of April 2023 testing method has changed, this may include reference ranges. ALBUMIN/GLOBULIN RATIO 2024-11-13 12:55 [facility] 1.3 (missing) (missing) THYROID STIMULATING HORMONE 2024-11-13 12:55 [facility] 1.98 uiu/ml (missing) BUN - BLOOD UREA NITROGEN 2024-11-13 12:55 [facility] 10 mg/dl As of Apr testing method has changed, this may include reference ranges. CHLORIDE 2024-11-13 12:55 [facility] 104 mmol/l As of April 2023 testing method has changed, this may include reference ranges. WHITE BLOOD COUNT 2024-11-13 12:55 [facility] 11.1 x10 3/ul (missing) MEAN PLATELET VOLUME 2024-11-13 12:55 [facility] 11.4 fl (missing) HGB - HEMOGLOBIN 2024-11-13 12:55 [facility] 12.7 g /dl (missing) RED CELL DISTRIBUTION WIDTH 2024-11-13 12:55 [facility] 13.5 % (missing) SODIUM 2024-11-13 12:55 [facility] 142 mmol/l As of April 2023 testing method has changed, this may include reference ranges. AST ASPARTATE AMINOTRANSFERASE 2024-11-13 12:55 [facility] 15 iu/l As of April 2023 testing method has changed, this may include reference ranges. ALT ALANINE AMINOTRANSFERASE 2024-11-13 12:55 [facility] 15 iu/l As of April 2023 testing method has changed, this may include reference ranges. GLUCOSE 2024-11-13 12:55 [facility] 162 mg/dl As of April 2023 testing method has changed, this may include reference ranges. ESTIMATED AVERAGE GLUCOSE 2024-11-13 12:[address] [place] [address] 169 mg/dl (missing) VITAMIN B12 2024-11-13 12:55 [facility] 182 pg/ml Social History date description facility
[2025-01-26] MEDS: fentaNYL 100 MCG/2 ML VIAL IVP STA ×2 (10:08→13:35)
[2025-01-26 10:17] LABS: BASOPHILS % (AUTO) 0.2 %; EOSINOPHILS # (AUTO) 0.2 10^3/uL (0.0-0.7); EOSINOPHILS % (AUTO) 1.4 %; HGB - HEMOGLOBIN 12.5 g/dL (12.0-16.0); LYMPHOCYTES # (AUTO) 1.8 10^3/uL (1.5-3.5); LYMPHOCYTES % (AUTO) 14.2 %; MEAN CORPUSCULAR HEMOGLOBIN 29.2 pg (27.0-31.0); MEAN CORPUSCULAR HGB CONC 32.1 g/dL (32.0-36.0); MEAN CORPUSCULAR VOLUME 91.1 fL (81.0-99.0); MEAN PLATELET VOLUME 10.8 fL (7.9-10.8); MONOCYTES # (AUTO) 0.8 10^3/uL (0.0-1.0); MONOCYTES % (AUTO) 6.2 %; NEUTROPHILS # (AUTO) 9.6 10^3/uL (1.5-6.6); NEUTROPHILS % (AUTO) 77.4 %; PLT - PLATELET COUNT 264 10^3/uL (130-450); RED BLOOD COUNT 4.28 10^6/uL (4.20-5.40); RED CELL DISTRIBUTION WIDTH 14.1 % (12.0-15.0); WHITE BLOOD COUNT 12.4 x10^3/uL (4.8-10.8)
[2025-01-26 10:39] LABS: ALBUMIN 3.8 g/dL (3.2-5.5); ALBUMIN/GLOBULIN RATIO 1.4 (1.0-2.2); ALKALINE PHOSPHATASE 99 IU/L (42-121); ALT ALANINE AMINOTRANSFERASE 10 IU/L (10-60); AST ASPARTATE AMINOTRANSFERASE 9 IU/L (10-42); BILIRUBIN,TOTAL 0.7 mg/dL (0.2-1.0); BUN - BLOOD UREA NITROGEN 10 mg/dL (6-20); CALCIUM 8.8 mg/dL (8.5-10.3); CARBON DIOXIDE - CO2 23 mmol/L (21-32); CHLORIDE 102 mmol/L (101-111); GFR - MDRD 54 (>89); GLUCOSE 217 mg/dL (74-104); POTASSIUM 3.1 mmol/L (3.5-4.5); SODIUM 136 mmol/L (135-145); TOTAL PROTEIN 6.5 g/dL (6.4-8.9)
--- NOTE | 2025-01-26 10:42 | CT Report ---
PROCEDURE: CT Abdomen/Pelvis WO INDICATIONS: diffuse abd pain TECHNIQUE: A CT scan of the abdomen and pelvis was performed without the use of intravenous contrast. Images we re recorded and evaluated at appropriate window settings. Reformats: coronal and sagittal. For radiat ion dose reduction, the following was used: automated exposure control, adjustment of mA and/or kV ac cording to patient size. COMPARISON: CT abdomen pelvis 02/24/2022 FINDINGS: Image quality: Diagnostic. Lower chest: Unremarkable. Liver: No contour-deforming mass. Gallbladder: Biliary tree: No intrahepatic or extrahepatic dilation, accounting for age. Spleen: No splenomegaly. Pancreas: No pancreatic ductal dilation. Adrenals: No adrenal nodule. Kidneys and ureters: No hydronephrosis. Simple right renal cyst. Stomach, bowel and peritoneum: Mild fluid-filled prominence of small bowel loops with transition poin t appearing to be in the anterior abdomen near the midline. Greatest diameter fluid-filled loop measu res approximately 3.7 cm. Lymph nodes: No central or retroperitoneal adenopathy. Vessels: No infrarenal aortic aneurysm. Reproductive organs: Cystic focus within the left ovary is unchanged. Bladder: No abnormal bladder wall thickening. No calcified bladder stones. Pelvic lymph nodes: No adenopathy by size criteria. Bones: No aggressive osseous abnormality. Other: No significant ventral or inguinal hernia. IMPRESSION: Fluid-filled small bowel loops most consistent with partial small bowel obstruction. Mild dependent pelvic fluid. Reviewed by: Kaylynn Fang MD on 01/26/2025 10:41 AM PDT Approved by: Kaylynn Fang MD on 01/26/2025 10:41 AM PDT Station ID: [id number]
[2025-01-26 10:45] LABS: LIPASE < 10 U/L (11-82)
--- NOTE | 2025-01-26 11:00 | ED Physician Documentation ---
History of Present Illness Stated complaint Stated Complaint: ABD PX Chief complaint Chief Complaint: Abd Pain History obtained from History obtained from: Patient and EMS History of Present Illness Timing: Last night Pain level max: 6 Pain level now: 4 Additonal information Additional information: 79-year-old female who presents to the emergency department with abdominal pain, vomiting started last night. Worsening today. Unable to tolerate p.o. Was given Zofran with EMS. Also given IV fluids with EMS. No fevers. No chills. No recent travel. Nothing makes it better or worse. Complains of diffuse abdominal pain. Review of Systems Constitutional Denies: Fever or Chills Gastrointestinal Denies: Nausea or Vomiting Meds/Allgy Home Medications Ambulatory Orders Medication Instructions Recorded Confirmed calcium carbonate 1,200 mg PO DAILY 02/24/21 01/26/25 cholecalciferol (vitamin D3) 25 25 mcg PO DAILY 02/24/21 01/26/25 mcg (1,000 unit) tablet oxybutynin chloride 5 mg tablet 10 mg PO DAILY 09/03/22 01/26/25 acetaminophen 650 mg rectal 650 mg PO TID PRN Pain 1-4 09/22/23 01/26/25 suppository meloxicam 7.5 mg tablet 7.5 mg PO BID 09/22/23 01/26/25 albuterol sulfate 90 mcg/actuation 1 - 2 puff inhalation Q4HR PRN 02/04/24 01/26/25 aerosol inhaler (Ventolin HFA) Shortness Of Air/Wheezing fluticasone propionate 50 1 sprays intranasal BID 02/04/24 01/26/25 mcg/actuation nasal spray,suspension olopatadine 0.2 % eye drops (Eye 1 drp EACHEYE BID 02/04/24 01/26/25 Allergy Itch Relief) polyethylene glycol 3350 17 17 g PO DAILY #238 grams 02/14/24 01/26/25 gram/dose oral powder potassium chloride 10 mEq 10 meq PO BID 08/21/24 01/26/25 capsule,extended release metoprolol succinate 50 mg See Rx Instructions .Route 09/07/24 01/26/25 tablet,extended release 24 hr .COMPLEX #135 tabs prazosin 5 mg capsule See Rx Instructions .Route 10/05/24 01/26/25 .COMPLEX #90 caps cetirizine 10 mg tablet 10 mg PO HS #30 tabs 10/27/24 01/26/25 mupirocin 2 % topical ointment 1 applic topical BID #22 grams 10/27/24 01/26/25 (Centany) montelukast 10 mg tablet See Rx Instructions .Route 11/03/24 01/26/25 .COMPLEX #90 tabs atorvastatin 20 mg tablet See Rx Instructions .Route 11/06/24 01/26/25 .COMPLEX #90 tabs metformin 500 mg tablet See Rx Instructions .Route 11/06/24 01/26/25 .COMPLEX #180 tabs amlodipine 2.5 mg tablet See Rx Instructions .Route 11/07/24 01/26/25 .COMPLEX #180 tabs bupropion HCl 300 mg 24 hr tablet, See Rx Instructions .Route 11/07/24 01/26/25 extended release .COMPLEX #90 tabs fluoxetine 20 mg capsule See Rx Instructions .Route 11/07/24 01/26/25 .COMPLEX #90 caps gabapentin 100 mg capsule See Rx Instructions .Route 11/27/24 01/26/25 .COMPLEX #240 caps losartan 50 mg tablet See Rx Instructions .Route 11/29/24 01/26/25 .COMPLEX #180 tabs Allergies Allergies Allergy/AdvReac Type Severity Reaction Status Date / Time aspirin Allergy Intermediate Hives Verified 01/26/25 09:48 iodine Allergy Intermediate Hives Verified 01/26/25 09:48 acyclovir Allergy Unknown Verified 01/26/25 09:48 amoxicillin Allergy Unknown Verified 01/26/25 09:48 doxycycline Allergy Unknown Verified 01/26/25 09:48 naproxen (From Naprosyn) Allergy Unknown Verified 01/26/25 09:48 risperidone (From Risperdal) Allergy Unknown Verified 01/26/25 09:48 Tetanus Vaccines and Toxoid Allergy Hives Verified 01/26/25 09:48 (Tetanus Vaccines & Toxoid) hydromorphone AdvReac Intermediate Itching Verified 01/26/25 09:48 adhesive tape AdvReac Mild Rash Verified 01/26/25 09:48 hydrocodone bitartrate * AdvReac Mild Itching Verified 01/26/25 09:48 (From Vicodin) PFSH Active Problems All Active Problems (Updated 01/26/25 @ 17:40 by Yamilka Burns MD) Acute exacerbation of chronic bronchitis (Acute) Leukocytosis (Acute) Vomiting (Acute) Partial small bowel obstruction (Acute) Contusion of hip, right (Acute) Contusion of left knee (Acute) Breast cancer, right (Acute) Urinary incontinence (Acute) Cognitive dysfunction (Acute) Bipolar 1 disorder (Acute) Anxiety (Acute) PTSD (post-traumatic stress disorder) (Acute) Allergic rhinitis (Acute) Sleep apnea (Acute) Genital herpes (Acute) Hyperlipidemia (Acute) DVT (deep venous thrombosis) (Acute) Osteoporosis (Acute) Adnexal mass (Acute) Recurrent falls (Acute) Chronic renal insufficiency (Acute) History of nephrolithiasis (Acute) Asthma (Acute) Hypertension, essential, benign (Acute) Chronic abdominal pain (Acute) Syncope and collapse (Acute) Dizziness (Acute) Diabetes mellitus type 2, controlled, without complications (Acute) Hypokalemia (Acute) Surgical History Surgical History History of cholecystectomy Social History Social History Smoking Status: Never smoker Do you dip or chew tobacco?: No Do you vape?: No Patient requests smoking cessation consult: No Initiate information on smoking cessation: No Living arrangement: Assisted living Living Condition: Alone Support Person: Yes Relationship: Level: Independent Home Mobility Equipment: Cane and Wheelchair Do you feel safe in your home environment?: Yes Suffered physical, verbal, emotional, or financial abuse?: No History of Abuse: No Substance Use: denies use Are you sexually active?: No POLST Patient has POLST: No Exam Exam Vital Signs: Vital Signs x48h Pulse Resp BP Pulse Ox 01/26/25 13:00 84 16 128/96 H 94 Constitutional normal general appearance HENMT oropharynx normal moist mucous membranes Eyes PERRL Neck/C-Spine visual inspection normal Respiratory breath sounds equal bilaterally, normal respiratory effort and clear to auscultation bilaterally Cardiovascular normal heart rate noted and regular rhythm noted Gastrointestinal abdomen normal to inspection, abdomen soft to palpation and nondistended Diffusely tender to palpation without peritoneal signs. Genitourinary no CVA tenderness Extremities no edema Neurology speech normal Psychiatry mental status grossly normal and oriented x3 Skin skin color normal Results Vitals Vitals: Vital Signs - 24 hr 01/26/25 09:47 01/26/25 09:48 01/26/25 09:58 Temperature 36.3 C L Temperature Source Temporal Artery Scan Pulse Rate 88 78 Respiratory Rate 18 20 Blood Pressure 132/74 H O2 Saturation 97 O2 Source Room air Pain Intensity 10 10 01/26/25 10:08 01/26/25 11:00 01/26/25 11:34 Temperature Temperature Source Pulse Rate 70 Respiratory Rate 16 Blood Pressure 175/75 H O2 Saturation 95 O2 Source Room air Pain Intensity 10 4 4 01/26/25 13:00 01/26/25 13:35 Temperature Temperature Source Pulse Rate 84 Respiratory Rate 16 Blood Pressure 128/96 H O2 Saturation 94 O2 Source Room air Pain Intensity 4 8 Oxygen O2 Source [Without Activity] Room air O2 Source Room air Labs Labs: Laboratory Tests 01/26/25 10:11 WBC 12.4 H RBC 4.28 Hgb 12.5 Hct 39.0 MCV 91.1 MCH 29.2 MCHC 32.1 RDW 14.1 Plt Count 264 MPV 10.8 Neut # (Auto) 9.6 H Lymph # (Auto) 1.8 Bracken # (Auto) 0.8 Eos # (Auto) 0.2 Baso # (Auto) 0.0 Absolute Nucleated RBC 0.00 Nucleated RBC % 0.0 Sodium 136 Potassium 3.1 L Chloride 102 Carbon Dioxide 23 Anion Gap 11.0 BUN 10 Creatinine 1.0 Estimated GFR (MDRD) 54 L Glucose 217 H Calcium 8.8 Total Bilirubin 0.7 AST 9 L ALT 10 Alkaline Phosphatase 99 Total Protein 6.5 Albumin 3.8 Globulin 2.7 Albumin/Globulin Ratio 1.4 Lipase < 10 L PD Medical Decision Making ED course Complexity details: reviewed results, re-evaluated patient, considered differential and d/w patient ED course: CT abdomen pelvis was performed, this shows a partial small bowel obstruction. Does not have significant distention of the stomach, therefore an NG tube was not placed. She was given fentanyl for pain along with Zofran for nausea. Also given IV fluids. Observed in the emergency department for several hours, began to have pain and vomiting again, therefore contacted the hospitalist and will place in observation for further care of her partial SBO. Also discussed the case with Dr. Christina, general surgery and hospitalist will consult him as needed. This document was made in part using voice recognition software. While efforts are made to proofread this document, sound alike and grammatical errors may occur. Discharge Plan Discharge Patient Disposition: ED Place in Observation Condition: Stable Clinical Impression: Partial small bowel obstruction Vomiting Qualifiers: Vomiting type: unspecified Nausea presence: with nausea Qualified Code(s): R11.2 - Nausea with vomiting, unspecified Interventions: ED Admission Assessment Last Done: 01/26/25 13:00
--- NOTE | 2025-01-26 13:25 | HISTORY & PHYSICAL EXAMINATION ---
Chief Complaint Chief Complaint Chief Complaint: Abdominal pain History of Present Illness Admitted From Admitted From:: Home History Obtained From Records Reviewed: EMR History obtained from: Patient Exam Limitations: None History of Present Illness HPI Comment/Other: Patient is a 79-year-old female with a history of breast cancer s/p lumpectomy, DVT not on anticoagulation due to high risk of falls, hypertension, type 2 diabetes mellitus, bipolar disorder, PTSD who presented with worsening abdominal pain. She states the pain started yesterday. She describes it as epigastric, with no radiation. She also describes it as sharp. She has associated nausea. She also has had repeated episodes of emesis. She denies any fevers or chills. She states that she has chronic bronchitis, and sometimes uses oxygen at night. She has had increasing cough for the past few days as well. She has had a poor appetite over the last few days. She does endorse a bowel movement earlier today, but states that she has not been passing gas since. In the ER, she was hypertensive with blood pressure as high as 175/75, heart rate was 70, she was afebrile, saturating 95% on room air. Lab work was reviewedher revealed a mild leukocytosis of 12.4, her potassium was low at 3.1, her lipase was within normal limits. Imaging was done, abdomen/pelvis CT which showed fluid-filled small bowel loops most consistent with partial small bowel obstruction. UA is ordered, as well as a chest x-ray. Meds/Allgy Home Medications Ambulatory Orders Medication Instructions Recorded Confirmed calcium carbonate 1,200 mg PO DAILY 02/24/21 01/26/25 cholecalciferol (vitamin D3) 25 25 mcg PO DAILY 02/24/21 01/26/25 mcg (1,000 unit) tablet oxybutynin chloride 5 mg tablet 10 mg PO DAILY 09/03/22 01/26/25 acetaminophen 650 mg rectal 650 mg PO TID PRN Pain 1-4 09/22/23 01/26/25 suppository meloxicam 7.5 mg tablet 7.5 mg PO BID 09/22/23 01/26/25 albuterol sulfate 90 mcg/actuation 1 - 2 puff inhalation Q4HR PRN 02/04/24 01/26/25 aerosol inhaler (Ventolin HFA) Shortness Of Air/Wheezing fluticasone propionate 50 1 sprays intranasal BID 02/04/24 01/26/25 mcg/actuation nasal spray,suspension olopatadine 0.2 % eye drops (Eye 1 drp EACHEYE BID 02/04/24 01/26/25 Allergy Itch Relief) polyethylene glycol 3350 17 17 g PO DAILY #238 grams 02/14/24 01/26/25 gram/dose oral powder potassium chloride 10 mEq 10 meq PO BID 08/21/24 01/26/25 capsule,extended release metoprolol succinate 50 mg See Rx Instructions .Route 09/07/24 01/26/25 tablet,extended release 24 hr .COMPLEX #135 tabs prazosin 5 mg capsule See Rx Instructions .Route 10/05/24 01/26/25 .COMPLEX #90 caps cetirizine 10 mg tablet 10 mg PO HS #30 tabs 10/27/24 01/26/25 mupirocin 2 % topical ointment 1 applic topical BID #22 grams 10/27/24 01/26/25 (Centany) montelukast 10 mg tablet See Rx Instructions .Route 11/03/24 01/26/25 .COMPLEX #90 tabs atorvastatin 20 mg tablet See Rx Instructions .Route 11/06/24 01/26/25 .COMPLEX #90 tabs metformin 500 mg tablet See Rx Instructions .Route 11/06/24 01/26/25 .COMPLEX #180 tabs amlodipine 2.5 mg tablet See Rx Instructions .Route 11/07/24 01/26/25 .COMPLEX #180 tabs bupropion HCl 300 mg 24 hr tablet, See Rx Instructions .Route 11/07/24 01/26/25 extended release .COMPLEX #90 tabs fluoxetine 20 mg capsule See Rx Instructions .Route 11/07/24 01/26/25 .COMPLEX #90 caps gabapentin 100 mg capsule See Rx Instructions .Route 11/27/24 01/26/25 .COMPLEX #240 caps losartan 50 mg tablet See Rx Instructions .Route 11/29/24 01/26/25 .COMPLEX #180 tabs Allergies Allergies Allergy/AdvReac Type Severity Reaction Status Date / Time aspirin Allergy Intermediate Hives Verified 01/26/25 09:48 iodine Allergy Intermediate Hives Verified 01/26/25 09:48 acyclovir Allergy Unknown Verified 01/26/25 09:48 amoxicillin Allergy Unknown Verified 01/26/25 09:48 doxycycline Allergy Unknown Verified 01/26/25 09:48 naproxen (From Naprosyn) Allergy Unknown Verified 01/26/25 09:48 risperidone (From Risperdal) Allergy Unknown Verified 01/26/25 09:48 Tetanus Vaccines and Toxoid Allergy Hives Verified 01/26/25 09:48 (Tetanus Vaccines & Toxoid) hydromorphone AdvReac Intermediate Itching Verified 01/26/25 09:48 adhesive tape AdvReac Mild Rash Verified 01/26/25 09:48 hydrocodone bitartrate * AdvReac Mild Itching Verified 01/26/25 09:48 (From Vicodin) PFSH Active Problems All Active Problems (Updated 01/26/25 @ 17:40 by Yamilka Burns MD) Acute exacerbation of chronic bronchitis (Acute) Leukocytosis (Acute) Vomiting (Acute) Partial small bowel obstruction (Acute) Contusion of hip, right (Acute) Contusion of left knee (Acute) Breast cancer, right (Acute) Urinary incontinence (Acute) Cognitive dysfunction (Acute) Bipolar 1 disorder (Acute) Anxiety (Acute) PTSD (post-traumatic stress disorder) (Acute) Allergic rhinitis (Acute) Sleep apnea (Acute) Genital herpes (Acute) Hyperlipidemia (Acute) DVT (deep venous thrombosis) (Acute) Osteoporosis (Acute) Adnexal mass (Acute) Recurrent falls (Acute) Chronic renal insufficiency (Acute) History of nephrolithiasis (Acute) Asthma (Acute) Hypertension, essential, benign (Acute) Chronic abdominal pain (Acute) Syncope and collapse (Acute) Dizziness (Acute) Diabetes mellitus type 2, controlled, without complications (Acute) Hypokalemia (Acute) Surgical History Surgical History History of cholecystectomy Social History Social History Smoking Status: Never smoker Do you dip or chew tobacco?: No Do you vape?: No Patient requests smoking cessation consult: No Initiate information on smoking cessation: No Living arrangement: Assisted living Living Condition: Alone Support Person: Yes Relationship: Level: Independent Home Mobility Equipment: Cane and Wheelchair Do you feel safe in your home environment?: Yes Suffered physical, verbal, emotional, or financial abuse?: No History of Abuse: No Substance Use: denies use Are you sexually active?: No POLST Patient has POLST: No POLST Status: Full Code Review of Systems Constitutional Reports: Fatigue, Chills, Malaise, Weakness and Poor appetite; Denies: Fever Eyes Denies: Pain, Irritation, Blurry vision, Vision loss, Diplopia or Eye discomfort Ears, nose, mouth, and throat Denies: Ear pain, Hearing loss, Tinnitus, Nose bleeds, Nasal discharge, Mouth lesions, Bleeding gums or Neck pain Cardiovascular Reports: shortness of breath with exertion; Denies: chest pain, palpitations, edema or Syncope Respiratory Reports: Shortness of breath, Cough and Wheezing; Denies: Sputum production Gastrointestinal Reports: Abdominal pain, Abdominal distention, Nausea and Vomiting; Denies: Heartburn, Diarrhea or Constipation Genitourinary Denies: Painful urination, Urinary frequency or Urinary urgency Musculoskeletal Denies: Back pain, Neck pain, Extremity pain, Extremity swelling or Joint pain Integumentary/Breast Denies: Rash, Itching, Dryness, Redness or Skin pain Neurological Reports: General weakness; Denies: Headache, Weakness in extremities, Numbness in extremities, Abnormal gait or Dizziness Psychiatric Reports: Depression, Anxiety and Mood swings; Denies: Panic attacks Endocrine Reports: Fatigue; Denies: Excessive urination or Excessive thirst Hematologic/Lymphatic Denies: Anemia, Easy bruising or Easy bleeding Allergic/Immunologic Reports: Wheezing; Denies: Hives, Tongue swelling or Facial swelling Prior Level of Functionality: Lives independently prior to admission. Exam Exam Vital Signs: Vital Signs x48h Temp Pulse Pulse Resp BP BP Pulse Ox 01/26/25 16:10 98.6 F 87 20 174/87 H 96 01/26/25 15:09 97.3 F L 79 20 150/90 H 98 01/26/25 13:00 84 16 128/96 H 94 01/26/25 11:00 70 16 175/75 H 95 01/26/25 09:58 78 20 Constitutional normal general appearance, distress noted (mild) and (respiratory), abnormal body habitus (obese) and alert HENMT normocephalic and head/scalp atraumatic Eyes PERRL, EOMs intact bilaterally and conjunctivae normal Chest inspection of chest normal Respiratory breath sounds equal bilaterally, normal respiratory effort, clear to auscultation bilaterally, no wheezes, no rales and no retractions Cardiovascular normal heart rate noted, regular rhythm noted, no gallop, no rub and no murmur Gastrointestinal abdomen abnormal to inspection, abdomen soft to palpation, tender to palpation (moderate) and (epigastric) and distended (distended) Genitourinary no CVA tenderness and bladder normal to palpation Extremities normal to inspection, normal to palpation and no tenderness Neurology no movement abnormality noted and no focal motor deficit noted Psychiatry mental status grossly normal, oriented x3, thought process normal, cooperative and affect normal Skin skin color normal, no rash and no lesions Conclusion/Plan Problem List (1) Partial small bowel obstruction: Plan: CT abdomen/pelvis shows partial small bowel obstruction. Patient did have a bowel movement earlier today. Continue aggressive IV fluid resuscitation. N.p.o. status to allow bowel rest, antiemetics as needed. If patient continues to have no passage of gas tomorrow, will attempt Gastrografin study. (2) Acute exacerbation of chronic bronchitis: Plan: Patient is on room air, but is having frequent episodes of coughing. Continue scheduled Robitussin DM [id number]. Continue DuoNebs as needed. Chest x-ray ordered for further evaluation, pending. (3) Leukocytosis: Plan: Likely reactive to above. Qualifiers: Leukocytosis type: unspecified Qualified Code(s): D72.829 - Elevated white blood cell count, unspecified (4) Hypokalemia: Plan: Due to decreased p.o. intake in setting of above. Continue IV potassium replacement as patient is currently NPO. Potassium chloride 40 mill equivalents ordered. (5) Diabetes mellitus type 2, controlled, without complications: Plan: Only on oral antihyperglycemics at home. Continue low-dose sliding scale, hypoglycemic protocol in place. Qualifiers: Diabetes mellitus retirement insulin use: unspecified retirement insulin use status Qualified Code(s): E11.9 - Type 2 diabetes mellitus without complications (6) Hypertension, essential, benign: Plan: Will continue losartan, metoprolol, amlodipine when patient is no longer n.p.o. (7) DVT (deep venous thrombosis): Plan: Records reviewed from [facility]. Patient is no longer taking Eliquis for DVT as she was a high fall risk, as well as a bleeding risk. Qualifiers: Affected thrombotic vein of extremity: unspecified vein of extremity C hronicity: unspecified DVT location: lower extremity Laterality: unspecified laterality Qualified Code(s): I82.409 - Acute embolism and thrombosis of unspecified deep veins of unspecified lower extremity (8) PTSD (post-traumatic stress disorder): Plan: Will continue bupropion, fluoxetine patient is longer NPO. (9) Bipolar 1 disorder: Plan: Will continue bupropion, fluoxetine patient is longer NPO. Lab Results Lab results reviewed: Yes 01/26/25 10:11 01/26/25 10:11
[2025-01-26] MEDS: SODIUM CHLORIDE 0.9% 1,000 ML IV STA (13:34)
[2025-01-26] MEDS: ONDANSETRON 4 MG/2 ML VIAL IVP STA (13:35)
[2025-01-26] MEDS ORDERED: ONDANSETRON ODT 4 MG TABLET TL PRN (14:23)
[2025-01-26] MEDS ORDERED: SODIUM CHLORIDE FLUSH 0.9% 10 ML SYRINGE IVP PRN (14:23)
[2025-01-26] MEDS: guaiFENesin/DEXTROMETHORPHAN 10 ML UDC PO PRN (14:30)
--- NOTE | 2025-01-26 14:31 | CONSULTATION NOTE ---
Referring Provider Name of Referring Provider:: Dr Burns Consult Date: 01/26/25 Chief Complaint Chief Complaint Chief Complaint: Abdominal pain, cough History of Present Illness History of Present Illness HPI Comment/Other: Bhavna is a 79 year old female who developed nausea and vomiting yesterday afternoon. This was followed by abdominal pain such that she came to the ED today for evaluation. CT of the abdomen identified findings consistent with a partial SBO and she was admitted to the Medical Hospitalist Service. I have been asked by Dr. Mcmahon and Grant to assist in her evaluation and management. During my encounter with the patient, she was in the midst of a severe coughing episode for what appears to be acute aggravation of chronic bronchitis. This limited her ability to provide a detailed history. I was able to discern that she has generalized abdominal discomfort and that she had a normal bowel motion this morning. PFSH Active Problems All Active Problems Vomiting (Acute) Partial small bowel obstruction (Acute) Contusion of hip, right (Acute) Contusion of left knee (Acute) Breast cancer, right (Acute) Urinary incontinence (Acute) Cognitive dysfunction (Acute) Bipolar 1 disorder (Acute) Anxiety (Acute) PTSD (post-traumatic stress disorder) (Acute) Allergic rhinitis (Acute) Sleep apnea (Acute) Genital herpes (Acute) Hyperlipidemia (Acute) DVT (deep venous thrombosis) (Acute) Osteoporosis (Acute) Adnexal mass (Acute) Recurrent falls (Acute) Chronic renal insufficiency (Acute) History of nephrolithiasis (Acute) Asthma (Acute) Hypertension, essential, benign (Acute) Chronic abdominal pain (Acute) Syncope and collapse (Acute) Dizziness (Acute) Diabetes mellitus type 2, controlled, without complications (Acute) Hypokalemia (Acute) Surgical History Surgical History (Updated 01/26/25 @ 14:37 by Yong Christina MD) History of cholecystectomy Social History Social History Smoking Status: Never smoker Do you dip or chew tobacco?: No Do you vape?: No Patient requests smoking cessation consult: No Initiate information on smoking cessation: No Living arrangement: Assisted living Living Condition: Alone Support Person: Yes Relationship: Do you feel safe in your home environment?: Yes Suffered physical, verbal, emotional, or financial abuse?: No History of Abuse: No Are you sexually active?: No POLST Patient has POLST: No Meds/Allgy Home Medications Ambulatory Orders Medication Instructions Recorded Confirmed calcium carbonate 1,200 mg PO DAILY 02/24/21 11/16/24 cholecalciferol (vitamin D3) 25 25 mcg PO DAILY 02/24/21 11/16/24 mcg (1,000 unit) tablet gabapentin 400 mg capsule 400 mg PO QPM 02/24/21 11/16/24 oxybutynin chloride 5 mg tablet 10 mg PO DAILY 09/03/22 11/16/24 tizanidine 4 mg tablet 4 mg PO TID PRN Spasms 09/03/22 11/16/24 acetaminophen 650 mg rectal 650 mg PO TID PRN Pain 1-4 09/22/23 11/16/24 suppository meloxicam 7.5 mg tablet 7.5 mg PO BID 09/22/23 11/16/24 albuterol sulfate 90 mcg/actuation 1 - 2 puff inhalation Q4HR PRN 02/04/24 11/16/24 aerosol inhaler (Ventolin HFA) Shortness Of Air/Wheezing fluticasone propionate 50 1 sprays intranasal BID 02/04/24 11/16/24 mcg/actuation nasal spray,suspension olopatadine 0.2 % eye drops (Eye 1 drp EACHEYE BID 02/04/24 11/16/24 Allergy Itch Relief) polyethylene glycol 3350 17 17 g PO DAILY #238 grams 02/14/24 11/16/24 gram/dose oral powder tramadol 50 mg tablet 50 mg PO Q4-6H PRN Moderate Pain 03/19/24 11/16/24 (Level 4-6) #10 tabs potassium chloride 10 mEq 10 meq PO BID 08/21/24 11/16/24 capsule,extended release prazosin 1 mg capsule 5 mg PO QPM 08/21/24 11/16/24 metoprolol succinate 50 mg See Rx Instructions .Route 09/07/24 11/16/24 tablet,extended release 24 hr .COMPLEX #135 tabs prazosin 5 mg capsule See Rx Instructions .Route 10/05/24 11/16/24 .COMPLEX #90 caps cetirizine 10 mg tablet 10 mg PO HS #30 tabs 10/27/24 11/16/24 mupirocin 2 % topical ointment 1 applic topical BID #22 grams 10/27/24 11/16/24 (Centany) montelukast 10 mg tablet See Rx Instructions .Route 11/03/24 11/16/24 .COMPLEX #90 tabs atorvastatin 20 mg tablet See Rx Instructions .Route 11/06/24 11/16/24 .COMPLEX #90 tabs metformin 500 mg tablet See Rx Instructions .Route 11/06/24 11/16/24 .COMPLEX #180 tabs amlodipine 2.5 mg tablet See Rx Instructions .Route 11/07/24 11/16/24 .COMPLEX #180 tabs bupropion HCl 300 mg 24 hr tablet, See Rx Instructions .Route 11/07/24 11/16/24 extended release .COMPLEX #90 tabs fluoxetine 20 mg capsule See Rx Instructions .Route 11/07/24 11/16/24 .COMPLEX #90 caps gabapentin 100 mg capsule See Rx Instructions .Route 11/27/24 .COMPLEX #240 caps losartan 50 mg tablet See Rx Instructions .Route 11/29/24 .COMPLEX #180 tabs Allergies Allergies Allergy/AdvReac Type Severity Reaction Status Date / Time aspirin Allergy Intermediate Hives Verified 01/26/25 09:48 iodine Allergy Intermediate Hives Verified 01/26/25 09:48 acyclovir Allergy Unknown Verified 01/26/25 09:48 amoxicillin Allergy Unknown Verified 01/26/25 09:48 doxycycline Allergy Unknown Verified 01/26/25 09:48 naproxen (From Naprosyn) Allergy Unknown Verified 01/26/25 09:48 risperidone (From Risperdal) Allergy Unknown Verified 01/26/25 09:48 Tetanus Vaccines and Toxoid Allergy Hives Verified 01/26/25 09:48 (Tetanus Vaccines & Toxoid) hydromorphone AdvReac Intermediate Itching Verified 01/26/25 09:48 adhesive tape AdvReac Mild Rash Verified 01/26/25 09:48 hydrocodone bitartrate * AdvReac Mild Itching Verified 01/26/25 09:48 (From Vicodin) Results Lab Results 01/26/25 10:11 01/26/25 10:11 Other Lab Results: Lab Results x24hrs 01/26/25 Range/Units 10:11 WBC 12.4 H (4.8-10.8) x10^3/uL RBC 4.28 (4.20-5.40) 10^6/uL Hgb 12.5 (12.0-16.0) g/dL Hct 39.0 (37.0-47.0) % MCV 91.1 (81.0-99.0) fL MCH 29.2 (27.0-31.0) pg MCHC 32.1 (32.0-36.0) g/dL RDW 14.1 (12.0-15.0) % Plt Count 264 (130-450) 10^3/uL MPV 10.8 (7.9-10.8) fL Neut # (Auto) 9.6 H (1.5-6.6) 10^3/uL Lymph # (Auto) 1.8 (1.5-3.5) 10^3/uL [place] # (Auto) 0.8 (0.0-1.0) 10^3/uL Eos # (Auto) 0.2 (0.0-0.7) 10^3/uL Baso # (Auto) 0.0 (0.0-0.1) 10^3/uL Absolute Nucleated RBC 0.00 x10^3/uL Nucleated RBC % 0.0 /100WBC Sodium 136 (135-145) mmol/L Potassium 3.1 L (3.5-4.5) mmol/L Chloride 102 (101-111) mmol/L Carbon Dioxide 23 (21-32) mmol/L Anion Gap 11.0 (6-13) BUN 10 (6-20) mg/dL Creatinine 1.0 (0.6-1.3) mg/dL Estimated GFR (MDRD) 54 L (>89) Glucose 217 H (74-104) mg/dL Calcium 8.8 (8.5-10.3) mg/dL Total Bilirubin 0.7 (0.2-1.0) mg/dL AST 9 L (10-42) IU/L ALT 10 (10-60) IU/L Alkaline Phosphatase 99 (42-121) IU/L Total Protein 6.5 (6.4-8.9) g/dL Albumin 3.8 (3.2-5.5) g/dL Globulin 2.7 (2.1-4.2) g/dL Albumin/Globulin Ratio 1.4 (1.0-2.2) Lipase < 10 L (11-82) U/L Diagnostic Imaging Results Diagnostic Imaging Results: positive See rad report Diagnostic Imaging Results Comments: CT abd/pelvis - Distended loops of small bowel; Air in right and transverse colon; Stomach not distended; Looks like a wide open staple line in mid- transverse colon Conclusion and Plan Diagnosis Diagnosis: Partial SBO vs ileus - No clinical, lab, or image evidence of ischemic bowel Plan Plan: 1) Control her chronic bronchitis 2) As long as she is coughing, I would avoid an NGT. Use Zofran or compazine for nausea 3) Consider gastrografin challenge study in the morning but only if her coughing episodes cease to avoid aspiration of the contrast 4) Surgery will follow. Yong Christina MD, FACS General Surgery Service Review of Systems Nausea, emesis, chronic cough, abdominal pain, normal BM this morning Exam Exam Vital Signs: Vital Signs x48h Temp Pulse Resp BP Pulse Ox 01/26/25 13:00 84 16 128/96 H 94 01/26/25 11:00 70 16 175/75 H 95 01/26/25 09:47 36.3 C L 88 18 132/74 H 97 Constitutional Obese, sitting in bed with persistent, hacking cough HENMT normocephalic Neck/C-Spine trachea midline Gastrointestinal abdomen soft to palpation, nontender to percussion and nondistended Mild tenderness to palpation in all quadrants but not certain of the accuracy of the examination due to her persistent cough Psychiatry cooperative Skin skin color normal
[2025-01-26] MEDS: KETOROLAC 15 MG/ML VIAL IVP PRN (15:42)
[2025-01-26] MEDS ORDERED: HYDROmorphone 0.5 MG/0.5 ML SYRINGE IVP PRN (16:07)
[2025-01-26] MEDS: IPRATROPIUM/ALBUTEROL 3 ML NEB INH PRN (16:59)
[2025-01-26] MEDS: SODIUM CHLORIDE FLUSH 0.9% 10 ML SYRINGE IVP SCH (17:02)
[2025-01-26] MEDS: LACTATED RINGERS 1,000 ML IV SCH (17:03)
[2025-01-26] MEDS: MORPHINE 2 MG/ML CARPUJECT IVP PRN (17:11)
[2025-01-26] MEDS: INSULIN REGULAR, HUMAN 300 UNIT/3 ML PEN SUBQ SCH (18:53)
[2025-01-26] MEDS: POTASSIUM CHLOR 10 MEQ/100 ML 10 MEQ/100 ML BAG IV SCH (18:54)
--- NOTE | 2025-01-26 19:14 | XRAY Report ---
PROCEDURE: XR Chest 2V INDICATIONS: EUSEBIO TECHNIQUE: 2 views of the chest were acquired. COMPARISON: 12/08/2024. FINDINGS: Surgical changes and devices: None. Lungs and pleura: No pleural effusions or pneumothorax. Nonspecific interstitial prominence versus artifact. No consolidation. Mediastinum: Mediastinal contours appear normal. Heart size is normal. Bones and chest wall: No suspicious bony lesions. Overlying soft tissues appear unremarkable. IMPRESSION: Nonspecific interstitial prominence versus artifact. Correlate for edema versus atypical infection. O therwise, no acute cardiopulmonary process. Reviewed by: Osbaldo Spears MD on 01/26/2025 7:12 PM PDT Approved by: Osbaldo Spears MD on 01/26/2025 7:12 PM PDT Station ID: [id number]
[2025-01-26] MEDS: ONDANSETRON 4 MG/2 ML VIAL IVP PRN (20:03)
[2025-01-26] MEDS: diphenhydrAMINE INJ 50 MG/ML VIAL IVP PRN (20:50)
[2025-01-26] MEDS: LORazepam 2 MG/ML VIAL IVP PRN (20:50)
[2025-01-26 21:56] LABS: B. PARAPERTUSSIS- RESP PCR PAN NOT DETECTED; B. PERTUSSIS- RESP PCR PANEL NOT DETECTED; C. PNEUMONIAE- RESP PCR PANEL NOT DETECTED; CORONAVIRUS 229E-RESP PCR NOT DETECTED; CORONAVIRUS HKU1-RESP PCR NOT DETECTED; CORONAVIRUS NL63-RESP PCR NOT DETECTED; CORONAVIRUS OC43-RESP PCR NOT DETECTED; HUMAN METAPNEUMOVIRUS NOT DETECTED; INFLUENZA A- RESP PCR PANEL NOT DETECTED; INFLUENZA B - RESP PCR PANEL NOT DETECTED; M. PNEUMONIAE- RESP PCR PANEL NOT DETECTED; PARAINFLUENZA VIRUS 1 NOT DETECTED; PARAINFLUENZA VIRUS 2 NOT DETECTED; PARAINFLUENZA VIRUS 4 NOT DETECTED; RHINOVIRUS/ENTEROVIRUS NOT DETECTED; RSV- RESP PCR PANEL NOT DETECTED; SARS-CoV-2 -RESP PCR PANEL NOT DETECTED
[2025-01-26 23:37] LABS: BILIRUBIN,URINE NEGATIVE (NEGATIVE); GLUCOSE, URINE (UA) NEGATIVE (NEGATIVE); KETONES,URINE (UA) 15 mg/dL (NEGATIVE); LEUKOCYTE ESTERASE, URINE NEGATIVE (NEGATIVE); NITRITE,URINE POSITIVE (NEGATIVE); OCCULT BLOOD,URINE NEGATIVE (NEGATIVE); PROTEIN,URINE NEGATIVE (NEGATIVE); UROBILINOGEN,URINE 0.2 (NORMAL) E.U./dL (NORMAL)
[2025-01-26 23:38] LABS: CLARITY,URINE HAZY (CLEAR)
[2025-01-26 23:51] LABS: BACTERIA,URINE Many /HPF (None Seen); RBC,URINE None Seen /HPF (0-5); SQUAMOUS EPITHELIAL CELL,UR FEW Squamous (<= Few); WBC CLUMPS,URINE PRESENT
--- NOTE | 2025-01-27 00:18 | PROVIDER PROGRESS NOTE ---
Perfect Binder Setter Note Perfect Binder Setter Note Perfect Binder Setter Note: Notified by nurse of the following "Pt admitted for small bowel obstruction. Due to pt's coughing and pt not seeming distended NG tube was not placed earlier. Per MD notes, he states if pt continue to have emesis to place NG tube. Pt has had 400mls of dark green bile out in the past 30 minutes. Can I please have additional anti-nausea meds and order for NG tube please? Thank you!" chart reviewed. ordered compazine for additional nausea coverage. placement of NGT with low intermittent suction.
[2025-01-27] MEDS: SODIUM CHLORIDE 0.9% 1,000 ML IV SCH (01:16)
--- NOTE | 2025-01-27 01:24 | XRAY Report ---
PROCEDURE: XR Chest for Line Placement INDICATIONS: NG tube placement TECHNIQUE: One view of the chest was acquired. COMPARISON: 01/26/2025 FINDINGS: Surgical changes and devices: Nasogastric tube is present with a tortuous course to the level of the diaphragm. The tip is just below the GE junction, the sidehole is just above the GE junction. Cholec ystectomy clips are present. Lungs and pleura: Lower lung volumes and right hemidiaphragm elevation. Accentuation of right perihi lar mixed interstitial and alveolar opacity and alveolar opacity at the left lower lung base. Mediastinum: Stable cardiac mediastinal contour. Bones and chest wall: Bilateral glenohumeral joint degeneration. IMPRESSION: Nasogastric tube present with the tip below the diaphragm. Insertion of 10 cm further is recommended for optimal placement. Development of right perihilar and left infrahilar opacities. Alternatively, low lung volumes may acc entuate bronchovascular structures. Reviewed by: Leny Hightower MD on 01/27/2025 1:22 AM PDT Approved by: Leny Hightower MD on 01/27/2025 1:22 AM PDT Station ID: [id number]
[2025-01-27] MEDS: PROCHLORPERAZINE 10 MG/2 ML VIAL IVP PRN (03:29)
[2025-01-27 05:52] LABS: HCT - HEMATOCRIT 43.3 % (37.0-47.0); HGB - HEMOGLOBIN 14.1 g/dL (12.0-16.0); MEAN CORPUSCULAR HEMOGLOBIN 29.6 pg (27.0-31.0); MEAN CORPUSCULAR HGB CONC 32.6 g/dL (32.0-36.0); RED BLOOD COUNT 4.76 10^6/uL (4.20-5.40); WHITE BLOOD COUNT 10.4 x10^3/uL (4.8-10.8)
[2025-01-27 06:05] LABS: CALCIUM 8.6 mg/dL (8.5-10.3); CREATININE 0.8 mg/dL (0.6-1.3); MAGNESIUM 1.3 mg/dL (1.7-2.3); POTASSIUM 3.4 mmol/L (3.5-4.5)
--- NOTE | 2025-01-27 07:45 | PROVIDER PROGRESS NOTE ---
Progress Note Progress Note Progress Note: General Surgery Progress Note S: Kaykay underwent placement of an NGT yesterday for persistent nausea. It has pulled about 4oo ml of gastric succus. She continues to complain to the nurses of abdominal pain but is resting comfortably in the bed during my visit O: VS: BP 163/87; P 92; RR 18; T 36.7 Lungs clear; Heart NSR; Abdomen is soft, minimally distended, few BS are present, minimal tenderness in LLQ; no palpable mass WBC 10.4 (improved); Hgb 14.1; Plt 293K; Na 135; K 3.4; BUN 7; Cr 0.8; Glu 256 A: SBO vs ileus - symptoms persist but she remains stable and without evidence of bowel compromise. Her bronchitis has been controlled P: Continue NGT decompression of the stomach; SB challenge study today Yong Christina MD, FACS General Surgery Service
[2025-01-27] MEDS: MAGNESIUM SULFATE 2 GRAM 2 GM/50 ML BAG IV SCH (08:14)
--- NOTE | 2025-01-27 09:27 | XRAY Report ---
PROCEDURE: XR Chest for Line Placement INDICATIONS: NG tube placement with advancement TECHNIQUE: One view of the chest was acquired. COMPARISON: 01/26/2025 FINDINGS: Surgical changes and devices: Nasogastric tube in stomach. Surgical clips in right upper quadrant Lungs and pleura: Low lung volumes. Left basilar atelectasis and or infiltrate Mediastinum: Mediastinal contours appear normal. Heart size is normal. Bones and chest wall: No suspicious bony lesions. Overlying soft tissues appear unremarkable. IMPRESSION: Nasogastric tube in the stomach. Left basilar atelectasis and or infiltrate. Reviewed by: Avtar Jackson MD on 01/27/2025 8:26 AM LADON[facility] Approved by: Avtar Jackson MD on 01/27/2025 8:26 AM [facility] Station ID: [id number]
--- NOTE | 2025-01-27 10:00 | PROVIDER PROGRESS NOTE ---
Progress Note Progress Note Progress Note: General Surgery Progress Note Patient has an allergy to IV Iodine therefore should not receive oral Gastrografin. The SB Challenge study has been cancelled. The plan will be to continue conservative management over the next 24 hours. If there is no clinical improvement by tomorrow morning or if she worsens today, exploratory laparotomy will be offered. Yong Christina MD, [facility] General surgery Service
[2025-01-27] MEDS: ENOXAPARIN 40 MG/0.4 ML SYRINGE SUBQ SCH (10:45)
[2025-01-27] MEDS: cefTRIAXone 1 GM VIAL IVP SCH (10:51)
[2025-01-27] MEDS: INSULIN REGULAR, HUMAN 300 UNIT/3 ML PEN SUBQ SCH (12:03)
--- NOTE | 2025-01-27 12:09 | PROVIDER PROGRESS NOTE ---
Subjective Subjective Subjective: Bhavna was very anxious yesterday, and was started on as needed Ativan. This morning, she is very sleepy and lethargic. I have decreased this dose of Ativan. She still having some abdominal pain. She also had worsening nausea, and repeated episodes of emesis overnight. NG tube was placed, and remains on intermittent suction. I spoke with her daughter this morning, [id number] provided her with an update. Plan was initially to do a Gastrografin study on her, but she states that she has a iodine allergy. Current Medications Current Medications Current Medications: Current Medications Generic Name Dose Route Start Last Admin Trade Name Freq PRN Reason Stop Dose Admin Albuterol/Ipratropium 3 ml 01/26/25 16:39 01/26/25 16:59 Ipratropium/Albuterol 3 Ml Neb INH 3 ml Q4HR PRN Administration Wheezing Ceftriaxone Sodium 1 gm 01/27/25 10:00 01/27/25 10:51 Ceftriaxone 1 Gm Vial IVP 1 gm DAILY ARLEN Administration Diphenhydramine HCl 25 mg 01/26/25 19:59 01/26/25 20:50 Diphenhydramine Inj 50 Mg/Ml Vial IVP 25 mg Q6H PRN Administration itching Enoxaparin Sodium 40 mg 01/27/25 09:00 01/27/25 10:45 Enoxaparin 40 Mg/0.4 Ml Syringe SUBQ 40 mg DAILY ARLEN Administration Guaifenesin 10 ml 01/26/25 14:23 01/26/25 14:30 Guaifenesin/Dextromethorphan 10 Ml Udc PO 10 ml Q6HR PRN Administration Cough Sodium Chloride 1,000 mls @ 100 mls/hr 01/27/25 02:00 01/27/25 11:17 Normal Saline 0.9% IV 100 mls/hr .Q10H ARLEN Administration Insulin Human Regular 1 - 9 unit 01/27/25 12:00 01/27/25 12:03 Insulin Regular, Human 300 Unit/3 Ml Pen SUBQ Not Given Q6HR ARLEN Protocol Ketorolac Tromethamine 15 mg 01/26/25 14:23 01/27/25 10:51 Ketorolac 15 Mg/Ml Vial IVP 01/31/25 14:22 15 mg Q6HR PRN Administration Severe Pain (Level 7-10) Lorazepam 1 mg 01/26/25 20:25 01/27/25 10:51 Lorazepam 2 Mg/Ml Vial IVP 1 mg Q2H PRN Administration Anxiety Morphine Sulfate 2 mg 01/26/25 16:38 01/27/25 07:04 Morphine 2 Mg/Ml Carpuject IVP 2 mg Q4HR PRN Administration Severe Pain (Level 7-10) Ondansetron HCl 4 mg 01/26/25 14:23 01/26/25 20:03 Ondansetron 4 Mg/2 Ml Vial IVP 4 mg Q6HR PRN Administration Nausea / Vomiting Ondansetron HCl 4 mg 01/26/25 14:23 Ondansetron Odt 4 Mg Tablet TL Q6HR PRN Nausea / Vomiting Prochlorperazine Edisylate 5 mg 01/27/25 00:14 01/27/25 03:29 Prochlorperazine 10 Mg/2 Ml Vial IVP 5 mg Q6HR PRN Administration Nausea / Vomiting Sodium Chloride 10 ml 01/26/25 14:23 Sodium Chloride Flush 0.9% 10 Ml Syringe IVP PRN PRN NEEDED PER PROVIDER ORDERS Sodium Chloride 10 ml 01/26/25 17:00 01/27/25 10:46 Sodium Chloride Flush 0.9% 10 Ml Syringe IVP 10 ml 0100,0900,1700 ARLEN Administration Objective Vital Signs/Intake & Output Reviewed Vital Signs: Yes Vital Signs: Vital Signs x48h Temp Pulse Resp BP Pulse Ox 01/27/25 09:00 97.7 F 104 H 20 159/96 H 104 H 01/27/25 05:30 98.1 F 92 18 163/87 H 94 Intake & Output: Intake & Output 01/24/25 01/25/25 01/26/25 01/27/25 23:59 23:59 23:59 23:59 Intake Total 1400 / 1400 1110 / 1110 Output Total 260 / 260 350 / 350 Balance 1140 / 1140 760 / 760 Weight (kg) 114 kg Objective General Appearance: positive No acute distress, Alert and Anxious Eyes Bilateral: positive Normal inspection, PERRL and EOMI ENT: positive ENT inspection nml, Pharynx nml and No signs of dehydration Neck: positive Nml inspection, Thyroid nml and No JVD Respiratory: positive Chest non-tender, No respiratory distress and Breath sounds nml Cardiovascular: positive Regular rate & rhythm, No murmur, No gallop and Tachycardia Abdomen: positive Tenderness (epigastric region); negative Nml bowel sounds, No distention (Distension noted), Guarding or Splenomegaly Back: positive Nml inspection; negative CVA tenderness (R) or CVA tenderness (L) Skin: positive Color nml, No rash, Warm and Dry Extremities: positive Non-tender, Full ROM and No pedal edema Neurologic/Psychiatric: positive Oriented x3 and Other (anxious) Lab Results 01/27/25 05:20 01/27/25 05:20 Other Labs: Lab Results x24hrs 01/27/25 01/27/25 01/27/25 Range/Units 11:17 05:50 05:20 WBC 10.4 (4.8-10.8) x10^3/uL RBC 4.76 (4.20-5.40) 10^6/uL Hgb 14.1 (12.0-16.0) g/dL Hct 43.3 (37.0-47.0) % MCV 91.0 (81.0-99.0) fL MCH 29.6 (27.0-31.0) pg MCHC 32.6 (32.0-36.0) g/dL RDW 14.0 (12.0-15.0) % Plt Count 293 (130-450) 10^3/uL MPV 11.0 H (7.9-10.8) fL Sodium 135 (135-145) mmol/L Potassium 3.4 L (3.5-4.5) mmol/L Chloride 102 (101-111) mmol/L Carbon Dioxide 24 (21-32) mmol/L Anion Gap 9.0 (6-13) BUN 7 (6-20) mg/dL Creatinine 0.8 (0.6-1.3) mg/dL Estimated GFR (MDRD) 70 L (>89) Glucose 256 H (74-104) mg/dL POC Whole Bld Glucose 184 223 (70-100) mg/dL Calcium 8.6 (8.5-10.3) mg/dL Magnesium 1.3 L (1.7-2.3) mg/dL Urine Color Urine Clarity (CLEAR) Urine pH (5.0-7.5) PH Ur Specific [place] (1.002-1.030) Urine Protein (NEGATIVE) mg/dL Urine Glucose (UA) (NEGATIVE) mg/dL Urine Ketones (NEGATIVE) mg/dL Urine Occult Blood (NEGATIVE) Urine Nitrite (NEGATIVE) Urine Bilirubin (NEGATIVE) Urine Urobilinogen (NORMAL) E.U./dL Ur Leukocyte Esterase (NEGATIVE) Urine RBC (0-5) /HPF Urine WBC (0-5) /HPF Urine WBC Clumps Ur Epithelial Cells Ur Squamous Epith Cells (<= Few) Urine Crystals Amorphous Sediment Urine Bacteria (None Seen) /HPF Urine Casts Urine Starch Urine Mucus Urine Trichomonas Urine Yeast Urine Sperm Ur Oval Fat Bodies Ur Microscopic Review Urine Culture Comments Nasal Adenovirus (PCR) Nasal B. parapertussis DNA (PCR) Nasal Coronavir 229E PCR Nasal Coronavir HKU1 PCR Nasal Coronavir NL63 PCR Nasal Coronavir OC43 PCR Nasal Enterovir/Rhinovir PCR Nasal Influenza B PCR Nasal Influenza A PCR Nasal Parainfluen 1 PCR Nasal Parainfluen 2 PCR Nasal Parainfluen 3 PCR Nasal Parainfluen 4 PCR Nasal RSV (PCR) Nasal B.pertussis DNA PCR Nasal C.pneumoniae (PCR) Tu Human Metapneumo PCR Nasal M.pneumoniae (PCR) Nasal SARS-CoV-2 (PCR) 01/26/25 01/26/25 01/26/25 Range/Units 23:57 23:08 21:00 WBC (4.8-10.8) x10^3/uL RBC (4.20-5.40) 10^6/uL Hgb (12.0-16.0) g/dL Hct (37.0-47.0) % MCV (81.0-99.0) fL MCH (27.0-31.0) pg MCHC (32.0-36.0) g/dL RDW (12.0-15.0) % Plt Count (130-450) 10^3/uL MPV (7.9-10.8) fL Sodium (135-145) mmol/L Potassium (3.5-4.5) mmol/L Chloride (101-111) mmol/L Carbon Dioxide (21-32) mmol/L Anion Gap (6-13) BUN (6-20) mg/dL Creatinine (0.6-1.3) mg/dL Estimated GFR (MDRD) (>89) Glucose (74-104) mg/dL POC Whole Bld Glucose 241 (70-100) mg/dL Calcium (8.5-10.3) mg/dL Magnesium (1.7-2.3) mg/dL Urine Color YELLOW Urine Clarity HAZY (CLEAR) Urine pH 6.0 (5.0-7.5) PH Ur Specific [place] 1.025 (1.002-1.030) Urine Protein NEGATIVE (NEGATIVE) mg/dL Urine Glucose (UA) NEGATIVE (NEGATIVE) mg/dL Urine Ketones 15 H (NEGATIVE) mg/dL Urine Occult Blood NEGATIVE (NEGATIVE) Urine Nitrite POSITIVE H (NEGATIVE) Urine Bilirubin NEGATIVE (NEGATIVE) Urine Urobilinogen 0.2 (NORMAL) (NORMAL) E.U./dL Ur Leukocyte Esterase NEGATIVE (NEGATIVE) Urine RBC None Seen (0-5) /HPF Urine WBC 6-10 H (0-5) /HPF Urine WBC Clumps PRESENT Ur Epithelial Cells Cancelled Ur Squamous Epith Cells FEW Squamous (<= Few) Urine Crystals Cancelled Amorphous Sediment Cancelled Urine Bacteria Many H (None Seen) /HPF Urine Casts Cancelled Urine Starch Cancelled Urine Mucus Cancelled Urine Trichomonas Cancelled Urine Yeast Cancelled Urine Sperm Cancelled Ur Oval Fat Bodies Cancelled Ur Microscopic Review INDICATED Urine Culture Comments INDICATED Nasal Adenovirus (PCR) NOT DETECTED Nasal B. parapertussis DNA (PCR) NOT DETECTED Nasal Coronavir 229E PCR NOT DETECTED Nasal Coronavir HKU1 PCR NOT DETECTED Nasal Coronavir NL63 PCR NOT DETECTED Nasal Coronavir OC43 PCR NOT DETECTED Nasal Enterovir/Rhinovir PCR NOT DETECTED Nasal Influenza B PCR NOT DETECTED Nasal Influenza A PCR NOT DETECTED Nasal Parainfluen 1 PCR NOT DETECTED Nasal Parainfluen 2 PCR NOT DETECTED Nasal Parainfluen 3 PCR NOT DETECTED Nasal Parainfluen 4 PCR NOT DETECTED Nasal RSV (PCR) NOT DETECTED Nasal B.pertussis DNA PCR NOT DETECTED Nasal C.pneumoniae (PCR) NOT DETECTED Tu Human Metapneumo PCR NOT DETECTED Nasal M.pneumoniae (PCR) NOT DETECTED Nasal SARS-CoV-2 (PCR) NOT DETECTED 01/26/25 Range/Units 18:17 WBC (4.8-10.8) x10^3/uL RBC (4.20-5.40) 10^6/uL Hgb (12.0-16.0) g/dL Hct (37.0-47.0) % MCV (81.0-99.0) fL MCH (27.0-31.0) pg MCHC (32.0-36.0) g/dL RDW (12.0-15.0) % Plt Count (130-450) 10^3/uL MPV (7.9-10.8) fL Sodium (135-145) mmol/L Potassium (3.5-4.5) mmol/L Chloride (101-111) mmol/L Carbon Dioxide (21-32) mmol/L Anion Gap (6-13) BUN (6-20) mg/dL Creatinine (0.6-1.3) mg/dL Estimated GFR (MDRD) (>89) Glucose (74-104) mg/dL POC Whole Bld Glucose 188 (70-100) mg/dL Calcium (8.5-10.3) mg/dL Magnesium (1.7-2.3) mg/dL Urine Color Urine Clarity (CLEAR) Urine pH (5.0-7.5) PH Ur Specific [place] (1.002-1.030) Urine Protein (NEGATIVE) mg/dL Urine Glucose (UA) (NEGATIVE) mg/dL Urine Ketones (NEGATIVE) mg/dL Urine Occult Blood (NEGATIVE) Urine Nitrite (NEGATIVE) Urine Bilirubin (NEGATIVE) Urine Urobilinogen (NORMAL) E.U./dL Ur Leukocyte Esterase (NEGATIVE) Urine RBC (0-5) /HPF Urine WBC (0-5) /HPF Urine WBC Clumps Ur Epithelial Cells Ur Squamous Epith Cells (<= Few) Urine Crystals Amorphous Sediment Urine Bacteria (None Seen) /HPF Urine Casts Urine Starch Urine Mucus Urine Trichomonas Urine Yeast Urine Sperm Ur Oval Fat Bodies Ur Microscopic Review Urine Culture Comments Nasal Adenovirus (PCR) Nasal B. parapertussis DNA (PCR) Nasal Coronavir 229E PCR Nasal Coronavir HKU1 PCR Nasal Coronavir NL63 PCR Nasal Coronavir OC43 PCR Nasal Enterovir/Rhinovir PCR Nasal Influenza B PCR Nasal Influenza A PCR Nasal Parainfluen 1 PCR Nasal Parainfluen 2 PCR Nasal Parainfluen 3 PCR Nasal Parainfluen 4 PCR Nasal RSV (PCR) Nasal B.pertussis DNA PCR Nasal C.pneumoniae (PCR) Tu Human Metapneumo PCR Nasal M.pneumoniae (PCR) Nasal SARS-CoV-2 (PCR) Diagnostic Imaging Diagnostic Imaging Results: positive Final report reviewed Assessment/Plan Problem List (1) Partial small bowel obstruction: Impression: CT abdomen/pelvis shows partial small bowel obstruction. Continue aggressive IV fluid resuscitation. N.p.o. status to allow bowel rest, antiemetics as needed. Overnight, patient worsening nausea, as well as repeated episodes of emesis. NG tube was placed, and is now currently to low intermittent suction. Plan was for Gastrografin study, but patient has an iodine allergy. Continue serial abdominal exams, patient may require surgery. General surgery is following. (2) Acute exacerbation of chronic bronchitis: Impression: Patient is on room air, but is having frequent episodes of coughing. Continue scheduled Robitussin DM [id number]. Continue DuoNebs as needed. Chest x-ray ordered for further evaluation, pending. (3) Leukocytosis: Impression: Resolved. Likely reactive to above. Qualifiers: Leukocytosis type: unspecified Qualified Code(s): D72.829 - Elevated white blood cell count, unspecified (4) Hypokalemia: Impression: Ordered IV potassium chloride 40 mill equivalents today. Continue to trend. Attributed to decreased p.o. intake, repeated episodes of emesis. (5) Diabetes mellitus type 2, controlled, without complications: Impression: Continue low-dose sliding scale. 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 Patient is n.p.o., we will restart her home medications when able. May require IV labetalol as needed at this time. Will continue losartan, metoprolol, amlodipine when patient is no longer n.p.o. (7) DVT (deep venous thrombosis): Impression: Records reviewed from [facility]. Patient is no longer taking Eliquis for DVT as she was a high fall risk, as well as a bleeding risk. Qualifiers: Affected thrombotic vein of extremity: unspecified vein of extremity C hronicity: unspecified DVT location: lower extremity Laterality: unspecified laterality Qualified Code(s): I82.409 - Acute embolism and thrombosis of unspecified deep veins of unspecified lower extremity (8) PTSD (post-traumatic stress disorder): Impression: Will continue bupropion, fluoxetine when patient is longer NPO. (9) Bipolar 1 disorder: Impression: Will continue bupropion, fluoxetine when patient is longer NPO.
[2025-01-27] MEDS ORDERED: LORazepam 2 MG/ML VIAL IVP PRN (12:10)
[2025-01-27] MEDS: MAGNESIUM SULFATE 1 GM/2 ML VIAL IVP STA (12:20)
--- NOTE | 2025-01-27 15:55 | PHARMACY PROGRESS NOTE ---
Best Possible Medication History Admit Date and Time: 01/27/25 1418 Home Medications Medication Instructions Recorded Confirmed Type calcium carbonate 1,200 mg PO DAILY 02/24/21 01/26/25 History cholecalciferol (vitamin D3) 25 25 mcg PO DAILY 02/24/21 01/26/25 History mcg (1,000 unit) tablet oxybutynin chloride 5 mg tablet 10 mg PO DAILY 09/03/22 01/26/25 History acetaminophen 650 mg rectal 650 mg PO TID PRN Pain 1-4 09/22/23 01/26/25 History suppository meloxicam 7.5 mg tablet 7.5 mg PO BID 09/22/23 01/26/25 History albuterol sulfate 90 mcg/actuation 1 - 2 puff inhalation Q4HR PRN 02/04/24 01/26/25 History aerosol inhaler (Ventolin HFA) Shortness Of Air/Wheezing fluticasone propionate 50 1 sprays intranasal BID 02/04/24 01/26/25 History mcg/actuation nasal spray,suspension olopatadine 0.2 % eye drops (Eye 1 drp EACHEYE BID 02/04/24 01/26/25 History Allergy Itch Relief) polyethylene glycol 3350 17 17 g PO DAILY #238 grams 02/14/24 01/26/25 Rx gram/dose oral powder potassium chloride 10 mEq 10 meq PO BID 08/21/24 01/26/25 History capsule,extended release metoprolol succinate 50 mg See Rx Instructions .Route 09/07/24 01/26/25 Rx tablet,extended release 24 hr .COMPLEX #135 tabs prazosin 5 mg capsule See Rx Instructions .Route 10/05/24 01/26/25 Rx .COMPLEX #90 caps cetirizine 10 mg tablet 10 mg PO HS #30 tabs 10/27/24 01/26/25 Rx mupirocin 2 % topical ointment 1 applic topical BID #22 grams 10/27/24 01/26/25 Rx (Centany) montelukast 10 mg tablet See Rx Instructions .Route 11/03/24 01/26/25 Rx .COMPLEX #90 tabs atorvastatin 20 mg tablet See Rx Instructions .Route 11/06/24 01/26/25 Rx .COMPLEX #90 tabs metformin 500 mg tablet See Rx Instructions .Route 11/06/24 01/26/25 Rx .COMPLEX #180 tabs amlodipine 2.5 mg tablet See Rx Instructions .Route 11/07/24 01/26/25 Rx .COMPLEX #180 tabs bupropion HCl 300 mg 24 hr tablet, See Rx Instructions .Route 11/07/24 01/26/25 Rx extended release .COMPLEX #90 tabs fluoxetine 20 mg capsule See Rx Instructions .Route 11/07/24 01/26/25 Rx .COMPLEX #90 caps gabapentin 100 mg capsule See Rx Instructions .Route 11/27/24 01/26/25 Rx .COMPLEX #240 caps losartan 50 mg tablet See Rx Instructions .Route 11/29/24 01/26/25 Rx .COMPLEX #180 tabs Processed by: Pharmacy Medications reviewed in ED?: Yes Medication History completed: Yes Patient Interview: Pt unable to participate Secondary Source(s): Caregiver and Insurance records [facility] Statement: Pt unable to participate in interview with pharmacist. Attempted to also call daughter for current med list and unsuccessful. [employer] records reviewed and RN notes for [facility]. As the person ultimately responsible for medication therapy, providers are able to order a medication from an existing home medication list in [facility] via the "Reconcile Routine" prior to Confirmation of that medication by business support manager. S uch practice is discouraged except when the physician, in their clinical judgment, deems that a medical need exists for a medication without regard to previous use.
[2025-01-27] MEDS: LABETALOL 20 MG/4 ML SYRINGE IVP ONE (17:47)
[2025-01-28] MEDS: LORazepam 2 MG/ML VIAL IVP PRN (00:13)
[2025-01-28 05:30] LABS: HCT - HEMATOCRIT 40.5 % (37.0-47.0); HGB - HEMOGLOBIN 12.6 g/dL (12.0-16.0); MEAN CORPUSCULAR HEMOGLOBIN 29.1 pg (27.0-31.0); MEAN CORPUSCULAR HGB CONC 31.1 g/dL (32.0-36.0); MEAN CORPUSCULAR VOLUME 93.5 fL (81.0-99.0); MEAN PLATELET VOLUME 10.6 fL (7.9-10.8); RED BLOOD COUNT 4.33 10^6/uL (4.20-5.40); RED CELL DISTRIBUTION WIDTH 14.5 % (12.0-15.0); WHITE BLOOD COUNT 5.6 x10^3/uL (4.8-10.8)
[2025-01-28 05:44] LABS: CALCIUM 8.2 mg/dL (8.5-10.3); CREATININE 0.9 mg/dL (0.6-1.3); MAGNESIUM 2.2 mg/dL (1.7-2.3); POTASSIUM 3.3 mmol/L (3.5-4.5)
--- NOTE | 2025-01-28 07:16 | PROVIDER PROGRESS NOTE ---
Progress Note Progress Note Progress Note: General Surgery Progress Note S: Kaykay remains comfortable but without flatus or bowel motion. Her NGT is in place, functional, and pulling scant material. She claims to still have abdominal pain but when distracted is without clinical evidence of discomfort O: VS: BP 150/84; P 98; RR 20; T 36.7 I/O 2773/[address] and secure Lungs clear, no wheezing or coughing Heart NSR Abdomen - soft, non-distended, few BS, no palpable mass or tenderness Labs: WBC 5.6; H&H 12.6/40.5; Plt 260K; Na 139; K 3.3; BUN 13; Cr 0.9; Glu 157; Mg 2.2 A: Partial SBO vs Ileus - I am unconvinced that the patient requires operative intervention at this time especially now given her normal exam, scant NGT output, and normal labs. A SB Challenge study would be helpful but her iodine allergy excludes that imaging strategy as a diagnostic option. P: KUB today. If there is colonic gas, an NGT clamping trial will be initiated. Yong Christina MD, FACS General Surgery Service
--- NOTE | 2025-01-28 08:35 | XRAY Report ---
PROCEDURE: XR Abdomen 1 V INDICATIONS: FU SBO vs Ileus TECHNIQUE: One view of the abdomen acquired. COMPARISON: CT 01/26/2025. FINDINGS: Surgical changes and devices: Enteric tube with tip and side port projecting over the expected locati on of the stomach.. Bowel: Dilated gas-filled loops of small bowel are present measuring 5 cm consistent with small bowel obstruction versus ileus.. Soft tissues: No suspicious abdominal calcifications. Visualized solid organ contours appear normal in size. Bones: No suspicious bony lesions. IMPRESSION: Dilated gas-filled loops of small bowel are present measuring up to 5 cm, consistent with small bowel obstruction versus ileus. Reviewed by: Osbaldo Spears MD on 01/28/2025 8:34 AM PDT Approved by: Osbaldo Spears MD on 01/28/2025 8:34 AM PDT Station ID: [id number]
--- NOTE | 2025-01-28 09:08 | PROVIDER PROGRESS NOTE ---
Progress Note Progress Note Progress Note: General Surgery Progress Note KUB shows persistent small bowel dilation AND air in the right and sigmoid colon. Plan: Clamp NGT, Offer clear liquids, Dulcolax suppository. The NGT will be removed if she starts to pass flatus or have a bowel motion. Yong Christina MD, [facility] General Surgery Service
--- NOTE | 2025-01-28 10:19 | PROVIDER PROGRESS NOTE ---
Subjective Subjective Subjective: Patient continues to be very sleepy and lethargic. Her abdominal pain shows distention, and some tenderness to the epigastric region. She does state that she feels little bit better than yesterday. NG tube is in place to low intermittent suction. I spoke with her about her iodine allergy, and talked about the possibility of pretreating her with Benadryl and Solu-Medrol prior to Gastrografin study, but she would not like to proceed with that at this time. As an alternative, I did speak with Dr. Vasquez, and at this time, he recommends clamping the NG tube, allowing her some sips and chips, and seeing how she does. I spoke with her daughter, [id number] provided her with an update. Current Medications Current Medications Current Medications: Current Medications Generic Name Dose Route Start Last Admin Trade Name Freq PRN Reason Stop Dose Admin Albuterol/Ipratropium 3 ml 01/26/25 16:39 01/26/25 16:59 Ipratropium/Albuterol 3 Ml Neb INH 3 ml Q4HR PRN Administration Wheezing Bisacodyl 10 mg 01/28/25 11:00 Bisacodyl 10 Mg Supp DE 01/28/25 11:01 ONCE ONE Ceftriaxone Sodium 1 gm 01/27/25 10:00 01/28/25 08:15 Ceftriaxone 1 Gm Vial IVP 1 gm DAILY ARLEN Administration Diphenhydramine HCl 25 mg 01/26/25 19:59 01/26/25 20:50 Diphenhydramine Inj 50 Mg/Ml Vial IVP 25 mg Q6H PRN Administration itching Enoxaparin Sodium 40 mg 01/27/25 09:00 01/28/25 08:15 Enoxaparin 40 Mg/0.4 Ml Syringe SUBQ 40 mg DAILY ARLEN Administration Guaifenesin 10 ml 01/26/25 14:23 01/27/25 14:46 Guaifenesin/Dextromethorphan 10 Ml Udc PO 10 ml Q6HR PRN Administration Cough Sodium Chloride 1,000 mls @ 100 mls/hr 01/27/25 02:00 01/28/25 04:27 Normal Saline 0.9% IV 100 mls/hr .Q10H ARLEN Administration Insulin Human Regular 1 - 9 unit 01/27/25 12:00 01/28/25 05:56 Insulin Regular, Human 300 Unit/3 Ml Pen SUBQ 1 unit Q6HR ARLEN Administration Protocol Ketorolac Tromethamine 15 mg 01/26/25 14:23 01/28/25 00:13 Ketorolac 15 Mg/Ml Vial IVP 01/31/25 14:22 15 mg Q6HR PRN Administration Severe Pain (Level 7-10) Morphine Sulfate 2 mg 01/26/25 16:38 01/28/25 05:57 Morphine 2 Mg/Ml Carpuject IVP 2 mg Q4HR PRN Administration Severe Pain (Level 7-10) Ondansetron HCl 4 mg 01/26/25 14:23 01/26/25 20:03 Ondansetron 4 Mg/2 Ml Vial IVP 4 mg Q6HR PRN Administration Nausea / Vomiting Ondansetron HCl 4 mg 01/26/25 14:23 Ondansetron Odt 4 Mg Tablet TL Q6HR PRN Nausea / Vomiting Prochlorperazine Edisylate 5 mg 01/27/25 00:14 01/27/25 03:29 Prochlorperazine 10 Mg/2 Ml Vial IVP 5 mg Q6HR PRN Administration Nausea / Vomiting Sodium Chloride 10 ml 01/26/25 14:23 Sodium Chloride Flush 0.9% 10 Ml Syringe IVP PRN PRN NEEDED PER PROVIDER ORDERS Sodium Chloride 10 ml 01/26/25 17:00 01/28/25 00:14 Sodium Chloride Flush 0.9% 10 Ml Syringe IVP 10 ml 0100,0900,1700 ARLEN Administration Objective Vital Signs/Intake & Output Reviewed Vital Signs: Yes Vital Signs: Vital Signs x48h Temp Pulse Resp BP Pulse Ox 01/28/25 08:00 98.2 F 100 20 160/83 H 97 01/28/25 04:30 98.1 F 98 20 150/84 H 94 Intake & Output: Intake & Output 01/25/25 01/26/25 01/27/25 01/28/25 23:59 23:59 23:59 23:59 Intake Total 1400 / 1400 1833 / 1833 1000 / 1000 Output Total 260 / 260 1950 / 1950 50 / 50 Balance 1140 / 1140 -117 / -117 950 / 950 Weight (kg) 114 kg Objective General Appearance: positive No acute distress, Alert and Anxious Eyes Bilateral: positive Normal inspection, PERRL and EOMI ENT: positive ENT inspection nml, Pharynx nml and No signs of dehydration Neck: positive Nml inspection, Thyroid nml and No JVD Respiratory: positive Chest non-tender, No respiratory distress and Breath sounds nml Cardiovascular: positive Regular rate & rhythm, No murmur, No gallop and Tachycardia Abdomen: positive Tenderness (epigastric region); negative Nml bowel sounds, No distention (Distension noted), Guarding or Splenomegaly Back: positive Nml inspection; negative CVA tenderness (R) or CVA tenderness (L) Skin: positive Color nml, No rash, Warm and Dry Extremities: positive Non-tender, Full ROM and No pedal edema Neurologic/Psychiatric: positive Oriented x3 and Other (anxious) Lab Results 01/28/25 05:07 01/28/25 05:07 Other Labs: Lab Results x24hrs 01/28/25 01/28/25 01/27/25 Range/Units 05:42 05:07 23:38 WBC 5.6 (4.8-10.8) x10^3/uL RBC 4.33 (4.20-5.40) 10^6/uL Hgb 12.6 (12.0-16.0) g/dL Hct 40.5 (37.0-47.0) % MCV 93.5 (81.0-99.0) fL MCH 29.1 (27.0-31.0) pg MCHC 31.1 L (32.0-36.0) g/dL RDW 14.5 (12.0-15.0) % Plt Count 260 (130-450) 10^3/uL MPV 10.6 (7.9-10.8) fL Sodium 139 (135-145) mmol/L Potassium 3.3 L (3.5-4.5) mmol/L Chloride 106 (101-111) mmol/L Carbon Dioxide 26 (21-32) mmol/L Anion Gap 7.0 (6-13) BUN 13 (6-20) mg/dL Creatinine 0.9 (0.6-1.3) mg/dL Estimated GFR (MDRD) 61 L (>89) Glucose 157 H (74-104) mg/dL POC Whole Bld Glucose 148 151 (70-100) mg/dL Calcium 8.2 L (8.5-10.3) mg/dL Magnesium 2.2 (1.7-2.3) mg/dL 01/27/25 01/27/25 Range/Units 17:58 11:17 WBC (4.8-10.8) x10^3/uL RBC (4.20-5.40) 10^6/uL Hgb (12.0-16.0) g/dL Hct (37.0-47.0) % MCV (81.0-99.0) fL MCH (27.0-31.0) pg MCHC (32.0-36.0) g/dL RDW (12.0-15.0) % Plt Count (130-450) 10^3/uL MPV (7.9-10.8) fL Sodium (135-145) mmol/L Potassium (3.5-4.5) mmol/L Chloride (101-111) mmol/L Carbon Dioxide (21-32) mmol/L Anion Gap (6-13) BUN (6-20) mg/dL Creatinine (0.6-1.3) mg/dL Estimated GFR (MDRD) (>89) Glucose (74-104) mg/dL POC Whole Bld Glucose 189 184 (70-100) mg/dL Calcium (8.5-10.3) mg/dL Magnesium (1.7-2.3) mg/dL Diagnostic Imaging Diagnostic Imaging Results: positive Final report reviewed Assessment/Plan Problem List (1) Partial small bowel obstruction: Impression: CT abdomen/pelvis shows partial small bowel obstruction. Continue aggressive IV fluid resuscitation. Patient had an NG tube placed which is putting out some minimal output. X-ray of the abdomen was repeated this morning which still shows dilated small bowel loops, ileus versus small bowel obstruction. General surgery spoken with; reccomend clamping NG tube at this time, and allowing sips and chips, and see how patient does. Plan was for Gastrografin study, but patient has an iodine allergy, and would not like to proceed with this at this time. Continue serial abdominal exams, patient may require surgery. General surgery is following. (2) Acute exacerbation of chronic bronchitis: Impression: Patient is on room air, but is having frequent episodes of coughing. Continue Robitussin DM [id number]. Continue DuoNebs as needed. (3) Leukocytosis: Impression: Resolved. Likely reactive to above. Qualifiers: Leukocytosis type: unspecified Qualified Code(s): D72.829 - Elevated white blood cell count, unspecified (4) Hypokalemia: Impression: Ordered IV potassium chloride 20 mill equivalents today. Continue to trend. Attributed to decreased p.o. intake, repeated episodes of emesis. (5) Diabetes mellitus type 2, controlled, without complications: Impression: Continue low-dose sliding scale. Qualifiers: Diabetes mellitus supervisor intermediates insulin use: unspecified supervisor intermediates insulin use status Qualified Code(s): E11.9 - Type 2 diabetes mellitus without complications (6) Hypertension, essential, benign: Impression: Continue to monitor for now. Patient is n.p.o., we will restart her home medications when able. May require IV labetalol as needed at this time. Will continue losartan, metoprolol, amlodipine when patient is no longer n.p.o. (7) DVT (deep venous thrombosis): Impression: Records reviewed from [facility]. Patient is no longer taking Eliquis for DVT as she was a high fall risk, as well as a bleeding risk. Qualifiers: Affected thrombotic vein of extremity: unspecified vein of extremity C hronicity: unspecified DVT location: lower extremity Laterality: unspecified laterality Qualified Code(s): I82.409 - Acute embolism and thrombosis of unspecified deep veins of unspecified lower extremity (8) PTSD (post-traumatic stress disorder): Impression: Will continue bupropion, fluoxetine when patient is longer NPO. (9) Bipolar 1 disorder: Impression: Will continue bupropion, fluoxetine when patient is longer NPO.
[2025-01-28] MEDS: BISACODYL 10 MG SUPP PR ONE (11:36)
[2025-01-28] MEDS: POTASSIUM CHLOR 10 MEQ/100 ML 10 MEQ/100 ML BAG IV SCH (13:59)
[2025-01-28] MEDS: SODIUM CHLORIDE 0.9% 1,000 ML IV SCH (14:27)
--- NOTE | 2025-01-28 17:37 | PROVIDER PROGRESS NOTE ---
Progress Note Progress Note Progress Note: General Surgery Progress Note S: Kaykay has had an uneventful afternoon. She has tolerated her NGT clamped along with sips and chips. She complains of no nausea or increase in her abdominal pain. She has not yet had a bowel motion. I met her daughter this afternoon and explained the situation to her regarding the difference between an ileus and a mechanical obstruction. Of interest is that she tells me that her Mom doesn't have an allergy to iodine - her psychiatric illness had led her to state drug allergies that she doesn't have. This was mentioned to the hospitalist earlier today and the plan was for a SB challenge study to be performed this afternoon (possibly with benadryl and steroids) but technical issues in radiology has postponed the exam until tomorrow. O: At the time of my examination her abdomen was soft, minimally distended, with few bowel sounds. There is a tympanic percussion note in the upper abdomen but no palpable mass and no peritoneal signs. Deep palpation elicits some tenderness but the abdominal exam is not impressive especially since she has had her NGT clamped most of the day. A: Partial SBO vs ileus - persistent. No clinical evidence of bowel ischemia P: If she remains clinically unchanged, a SB challenge study will be performed tomorrow. If it can not be performed or the study shows a high grade or complete small bowel obstruction, diagnostic laparoscopy or exploratory laparotomy should be considered. My assignment at this facility ends tomorrow morning at 0700 and I will sign-out this patient to Dr. Saez for continued surgical co-management. The patient's daughter is aware of all of this. Yong Christina MD, FACS General Surgery Service
[2025-01-29 04:36] LABS: HCT - HEMATOCRIT 39.4 % (37.0-47.0); HGB - HEMOGLOBIN 12.5 g/dL (12.0-16.0); MEAN CORPUSCULAR HEMOGLOBIN 29.6 pg (27.0-31.0); MEAN CORPUSCULAR HGB CONC 31.7 g/dL (32.0-36.0); MEAN CORPUSCULAR VOLUME 93.1 fL (81.0-99.0); MEAN PLATELET VOLUME 10.7 fL (7.9-10.8); RED BLOOD COUNT 4.23 10^6/uL (4.20-5.40); RED CELL DISTRIBUTION WIDTH 14.2 % (12.0-15.0); WHITE BLOOD COUNT 5.4 x10^3/uL (4.8-10.8)
[2025-01-29 04:51] LABS: CALCIUM 8.2 mg/dL (8.5-10.3); CREATININE 0.7 mg/dL (0.6-1.3); POTASSIUM 3.7 mmol/L (3.5-4.5)
--- NOTE | 2025-01-29 07:07 | PROVIDER PROGRESS NOTE ---
Subjective General Admit Date: 01/27/25 Procedure Date: 03/13/24 Post Op Days: 322 Other Other Information/Narrative: Patient denies pain this morning. She denies nausea. She does feel like she has "a rock" near her umbilicus. No vomiting. Patient reports +flatus and +BM, but no BM per RN since admission. Exam Exam Vital Signs: Vital Signs x48h Temp Pulse Resp BP Pulse Ox O2 Flow Rate 01/29/25 00:44 98.2 F 117 H 20 162/85 H 95 2 Gen: NAD, alert CV: RRR, not tachycardic on my exam Pulm: non labored, on RA HEENT: NG in place, clamped since yesterday AM. No emesis. Abd: soft, non tender, no r/g, ?mild distension Impression/Plan Problem List (1) Partial small bowel obstruction: Plan: pSBO vs ileus - I agree with plan to proceed with SBFT with gastrograffin via NG tube today. - I am hopeful she will improve with conservative management. However, if SBFT shows obstruction, she may require surgery. Further recommendations pending re sults of SBFT. - I discussed this plan with the patient this morning (2) Acute exacerbation of chronic bronchitis: Plan: as per primary team (3) Leukocytosis: Plan: resolved Qualifiers: Leukocytosis type: unspecified Qualified Code(s): D72.829 - Elevated white blood cell count, unspecified (4) Hypokalemia: Plan: resolved, replete prn (5) Diabetes mellitus type 2, controlled, without complications: Plan: as per primary team Qualifiers: Diabetes mellitus shelter insulin use: unspecified bed bug exterminator insulin use status Qualified Code(s): E11.9 - Type 2 diabetes mellitus without complications (6) Hypertension, essential, benign: Plan: as per primary team (7) DVT (deep venous thrombosis): Plan: as per primary team Qualifiers: DVT location: lower extremity Affected thrombotic vein of extremity: unspecified vein of extremity Chronicity: unspecified Laterality: unspecified laterality Qualified Code(s): I82.409 - Acute embolism and thrombosis of unspecified deep veins of unspecified lower extremity (8) PTSD (post-traumatic stress disorder): Plan: as per primary team (9) Bipolar 1 disorder: Plan: as per primary team
[2025-01-29] MEDS ORDERED: DIATR MEGLU/DIATRIZOATE SODIUM 120 ML BOTTLE ONE (07:41)
[2025-01-29] MEDS: diphenhydrAMINE INJ 50 MG/ML VIAL IVP ONE (07:54)
--- NOTE | 2025-01-29 10:02 | PROVIDER PROGRESS NOTE ---
Subjective Subjective Subjective: Patient continues to be very sleepy and lethargic but is improving. Her abdominal pain shows distention, and some tenderness to the epigastric region. I spoke with her daughter, [phone] at bedside yesterday. She told me that she does not believe she has a contrast allergy. We then spoke about the small bowel follow-through study, and she said to go ahead with that, and the patient is now agreeable. We have started this process this morning. Current Medications Current Medications Current Medications: Current Medications Generic Name Dose Route Start Last Admin Trade Name Freq PRN Reason Stop Dose Admin Albuterol/Ipratropium 3 ml 01/26/25 16:39 01/26/25 16:59 Ipratropium/Albuterol 3 Ml Neb INH 3 ml Q4HR PRN Administration Wheezing Ceftriaxone Sodium 1 gm 01/27/25 10:00 01/29/25 08:50 Ceftriaxone 1 Gm Vial IVP 1 gm DAILY ARLEN Administration Diphenhydramine HCl 25 mg 01/26/25 19:59 01/26/25 20:50 Diphenhydramine Inj 50 Mg/Ml Vial IVP 25 mg Q6H PRN Administration itching Enoxaparin Sodium 40 mg 01/27/25 09:00 01/29/25 08:50 Enoxaparin 40 Mg/0.4 Ml Syringe SUBQ 40 mg DAILY ARLEN Administration Guaifenesin 10 ml 01/26/25 14:23 01/28/25 21:09 Guaifenesin/Dextromethorphan 10 Ml Udc PO 10 ml Q6HR PRN Administration Cough Sodium Chloride 1,000 mls @ 100 mls/hr 01/28/25 14:30 01/29/25 00:37 Normal Saline 0.9% IV 100 mls/hr .Q10H ARLEN Administration Insulin Human Regular 1 - 9 unit 01/27/25 12:00 01/29/25 06:10 Insulin Regular, Human 300 Unit/3 Ml Pen SUBQ 1 unit Q6HR ARLEN Administration Protocol Ketorolac Tromethamine 15 mg 01/26/25 14:23 01/28/25 19:07 Ketorolac 15 Mg/Ml Vial IVP 01/31/25 14:22 15 mg Q6HR PRN Administration Severe Pain (Level 7-10) Morphine Sulfate 2 mg 01/26/25 16:38 01/29/25 05:16 Morphine 2 Mg/Ml Carpuject IVP 2 mg Q4HR PRN Administration Severe Pain (Level 7-10) Ondansetron HCl 4 mg 01/26/25 14:23 01/26/25 20:03 Ondansetron 4 Mg/2 Ml Vial IVP 4 mg Q6HR PRN Administration Nausea / Vomiting Ondansetron HCl 4 mg 01/26/25 14:23 Ondansetron Odt 4 Mg Tablet TL Q6HR PRN Nausea / Vomiting Prochlorperazine Edisylate 5 mg 01/27/25 00:14 01/29/25 00:38 Prochlorperazine 10 Mg/2 Ml Vial IVP 5 mg Q6HR PRN Administration Nausea / Vomiting Sodium Chloride 10 ml 01/26/25 14:23 Sodium Chloride Flush 0.9% 10 Ml Syringe IVP PRN PRN NEEDED PER PROVIDER ORDERS Sodium Chloride 10 ml 01/26/25 17:00 01/29/25 08:51 Sodium Chloride Flush 0.9% 10 Ml Syringe IVP 10 ml 0100,0900,1700 ARLEN Administration Objective Vital Signs/Intake & Output Reviewed Vital Signs: Yes Vital Signs: Vital Signs x48h Temp Resp BP Pulse Ox 01/29/25 07:58 98.1 F 16 169/83 H 96 Intake & Output: Intake & Output 01/26/25 01/27/25 01/28/25 01/29/25 23:59 23:59 23:59 23:59 Intake Total 1400 / 1400 1833 / 1833 2406 / 2406 1000 / 1000 Output Total 260 / 260 1950 / 1950 400 / 400 Balance 1140 / 1140 -117 / -117 2005 1000 / 1000 Weight (kg) 114 kg Objective General Appearance: positive No acute distress, Alert and Anxious Eyes Bilateral: positive Normal inspection, PERRL and EOMI ENT: positive ENT inspection nml, Pharynx nml and No signs of dehydration Neck: positive Nml inspection, Thyroid nml and No JVD Respiratory: positive Chest non-tender, No respiratory distress and Breath sounds nml Cardiovascular: positive Regular rate & rhythm, No murmur, No gallop and Tachycardia Abdomen: positive Tenderness (epigastric region); negative Nml bowel sounds, No distention (Distension noted), Guarding or Splenomegaly Back: positive Nml inspection; negative CVA tenderness (R) or CVA tenderness (L) Skin: positive Color nml, No rash, Warm and Dry Extremities: positive Non-tender, Full ROM and No pedal edema Neurologic/Psychiatric: positive Oriented x3 and Other (anxious) Lab Results 01/29/25 04:03 01/29/25 04:03 Other Labs: Lab Results x24hrs 01/29/25 01/29/25 01/29/25 Range/Units 06:01 04:03 00:23 WBC 5.4 (4.8-10.8) x10^3/uL RBC 4.23 (4.20-5.40) 10^6/uL Hgb 12.5 (12.0-16.0) g/dL Hct 39.4 (37.0-47.0) % MCV 93.1 (81.0-99.0) fL MCH 29.6 (27.0-31.0) pg MCHC 31.7 L (32.0-36.0) g/dL RDW 14.2 (12.0-15.0) % Plt Count 272 (130-450) 10^3/uL MPV 10.7 (7.9-10.8) fL Sodium 139 (135-145) mmol/L Potassium 3.7 (3.5-4.5) mmol/L Chloride 106 (101-111) mmol/L Carbon Dioxide 26 (21-32) mmol/L Anion Gap 7.0 (6-13) BUN 8 (6-20) mg/dL Creatinine 0.7 (0.6-1.3) mg/dL Estimated GFR (MDRD) 81 L (>89) Glucose 128 H (74-104) mg/dL POC Whole Bld Glucose 149 149 (70-100) mg/dL Calcium 8.2 L (8.5-10.3) mg/dL Magnesium 2.0 (1.7-2.3) mg/dL 01/28/25 01/28/25 Range/Units 18:24 11:31 WBC (4.8-10.8) x10^3/uL RBC (4.20-5.40) 10^6/uL Hgb (12.0-16.0) g/dL Hct (37.0-47.0) % MCV (81.0-99.0) fL MCH (27.0-31.0) pg MCHC (32.0-36.0) g/dL RDW (12.0-15.0) % Plt Count (130-450) 10^3/uL MPV (7.9-10.8) fL Sodium (135-145) mmol/L Potassium (3.5-4.5) mmol/L Chloride (101-111) mmol/L Carbon Dioxide (21-32) mmol/L Anion Gap (6-13) BUN (6-20) mg/dL Creatinine (0.6-1.3) mg/dL Estimated GFR (MDRD) (>89) Glucose (74-104) mg/dL POC Whole Bld Glucose 139 144 (70-100) mg/dL Calcium (8.5-10.3) mg/dL Magnesium (1.7-2.3) mg/dL Diagnostic Imaging Diagnostic Imaging Results: positive Final report reviewed Assessment/Plan Problem List (1) Partial small bowel obstruction: Impression: CT abdomen/pelvis shows partial small bowel obstruction. Continue aggressive IV fluid resuscitation. Patient had an NG tube placed which is putting out some minimal output. X-ray of the abdomen was repeated yesterday morning which still shows dilated small bowel loops, ileus versus small bowel obstruction. Plan for Gastrografin study today. Pre-treatment with Benadryl. Continue serial abdominal exams, patient may require surgery. General surgery is following. (2) Acute exacerbation of chronic bronchitis: Impression: Patient is on room air, but is having frequent episodes of coughing. Continue Robitussin DM [id number]. Continue DuoNebs as needed. (3) Urinary tract infection: Impression: Continue Rocephin, will need a 5-day antibiotic course. Today is day 3 out of 5. Urine culture shows E. coli, which is pansensitive. Will switch to oral antibiotics when patient is no longer NPO. Qualifiers: Hematuria presence: without hematuria Urinary tract infection type: s ite unspecified Qualified Code(s): N39.0 - Urinary tract infection, site not specified (4) Leukocytosis: Impression: Resolved. Likely reactive to above. Qualifiers: Leukocytosis type: unspecified Qualified Code(s): D72.829 - Elevated white blood cell count, unspecified (5) Hypokalemia: Impression: Ordered IV potassium chloride 20 mill equivalents today. Continue to trend. Attributed to decreased p.o. intake, repeated episodes of emesis. (6) Diabetes mellitus type 2, controlled, without complications: Impression: Continue low-dose sliding scale. Qualifiers: Diabetes mellitus assisted insulin use: unspecified assisted insulin use status Qualified Code(s): E11.9 - Type 2 diabetes mellitus without complications (7) Hypertension, essential, benign: Impression: Continue to monitor for now. Patient is n.p.o., we will restart her home medications when able. May require IV labetalol as needed at this time. Will continue losartan, metoprolol, amlodipine when patient is no longer n.p.o. (8) DVT (deep venous thrombosis): Impression: Records reviewed from [facility]. Patient is no longer taking Eliquis for DVT as she was a high fall risk, as well as a bleeding risk. Qualifiers: Affected thrombotic vein of extremity: unspecified vein of extremity C hronicity: unspecified DVT location: lower extremity Laterality: unspecified laterality Qualified Code(s): I82.409 - Acute embolism and thrombosis of unspecified deep veins of unspecified lower extremity (9) PTSD (post-traumatic stress disorder): Impression: Will continue bupropion, fluoxetine when patient is longer NPO. (10) Bipolar 1 disorder: Impression: Will continue bupropion, fluoxetine when patient is longer NPO.
[2025-01-29] MEDS: DIATR MEGLU/DIATRIZOATE SODIUM 120 ML BOTTLE PO ONE (12:59)
[2025-01-30 05:55] LABS: HCT - HEMATOCRIT 40.8 % (37.0-47.0); HGB - HEMOGLOBIN 13.1 g/dL (12.0-16.0); MEAN CORPUSCULAR HEMOGLOBIN 29.7 pg (27.0-31.0); MEAN CORPUSCULAR HGB CONC 32.1 g/dL (32.0-36.0); MEAN CORPUSCULAR VOLUME 92.5 fL (81.0-99.0); MEAN PLATELET VOLUME 10.3 fL (7.9-10.8); RED BLOOD COUNT 4.41 10^6/uL (4.20-5.40); RED CELL DISTRIBUTION WIDTH 14.2 % (12.0-15.0); WHITE BLOOD COUNT 6.1 x10^3/uL (4.8-10.8)
[2025-01-30 06:11] LABS: CALCIUM 8.7 mg/dL (8.5-10.3); CREATININE 0.6 mg/dL (0.6-1.3); MAGNESIUM 1.9 mg/dL (1.7-2.3); POTASSIUM 3.6 mmol/L (3.5-4.5)
--- NOTE | 2025-01-30 07:59 | PROVIDER PROGRESS NOTE ---
Subjective General Admit Date: 01/27/25 Other Other Information/Narrative: Patient is very frustrated that she is not feeling better and wants to go home. She also wishes her daughter was able to be here with her. No flatus, no BM. Nausea better since NG returned to suction, still having abdominal pain, mostly about the umbilicus. Exam Exam Vital Signs: Vital Signs x48h Temp Pulse Resp BP Pulse Ox O2 Flow Rate 01/30/25 15:30 97.7 F 112 H 20 173/91 H 94 2 Gen: NAD, alert CV: tachycardia Pulm: non labored, on 2L NC HEENT: NG in place, 1450mL out when placed back to suction yesterday PM Abd: soft, tympanic, moderate ttp near umbilicus, otherwise with diffuse mild ttp, +distension Impression/Plan Problem List (1) Partial small bowel obstruction: Plan: - SBFT demonstrates minimal contrast movement out of the stomach at 8 hours at which time the patient was placed back to suction (not ordered). - no flatus or BM - At this time, it appears the patient has failed conservative management. I discussed this with the patient. We discussed the risks, benefits, and alternatives of exploratory laparotomy with possible bowel obstruction. Risks include but are not limited to bleeding, infection, damage to surrounding structures, the possible need for a bowel resection which would carry with it the risk for possible leak, and the possible need for additional surgeries or procedures. The patient voiced understanding, she did not want to know any more details and absolutely necessary, and she wished to proceed with surgery. A consent was signed by the patient. - I attempted to call the patient's daughter 3 times, but she is currently unavailable. I will attempt to call her again after surgery. (2) Acute exacerbation of chronic bronchitis: Plan: as per primary team (3) Urinary tract infection: Qualifiers: Hematuria presence: without hematuria Urinary tract infection type: site unspecified Qualified Code(s): N39.0 - Urinary tract infection, site not specified (4) Leukocytosis: Plan: resolved Qualifiers: Leukocytosis type: unspecified Qualified Code(s): D72.829 - Elevated white blood cell count, unspecified (5) Hypokalemia: Plan: resolved, replete prn (6) Diabetes mellitus type 2, controlled, without complications: Plan: as per primary team Qualifiers: Diabetes mellitus fdc insulin use: unspecified fdc insulin use status Qualified Code(s): E11.9 - Type 2 diabetes mellitus without complications (7) Hypertension, essential, benign: Plan: as per primary team (8) DVT (deep venous thrombosis): Plan: as per primary team Qualifiers: Affected thrombotic vein of extremity: unspecified vein of extremity Chronicity: unspecified DVT location: lower extremity Laterality: unspecified laterality Qualified Code(s): I82.409 - Acute embolism and thrombosis of unspecified deep veins of unspecified lower extremity (9) PTSD (post-traumatic stress disorder): Plan: as per primary team (10) Bipolar 1 disorder: Plan: as per primary team
--- NOTE | 2025-01-30 08:30 | XRAY Report ---
PROCEDURE: XR Abdomen 1 V INDICATIONS: f/u gastrograffin study TECHNIQUE: One view of the abdomen acquired. COMPARISON: Abdomen radiographs 01/29/2025, and CT 425 FINDINGS: Surgical changes and devices: Enteric tube is seen with tip above the diaphragm in the region of the distal esophagus. Bowel: Persistent dilated loops of small bowel in the central abdomen measuring up to 4.0 cm. Some co ntrast material may be present within central small bowel loops, although evaluation is suboptimal du e to x-ray attenuation by soft tissues. No definite contrast material in the colon. Soft tissues: No suspicious abdominal calcifications. Visualized solid organ contours appear normal in size. Bones: No suspicious bony lesions. IMPRESSION: 1.Dilated small bowel loops suspicious for persistent small bowel obstruction. 2.Enteric tube has been retracted with tip now located above the gastroesophageal junction. Recommend repositioning prior to use. Reviewed by: Esau Kwan MD on 01/30/2025 8:28 AM PDT Approved by: Esau Kwan MD on 01/30/2025 8:28 AM PDT Station ID: [id number]
--- NOTE | 2025-01-30 09:22 | XRAY Report ---
PROCEDURE: XR SBFT Challenge Panel INDICATIONS: partial SBO COMPARISON: 01/29/2025, 01/28/2025 CONTRAST: Oral contrast administered via nasogastric tube. FINDINGS: KUB: Cholecystectomy clips noted in the right upper quadrant. Nasogastric tube appropriately positio mckay. Oral contrast visualized within the body of the stomach. Multiple loops of air-filled slightly d istended small bowel throughout the abdomen. No suspicious abdominal calcifications. Visualized eduar d organ contours appear normal. No suspicious bony abnormalities. Small bowel: There is abnormal transit time of barium through the small bowel. There is essentially no significant movement of oral contrast at the 2 hour adalgisa. At the 5 hour adalgisa, significant oral con trast still visualized within the stomach. A few loops of small bowel are opacified with contrast in the abdomen. At the 8 hour adalgisa, no transit of oral contrast noted to the colon. Additionally, patien t was placed back on suction prior to obtaining the 8-hour image. Given the above findings and patien t being back on wall suction, the study was terminated. Persistent dilated loops of small bowel seen throughout the abdomen. Mucosal folds are smooth and of normal thickness. No strictures, intralumin al masses, or extrinsic mass effects are noted in the imaged portions of the abdomen. IMPRESSION: Significantly delayed transit of oral contrast throughout the abdomen. Majority of contrast is retain ed within the stomach. Study was terminated at the 8 hour adalgisa secondary to suction placed on the jovanni ogastric tube prior to obtaining imaging. Oral contrast visualized in distended small bowel in the l ower abdomen and pelvis but was not visualized in the colon. Findings were discussed with Dr. Burns at time of study completion. Reviewed by: Torey Eric MD on 01/30/2025 9:21 AM PDT Approved by: Torey Eric MD on 01/30/2025 9:21 AM PDT Station ID: [id number]
--- NOTE | 2025-01-30 14:21 | XRAY Report ---
PROCEDURE: XR No-Charge 1V Abdomen INDICATIONS: eval NG position TECHNIQUE: 1 view of the abdomen were acquired. COMPARISON: Same day and 01/29/2025. FINDINGS: Surgical changes and devices: NG tube tip is in mid stomach lumen along the left hemidiaphragm. Surg ical clips are seen in gallbladder fossa.. Bowel: Air distended small bowel loops are noted throughout abdomen. There is suggestion of decompres sed colon loops. No gross pneumoperitoneum. Soft tissues: No masses; visualized solid organ contours appear normal in size. No suspicious abdom inal calcifications. Bones: No suspicious bony abnormalities. IMPRESSION: NG tube tip is in expected location of mid stomach lumen below the left hemidiaphragm. Bowel gas pattern is consistent with distal small bowel obstruction nonsignificantly changed from pre vious studies. Reviewed by: Natalio Christian MD on 01/30/2025 2:20 PM PDT Approved by: Natalio Christian MD on 01/30/2025 2:20 PM PDT Station ID: [id number]
[2025-01-30] MEDS ORDERED: ePHEDrine 50 MG/ML VIAL IVP PRN (17:47)
[2025-01-30] MEDS ORDERED: fentaNYL 100 MCG/2 ML VIAL IVP PRN (17:47)
[2025-01-30] MEDS ORDERED: NALOXONE 0.4 MG/ML VIAL IVP PRN (17:47)
[2025-01-30] MEDS ORDERED: MORPHINE 2 MG/ML CARPUJECT IVP PRN (17:47)
[2025-01-30] MEDS ORDERED: ONDANSETRON 4 MG/2 ML VIAL IVP PRN (17:47)
[2025-01-30] MEDS ORDERED: ATROPINE ABBOJECT 1 MG/10 ML SYRINGE IVP PRN (17:47)
--- NOTE | 2025-01-30 17:47 | ANESTHESIA PROCEDURE NOTE ---
Pre-Anesthesia VS, & Labs Diagnosis Surgical Diagnosis:: Bowel obstruction Procedure Procedure: Ex Lap/ possible bowel resection Vitals Vital Signs: Temp Pulse Resp BP Pulse Ox O2 Flow Rate 36.5 C 112 H 20 173/91 H 94 2 01/30/25 15:30 01/30/25 15:30 01/30/25 15:30 01/30/25 15:30 01/30/25 15:30 01/30/25 15:30 Height (in): 5 ft 6 in Weight (kg): 114 kg Body Mass Index: 40.5 BMI Classification: Morbidly Obese NPO NPO: >8 hours Is Patient ?: No Lab Results Current Lab Results: Laboratory Tests 01/30/25 12:04: POC Whole Bld Glucose 159 01/30/25 06:36: POC Whole Bld Glucose 147 01/30/25 05:22: WBC 6.1, RBC 4.41, Hgb 13.1, Hct 40.8, MCV 92.5, MCH 29.7, MCHC 32.1, RDW 14.2, Plt Count 299, MPV 10.3, Sodium 140, Potassium 3.6, Chloride 105, Carbon Dioxide 27, Anion Gap 8.0, BUN 8, Creatinine 0.6, Estimated GFR (MDRD) 97, Glucose 163 H, Calcium 8.7, Magnesium 1.9 01/30/25 00:02: POC Whole Bld Glucose 125 01/29/25 18:22: POC Whole Bld Glucose 169 01/29/25 11:59: POC Whole Bld Glucose 170 01/29/25 06:01: POC Whole Bld Glucose 149 01/29/25 04:03: WBC 5.4, RBC 4.23, Hgb 12.5, Hct 39.4, MCV 93.1, MCH 29.6, MCHC 31.7 L, RDW 14.2, Plt Count 272, MPV 10.7, Sodium 139, Potassium 3.7, Chloride 106, Carbon Dioxide 26, Anion Gap 7.0, BUN 8, Creatinine 0.7, Estimated GFR (MDRD) 81 L, Glucose 128 H, Calcium 8.2 L, Magnesium 2.0 01/29/25 00:23: POC Whole Bld Glucose 149 01/28/25 18:24: POC Whole Bld Glucose 139 01/28/25 11:31: POC Whole Bld Glucose 144 01/28/25 05:42: POC Whole Bld Glucose 148 01/28/25 05:07: WBC 5.6, RBC 4.33, Hgb 12.6, Hct 40.5, MCV 93.5, MCH 29.1, MCHC 31.1 L, RDW 14.5, Plt Count 260, MPV 10.6, Sodium 139, Potassium 3.3 L, Chloride 106, Carbon Dioxide 26, Anion Gap 7.0, BUN 13, Creatinine 0.9, Estimated GFR (MDRD) 61 L, Glucose 157 H, Calcium 8.2 L, Magnesium 2.2 01/27/25 23:38: POC Whole Bld Glucose 151 01/27/25 17:58: POC Whole Bld Glucose 189 01/27/25 11:17: POC Whole Bld Glucose 184 01/27/25 05:50: POC Whole Bld Glucose 223 01/27/25 05:20: WBC 10.4, RBC 4.76, Hgb 14.1, Hct 43.3, MCV 91.0, MCH 29.6, MCHC 32.6, RDW 14.0, Plt Count 293, MPV 11.0 H, Sodium 135, Potassium 3.4 L, Chloride 102, Carbon Dioxide 24, Anion Gap 9.0, BUN 7, Creatinine 0.8, Estimated GFR (MDRD) 70 L, Glucose 256 H, Calcium 8.6, Magnesium 1.3 L 01/26/25 23:57: POC Whole Bld Glucose 241 01/26/25 18:17: POC Whole Bld Glucose 188 01/26/25 10:11: WBC 12.4 H, RBC 4.28, Hgb 12.5, Hct 39.0, MCV 91.1, MCH 29.2, MCHC 32.1, RDW 14.1, Plt Count 264, MPV 10.8, Neut # (Auto) 9.6 H, Lymph # (Auto) 1.8, Bollinger # (Auto) 0.8, Eos # (Auto) 0.2, Baso # (Auto) 0.0, Absolute Nucleated RBC 0.00, Nucleated RBC % 0.0, Sodium 136, Potassium 3.1 L, Chloride 102, Carbon Dioxide 23, Anion Gap 11.0, BUN 10, Creatinine 1.0, Estimated GFR (MDRD) 54 L, Glucose 217 H, Calcium 8.8, Total Bilirubin 0.7, AST 9 L, ALT 10, Alkaline Phosphatase 99, Total Protein 6.5, Albumin 3.8, Globulin 2.7, Albumin/Globulin Ratio 1.4, Lipase < 10 L Lab results reviewed: Yes 01/30/25 05:22 01/30/25 05:22 Meds/Allgy Home Medications Ambulatory Orders Medication Instructions Recorded Confirmed calcium carbonate 1,200 mg PO DAILY 02/24/21 01/26/25 cholecalciferol (vitamin D3) 25 25 mcg PO DAILY 02/24/21 01/26/25 mcg (1,000 unit) tablet oxybutynin chloride 5 mg tablet 10 mg PO DAILY 09/03/22 01/26/25 acetaminophen 650 mg rectal 650 mg PO TID PRN Pain 1-4 09/22/23 01/26/25 suppository meloxicam 7.5 mg tablet 7.5 mg PO BID 09/22/23 01/26/25 albuterol sulfate 90 mcg/actuation 1 - 2 puff inhalation Q4HR PRN 02/04/24 01/26/25 aerosol inhaler (Ventolin HFA) Shortness Of Air/Wheezing fluticasone propionate 50 1 sprays intranasal BID 02/04/24 01/26/25 mcg/actuation nasal spray,suspension olopatadine 0.2 % eye drops (Eye 1 drp EACHEYE BID 02/04/24 01/26/25 Allergy Itch Relief) polyethylene glycol 3350 17 17 g PO DAILY #238 grams 02/14/24 01/26/25 gram/dose oral powder potassium chloride 10 mEq 10 meq PO BID 08/21/24 01/26/25 capsule,extended release metoprolol succinate 50 mg See Rx Instructions .Route 09/07/24 01/26/25 tablet,extended release 24 hr .COMPLEX #135 tabs prazosin 5 mg capsule See Rx Instructions .Route 10/05/24 01/26/25 .COMPLEX #90 caps cetirizine 10 mg tablet 10 mg PO HS #30 tabs 10/27/24 01/26/25 mupirocin 2 % topical ointment 1 applic topical BID #22 grams 10/27/24 01/26/25 (Centany) montelukast 10 mg tablet See Rx Instructions .Route 11/03/24 01/26/25 .COMPLEX #90 tabs atorvastatin 20 mg tablet See Rx Instructions .Route 11/06/24 01/26/25 .COMPLEX #90 tabs metformin 500 mg tablet See Rx Instructions .Route 11/06/24 01/26/25 .COMPLEX #180 tabs amlodipine 2.5 mg tablet See Rx Instructions .Route 11/07/24 01/26/25 .COMPLEX #180 tabs bupropion HCl 300 mg 24 hr tablet, See Rx Instructions .Route 11/07/24 01/26/25 extended release .COMPLEX #90 tabs fluoxetine 20 mg capsule See Rx Instructions .Route 11/07/24 01/26/25 .COMPLEX #90 caps gabapentin 100 mg capsule See Rx Instructions .Route 11/27/24 01/26/25 .COMPLEX #240 caps losartan 50 mg tablet See Rx Instructions .Route 11/29/24 01/26/25 .COMPLEX #180 tabs Allergies Allergies Allergy/AdvReac Type Severity Reaction Status Date / Time aspirin Allergy Intermediate Hives Verified 01/26/25 09:48 iodine Allergy Intermediate Hives Verified 01/26/25 09:48 acyclovir Allergy Unknown Verified 01/26/25 09:48 amoxicillin Allergy Unknown Verified 01/26/25 09:48 doxycycline Allergy Unknown Verified 01/26/25 09:48 naproxen (From Naprosyn) Allergy Unknown Verified 01/26/25 09:48 risperidone (From Risperdal) Allergy Unknown Verified 01/26/25 09:48 Tetanus Vaccines and Toxoid Allergy Hives Verified 01/26/25 09:48 (Tetanus Vaccines & Toxoid) hydromorphone AdvReac Intermediate Itching Verified 01/26/25 09:48 adhesive tape AdvReac Mild Rash Verified 01/26/25 09:48 hydrocodone bitartrate * AdvReac Mild Itching Verified 01/26/25 09:48 (From Vicodin) [facility] Active Problems All Active Problems Urinary tract infection (Acute) Acute exacerbation of chronic bronchitis (Acute) Leukocytosis (Acute) Vomiting (Acute) Partial small bowel obstruction (Acute) Contusion of hip, right (Acute) Contusion of left knee (Acute) Breast cancer, right (Acute) Urinary incontinence (Acute) Cognitive dysfunction (Acute) Bipolar 1 disorder (Acute) Anxiety (Acute) PTSD (post-traumatic stress disorder) (Acute) Allergic rhinitis (Acute) Sleep apnea (Acute) Genital herpes (Acute) Hyperlipidemia (Acute) DVT (deep venous thrombosis) (Acute) Osteoporosis (Acute) Adnexal mass (Acute) Recurrent falls (Acute) Chronic renal insufficiency (Acute) History of nephrolithiasis (Acute) Asthma (Acute) Hypertension, essential, benign (Acute) Chronic abdominal pain (Acute) Syncope and collapse (Acute) Dizziness (Acute) Diabetes mellitus type 2, controlled, without complications (Acute) Hypokalemia (Acute) Surgical History Surgical History Hx of tonsillectomy Total knee replacement status L total knee replacement Status post right partial knee replacement History of lumpectomy of right breast and re excision for positive margin H/O ventral hernia repair x2 Hx of appendectomy History of cholecystectomy Social History Social History Smoking Status: Never smoker Do you dip or chew tobacco?: No Do you vape?: No Patient requests smoking cessation consult: No Initiate information on smoking cessation: No Living arrangement: Assisted living Living Condition: Alone Support Person: Yes Relationship: Level: Independent Home Mobility Equipment: Cane and Wheelchair Do you feel safe in your home environment?: Yes Suffered physical, verbal, emotional, or financial abuse?: No History of Abuse: No Substance Use: denies use Are you sexually active?: No POLST Patient has POLST: No POLST Status: Full Code Results EKG Results EKG Comparison: Reviewed EKG Echo Results Echo Results: Report reviewed Anesthesia Exam (Expanded) Exam General: Mild distress Dental: WNL Mouth Openin Fingerbreadth Neck Mobility: Reduced Mallampati classification: II Thyromental Distance: 4-6 cm Exam Exam Vital Signs: Vital Signs x48h Temp Pulse Resp BP Pulse Ox O2 Flow Rate 01/30/25 15:30 36.5 C 112 H 20 173/91 H 94 2 Plan Plan Anesthesia Type: General Consent for Procedure(s) Verified and Reviewed: Yes Code Status: Attempt Resuscitation ASA Classification ASA classification: 3-Severe systemic disease Is this case an emergency?: Yes
[2025-01-30] MEDS ORDERED: fentaNYL 100 MCG/2 ML VIAL ONE (18:00)
[2025-01-30] MEDS ORDERED: PROPOFOL 200 MG/20 ML VIAL IVP ONE (18:04)
[2025-01-30] MEDS ORDERED: ROCURONIUM 50 MG/5 ML VIAL ONE (18:05)
[2025-01-30] MEDS ORDERED: ePHEDrine 50 MG/ML VIAL IVP ONE (18:06)
[2025-01-30] MEDS ORDERED: PHENYLEPHRINE HCL 0.5 MG/5 ML AMPULE ONE (18:06)
[2025-01-30] MEDS: ceFAZolin (2G) 2 GM in SODIUM CHLORIDE 0.9% MINIBAG 100 ML IV ONE (18:45)
[2025-01-30] MEDS ORDERED: metroNIDAZOLE 500 MG/100 ML 500 MG/100 ML BAG ONE (18:54)
[2025-01-30] MEDS ORDERED: ceFAZolin 2 GM VIAL ONE (18:54)
[2025-01-30] MEDS: metroNIDAZOLE 500 MG/100 ML 500 MG/100 ML BAG IV ONE (19:00)
[2025-01-30] MEDS ORDERED: KETAMINE 500 MG/10 ML VIAL ONE (19:27)
[2025-01-30] MEDS ORDERED: ACETAMINOPHEN 1,000 MG/100 ML 1,000 MG/100 ML BAG IV ONE (19:29)
[2025-01-30] MEDS ORDERED: ONDANSETRON 4 MG/2 ML VIAL ONE (19:49)
[2025-01-30] MEDS ORDERED: SUGAMMADEX 200 MG/2 ML VIAL IVP ONE (19:53)
[2025-01-30] MEDS ORDERED: LABETALOL 5 MG/1 ML 20 ML MDV ONE (20:16)
--- NOTE | 2025-01-30 20:26 | OPERATIVE REPORT ---
Operative Report General Admit Date: 01/27/25 Procedure Data: Operation Date: 01/30/25 16:30 Proposed Procedures p Exploratory Laparotomy POSSIBLE BOWEL RESECTION(Not Applicable) - Agustin Saez MD Actual Procedures p Exploratory Laparotomy with lysis of adhesions(Not Applicable) - Agustin Saez MD Pre-Op Diagnosis: small bowel obstruction Anesthesia Type General Case Staff Anesthesia Provider: Max Suero Case Times Procedure Start: 01/30/25 19:19 Procedure End: 01/30/25 20:03 Time out: 01/30/25 19:18 Pre-Op Diagnosis: small bowel obstruction Post Op Diagnosis: adhesive small bowel obstruction Procedure Note Intake, IV Amount (ml): 1,300 Estimated Blood Loss (ml): 5 Output, Urine Amount (ml): 600 Drain/Tube Type: Other (NG (500mL out during case)) Pathology: 1. adhesion vs fallopian tube Indications: The patient presented with a small bowel obstruction versus ileus. Conservative management was trialed for several days and a small bowel follow-through was done yesterday. Unfortunately, the patient's symptoms did not improve and the small bowel follow-through did not demonstrate flow the contrast into the colon. It was felt that she failed conservative management. Had a discussion with the patient and attempted to call the patient's daughter several times. The patient and I discussed the risks, benefits, and alternatives of surgery including bleeding, infection, damage to surrounding structures, and the possible need for further surgeries or procedures. The patient voiced understanding, her questions were answered, and she wished to proceed. I consent was signed by the patient prior to surgery. Findings: 1. Intra-abdominal adhesions between the omentum and anterior abdominal wall. 2. Adhesive band x 2 between the anterior abdominal wall and the mesentery causing small bowel obstruction. 3. Viable small bowel. Complications: None Other Other Information/Narrative: The patient did not receive ERAS medications due to her obstruction but preoperative antibiotics were given. She was brought to the operative suite and placed in the supine position. General endotracheal anesthesia was induced. A Pal catheter was placed. She was prepped and draped in the usual sterile fashion. The patient's previous midline incision was opened for length of approximately 10 cm sharply using a scalpel. The incision was carried down through the skin and subcutaneous tissues to the level of the fascia using blunt and sharp dissection with electrocautery. Electrocautery was used to divide the fascia and a biologic mesh noted just deep to the fascia. The fascia and mesh were open the length of the incision. There were dense adhesions between the omentum and the anterior abdominal wall toward the inferior aspect of the incision. These were carefully taken down bluntly and sharply with electrocautery and Metzenbaum scissors, taking great care to maintain hemostasis and avoid damage to surrounding structures. Once the omentum was freed the bowel was identified and slowly run from proximal to distal there was an adhesive band identified and this was taken down gently with finger fracture technique. There were 2 adhesive bands identified; the first was clearly made of omentum and was resected. The second was omentum versus fallopian tube, appeared devascularized, and was resected. This was sent to pathology for identification. The abdomen was inspected for hemostasis. The bowel was run from the terminal ileum proximally to the ligament of Treitz. The bowel was viable throughout and dilated throughout. The position of the NG tube was verified by palpation. The abdomen was copiously irrigated with 1 L of warm normal saline. Again, hemostasis was confirmed. The omentum was placed back over the abdominal contents along the anterior abdominal wall. Then, the fascia was closed with a running 0 PDS suture. The subcutaneous tissues were irrigated with normal saline. Finally, the skin edges were reapproximated using skin robert. A sterile dressing was placed. The patient tolerated the procedure well. There were no complications. She was extubated and the Pal catheter was left in place for close monitoring overnight. She was transferred to the recovery room in stable condition.
--- NOTE | 2025-01-30 20:28 | PROVIDER PROGRESS NOTE ---
Subjective Prog Note Date Prog Note Date: 01/30/25 Prog Note Time: 20:26 Subjective Subjective: I saw the patient this morning and have seen her again since she is come out of the OR. This morning she told me that she was having flatus and having bowel movements. But when I spoke to the nurse, the nurse was surprised and said the patient is not having bowel movements or flatus. She has been having emesis as well. The patient is mad that we have not fed her in "days". She is mad that she has back pain and she hates the bed. She is telling me that she wants to go home "right now". Small bowel follow-through was done yesterday. Unfortunately unable to be completed since NG suction was connected before the last film. But in reviewing a plain film from this morning she still has obstruction. The contrast is not going through. Says general surgery took her to the OR and the patient was found to have 2 adhesions that were snipped. Most likely she will have delayed return of bowel function but should do well. The only other thing of note that was for blood pressure. It has been elevated today. At home she takes amlodipine 2.5, losartan 50 mg a day, prazosin 5 mg a day, metoprolol succinate 50 mg tablet once a day. Here she has been on labetalol as needed. Current Medications Current Medications Current Medications: Current Medications Generic Name Dose Route Start Last Admin Trade Name Freq PRN Reason Stop Dose Admin Albuterol/Ipratropium 3 ml 01/26/25 16:39 01/26/25 16:59 Ipratropium/Albuterol 3 Ml Neb INH 3 ml Q4HR PRN Administration Wheezing Atropine Sulfate 0.5 mg 01/30/25 17:47 Atropine Abboject 1 Mg/10 Ml Syringe IVP 01/31/25 17:47 Q5M PRN Bradycardia Ceftriaxone Sodium 1 gm 01/27/25 10:00 01/30/25 08:34 Ceftriaxone 1 Gm Vial IVP 1 gm DAILY ARLEN Administration Enoxaparin Sodium 40 mg 01/27/25 09:00 01/30/25 08:34 Enoxaparin 40 Mg/0.4 Ml Syringe SUBQ 40 mg DAILY ARLEN Administration Ephedrine Sulfate 10 mg 01/30/25 17:47 Ephedrine 50 Mg/Ml Vial IVP 01/31/25 17:47 Q5M PRN HYPOTENSION Fentanyl 25 - 50 mcg 01/30/25 17:47 Fentanyl 100 Mcg/2 Ml Vial IVP 01/31/25 17:47 Q5M PRN BREAKTHROUGH PAIN (2nd Choice) Guaifenesin 10 ml 01/26/25 14:23 01/28/25 21:09 Guaifenesin/Dextromethorphan 10 Ml Udc PO 10 ml Q6HR PRN Administration Cough Sodium Chloride 1,000 mls @ 100 mls/hr 01/28/25 14:30 01/30/25 06:56 Normal Saline 0.9% IV 100 mls/hr .Q10H ARLEN Administration Lactated Ringer's 1,000 mls @ 100 mls/hr 01/30/25 18:00 Lr IV .Q10H ARLEN Insulin Human Regular 1 - 9 unit 01/27/25 12:00 01/30/25 12:14 Insulin Regular, Human 300 Unit/3 Ml Pen SUBQ 1 unit Q6HR ARLEN Administration Protocol Ketorolac Tromethamine 15 mg 01/26/25 14:23 01/29/25 21:44 Ketorolac 15 Mg/Ml Vial IVP 01/31/25 14:22 15 mg Q6HR PRN Administration Severe Pain (Level 7-10) Morphine Sulfate 2 mg 01/26/25 16:38 01/30/25 15:15 Morphine 2 Mg/Ml Carpuject IVP 2 mg Q4HR PRN Administration Severe Pain (Level 7-10) Morphine Sulfate 2 - 4 mg 01/30/25 17:47 Morphine 2 Mg/Ml Carpuject IVP 01/31/25 17:47 Q5M PRN PAIN (3rd Choice) Naloxone HCl 0.1 mg 01/30/25 17:47 Naloxone 0.4 Mg/Ml Vial IVP 01/31/25 17:47 Q2M PRN RESP RATE <8 Ondansetron HCl 4 mg 01/26/25 14:23 01/29/25 10:02 Ondansetron 4 Mg/2 Ml Vial IVP 4 mg Q6HR PRN Administration Nausea / Vomiting Ondansetron HCl 4 mg 01/26/25 14:23 Ondansetron Odt 4 Mg Tablet TL Q6HR PRN Nausea / Vomiting Ondansetron HCl 4 mg 01/30/25 17:47 Ondansetron 4 Mg/2 Ml Vial IVP 01/31/25 17:47 ONCE PRN N/V (First Choice) Prochlorperazine Edisylate 5 mg 01/27/25 00:14 01/30/25 15:50 Prochlorperazine 10 Mg/2 Ml Vial IVP 5 mg Q6HR PRN Administration Nausea / Vomiting Sodium Chloride 10 ml 01/26/25 14:23 Sodium Chloride Flush 0.9% 10 Ml Syringe IVP PRN PRN NEEDED PER PROVIDER ORDERS Sodium Chloride 10 ml 01/26/25 17:00 01/30/25 17:23 Sodium Chloride Flush 0.9% 10 Ml Syringe IVP Not Given 0100,0900,1700 ARLEN Objective Vital Signs/Intake & Output Reviewed Vital Signs: Yes Vital Signs: Vital Signs x48h Temp Pulse Resp BP Pulse Ox O2 Flow Rate 01/30/25 15:30 36.5 C 112 H 20 173/91 H 94 2 Intake & Output: Intake & Output 01/27/25 01/28/25 01/29/25 01/30/25 23:59 23:59 23:59 23:59 Intake Total 1833 / 1833 2406 / 2406 3000 / 3000 3517 / 3517 Output Total 1950 / 1950 400 / 400 1900 / 1900 4000 / 4000 Balance -117 / -117 2005 / 2005 1100 / 1100 -483 / -483 Weight (kg) 114 kg Objective General Appearance: positive No acute distress and Lethargic (Just coming out of the OR. So she is still asleep. Does open her eyes to my voice. This morning she was awake, alert, and angry.) Eyes Bilateral: positive PERRL ENT: positive No signs of dehydration and Other (NG tube in place this morning. Surgeon tells me they have pulled the old NG tube and put in a new NG tube and placement checked manually.) Neck: positive No JVD; negative Stiff neck Respiratory: positive No respiratory distress; negative Breath sounds nml (Diminished at the bases.) Cardiovascular: positive Regular rate & rhythm Abdomen: positive Other (This morning no bowel sounds, distended and did not like my palpation. This evening, no bowel sounds and less distention. But no rigidity.Nursing reports incontinent of urine since admission) Skin: positive Color nml and Warm Extremities: positive Non-tender and Full ROM; negative Pedal edema Neurologic/Psychiatric: positive Oriented x3 (But loses train of thought. Appears to be slightly forgetful.) Lab Results 01/30/25 05:22 01/30/25 05:22 Other Labs: Lab Results x24hrs 01/30/25 01/30/25 01/30/25 Range/Units 12:04 06:36 05:22 WBC 6.1 (4.8-10.8) x10^3/uL RBC 4.41 (4.20-5.40) 10^6/uL Hgb 13.1 (12.0-16.0) g/dL Hct 40.8 (37.0-47.0) % MCV 92.5 (81.0-99.0) fL MCH 29.7 (27.0-31.0) pg MCHC 32.1 (32.0-36.0) g/dL RDW 14.2 (12.0-15.0) % Plt Count 299 (130-450) 10^3/uL MPV 10.3 (7.9-10.8) fL Sodium 140 (135-145) mmol/L Potassium 3.6 (3.5-4.5) mmol/L Chloride 105 (101-111) mmol/L Carbon Dioxide 27 (21-32) mmol/L Anion Gap 8.0 (6-13) BUN 8 (6-20) mg/dL Creatinine 0.6 (0.6-1.3) mg/dL Estimated GFR (MDRD) 97 (>89) Glucose 163 H (74-104) mg/dL POC Whole Bld Glucose 159 147 (70-100) mg/dL Calcium 8.7 (8.5-10.3) mg/dL Magnesium 1.9 (1.7-2.3) mg/dL 01/30/25 Range/Units 00:02 WBC (4.8-10.8) x10^3/uL RBC (4.20-5.40) 10^6/uL Hgb (12.0-16.0) g/dL Hct (37.0-47.0) % MCV (81.0-99.0) fL MCH (27.0-31.0) pg MCHC (32.0-36.0) g/dL RDW (12.0-15.0) % Plt Count (130-450) 10^3/uL MPV (7.9-10.8) fL Sodium (135-145) mmol/L Potassium (3.5-4.5) mmol/L Chloride (101-111) mmol/L Carbon Dioxide (21-32) mmol/L Anion Gap (6-13) BUN (6-20) mg/dL Creatinine (0.6-1.3) mg/dL Estimated GFR (MDRD) (>89) Glucose (74-104) mg/dL POC Whole Bld Glucose 125 (70-100) mg/dL Calcium (8.5-10.3) mg/dL Magnesium (1.7-2.3) mg/dL Assessment/Plan Problem List (1) Partial small bowel obstruction: Impression: CT abdomen/pelvis shows partial small bowel obstruction. In spite of placement of NG tube and suction. Expectant management and hopefully she would get better on her own, she did not. Gastrografin challenge was not successful. So she was taken to the OR today with the risks lysis of 2 bands of adhesions. Surgery feels the patient would not have gotten better on her own and this was going to be successful treatment. We anticipate delayed return of normal bowel function because of the surgery. Currently has NG tube in place. Surgery is following. When her bowel function returns, we will start clear liquids and advance her diet as tolerated.Today's postoperative day 0. (2) Acute exacerbation of chronic bronchitis: Impression: Patient is on room air, but is having frequent episodes of coughing. Continue Robitussin DM [id number]. Continue DuoNebs as needed. (3) Urinary tract infection: Impression: Continue Rocephin, will need a 5-day antibiotic course. Today is day 4 out of 5. Pal was placed in the OR for the surgery. She is draining a thick urine that is cloudy and is having sediment that is settling at the base of the urine collection system. Urine culture shows E. coli, which is pansensitive. I will keep her on IV Rocephin. I may extend it to 7 days because of the urine description.. Qualifiers: Urinary tract infection type: site unspecified Hematuria presence: w ithout hematuria Qualified Code(s): N39.0 - Urinary tract infection, site not specified (4) Leukocytosis: Impression: Resolved. Likely reactive to above. Qualifiers: Leukocytosis type: unspecified Qualified Code(s): D72.829 - Elevated white blood cell count, unspecified (5) Hypokalemia: Impression: She has required supplementation in the last couple of days. So far has been successful and that potassium is 3.6 today. Attributed to decreased p.o. intake, repeated episodes of emesis. -I will continue to trend (6) Diabetes mellitus type 2, controlled, without complications: Impression: Today's fasting glucose is 163. At noon she was 159. Continue low-dose sliding scale.At home she takes metformin. That will not be resumed while she is in the hospital. She can resume it in the outpatient setting Qualifiers: Diabetes mellitus long term acute care registered nurse insulin use: unspecified long term acute care registered nurse insulin use status Qualified Code(s): E11.9 - Type 2 diabetes mellitus without complications (7) Hypertension, essential, benign: Impression: Blood pressure was over 200 before she went to the OR. During the day she was 160s 170s. She has not been able to take her home meds because she is NPO. I will order scheduled enalapril tonight. I will also order scheduled Lopressor 5 mg IV push. Then tomorrow morning I will order her home meds. Clamp her NG tube for an hour.. (8) DVT (deep venous thrombosis): Impression: Records reviewed from [facility]. Patient is no longer taking Eliquis for DVT as she was a high fall risk, as well as a bleeding risk. But I do have her on Lovenox 40 mg subcu daily for prophylaxis. Qualifiers: DVT location: lower extremity Affected thrombotic vein of extremity: u nspecified vein of extremity Chronicity: unspecified Laterality: unspecified laterality Qualified Code(s): I82.409 - Acute embolism and thrombosis of unspecified deep veins of unspecified lower extremity (9) PTSD (post-traumatic stress disorder): Impression: Will continue bupropion, fluoxetine when patient is longer NPO. (10) Bipolar 1 disorder: Impression: Will continue bupropion, fluoxetine when patient is longer NPO.
[2025-01-30] MEDS ORDERED: ALBUTEROL NEB 2.5 MG/3 ML INH ONE (20:31)
[2025-01-30] MEDS: ALBUTEROL NEB 2.5 MG/3 ML INH ONE (20:40)
[2025-01-30] MEDS ORDERED: hydrALAZINE INJ 20 MG/ML VIAL ONE (20:48)
[2025-01-30] MEDS ORDERED: hydrALAZINE INJ 20 MG/ML VIAL IVP PRN (20:49)
[2025-01-30] MEDS ORDERED: ACETAMINOPHEN 650 MG SUPP PR PRN (21:26)
--- NOTE | 2025-01-30 21:36 | ANESTHESIA POST OP EVALUATION ---
Anesthesia Post Eval Post Anesthesia Eval Vitals: Last Vital Signs Temp 36.5 C 01/30/25 21:09 Pulse 83 01/30/25 21:09 Resp 13 01/30/25 21:09 BP 170/84 H 01/30/25 21:09 Pulse Ox 96 01/30/25 21:09 O2 Flow Rate 10 01/30/25 20:40 CV Function Including HR & BP: Stable Pain Control: Satisfactory Nausea & Vomiting: Negative Mental Status: Baseline Respiratory Status: Airway Patent and Other (albuterol neb given) Hydration Status: Satisfactory Anesthesia Complications: None
[2025-01-30] MEDS: LACTATED RINGERS 1,000 ML IV SCH (21:46)
[2025-01-30] MEDS: ENALAPRILAT 1.25 MG/ML VIAL IVP SCH (21:51)
[2025-01-30] MEDS: amLODIPine 5 MG TABLET PO SCH (22:00)
[2025-01-30] MEDS: FLUTICASONE NASAL SPRAY NAS SCH (22:00)
[2025-01-30] MEDS: ATORVASTATIN 10 MG TABLET PO SCH (22:00)
[2025-01-30] MEDS: GABAPENTIN 400 MG CAPSULE PO SCH (22:01)
[2025-01-30] MEDS: METOPROLOL 5 MG/5 ML VIAL IVP SCH (22:09)
[2025-01-30] MEDS ORDERED: ALBUTEROL NEB 2.5 MG/3 ML INH PRN (22:10)
[2025-01-30] MEDS: LOSARTAN 50 MG TABLET PO SCH (23:29)
[2025-01-31] MEDS: HYDROmorphone 0.5 MG/0.5 ML SYRINGE IVP ONE ×2 (04:11→06:12)
--- NOTE | 2025-01-31 08:15 | PROVIDER PROGRESS NOTE ---
Subjective General Admit Date: 01/27/25 Procedure Date: 01/30/25 Post Op Days: 1 Procedure Performed: ex lap with lysis of adhesions Other Other Information/Narrative: Patient had difficult time with pain control overnight. RN reports dilaudid worked better than morphine. Pt tolerating ice chips, NG flushed frequently per RN. No flatus or BM. Patient willing to get up to chair. Exam Exam Vital Signs: Vital Signs x48h Temp Pulse Pulse Resp BP BP Pulse Ox 01/31/25 07:58 97.9 F 100 18 170/111 H 93 01/31/25 06:41 82 152/84 H 01/31/25 05:33 98 131/89 H 01/31/25 04:15 98.1 F 97 18 181/92 H 95 01/31/25 03:38 97 173/109 H 01/31/25 03:26 96 172/100 H 01/31/25 03:19 96 175/98 H 01/31/25 03:14 110 H 156/84 H O2 Flow Rate 01/31/25 07:58 3 01/31/25 06:41 01/31/25 05:33 01/31/25 04:15 3 01/31/25 03:38 01/31/25 03:26 01/31/25 03:19 01/31/25 03:14 Gen: NAD, alert CV: RRR Pulm: non labored, on 3L NC HEENT: NG in place, 50mL NG output reported since surgery but more than 1L in canister Abd: soft, appropriate incisional ttp, dressing c/d/i, robert in place Impression/Plan Problem List (1) Partial small bowel obstruction: Plan: - s/p ex lap with LETY on 01/30, POD#1 - multimodal pain regimen ordered - several home meds restarted with plan to clamp NG for one hour after they are given - I anticipate a delayed return of bowel function given need for surgery and extent of bowel handling required. Keep NG until signs of return of bowel function (decreased NG output, flatus). Ok to have sips/chips - increase activity today - Consider nutrition consult. Patient may need ppn for a period of time if bowel function does not improve in the next 48 hours. - I have attempted to call the patient's daughter 5 times, but she is currently unavailable. I have left two messages. - ppx: lovenox, scd's (2) Acute exacerbation of chronic bronchitis: Plan: as per primary team (3) Urinary tract infection: Qualifiers: Hematuria presence: without hematuria Urinary tract infection type: site unspecified Qualified Code(s): N39.0 - Urinary tract infection, site not specified (4) Leukocytosis: Plan: resolved Qualifiers: Leukocytosis type: unspecified Qualified Code(s): D72.829 - Elevated white blood cell count, unspecified (5) Hypokalemia: Plan: resolved, replete prn (6) Diabetes mellitus type 2, controlled, without complications: Plan: as per primary team Qualifiers: Diabetes mellitus fci insulin use: unspecified computer terminal operator insulin use status Qualified Code(s): E11.9 - Type 2 diabetes mellitus without complications (7) Hypertension, essential, benign: Plan: as per primary team (8) DVT (deep venous thrombosis): Plan: as per primary team Qualifiers: Affected thrombotic vein of extremity: unspecified vein of extremity Chronicity: unspecified DVT location: lower extremity Laterality: unspecified laterality Qualified Code(s): I82.409 - Acute embolism and thrombosis of unspecified deep veins of unspecified lower extremity (9) PTSD (post-traumatic stress disorder): Plan: as per primary team (10) Bipolar 1 disorder: Plan: as per primary team Problem List Comment Problem List: Surgery will continue to follow closely
[2025-01-31] MEDS: polyethylene glycoL 3350 17 GM PACKET PO SCH (08:40)
[2025-01-31] MEDS: FLUoxetine 10 MG CAPSULE PO SCH (08:43)
[2025-01-31] MEDS: GABAPENTIN 100 MG CAPSULE PO SCH (08:43)
[2025-01-31] MEDS: buPROPion XL 150 MG TABLET PO SCH (08:43)
[2025-01-31] MEDS: SOLIFENACIN SUCCINATE 5 MG TABLET PO SCH (08:43)
[2025-01-31] MEDS: MONTELUKAST 10 MG TABLET PO SCH (08:43)
--- NOTE | 2025-01-31 13:11 | PROVIDER PROGRESS NOTE ---
Subjective Prog Note Date Prog Note Date: 01/31/25 Prog Note Time: 12:55 Subjective Pt reports feeling: No change Subjective: Unhappy. Very vocal and unhappiness. She wants to eat but her bowels have not opened up yet. No flatus. She is unhappy because she has discomfort from her abdominal incision but she is getting pain medicines and the pain medicines do work. Until the next she needs pain medicines. She tells me that she wants the pain medicines to work all day long. She wants to go home. She wants to sleep in a long bed. She complains of the abdominal pain. At the incision site. But denies chest pain. Denies the dilation pain that she was having with her bowel. No emesis. No gagging. NG still present. We did give her her oral medication this morning and clamped the NG for an hour so she could get some of her oral medications, especially the blood pressure medicines. No chest congestion. No chest pain. Current Medications Current Medications Current Medications: Current Medications Generic Name Dose Route Start Last Admin Trade Name Lui PRN Reason Stop Dose Admin Acetaminophen 650 mg 01/30/25 21:26 Acetaminophen 650 Mg Supp [place] TID PRN Moderate Pain (Level 4-6) Albuterol 2.5 mg 01/30/25 22:10 Albuterol Neb 2.5 Mg/3 Ml INH Q4H PRN Shortness of Air/Wheezing Albuterol/Ipratropium 3 ml 01/26/25 16:39 01/26/25 16:59 Ipratropium/Albuterol 3 Ml Neb INH 3 ml Q4HR PRN Administration Wheezing Amlodipine Besylate 5 mg 01/30/25 21:26 01/31/25 09:27 Amlodipine 5 Mg Tablet PO 5 mg BID ARLEN Administration Atorvastatin Calcium 10 mg 01/30/25 21:26 01/30/25 22:00 Atorvastatin 10 Mg Tablet PO Not Given HS ARLEN Bupropion HCl 150 mg 01/31/25 09:00 01/31/25 08:43 Bupropion Xl 150 Mg Tablet PO 150 mg DAILY ARLEN Administration Ceftriaxone Sodium 1 gm 01/27/25 10:00 01/31/25 08:44 Ceftriaxone 1 Gm Vial IVP 1 gm DAILY ARLEN Administration Enoxaparin Sodium 40 mg 01/27/25 09:00 01/31/25 08:44 Enoxaparin 40 Mg/0.4 Ml Syringe SUBQ 40 mg DAILY ARLEN Administration Fluoxetine HCl 10 mg 01/31/25 09:00 01/31/25 08:43 Fluoxetine 10 Mg Capsule PO 10 mg DAILY ARLEN Administration Fluticasone Propionate 1 sprays 01/30/25 21:26 01/31/25 08:45 Fluticasone Nasal [place] JUD 1 spr BID ARLEN Administration Gabapentin 100 mg 01/31/25 09:00 01/31/25 08:43 Gabapentin 100 Mg Capsule PO 100 mg DAILY ARLEN Administration Gabapentin 400 mg 01/30/25 22:00 01/30/25 22:01 Gabapentin 400 Mg Capsule PO Not Given HS ARLEN Guaifenesin 10 ml 01/26/25 14:23 01/28/25 21:09 Guaifenesin/Dextromethorphan 10 Ml Udc PO 10 ml Q6HR PRN Administration Cough Sodium Chloride 1,000 mls @ 100 mls/hr 01/28/25 14:30 01/31/25 09:00 Normal Saline 0.9% IV 100 mls/hr .Q10H ARLEN Administration Insulin Human Regular 1 - 9 unit 01/27/25 12:00 01/31/25 11:59 Insulin Regular, Human 300 Unit/3 Ml Pen SUBQ Not Given Q6HR ARLEN Protocol Loratadine 10 mg 01/31/25 21:00 Loratadine 10 Mg Tablet PO HS ARLEN Losartan Potassium 50 mg 01/30/25 23:00 01/31/25 09:27 Losartan 50 Mg Tablet PO 50 mg BID ARLEN Administration Montelukast Sodium 10 mg 01/31/25 09:00 01/31/25 08:43 Montelukast 10 Mg Tablet PO 10 mg DAILY ARLEN Administration Morphine Sulfate 2 mg 01/26/25 16:38 01/31/25 12:02 Morphine 2 Mg/Ml Carpuject IVP 2 mg Q4HR PRN Administration Severe Pain (Level 7-10) Ondansetron HCl 4 mg 01/26/25 14:23 01/29/25 10:02 Ondansetron 4 Mg/2 Ml Vial IVP 4 mg Q6HR PRN Administration Nausea / Vomiting Ondansetron HCl 4 mg 01/26/25 14:23 Ondansetron Odt 4 Mg Tablet TL Q6HR PRN Nausea / Vomiting Polyethylene Glycol 17 gm 01/31/25 09:00 01/31/25 08:40 Polyethylene Glycol 3350 17 Gm Packet PO 17 gm DAILY ARLEN Administration Prochlorperazine Edisylate 5 mg 01/27/25 00:14 01/30/25 15:50 Prochlorperazine 10 Mg/2 Ml Vial IVP 5 mg Q6HR PRN Administration Nausea / Vomiting Sodium Chloride 10 ml 01/26/25 14:23 Sodium Chloride Flush 0.9% 10 Ml Syringe IVP PRN PRN NEEDED PER PROVIDER ORDERS Sodium Chloride 10 ml 01/26/25 17:00 01/31/25 08:44 Sodium Chloride Flush 0.9% 10 Ml Syringe IVP 10 ml 0100,0900,1700 ARLEN Administration Solifenacin 5 mg 01/31/25 09:00 01/31/25 08:43 Solifenacin Succinate 5 Mg Tablet PO 5 mg DAILY ARLEN Administration Objective Vital Signs/Intake & Output Reviewed Vital Signs: Yes Vital Signs: Vital Signs x48h Temp Pulse Pulse Resp BP BP Pulse Ox 01/31/25 12:48 80 148/75 H 01/31/25 11:55 18 130/72 98 01/31/25 11:27 103/69 01/31/25 09:27 148/86 H 01/31/25 09:10 141/78 H 01/31/25 09:05 118/70 01/31/25 09:00 123/79 01/31/25 08:55 157/105 H 01/31/25 08:50 18 149/92 H 95 01/31/25 07:58 36.6 C 100 18 170/111 H 93 01/31/25 06:41 82 152/84 H 01/31/25 05:33 98 131/89 H O2 Flow Rate 01/31/25 12:48 01/31/25 11:55 3 01/31/25 11:27 01/31/25 09:27 01/31/25 09:10 01/31/25 09:05 01/31/25 09:00 01/31/25 08:55 01/31/25 08:50 3 01/31/25 07:58 3 01/31/25 06:41 01/31/25 05:33 Intake & Output: Intake & Output 01/28/25 01/29/25 01/30/25 01/31/25 23:59 23:59 23:59 23:59 Intake Total 2406 / 2406 3000 / 3000 5817 / 5817 1120 / 1120 Output Total 400 / 400 1900 / 1900 5030 / 5030 1650 / 1650 Balance 2005 1100 / 1100 787 / 787 -530 / -530 Weight (kg) 114 kg Objective General Appearance: positive Alert (Vocal, lucid. Oriented to person, place, time and situation but is forgetful) and Other (5 foot 6 morbidly obese female at 114 kg, looks stated age) Eyes Bilateral: positive PERRL and EOMI ENT: positive No signs of dehydration Neck: positive No JVD; negative Stiff neck Respiratory: positive Chest non-tender, No respiratory distress and Rhonchi (Mid lungs. She holds onto a pillow and gets a cough. Does not bring up phlegm but the rhonchi disappear.) Cardiovascular: positive Regular rate & rhythm; negative Tachycardia Abdomen: positive No organomegaly and Tenderness (Especially in the left upper and left mid abdomen.NG tube in place. Pal in place. No bowel sounds yet.); negative Guarding or Rebound Skin: positive Warm and Dry Extremities: positive Full ROM and Pedal edema Neurologic/Psychiatric: positive Oriented x3, CN's nml (2-12) and Motor nml (But she is a total assist for getting up) Lab Results 01/30/25 05:22 01/30/25 05:22 Other Labs: Lab Results x24hrs 01/31/25 01/31/25 01/30/25 Range/Units 11:57 05:34 23:28 POC Whole Bld Glucose 137 149 124 (70-100) mg/dL 01/30/25 Range/Units 20:27 POC Whole Bld Glucose 122 (70-100) mg/dL Assessment/Plan Problem List (1) Partial small bowel obstruction: Impression: When she was admitted, NG tube was placed and we hoped that the partial SBO would resolve on its own. It did not. Gastrografin challenge did not result in success. As such, she went to the operating room January 30. She underwent a simple lysis of 2 large adhesions. Today's postoperative day #1. She is having a delayed return of bowel function. But we do anticipate a returnand, at that time (when there is flatus or bowel movement), I will start a clear liquid diet and advance quickly. She is miserable. She keeps on stating she wants to go home. But I am pointing out to her that she is not able to even eat right now and we have to wait. Pain was a problem in the executive services administrator hours where she said it was a 10 out of a 10. Yet when I spoke to her later this morning she feels like "I am all morphined up. I do not need you to change me to more morphine". My plan for today is just to continue to wait for her to open up her bowel. Once that happens things will go more quickly toward discharge. At this time no change in pain medicines, nausea medicines. I am encouraging her to get out of bed and at least sit in a chair. (2) Acute exacerbation of chronic bronchitis: Impression: She states that she always has a cough. But it got worse when she got sick. This admission she is required 2 L nasal cannula. Last night she went up to 10 L. This morning she is down to 4 L and then to 3 L. Lung exam did not reveal fluid overload or abnormal breath sounds. She is on her Flonase for her nose. Singulair for her chronic allergies and bronchitis. Claritin for her chronic allergies and bronchitis. She also has as needed Robitussin DM but she has not used it since January 28. Plan: Check chest x-ray make sure that she has not developed a new pneumonia were missing. . (3) Urinary tract infection: Impression: Continue Rocephin, will need a 7-day antibiotic course. Today is day 5 out of 7. Pal was placed in the OR for the surgery. She is draining a thick urine that is cloudy and is having sediment that is settling at the base of the urine collection system. We had initially plan for 5 days of UTI treatment. But with the description of the turbidity and thickness of the urine in the OR, I will continue for 7 days. Urine culture shows E. coli which is pansensitive so she is on the appropriate antibiotic. Qualifiers: Hematuria presence: without hematuria Urinary tract infection type: s ite unspecified Qualified Code(s): N39.0 - Urinary tract infection, site not specified (4) Leukocytosis: Impression: Resolved. Likely reactive to above. Qualifiers: Leukocytosis type: unspecified Qualified Code(s): D72.829 - Elevated white blood cell count, unspecified (5) Hypokalemia: Impression: She has required supplementation in the last couple of days. So far has been successful in that potassium was 3.6 today. Attributed to decreased p.o. intake, repeated episodes of emesis. -I will continue to trend. She is on the ICU electrolyte protocol. So far her potassium and magnesium have not been redrawn since yesterday. (6) Diabetes mellitus type 2, controlled, without complications: Impression: Today's fasting glucose is 149. And glucose at noon was 137. i regard that as controlled. Continue low-dose sliding scale. At home she takes metformin. That will not be resumed while she is in the hospital. She can resume it in the outpatient setting Qualifiers: Diabetes mellitus joint terminal attack controller insulin use: unspecified joint terminal attack controller insulin use status Qualified Code(s): E11.9 - Type 2 diabetes mellitus without complications (7) Hypertension, essential, benign: Impression: Blood pressure was over 200 before she went to the OR. During the day she was 160s-170s. She has not been able to take her home meds because she is NPO. Last night I gave her IV enalapril. And this morning I gave her her usual home medications. I had ordered that nursing clamp the NG tube for an hour. She is in the 140s systolic. At this time it is an acceptable goal. No change in medications for now.. (8) DVT (deep venous thrombosis): Impression: Records reviewed from [facility]. Patient is no longer taking Eliquis for DVT as she was a high fall risk, as well as a bleeding risk. But I do have her on Lovenox 40 mg subcu daily for prophylaxis. Qualifiers: Affected thrombotic vein of extremity: unspecified vein of extremity C hronicity: unspecified DVT location: lower extremity Laterality: unspecified laterality Qualified Code(s): I82.409 - Acute embolism and thrombosis of unspecified deep veins of unspecified lower extremity (9) PTSD (post-traumatic stress disorder): Impression: Will continue bupropion, fluoxetine when patient is longer NPO. (10) Bipolar 1 disorder: Impression: Will continue bupropion, fluoxetine when patient is longer NPO.
[2025-01-31] MEDS: CETIRIZINE 10 MG TABLET PO SCH (19:49)
[2025-01-31] MEDS: LORATADINE 10 MG TABLET PO SCH (21:22)
--- NOTE | 2025-02-01 03:55 | XRAY Report ---
PROCEDURE: XR Chest 1V INDICATIONS: hypoxia after surgery TECHNIQUE: One view of the chest was acquired. COMPARISON: January 30, 2025 FINDINGS: Surgical changes and devices: Enteric catheter courses below the level of the diaphragm and likely t erminates within the left upper quadrant, presumably within the gastric lumen.. Lungs and pleura: Moderate right pleural effusion has increased when compared to the prior exam. Min imal left basilar pulmonary air space disease is grossly stable in appearance. Mediastinum: Mediastinal contours appear normal. Heart size is normal. Bones and chest wall: No suspicious bony lesions. Overlying soft tissues appear unremarkable. IMPRESSION: Progressive moderate right pleural effusion. Stable appearing left basilar pulmonary airspace disease . Enteric catheter noted. Reviewed by: Fidel Martinez MD on 02/01/2025 3:32 AM PDT Approved by: Fidel Martinez MD on 02/01/2025 3:32 AM PDT Station ID: [id number]
--- NOTE | 2025-02-01 08:53 | PROVIDER PROGRESS NOTE ---
Subjective General Admit Date: 01/27/25 Procedure Date: 01/30/25 Post Op Days: 2 Procedure Performed: ex lap with lysis of adhesions Other Other Information/Narrative: Pain controlled. No n/v. Tolerating ice chips. Patient wants to go home, worried about her cat and plan for after discharge. Exam Exam Vital Signs: Vital Signs x48h Temp Pulse Resp BP Pulse Ox O2 Flow Rate 02/01/25 08:21 97.9 F 87 20 154/97 H 97 2 02/01/25 03:50 97.9 F 94 20 157/83 H 97 2 Gen: NAD, alert CV: RRR Pulm: non labored, on 2L NC HEENT: NG in place, 1400mL NG output reported in last 24 hours. Abd: soft, appropriate incisional ttp, dressing c/d/i, robert in place Impression/Plan Problem List (1) Partial small bowel obstruction: Plan: - s/p ex lap with LETY on 01/30, POD#2 - multimodal pain regimen ordered - several home meds restarted, clamping NG for one hour after they are given - I anticipate a delayed return of bowel function given need for surgery and extent of bowel handling required. Keep NG until signs of return of bowel function (decreased NG output, flatus). Ok to have sips/chips. - increase activity today - Consider nutrition consult. Patient may need ppn for a period of time if bowel function does not improve in the next 48 hours. - adding PT/OT today - I was able to speak with the patient's daughter yesterday. She would very much be like to be kept up to date on the discharge planning for the pateint. - ppx: lovenox, scd's (2) Acute exacerbation of chronic bronchitis: Plan: as per primary team (3) Urinary tract infection: Qualifiers: Urinary tract infection type: site unspecified Hematuria presence: without hematuria Qualified Code(s): N39.0 - Urinary tract infection, site not specified (4) Leukocytosis: Plan: resolved Qualifiers: Leukocytosis type: unspecified Qualified Code(s): D72.829 - Elevated white blood cell count, unspecified (5) Hypokalemia: Plan: resolved, replete prn (6) Diabetes mellitus type 2, controlled, without complications: Plan: as per primary team Qualifiers: Diabetes mellitus [facility] insulin use: unspecified [facility] insulin use status Qualified Code(s): E11.9 - Type 2 diabetes mellitus without complications (7) Hypertension, essential, benign: Plan: as per primary team (8) DVT (deep venous thrombosis): Plan: as per primary team Qualifiers: DVT location: lower extremity Affected thrombotic vein of extremity: unspecified vein of extremity Chronicity: unspecified Laterality: unspecified laterality Qualified Code(s): I82.409 - Acute embolism and thrombosis of unspecified deep veins of unspecified lower extremity (9) PTSD (post-traumatic stress disorder): Plan: as per primary team (10) Bipolar 1 disorder: Plan: as per primary team
--- NOTE | 2025-02-01 13:03 | OT Plan of Care ---
OT Plan of Care OT Plan of Care: Diagnosis Diagnosis SBO; s/p ex lap and LETY Chief Complaint N/V, abdominal pain Onset of Chief Complaint SENIOR PHYSICIAN Surgical History (Updated 01/29/25 @ 14:45 by Agustin Saez MD) Hx of tonsillectomy Total knee replacement status L total knee replacement Status post right partial knee replacement History of lumpectomy of right breast and re excision for positive margin H/O ventral hernia repair x2 Hx of appendectomy History of cholecystectomy Assessment Assessment Pt is a 79 y/o female presenting with SBO which was unable to be resolved with conservative treatment. S/p ex lap with LETY on 01/30, POD#2. NG tube in place to intermittent suction. Met supine in bed, A&Ox3 to person, place, time but mildly confused to situation. Abdominal binder in place for mobility. Performed supine to sit MOD A, sit to stand MOD A, and SPT bed to chair MOD A using RW Cues for sequencing and technique. Currently MIN A UB, MAX A LB ADL with full set up and increased time Rec commode with nursing. MAX A for abdominal binder and brief management at this time. Overall presents with decreased endurance, activity tolerance and ADL status. Will benefit from cont OT services during acute stay. Rec d/c to SNF at this time. Goals - Activities of Daily Living Improve Upper Extremity Modified Independent Dressing to: Improve Lower Extremity Modified Independent Dressing to: Improve Grooming/Hygiene to: Modified Independent Improve Bathing to: Modified Independent Improve Toileting to: Modified Independent Plan Treatment Frequency 1x/day Duration Until discharge -Discharge Recommendations Discharge Location [facility] Transport Needs at Discharge [facility]
--- NOTE | 2025-02-01 13:26 | PT Plan of Care ---
PT Inpatient Plan of Care DIAGNOSIS Diagnosis: SBO Diagnosis: s/p ex lap Referring Provider: Agustin Saez Patient Status: Inpatient CHIEF COMPLAINT Chief Complaint: N/V, abdominal pain Onset of Chief Complaint: PLAN NURSE MEDICAL/SURGICAL HISTORY Surgical History Hx of tonsillectomy Total knee replacement status L total knee replacement Status post right partial knee replacement History of lumpectomy of right breast and re excision for positive margin H/O ventral hernia repair x2 Hx of appendectomy History of cholecystectomy BALANCE/FUNCTIONAL RESULTS Sitting Balance: Good Standing Balance: Fair ASSESSMENT Assessment: Pt is a 79yo F referred for PT eval d/t limited mobility. POD2 s/p ex lap with lysis of adhesions d/t SBO. Please see med record for further PMH. Pt lives alone in apartment and is Noah at baseline with walker. Frequent falls but pt does not specify details of most recent fall. Upon PT eval, pt on 2L O2, sats WNL, NG set to intermittent suction, abdominal binder, drains and catheter in place and pt reports moderate discomfort with mobility. Requires up to modA for transfers and limited to stand pivot transfer using FWW to access b/s chair. Given complexity of medical need, pt will benefit from continued skilled PT to progress mobility and gait distance during acute stay. When medically clear, PT rec dc to SNF for further rehab. GOALS Improve supine to sit to:: Contact Guard Improve sit to stand to:: Contact Guard Improve pivot transfer ability to:: Contact Guard Improve sit to supine to:: Contact Guard Improve gait ability to:: CGA Advance Assistive Device to:: Front Wheeled Walker Increase distance walked to (in feet):: 100 PLAN Frequency: 1-2x/day Duration: Until goals are met DISCHARGE RECOMMENDATIONS Discharge Location: [facility] Support/Services Needed: With assist DC Equipment Recommended: Front wheeled walker Transport Needs at Discharge: [facility] Other: BLS d/t NG tube, drains, pain with upright sitting d/t abdominal incisions
--- NOTE | 2025-02-01 15:41 | PROVIDER PROGRESS NOTE ---
Subjective Prog Note Date Prog Note Date: 02/01/25 Prog Note Time: 15:29 Subjective Pt reports feeling: Improved Subjective: She keeps on asking to go home. She keeps on telling me that she is hungry. She also keeps on telling me that she is having flatus and bowel movements. The nurse standing at the bedside slowly shakes her said no. Patient is not having flatus and the patient is not having a bowel movement. Yesterday her main complaint was pain. Yet when I went to talk to her about escalating her opioid use to help with the pain she says that she was fine. She did not need me to increase anything. She has been without food for a few days now. She denies chest pain, cough, shortness of breath. Her abdomen does hurt and feel distended but she says it is better than it was before surgery. Current Medications Current Medications Current Medications: Current Medications Generic Name Dose Route Start Last Admin Trade Name Freq PRN Reason Stop Dose Admin Acetaminophen 650 mg 01/30/25 21:26 Acetaminophen 650 Mg Supp IN TID PRN Moderate Pain (Level 4-6) Acetaminophen 500 mg 01/31/25 18:42 Acetaminophen 500 Mg Tablet PO Q4HR PRN Pain or Fever > 38C (100.4F) Albuterol 2.5 mg 01/30/25 22:10 Albuterol Neb 2.5 Mg/3 Ml INH Q4H PRN Shortness of Air/Wheezing Albuterol/Ipratropium 3 ml 01/26/25 16:39 01/26/25 16:59 Ipratropium/Albuterol 3 Ml Neb INH 3 ml Q4HR PRN Administration Wheezing Amlodipine Besylate 5 mg 01/30/25 21:26 02/01/25 09:09 Amlodipine 5 Mg Tablet PO 5 mg BID ARLEN Administration Atorvastatin Calcium 10 mg 01/30/25 21:26 01/31/25 21:22 Atorvastatin 10 Mg Tablet PO 10 mg HS ARLEN Administration Bupropion HCl 150 mg 01/31/25 09:00 02/01/25 09:09 Bupropion Xl 150 Mg Tablet PO 150 mg DAILY ARLEN Administration Ceftriaxone Sodium 1 gm 01/27/25 10:00 02/01/25 09:09 Ceftriaxone 1 Gm Vial IVP 1 gm DAILY ARLEN Administration Enoxaparin Sodium 40 mg 01/27/25 09:00 02/01/25 09:09 Enoxaparin 40 Mg/0.4 Ml Syringe SUBQ 40 mg DAILY ARLEN Administration Fluoxetine HCl 10 mg 01/31/25 09:00 02/01/25 09:09 Fluoxetine 10 Mg Capsule PO 10 mg DAILY ARLEN Administration Fluticasone Propionate 1 sprays 01/30/25 21:26 02/01/25 09:09 Fluticasone Nasal [place] JUD 1 spr BID ARLEN Administration Gabapentin 100 mg 01/31/25 09:00 02/01/25 09:09 Gabapentin 100 Mg Capsule PO 100 mg DAILY ARLEN Administration Gabapentin 400 mg 01/30/25 22:00 01/31/25 21:22 Gabapentin 400 Mg Capsule PO 400 mg HS ARLEN Administration Guaifenesin 10 ml 01/26/25 14:23 01/28/25 21:09 Guaifenesin/Dextromethorphan 10 Ml Udc PO 10 ml Q6HR PRN Administration Cough Sodium Chloride 1,000 mls @ 100 mls/hr 01/28/25 14:30 02/01/25 14:02 Normal Saline 0.9% IV Infused .Q10H ARLEN Infusion Multivitamins 10 ml/ Zinc/ 2,011 mls @ 83 mls/hr 02/01/25 19:00 Copper/Manganese/Selenium 1 ml IV / Amino Acids/Electrolytes/ 1900 [facility] Dextrose Protocol Fat Emulsion Intravenous 250 mls @ 21 mls/hr 02/01/25 19:00 Intralipid 20% IV 1900 [facility] Insulin Human Regular 1 - 9 unit 01/27/25 12:00 02/01/25 11:35 Insulin Regular, Human 300 Unit/3 Ml Pen SUBQ Not Given Q6HR [facility] Protocol Loratadine 10 mg 01/31/25 21:00 01/31/25 21:22 Loratadine 10 Mg Tablet PO 10 mg HS ALREN Administration Losartan Potassium 50 mg 01/30/25 23:00 02/01/25 09:09 Losartan 50 Mg Tablet PO 50 mg BID ARLEN Administration Montelukast Sodium 10 mg 01/31/25 09:00 02/01/25 09:09 Montelukast 10 Mg Tablet PO 10 mg DAILY ARLEN Administration Morphine Sulfate 2 mg 01/26/25 16:38 02/01/25 09:24 Morphine 2 Mg/Ml Carpuject IVP 2 mg Q4HR PRN Administration Severe Pain (Level 7-10) Ondansetron HCl 4 mg 01/26/25 14:23 01/29/25 10:02 Ondansetron 4 Mg/2 Ml Vial IVP 4 mg Q6HR PRN Administration Nausea / Vomiting Ondansetron HCl 4 mg 01/26/25 14:23 Ondansetron Odt 4 Mg Tablet TL Q6HR PRN Nausea / Vomiting Polyethylene Glycol 17 gm 01/31/25 09:00 02/01/25 09:09 Polyethylene Glycol 3350 17 Gm Packet PO 17 gm DAILY ARLEN Administration Prochlorperazine Edisylate 5 mg 01/27/25 00:14 01/30/25 15:50 Prochlorperazine 10 Mg/2 Ml Vial IVP 5 mg Q6HR PRN Administration Nausea / Vomiting Sodium Chloride 10 ml 01/26/25 14:23 Sodium Chloride Flush 0.9% 10 Ml Syringe IVP PRN PRN NEEDED PER PROVIDER ORDERS Sodium Chloride 10 ml 01/26/25 17:00 02/01/25 09:10 Sodium Chloride Flush 0.9% 10 Ml Syringe IVP 10 ml 0100,0900,1700 ARLEN Administration Solifenacin 5 mg 01/31/25 09:00 02/01/25 09:09 Solifenacin Succinate 5 Mg Tablet PO 5 mg DAILY ARLEN Administration Objective Vital Signs/Intake & Output Reviewed Vital Signs: Yes Vital Signs: Vital Signs x48h Temp Pulse Resp BP Pulse Ox Pulse Ox O2 Flow Rate 02/01/25 12:55 94 02/01/25 12:16 36.6 C 96 20 141/98 H 98 2 02/01/25 08:21 36.6 C 87 20 154/97 H 97 2 02/01/25 08:00 2 Intake & Output: Intake & Output 01/29/25 01/30/25 01/31/25 02/01/25 23:59 23:59 23:59 23:59 Intake Total 3000 / 3000 5817 / 5817 2019 Output Total 1900 / 1900 5030 / 5030 2650 / 2650 2550 / 2550 Balance 1100 / 1100 787 / 787 -630 / -630 -543 / -543 Weight (kg) 114 kg Objective General Appearance: positive No acute distress and Other (5 foot 6 inches female, 114 kg, looks stated age, disheveled, garrulous individual) Eyes Bilateral: positive PERRL and EOMI ENT: positive No signs of dehydration Neck: positive No JVD; negative Stiff neck Respiratory: positive No respiratory distress; negative Breath sounds nml (Slow, shallow respirations with diminished breath sounds at both bases. Is able to complete sentences, gesticulate spontaneously, and does not exhibit any shortness of breath) Abdomen: positive No organomegaly, Tenderness (Over the midline incision which is closed, healing. No redness) and Other (She still looks like she is bloated and slightly distended. Not as much as she was before surgery); negative Nml bowel sounds (After 1 minute I did hear a couple of bowel sounds. Low-grade, quiet.) Skin: positive Warm and Dry Extremities: positive Non-tender, Full ROM and No pedal edema Neurologic/Psychiatric: positive Oriented x3, CN's nml (2-12), Motor nml and Weakness Lab Results 01/30/25 05:22 01/30/25 05:22 Other Labs: Lab Results x24hrs 02/01/25 02/01/25 02/01/25 Range/Units 11:17 05:48 00:07 POC Whole Bld Glucose 122 122 127 (70-100) mg/dL 01/31/25 Range/Units 17:54 POC Whole Bld Glucose 122 (70-100) mg/dL Assessment/Plan Problem List (1) Partial small bowel obstruction: Impression: When she was admitted, NG tube was placed and we hoped that the partial SBO would resolve on its own. It did not. Gastrografin challenge did not result in success. As such, she went to the operating room January 30. She underwent a simple lysis of 2 large adhesions. Today's postoperative day #2. She is having a delayed return of bowel function. Pain was a problem yesterday morning. By the afternoon yesterday and before today it appears to be controlled with the medications we have at hand. That is morphine 2 mg IV push every 4 hours. Her last dose was at 930 this morning. It is now 3:30 in the afternoon. I am encouraging her to get out of bed and at least sit in a chair. I am discontinuing the Pal today. PT/OT are working with her. She is hard of hearing. They find her to be oriented but easily confused, distractible. She follows cues just fine. Barriers to her cooperating are her abdominal pain and inability to focus very well. She is also on nasal cannula. She is requiring moderate assist for bed mobility, transfers and is using a front wheel walker to ambulate. She was able to walk 5 feet but tired very easily and was very fatigued and had to get back in a chair. There are clinic continue to work with her but most likely will need snf facility for rehab when she recovers. She has not eaten in several days so I will start her on TPN. (2) Acute exacerbation of chronic bronchitis: Impression: She states that she always has a cough. But it got worse when she got sick. When she was admitted she was on 2 L. On the she went as high as 10 L and has been slowly coming down. She went from 4 L to 3 L and back down to baseline 2 L by yesterday afternoon. She is continued on 2 L. On examination there is coarse tubular breath sounds but there is no wheezing or respiratory distress. I ordered a chest x-ray because of the hypoxia yesterday. She has progressive moderate right pleural effusion and a stable appearing left basilar pulmonary airspace disease. Her fluid balance was +2006 cc on January 28. She is +1100 cc on January 29. 787 cc on January 30. Yesterday and today she has been negative to about 650 cc. She is on lactated Ringer's and I am starting TPN. I will stop the lactated Ringer's. Continue the TPN. And give her 1 dose of Lasix 20 mg IV flush. Her hypoxia seems to be from pleural effusion. (3) Urinary tract infection: Impression: Continue Rocephin, will need a 7-day antibiotic course. Today is day 6 out of 7. Pal was placed in the OR for the surgery. She is draining a thick urine that is cloudy and is having sediment that is settling at the base of the urine collection system. We had initially plan for 5 days of UTI treatment. But with the description of the turbidity and thickness of the urine in the OR, I will continue for 7 days. Urine culture shows E. coli which is pansensitive so she is on the appropriate antibiotic. I will be stopping the Pal today. She is reluctant to get out of bed but I am hoping this will be a stimulant to get her mobilized. Qualifiers: Urinary tract infection type: site unspecified Hematuria presence: w ithout hematuria Qualified Code(s): N39.0 - Urinary tract infection, site not specified (4) Leukocytosis: Impression: Resolved. Likely reactive to above. Qualifiers: Leukocytosis type: unspecified Qualified Code(s): D72.829 - Elevated white blood cell count, unspecified (5) Hypokalemia: Impression: Attributed to decreased p.o. intake, repeated episodes of emesis As well as the NG she had for a while. She has been supplemented appropriately. And for the last few days her potassium has been normal. (6) Diabetes mellitus type 2, controlled, without complications: Impression: Today's fasting glucose is 122. And before lunch she was 122. I am getting ready to start her on TPN. I anticipate her glucose is going to get elevated. Continue low-dose sliding scale. At home she takes metformin. That will not be resumed while she is in the hospital. 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 She was mildly hypertensive but blood pressure was over 200 before she went to the OR. Postoperatively I gave her her meds at night via IV form. Then on postop day 1 I gave her her usual home medications, clamped the NG tube for 1 hour. Blood pressure came down with that. But she is consistently in the 140s and as high as the 170s systolic. She is on losartan 50 mg twice a day. Amlodipine 5 mg p.o. twice daily. Both of these medications are double her usual home medication. I am opting not to change her medication any further than I am right now. As long as she does not get above 180 systolic or becomes symptomatic. (8) DVT (deep venous thrombosis): Impression: Records reviewed from [facility]. Patient is no longer taking Eliquis for DVT as she was a high fall risk, as well as a bleeding risk. But I do have her on Lovenox 40 mg subcu daily for prophylaxis. Qualifiers: DVT location: lower extremity Affected thrombotic vein of extremity: u nspecified vein of extremity Chronicity: unspecified Laterality: unspecified laterality Qualified Code(s): I82.409 - Acute embolism and thrombosis of unspecified deep veins of unspecified lower extremity (9) PTSD (post-traumatic stress disorder): Impression: Will continue bupropion, fluoxetine when patient is longer NPO. (10) Bipolar 1 disorder: Impression: Will continue bupropion, fluoxetine when patient is longer NPO.
[2025-02-01 16:21] LABS: CALCIUM 8.7 mg/dL (8.5-10.3); CREATININE 0.6 mg/dL (0.6-1.3); POTASSIUM 2.8 mmol/L (3.5-4.5)
[2025-02-01] MEDS: FUROSEMIDE 20 MG/2 ML VIAL IVP STA (17:31)
[2025-02-01] MEDS: ACETAMINOPHEN 500 MG TABLET PO PRN (17:37)
[2025-02-01] MEDS: PPN (CLINIMIX E 4.25/5) 2,000 ML with MULTIVITAMIN 10 ML, TRACE ELEMENTS 1 ML IV SCH (20:23)
[2025-02-01] MEDS: FAT EMULSION 20% 250 ML IV SCH (20:24)
[2025-02-01] MEDS ORDERED: hydrALAZINE INJ 20 MG/ML VIAL IVP PRN (21:31)
[2025-02-01] MEDS ORDERED: POTASSIUM BICARB 25 MEQ TABLET PO SCH (22:00)
[2025-02-01] MEDS: POTASSIUM CHLOR 10 MEQ/100 ML 10 MEQ/100 ML BAG IV SCH (22:18)
[2025-02-02 05:13] LABS: ALBUMIN 3.3 g/dL (3.2-5.5); ALBUMIN/GLOBULIN RATIO 1.1 (1.0-2.2); BILIRUBIN,TOTAL 0.3 mg/dL (0.2-1.0); CALCIUM 8.7 mg/dL (8.5-10.3); CREATININE 0.6 mg/dL (0.6-1.3); MAGNESIUM 1.7 mg/dL (1.7-2.3); PHOSPHORUS 2.3 mg/dL (2.5-5.0); POTASSIUM 2.9 mmol/L (3.5-4.5); TOTAL PROTEIN 6.3 g/dL (6.4-8.9)
--- NOTE | 2025-02-02 08:44 | XRAY Report ---
PROCEDURE: XR No-Charge 1V Abdomen INDICATIONS: NGT placement TECHNIQUE: 1 view of the abdomen were acquired. COMPARISON: None. FINDINGS: Surgical changes and devices: NG tube projects to the stomach.. Bowel: Prominent upper abdominal bowel loops. Bowel completely evaluated. Purpose of film evidence fo r NG tube placement. IMPRESSION: NG tube projects to the stomach. Reviewed by: Juliocesar Yap MD on 02/02/2025 8:42 AM PDT Approved by: Juliocesar Yap MD on 02/02/2025 8:42 AM PDT Station ID: [id number]
--- NOTE | 2025-02-02 10:58 | PROVIDER PROGRESS NOTE ---
Subjective General Admit Date: 01/27/25 Procedure Date: 01/30/25 Post Op Days: 3 Procedure Performed: ex lap with lysis of adhesions Other Other Information/Narrative: Patient states she is feeling dizzy this morning and complains that her knees feel swollen. Denies abdominal pain on questioning. Feeling thirsty. Denies flatus or BM. Review of Systems Status of ROS: 10 or more systems reviewed and unremarkable except as noted in history and below Exam Exam Vital Signs: Vital Signs x48h Temp Pulse Resp BP Pulse Ox O2 Flow Rate 02/02/25 08:52 2 02/02/25 08:27 97.7 F 106 H 16 195/104 H 95 2 02/02/25 05:00 98.8 F 96 18 179/88 H 93 2 Gen: NAD, alert CV: RRR Pulm: non labored, on 2L NC HEENT: NG in place, 1550mL NG output reported in last 24 hours. Abd: soft, appropriate incisional ttp, dressing c/d/i, robert in place Impression/Plan Problem List (1) Partial small bowel obstruction: Plan: - s/p ex lap with LETY on 01/30, POD#3 - multi modal pain regimen ordered - several home meds restarted, clamping NG for one hour after they are given - I personally interpreted the image and reviewed the report from the abdominal XR this AM. NG in good position, continued bowel dilation. - I anticipate a delayed return of bowel function given need for surgery and extent of bowel handling required. Keep NG until signs of return of bowel function (decreased NG output, flatus). Ok to have sips/chips. - continue to increase activity today. PT/OT following, recommending rehab on discharge - Nutrition following. On PPN. Patient has not had significant oral intake since admission on 01/26. - Daughter updated on patient status. - ppx: lovenox, scd's, famotidine (2) Acute exacerbation of chronic bronchitis: Plan: as per primary team (3) Urinary tract infection: Qualifiers: Urinary tract infection type: site unspecified Hematuria presence: without hematuria Qualified Code(s): N39.0 - Urinary tract infection, site not specified (4) Leukocytosis: Plan: resolved Qualifiers: Leukocytosis type: unspecified Qualified Code(s): D72.829 - Elevated white blood cell count, unspecified (5) Hypokalemia: Plan: resolved, replete prn (6) Diabetes mellitus type 2, controlled, without complications: Plan: as per primary team Qualifiers: Diabetes mellitus director long term care insulin use: unspecified director long term care insulin use status Qualified Code(s): E11.9 - Type 2 diabetes mellitus without complications (7) Hypertension, essential, benign: Plan: as per primary team (8) DVT (deep venous thrombosis): Plan: as per primary team Qualifiers: DVT location: lower extremity Affected thrombotic vein of extremity: unspecified vein of extremity Chronicity: unspecified Laterality: unspecified laterality Qualified Code(s): I82.409 - Acute embolism and thrombosis of unspecified deep veins of unspecified lower extremity (9) PTSD (post-traumatic stress disorder): Plan: as per primary team (10) Bipolar 1 disorder: Plan: as per primary team
[2025-02-02] MEDS: FAMOTIDINE 20 MG/2 ML VIAL IVP SCH (12:00)
--- NOTE | 2025-02-02 16:16 | PROVIDER PROGRESS NOTE ---
Subjective Prog Note Date Prog Note Date: 02/02/25 Prog Note Time: 16:05 Subjective Pt reports feeling: No change Subjective: She is very, very impatient. She keeps on wanting to go home. And I keep on reiterating that we cannot send her home until her bowel is working normally and she is taking normal intake. I carefully pointed out where her NG tube is, how it is coming out of her nose, and have the low intermittent suction is still draining over 1000 cc of fluid. And explained to her that that fluid is fluid that supposed to be going down into her bowel and out the other into her rectum. The fact that we are still sucking out that was fluid means that she is not not ready to eat yet and she would only be vomiting anything she put in her stomach. She excepted that but is still disgruntled and really, really wants to go home. She was out of bed and in a chair for 2 hours. Pain is controlled Current Medications Current Medications Current Medications: Current Medications Generic Name Dose Route Start Last Admin Trade Name Freq PRN Reason Stop Dose Admin Acetaminophen 650 mg 01/30/25 21:26 Acetaminophen 650 Mg Supp MA TID PRN Moderate Pain (Level 4-6) Acetaminophen 500 mg 01/31/25 18:42 02/02/25 11:04 Acetaminophen 500 Mg Tablet PO 500 mg Q4HR PRN Administration Pain or Fever > 38C (100.4F) Albuterol 2.5 mg 01/30/25 22:10 Albuterol Neb 2.5 Mg/3 Ml INH Q4H PRN Shortness of Air/Wheezing Albuterol/Ipratropium 3 ml 01/26/25 16:39 01/26/25 16:59 Ipratropium/Albuterol 3 Ml Neb INH 3 ml Q4HR PRN Administration Wheezing Amlodipine Besylate 5 mg 01/30/25 21:26 02/02/25 08:16 Amlodipine 5 Mg Tablet PO 5 mg BID ARLEN Administration Atorvastatin Calcium 10 mg 01/30/25 21:26 02/01/25 20:33 Atorvastatin 10 Mg Tablet PO 10 mg HS ARLEN Administration Bupropion HCl 150 mg 01/31/25 09:00 02/02/25 08:16 Bupropion Xl 150 Mg Tablet PO 150 mg DAILY ARLEN Administration Ceftriaxone Sodium 1 gm 01/27/25 10:00 02/02/25 08:17 Ceftriaxone 1 Gm Vial IVP 1 gm DAILY ARLEN Administration Enoxaparin Sodium 40 mg 01/27/25 09:00 02/02/25 08:17 Enoxaparin 40 Mg/0.4 Ml Syringe SUBQ 40 mg DAILY ARLEN Administration Famotidine 20 mg 02/02/25 12:00 02/02/25 12:00 Famotidine 20 Mg/2 Ml Vial IVP 20 mg BID ARLEN Administration Fluoxetine HCl 10 mg 01/31/25 09:00 02/02/25 08:16 Fluoxetine 10 Mg Capsule PO 10 mg DAILY ARLEN Administration Fluticasone Propionate 1 sprays 01/30/25 21:26 02/02/25 08:17 Fluticasone Nasal [place] JUD 1 spr BID ARLEN Administration Gabapentin 100 mg 01/31/25 09:00 02/02/25 08:16 Gabapentin 100 Mg Capsule PO 100 mg DAILY ARLEN Administration Gabapentin 400 mg 01/30/25 22:00 02/01/25 20:32 Gabapentin 400 Mg Capsule PO 400 mg HS ARLEN Administration Guaifenesin 10 ml 01/26/25 14:23 01/28/25 21:09 Guaifenesin/Dextromethorphan 10 Ml Udc PO 10 ml Q6HR PRN Administration Cough Hydralazine HCl 10 mg 02/01/25 21:31 Hydralazine Inj 20 Mg/Ml Vial IVP DAILY PRN SBP greater than 180 Multivitamins 10 ml/ Zinc/ 2,011 mls @ 83 mls/hr 02/01/25 19:00 02/01/25 20:23 Copper/Manganese/Selenium 1 ml IV 83 mls/hr / Amino Acids/Electrolytes/ 1900 ARLEN Administration Dextrose Protocol Fat Emulsion Intravenous 250 mls @ 21 mls/hr 02/01/25 19:00 02/02/25 08:20 Intralipid 20% IV Infused 1900 ARLEN Infusion Insulin Human Regular 1 - 9 unit 01/27/25 12:00 02/02/25 11:57 Insulin Regular, Human 300 Unit/3 Ml Pen SUBQ 3 unit Q6HR ARLEN Administration Protocol Loratadine 10 mg 01/31/25 21:00 02/01/25 20:33 Loratadine 10 Mg Tablet PO 10 mg HS ARLEN Administration Losartan Potassium 50 mg 01/30/25 23:00 02/02/25 08:16 Losartan 50 Mg Tablet PO 50 mg BID ARLEN Administration Montelukast Sodium 10 mg 01/31/25 09:00 02/02/25 08:16 Montelukast 10 Mg Tablet PO 10 mg DAILY ARLEN Administration Morphine Sulfate 2 mg 01/26/25 16:38 02/01/25 09:24 Morphine 2 Mg/Ml Carpuject IVP 2 mg Q4HR PRN Administration Severe Pain (Level 7-10) Ondansetron HCl 4 mg 01/26/25 14:23 01/29/25 10:02 Ondansetron 4 Mg/2 Ml Vial IVP 4 mg Q6HR PRN Administration Nausea / Vomiting Ondansetron HCl 4 mg 01/26/25 14:23 Ondansetron Odt 4 Mg Tablet TL Q6HR PRN Nausea / Vomiting Polyethylene Glycol 17 gm 01/31/25 09:00 02/02/25 08:17 Polyethylene Glycol 3350 17 Gm Packet PO 17 gm DAILY ARLEN Administration Prochlorperazine Edisylate 5 mg 01/27/25 00:14 01/30/25 15:50 Prochlorperazine 10 Mg/2 Ml Vial IVP 5 mg Q6HR PRN Administration Nausea / Vomiting Sodium Chloride 10 ml 01/26/25 14:23 Sodium Chloride Flush 0.9% 10 Ml Syringe IVP PRN PRN NEEDED PER PROVIDER ORDERS Sodium Chloride 10 ml 01/26/25 17:00 02/02/25 08:25 Sodium Chloride Flush 0.9% 10 Ml Syringe IVP 10 ml 0100,0900,1700 ARLEN Administration Solifenacin 5 mg 01/31/25 09:00 02/02/25 08:16 Solifenacin Succinate 5 Mg Tablet PO 5 mg DAILY ARLEN Administration Objective Vital Signs/Intake & Output Reviewed Vital Signs: Yes Vital Signs: Vital Signs x48h Temp Pulse Resp BP Pulse Ox O2 Flow Rate 02/02/25 15:18 36.4 C L 100 18 144/84 H 95 2 02/02/25 08:52 2 02/02/25 08:27 36.5 C 106 H 16 195/104 H 95 2 Intake & Output: Intake & Output 01/30/25 01/31/25 02/01/25 02/02/25 23:59 23:59 23:59 23:59 Intake Total 5817 / 5817 2020 / 2020 2107 / 2107 580 / 580 Output Total 5030 / 5030 2650 / 2650 4750 / 4750 2150 / 2150 Balance 787 / 787 -630 / -630 -2643 / -2643 -1570 / -1570 Weight (kg) 114 kg Objective General Appearance: positive No acute distress, Alert and Other (Disheveled, talkative elderly female. 5 feet 6 inches tall, 114 kg. Admission weight 121.8 kg. I think that was an error. When she was transferred to [facility] her weight suddenly dropped to 114 kg and has remained stable) Eyes Bilateral: positive PERRL and EOMI ENT: positive No signs of dehydration Neck: positive No JVD; negative Stiff neck Respiratory: positive No respiratory distress and Breath sounds nml Cardiovascular: positive Regular rate & rhythm and Systolic murmur; negative Tachycardia Abdomen: positive Other (Hypoactive bowel sounds, distended slightly obese pannus, but not with any rebound or guarding.Midline incision is closed, healing. No redness or drainage) Skin: positive Dry and Pallor Extremities: positive Full ROM, Nml appearance and No pedal edema Neurologic/Psychiatric: positive Oriented x3, CN's nml (2-12) and Motor nml Lab Results 01/30/25 05:22 02/02/25 04:40 Other Labs: Lab Results x24hrs 02/02/25 02/02/25 02/02/25 Range/Units 11:48 05:54 04:40 Sodium 140 (135-145) mmol/L Potassium 2.9 L (3.5-4.5) mmol/L Chloride 98 L (101-111) mmol/L Carbon Dioxide 32 (21-32) mmol/L Anion Gap 10.0 (6-13) BUN 8 (6-20) mg/dL Creatinine 0.6 (0.6-1.3) mg/dL Estimated GFR (MDRD) 97 (>89) Glucose 161 H (74-104) mg/dL POC Whole Bld Glucose 200 153 (70-100) mg/dL Calcium 8.7 (8.5-10.3) mg/dL Phosphorus 2.3 L (2.5-5.0) mg/dL Magnesium 1.7 (1.7-2.3) mg/dL Total Bilirubin 0.3 (0.2-1.0) mg/dL AST 12 (10-42) IU/L ALT 7 L (10-60) IU/L Alkaline Phosphatase 72 (42-121) IU/L Total Protein 6.3 L (6.4-8.9) g/dL Albumin 3.3 (3.2-5.5) g/dL Globulin 3.0 (2.1-4.2) g/dL Albumin/Globulin Ratio 1.1 (1.0-2.2) Prealbumin 7 L (17-34) mg/dL 02/02/25 02/01/25 02/01/25 Range/Units 00:03 17:46 15:58 Sodium 143 (135-145) mmol/L Potassium 2.8 L (3.5-4.5) mmol/L Chloride 103 (101-111) mmol/L Carbon Dioxide 28 (21-32) mmol/L Anion Gap 12.0 (6-13) BUN 6 (6-20) mg/dL Creatinine 0.6 (0.6-1.3) mg/dL Estimated GFR (MDRD) 97 (>89) Glucose 123 H (74-104) mg/dL POC Whole Bld Glucose 155 106 (70-100) mg/dL Calcium 8.7 (8.5-10.3) mg/dL Phosphorus (2.5-5.0) mg/dL Magnesium (1.7-2.3) mg/dL Total Bilirubin (0.2-1.0) mg/dL AST (10-42) IU/L ALT (10-60) IU/L Alkaline Phosphatase (42-121) IU/L Total Protein (6.4-8.9) g/dL Albumin (3.2-5.5) g/dL Globulin (2.1-4.2) g/dL Albumin/Globulin Ratio (1.0-2.2) Prealbumin (17-34) mg/dL ABX Reporting Has patient been on IV antibiotics over the past 48 hours?: Yes Assessment/Plan Problem List (1) Partial small bowel obstruction: Impression: When she was admitted, NG tube was placed and we hoped that the partial SBO would resolve on its own. It did not. Gastrografin challenge did not result in success. As such, she went to the operating room January 30. She underwent a simple lysis of 2 large adhesions. Today's postoperative day #3. She is having a delayed return of bowel function. Pain is controlled. Nausea is controlled. NG still draining close to 1500 cc again. She is getting out of bed and sitting in a chair. Pal was discontinued February 01. PT and OT are working with her. She has not eaten in several days So TPN was started yesterday on February 01. Plan: Although she has bowel sounds, no flatus or bowel movement. I will continue the TPN and continue to await return of her bowel function so I can start clear liquids and start advancing her diet. General Surgery updated the patient's daughter, Shweta. And let her know that we think that this patient may end up having to go to a senior care facility for rehab due to weakness and generalized fatigue. (2) Acute exacerbation of chronic bronchitis: Impression: She states that she always has a cough. But it got worse when she got sick. When she was admitted she was on 2 L. On the she went as high as 10 L and has been slowly coming down. She went from 4 L to 3 L and back down to baseline 2 L by 01/31 afternoon. She is stable on continued 2 L. On examination there is coarse tubular breath sounds but there is no wheezing or respiratory distress. I ordered a chest x-ray 01/31 because of the hypoxia. She has progressive moderate right pleural effusion and a stable appearing left basilar pulmonary airspace disease. Her fluid balance was +2006 cc on January 28. She is +1100 cc on January 29. 787 cc on January 30. 01/31 negative to about 650 cc. 02/01 she was negative to 2643 cc. I stopped the LR 02/01 because she is now on TPN . I gave her one dose of lasix 02/01 to make sure she wasn't developing fluid overload. Weight stable. Plan: Continue the TPN. Her hypoxia seems to be from pleural effusion and no COPD exacerbation. (3) Urinary tract infection: Impression: Continue Rocephin, will need a 7-day antibiotic course. Today is day 7 out of 7. Pal was placed in the OR for the surgery. She is draining a thick urine that is cloudy and is having sediment that is settling at the base of the urine collection system. We had initially plan for 5 days of UTI treatment. But with the description of the turbidity and thickness of the urine in the OR, I extended therapy to 7 days. Urine culture shows E. coli which is pansensitive so she is on the appropriate antibiotic. I stopped the Pal 02/01. She is getting out of bed to go to the bathroom. Qualifiers: Urinary tract infection type: site unspecified Hematuria presence: w ithout hematuria Qualified Code(s): N39.0 - Urinary tract infection, site not specified (4) Leukocytosis: Impression: Resolved. Likely reactive to above.She was only found the first day at 12.4. Since January 27 she has been normal. Qualifiers: Leukocytosis type: unspecified Qualified Code(s): D72.829 - Elevated white blood cell count, unspecified (5) Hypokalemia: Impression: Attributed to decreased p.o. intake, repeated episodes of emesis As well as the NG she had for a while. She has been supplemented appropriately. And for the last few days her potassium has been normal until today when her potassium is still 2.9. And her phos is low at 2.3. I will give her a separate FlexEl rider. (6) Diabetes mellitus type 2, controlled, without complications: Impression: I started her TPN yesterday. Today's fasting glucose is 153, and before noon it is 200. Continue low-dose sliding scale. At home she takes metformin. That will not be resumed while she is in the hospital. She can resume it in the outpatient setting Qualifiers: Diabetes mellitus [facility] insulin use: unspecified supervisor continuous [employer] insulin use status Qualified Code(s): E11.9 - Type 2 diabetes mellitus without complications (7) Hypertension, essential, benign: Impression: She was unable to take her medications before she went to the OR because she been NPO. She was mildly hypertensive but blood pressure was over 200 before she went to the OR. Postoperatively I gave her her meds at night via IV form. Then on postop day 1 I gave her her usual home medications, clamped the NG tube for 1 hour. Blood pressure came down with that. But she is consistently in the 140s and as high as the 170s systolic. She is on losartan 50 mg twice a day. Amlodipine 5 mg p.o. twice daily. Both of these medications are double her usual home medication. I am opting not to change her medication any further than I am right now. As long as she does not get above 180 systolic or becomes symptomatic. This afternoon she is 144/84. (8) DVT (deep venous thrombosis): Impression: Records reviewed from [facility]. Patient is no longer taking Eliquis for DVT as she was a high fall risk, as well as a bleeding risk. But I do have her on Lovenox 40 mg subcu daily for prophylaxis. Qualifiers: DVT location: lower extremity Affected thrombotic vein of extremity: u nspecified vein of extremity Chronicity: unspecified Laterality: unspecified laterality Qualified Code(s): I82.409 - Acute embolism and thrombosis of unspecified deep veins of unspecified lower extremity (9) PTSD (post-traumatic stress disorder): Impression: Will continue bupropion, fluoxetine when patient is longer NPO. (10) Bipolar 1 disorder: Impression: Will continue bupropion, fluoxetine when patient is longer NPO.
[2025-02-02] MEDS: POTASSIUM PHOSPHATE 15 MMOL in SODIUM CHLORIDE 0.9% 250 ML IV ONE (16:52)
[2025-02-03 04:50] LABS: CALCIUM 8.8 mg/dL (8.5-10.3); CREATININE 0.6 mg/dL (0.6-1.3); POTASSIUM 2.9 mmol/L (3.5-4.5)
--- NOTE | 2025-02-03 11:34 | PROVIDER PROGRESS NOTE ---
Subjective General Admit Date: 01/27/25 Procedure Date: 01/30/25 Post Op Days: 4 Procedure Performed: ex lap with lysis of adhesions Other Other Information/Narrative: AXR yesterday confirmed NGT in stomach. This morning when trying to flush the NGT she immediately gagged and spit the water from her mouth. I thus removed the NGT and found that it was only into the nasopharynx; it must have been pulled or dislodged overnight. Luckily, this AM she had a large BM, and thus is ready to have the tube removed and advance diet anyway. Review of Systems Status of ROS: 10 or more systems reviewed and unremarkable except as noted in history and below Exam Exam Vital Signs: Vital Signs x48h Temp Pulse Resp BP Pulse Ox O2 Flow Rate 02/03/25 09:00 37.0 C 98 18 156/89 H 95 2 02/03/25 05:49 36.6 C 88 18 155/89 H 95 2 Constitutional normal general appearance and no apparent distress HENMT NC for O2 supp Respiratory normal respiratory effort Cardiovascular normal heart rate noted Gastrointestinal distended but very soft and nontender Dressing removed - incision with robert is CDI. ABD and abdominal binder replaced. Extremities normal to inspection Impression/Plan Problem List (1) Partial small bowel obstruction: Plan: 79F s/p ex lap with LETY on 01/30 POD#4, +ROBF today - multi modal pain regimen ordered - NGT removed on rounds - start clears, let current TPN bag run out then anticipate DC TPN - replace potassium (K 2.9 yesterday and today) - ppx: lovenox, scd's, famotidine - Accepted at [facility], pending PT. Ensure Daughter updated on dispo. Donita De La Torre DO, FACS General Surgeon, [facility] (2) Hypokalemia:
[2025-02-03] MEDS: INSULIN LISPRO 300 UNIT/3 ML PEN SUBQ SCH (12:15)
[2025-02-03] MEDS: POTASSIUM CHLOR 10 MEQ/100 ML 10 MEQ/100 ML BAG IV ONE (16:39)
--- NOTE | 2025-02-03 17:35 | PROVIDER PROGRESS NOTE ---
Subjective Prog Note Date Prog Note Date: 02/03/25 Prog Note Time: 17:32 Subjective Pt reports feeling: Improved Subjective: She had a large bowel movement this morning. Pain is controlled. No nausea. When I told her I was going to be removing the NG tube she was ecstatic. Current Medications Current Medications Current Medications: Current Medications Generic Name Dose Route Start Last Admin Trade Name Freq PRN Reason Stop Dose Admin Acetaminophen 500 mg 01/31/25 18:42 02/02/25 11:04 Acetaminophen 500 Mg Tablet PO 500 mg Q4HR PRN Administration Pain or Fever > 38C (100.4F) Albuterol 2.5 mg 01/30/25 22:10 Albuterol Neb 2.5 Mg/3 Ml INH Q4H PRN Shortness of Air/Wheezing Albuterol/Ipratropium 3 ml 01/26/25 16:39 01/26/25 16:59 Ipratropium/Albuterol 3 Ml Neb INH 3 ml Q4HR PRN Administration Wheezing Amlodipine Besylate 5 mg 01/30/25 21:26 02/03/25 08:07 Amlodipine 5 Mg Tablet PO 5 mg BID ARLEN Administration Atorvastatin Calcium 10 mg 01/30/25 21:26 02/02/25 20:57 Atorvastatin 10 Mg Tablet PO 10 mg HS ARLEN Administration Bupropion HCl 150 mg 01/31/25 09:00 02/03/25 08:07 Bupropion Xl 150 Mg Tablet PO 150 mg DAILY ARLEN Administration Enoxaparin Sodium 40 mg 01/27/25 09:00 02/03/25 08:05 Enoxaparin 40 Mg/0.4 Ml Syringe SUBQ 40 mg DAILY ARLEN Administration Famotidine 20 mg 02/02/25 12:00 02/03/25 08:04 Famotidine 20 Mg/2 Ml Vial IVP 20 mg BID ARLEN Administration Fluoxetine HCl 10 mg 01/31/25 09:00 02/03/25 08:11 Fluoxetine 10 Mg Capsule PO 10 mg DAILY ARLEN Administration Fluticasone Propionate 1 sprays 01/30/25 21:26 02/03/25 08:05 Fluticasone Nasal [place] JUD 1 spr BID ARLEN Administration Gabapentin 100 mg 01/31/25 09:00 02/03/25 08:07 Gabapentin 100 Mg Capsule PO 100 mg DAILY ARLEN Administration Gabapentin 400 mg 01/30/25 22:00 02/02/25 20:57 Gabapentin 400 Mg Capsule PO 400 mg HS ARLEN Administration Guaifenesin 10 ml 01/26/25 14:23 01/28/25 21:09 Guaifenesin/Dextromethorphan 10 Ml Udc PO 10 ml Q6HR PRN Administration Cough Hydralazine HCl 10 mg 02/01/25 21:31 Hydralazine Inj 20 Mg/Ml Vial IVP DAILY PRN SBP greater than 180 Insulin Human Lispro 1 - 9 unit 02/03/25 12:00 02/03/25 17:08 Insulin Lispro 300 Unit/3 Ml Pen SUBQ 5 unit 0800,1200,1700,2100 ARLEN Administration Protocol Loratadine 10 mg 01/31/25 21:00 02/02/25 20:57 Loratadine 10 Mg Tablet PO 10 mg HS ARLEN Administration Losartan Potassium 50 mg 01/30/25 23:00 02/03/25 08:07 Losartan 50 Mg Tablet PO 50 mg BID ARLEN Administration Montelukast Sodium 10 mg 01/31/25 09:00 02/03/25 08:07 Montelukast 10 Mg Tablet PO 10 mg DAILY ARLNE Administration Morphine Sulfate 2 mg 01/26/25 16:38 02/01/25 09:24 Morphine 2 Mg/Ml Carpuject IVP 2 mg Q4HR PRN Administration Severe Pain (Level 7-10) Ondansetron HCl 4 mg 01/26/25 14:23 Ondansetron Odt 4 Mg Tablet TL Q6HR PRN Nausea / Vomiting Prochlorperazine Edisylate 5 mg 01/27/25 00:14 01/30/25 15:50 Prochlorperazine 10 Mg/2 Ml Vial IVP 5 mg Q6HR PRN Administration Nausea / Vomiting Sodium Chloride 10 ml 01/26/25 14:23 Sodium Chloride Flush 0.9% 10 Ml Syringe IVP PRN PRN NEEDED PER PROVIDER ORDERS Sodium Chloride 10 ml 01/26/25 17:00 02/03/25 17:08 Sodium Chloride Flush 0.9% 10 Ml Syringe IVP 10 ml 0100,0900,1700 ARLEN Administration Solifenacin 5 mg 01/31/25 09:00 02/03/25 08:07 Solifenacin Succinate 5 Mg Tablet PO 5 mg DAILY ARLEN Administration Objective Vital Signs/Intake & Output Reviewed Vital Signs: Yes Vital Signs: Vital Signs x48h Temp Pulse Resp BP Pulse Ox O2 Flow Rate 02/03/25 16:04 36.6 C 101 H 20 175/94 H 95 02/03/25 14:10 36.8 C 95 18 130/73 95 2 Intake & Output: Intake & Output 01/31/25 02/01/25 02/02/25 02/03/25 23:59 23:59 23:59 23:59 Intake Total 2019 2107 / 7 3087 / 3087 689 / 689 Output Total 2650 / 2650 4750 / 4750 2650 / 2650 850 / 850 Balance -630 / -630 -2643 / -2643 437 / 437 -161 / -161 Objective General Appearance: positive No acute distress, Alert and Other (Elderly female, sitting up in chair, no respiratory distress or pain distress) Eyes Bilateral: positive PERRL and EOMI ENT: positive No signs of dehydration Neck: positive No JVD; negative Stiff neck Respiratory: positive Chest non-tender, No respiratory distress and Breath sounds nml; negative Wheezes, Rales or Rhonchi Cardiovascular: positive Regular rate & rhythm Abdomen: positive No organomegaly, Nml bowel sounds and Tenderness (Over the incision site. But no rebound or guarding.) Skin: positive Warm and Dry Extremities: positive Non-tender, Full ROM and Nml appearance Neurologic/Psychiatric: positive Oriented x3, CN's nml (2-12) and Weakness Lab Results 01/30/25 05:22 02/03/25 04:18 Other Labs: Lab Results x24hrs 02/03/25 02/03/25 02/03/25 Range/Units 16:57 11:51 05:53 Sodium (135-145) mmol/L Potassium (3.5-4.5) mmol/L Chloride (101-111) mmol/L Carbon Dioxide (21-32) mmol/L Anion Gap (6-13) BUN (6-20) mg/dL Creatinine (0.6-1.3) mg/dL Estimated GFR (MDRD) (>89) Glucose (74-104) mg/dL POC Whole Bld Glucose 240 211 214 (70-100) mg/dL Calcium (8.5-10.3) mg/dL 02/03/25 02/02/25 02/02/25 Range/Units 04:18 23:51 17:54 Sodium 139 (135-145) mmol/L Potassium 2.9 L (3.5-4.5) mmol/L Chloride 98 L (101-111) mmol/L Carbon Dioxide 33 H (21-32) mmol/L Anion Gap 8.0 (6-13) BUN 10 (6-20) mg/dL Creatinine 0.6 (0.6-1.3) mg/dL Estimated GFR (MDRD) 97 (>89) Glucose 201 H (74-104) mg/dL POC Whole Bld Glucose 183 193 (70-100) mg/dL Calcium 8.8 (8.5-10.3) mg/dL Assessment/Plan Problem List (1) Partial small bowel obstruction: Impression: When she was admitted, NG tube was placed and we hoped that the partial SBO would resolve on its own. It did not. Gastrografin challenge did not result in success. As such, she went to the operating room January 30. She underwent a simple lysis of 2 large adhesions. Today's postoperative day #4. Pain is controlled. Nausea is controlled. Pal discontinued February 01 I am having her NG tube pulled Start clear liquids and advance as tolerated. She has 1 TPN bag left. I will let that run until its empty at 7:00 tonight and I am not resuming TPN. Once she is eating regular diet and tolerating that, I will discharge to long term facility for rehab (2) Hypokalemia: Impression: Attributed to decreased p.o. intake, repeated episodes of emesis As well as the NG she had for a while. She has been supplemented appropriately. In spite of a K-Phos rider yesterday, she still hypokalemic. I will give her another dose today. (3) Acute exacerbation of chronic bronchitis: Impression: She states that she always has a cough. But it got worse when she got sick. When she was admitted she was on 2 L. On the she went as high as 10 L and has been slowly coming down. She went from 4 L to 3 L and back down to baseline 2 L by 01/31 afternoon. She is stable on continued 2 L. On examination there is coarse tubular breath sounds but there is no wheezing or respiratory distress. I ordered a chest x-ray 01/31 because of the hypoxia. She has progressive moderate right pleural effusion and a stable appearing left basilar pulmonary airspace disease. Her fluid balance was +2006 cc on January 28. She is +1100 cc on January 29. 787 cc on January 30. 01/31 negative to about 650 cc. 02/01 she was negative to 2643 cc. I stopped the LR 02/01 because she is now on TPN . I gave her one dose of lasix 02/01 to make sure she wasn't developing fluid overload. Weight stable. At home she takes Singulair and albuterol. Here she is on DuoNeb and Singulair, as well as single agent albuterol. No changes for now. (4) Urinary tract infection: Impression: She completed 7 days of Rocephin on February 02. Pal was placed in the OR for the surgery. She was draining a thick urine that is cloudy and is having sediment that is settling at the base of the urine collection system. I had initially plan for 5 days of UTI treatment. But with the description of the turbidity and thickness of the urine in the OR, I extended therapy to 7 days. Urine culture shows E. coli which is pansensitive so she is on the appropriate antibiotic. I stopped the Pal 02/01. She is getting out of bed to go to the bathroom. Qualifiers: Urinary tract infection type: site unspecified Hematuria presence: w ithout hematuria Qualified Code(s): N39.0 - Urinary tract infection, site not specified (5) Leukocytosis: Impression: Resolved. Likely reactive to above.She was only found the first day at 12.4. Since January 27 she has been normal. Qualifiers: Leukocytosis type: unspecified Qualified Code(s): D72.829 - Elevated white blood cell count, unspecified (6) Diabetes mellitus type 2, controlled, without complications: Impression: I started her TPN 02/01. TPN will stop tonight after 7 PM. Today's glucose was 214 fasting, 211 before lunch, 240 before dinner. She is on sliding scale insulin before meals. At home she takes metformin. That will not be resumed while she is in the hospital. She can resume it in the outpatient setting No change for now. If the glucose continues to be elevated tomorrow, I we will start Lantus 10 units in the morning. Qualifiers: Diabetes mellitus medical terminologist insulin use: unspecified skilled nursing insulin use status Qualified Code(s): E11.9 - Type 2 diabetes mellitus without complications (7) Hypertension, essential, benign: Impression: She was unable to take her medications before she went to the OR because she been NPO. She was mildly hypertensive but blood pressure was over 200 before she went to the OR. Postoperatively I gave her her meds at night via IV form. Then on postop day 1 I gave her her usual home medications, clamped the NG tube for 1 hour. Blood pressure came down with that. But she is consistently in the 140s and as high as the 170s systolic. She is on losartan 50 mg twice a day. Amlodipine 5 mg p.o. twice daily. Both of these medications are double her usual home medication. I am opting not to change her medication any further than I am right now. As long as she does not get above 180 systolic or becomes symptomatic. This afternoon she is 175/94 (8) DVT (deep venous thrombosis): Impression: Records reviewed from [facility]. Patient is no longer taking Eliquis for DVT as she was a high fall risk, as well as a bleeding risk. But I do have her on Lovenox 40 mg subcu daily for prophylaxis. Qualifiers: DVT location: lower extremity Affected thrombotic vein of extremity: u nspecified vein of extremity Chronicity: unspecified Laterality: unspecified laterality Qualified Code(s): I82.409 - Acute embolism and thrombosis of unspecified deep veins of unspecified lower extremity (9) PTSD (post-traumatic stress disorder): Impression: I will resume her bupropion, fluoxetine in the morning (10) Bipolar 1 disorder: Impression: I will resume her bupropion, fluoxetine in the morning
[2025-02-03] MEDS: METOPROLOL SUCCINATE 50 MG TABLET PO SCH (21:25)
[2025-02-03] MEDS: PRAZOSIN 1 MG CAPSULE PO SCH (21:26)
[2025-02-04 05:41] LABS: ALBUMIN 3.1 g/dL (3.2-5.5); ALBUMIN/GLOBULIN RATIO 1.1 (1.0-2.2); BILIRUBIN,TOTAL 0.4 mg/dL (0.2-1.0); CALCIUM 8.5 mg/dL (8.5-10.3); CREATININE 0.9 mg/dL (0.6-1.3); MAGNESIUM 1.8 mg/dL (1.7-2.3); PHOSPHORUS 3.9 mg/dL (2.5-5.0); POTASSIUM 3.1 mmol/L (3.5-4.5); TOTAL PROTEIN 5.9 g/dL (6.4-8.9)
[2025-02-04] MEDS: POTASSIUM CHLOR 10 MEQ/100 ML 10 MEQ/100 ML BAG IV SCH (08:52)
--- NOTE | 2025-02-04 13:58 | PROVIDER PROGRESS NOTE ---
Subjective Prog Note Date Prog Note Date: 02/04/25 Prog Note Time: 13:55 Subjective Subjective: Yesterday she was really happy to be eating a clear liquid diet. This morning she was started on a low fiber soft diet and has had immediate cramps, distention, and liquid stool. Current Medications Current Medications Current Medications: Current Medications Generic Name Dose Route Start Last Admin Trade Name Freq PRN Reason Stop Dose Admin Acetaminophen 500 mg 01/31/25 18:42 02/04/25 10:17 Acetaminophen 500 Mg Tablet PO 500 mg Q4HR PRN Administration Pain or Fever > 38C (100.4F) Albuterol 2.5 mg 01/30/25 22:10 Albuterol Neb 2.5 Mg/3 Ml INH Q4H PRN Shortness of Air/Wheezing Albuterol/Ipratropium 3 ml 01/26/25 16:39 01/26/25 16:59 Ipratropium/Albuterol 3 Ml Neb INH 3 ml Q4HR PRN Administration Wheezing Amlodipine Besylate 5 mg 01/30/25 21:26 02/04/25 08:40 Amlodipine 5 Mg Tablet PO 5 mg BID ARLEN Administration Atorvastatin Calcium 10 mg 01/30/25 21:26 02/03/25 21:08 Atorvastatin 10 Mg Tablet PO 10 mg HS ARLEN Administration Bupropion HCl 150 mg 01/31/25 09:00 02/04/25 10:17 Bupropion Xl 150 Mg Tablet PO 150 mg DAILY ARLEN Administration Enoxaparin Sodium 40 mg 01/27/25 09:00 02/04/25 08:41 Enoxaparin 40 Mg/0.4 Ml Syringe SUBQ 40 mg DAILY ARLEN Administration Famotidine 20 mg 02/02/25 12:00 02/04/25 08:39 Famotidine 20 Mg/2 Ml Vial IVP 20 mg BID ARLEN Administration Fluoxetine HCl 10 mg 01/31/25 09:00 02/04/25 10:15 Fluoxetine 10 Mg Capsule PO 10 mg DAILY ARLEN Administration Fluticasone Propionate 1 sprays 01/30/25 21:26 02/04/25 08:38 Fluticasone Nasal [place] JUD 1 sprays BID ARLEN Administration Gabapentin 100 mg 01/31/25 09:00 02/04/25 08:39 Gabapentin 100 Mg Capsule PO 100 mg DAILY ARLEN Administration Gabapentin 400 mg 01/30/25 22:00 02/03/25 21:08 Gabapentin 400 Mg Capsule PO 400 mg HS ARLEN Administration Guaifenesin 10 ml 01/26/25 14:23 01/28/25 21:09 Guaifenesin/Dextromethorphan 10 Ml Udc PO 10 ml Q6HR PRN Administration Cough Hydralazine HCl 10 mg 02/01/25 21:31 Hydralazine Inj 20 Mg/Ml Vial IVP DAILY PRN SBP greater than 180 Insulin Human Lispro 1 - 9 unit 02/03/25 12:00 02/04/25 11:51 Insulin Lispro 300 Unit/3 Ml Pen SUBQ 3 unit 0800,1200,1700,2100 ARLEN Administration Protocol Loratadine 10 mg 01/31/25 21:00 02/03/25 21:11 Loratadine 10 Mg Tablet PO 10 mg HS ARLEN Administration Losartan Potassium 50 mg 01/30/25 23:00 02/04/25 08:39 Losartan 50 Mg Tablet PO 50 mg BID ARLEN Administration Metoprolol Succinate 75 mg 02/03/25 21:00 02/04/25 08:39 Metoprolol Succinate 50 Mg Tablet PO 75 mg BID ARLEN Administration Montelukast Sodium 10 mg 01/31/25 09:00 02/04/25 08:40 Montelukast 10 Mg Tablet PO 10 mg DAILY ARLEN Administration Morphine Sulfate 2 mg 01/26/25 16:38 02/01/25 09:24 Morphine 2 Mg/Ml Carpuject IVP 2 mg Q4HR PRN Administration Severe Pain (Level 7-10) Ondansetron HCl 4 mg 01/26/25 14:23 Ondansetron Odt 4 Mg Tablet TL Q6HR PRN Nausea / Vomiting Prazosin HCl 1 mg 02/03/25 21:00 02/03/25 21:26 Prazosin 1 Mg Capsule PO 1 mg HS ARLEN Administration Prochlorperazine Edisylate 5 mg 01/27/25 00:14 01/30/25 15:50 Prochlorperazine 10 Mg/2 Ml Vial IVP 5 mg Q6HR PRN Administration Nausea / Vomiting Sodium Chloride 10 ml 01/26/25 14:23 Sodium Chloride Flush 0.9% 10 Ml Syringe IVP PRN PRN NEEDED PER PROVIDER ORDERS Sodium Chloride 10 ml 01/26/25 17:00 02/04/25 10:18 Sodium Chloride Flush 0.9% 10 Ml Syringe IVP 10 ml 0100,0900,1700 ARLEN Administration Solifenacin 5 mg 01/31/25 09:00 02/04/25 08:39 Solifenacin Succinate 5 Mg Tablet PO 5 mg DAILY ARLEN Administration Objective Vital Signs/Intake & Output Reviewed Vital Signs: Yes Vital Signs: Vital Signs x48h Temp Pulse Resp BP Pulse Ox O2 Flow Rate 02/04/25 12:35 36.6 C 72 20 135/64 H 96 2 02/04/25 09:22 2 Intake & Output: Intake & Output 02/01/25 02/02/25 02/03/25 02/04/25 23:59 23:59 23:59 23:59 Intake Total 2107 / 2107 3087 / 3087 1149 / 1149 790 / 790 Output Total 4750 / 4750 2650 / 2650 850 / 850 700 / 700 Balance -2643 / -2643 437 / 437 299 / 299 90 / 90 Objective General Appearance: positive Alert, Mild distress (From the cramping.) and Other (Disheveled, garrulous elderly female who looks older than stated age, alert to person, place time and situation) Eyes Bilateral: positive PERRL and EOMI ENT: positive No signs of dehydration Neck: positive No JVD; negative Stiff neck Respiratory: positive No respiratory distress and Breath sounds nml Cardiovascular: positive Regular rate & rhythm Abdomen: positive Tenderness (With distention. Hyperactive bowel sounds.) Skin: positive No rash, Warm and Dry Extremities: positive Full ROM and Nml appearance Neurologic/Psychiatric: positive Oriented x3, CN's nml (2-12), Motor nml (No focal deficits.) and Weakness (She gets anxious when we get her out of bed. Requires a lot of time to process for asking her and sometimes she just breaks down and anxiety and does not want to do it. She can go from the bed to the chair with and mod assist x 2. Can get up to go to the toilet with mod assist x 1.) Lab Results 01/30/25 05:22 02/04/25 04:35 Other Labs: Lab Results x24hrs 02/04/25 02/04/25 02/04/25 Range/Units 11:49 07:57 04:35 Sodium 136 (135-145) mmol/L Potassium 3.1 L (3.5-4.5) mmol/L Chloride 96 L (101-111) mmol/L Carbon Dioxide 33 H (21-32) mmol/L Anion Gap 7.0 (6-13) BUN 14 (6-20) mg/dL Creatinine 0.9 (0.6-1.3) mg/dL Estimated GFR (MDRD) 61 L (>89) Glucose 223 H (74-104) mg/dL POC Whole Bld Glucose 201 193 (70-100) mg/dL Calcium 8.5 (8.5-10.3) mg/dL Phosphorus 3.9 (2.5-5.0) mg/dL Magnesium 1.8 (1.7-2.3) mg/dL Total Bilirubin 0.4 (0.2-1.0) mg/dL AST 17 (10-42) IU/L ALT 11 (10-60) IU/L Alkaline Phosphatase 64 (42-121) IU/L Total Protein 5.9 L (6.4-8.9) g/dL Albumin 3.1 L (3.2-5.5) g/dL Globulin 2.8 (2.1-4.2) g/dL Albumin/Globulin Ratio 1.1 (1.0-2.2) 02/03/25 02/03/25 Range/Units 20:38 16:57 Sodium (135-145) mmol/L Potassium (3.5-4.5) mmol/L Chloride (101-111) mmol/L Carbon Dioxide (21-32) mmol/L Anion Gap (6-13) BUN (6-20) mg/dL Creatinine (0.6-1.3) mg/dL Estimated GFR (MDRD) (>89) Glucose (74-104) mg/dL POC Whole Bld Glucose 216 240 (70-100) mg/dL Calcium (8.5-10.3) mg/dL Phosphorus (2.5-5.0) mg/dL Magnesium (1.7-2.3) mg/dL Total Bilirubin (0.2-1.0) mg/dL AST (10-42) IU/L ALT (10-60) IU/L Alkaline Phosphatase (42-121) IU/L Total Protein (6.4-8.9) g/dL Albumin (3.2-5.5) g/dL Globulin (2.1-4.2) g/dL Albumin/Globulin Ratio (1.0-2.2) Assessment/Plan Problem List (1) Partial small bowel obstruction: Impression: When she was admitted, NG tube was placed and we hoped that the partial SBO would resolve on its own. It did not. Gastrografin challenge did not result in success. As such, she went to the operating room January 30. She underwent a simple lysis of 2 large adhesions. Today's postoperative day #5. Because she had not been eating for several days, she did receive 36 hours of TPN. The last bag ran out last night at 7 PM. On postop day 4 she had a bowel movement and nausea and pain were controlled. As such I ordered that the NG be pulled and that she be started her on clear liquids. She tolerated that. Today is postop day 5 where I advanced her diet to regular. She has not tolerated breakfast or lunch. Breakfast alone induced quite a bit of abdominal cramping and now after lunchtime she has had 2 large liquid bowel movements later foul-smelling. No blood. Pal was not discontinued February 01. I thought it was. I am writing a new order today for Pal discontinuation. I am having stool sent for PCR C. difficile. Going back to a full liquid diet. Once she is eating regular diet and tolerating that, I will discharge to residential facility for rehab (2) Hypokalemia: Impression: Attributed to decreased p.o. intake, repeated episodes of emesis As well as the NG she had for a while. She has been supplemented appropriately. She received potassium phosphate rider the . Yesterday another potassium rider. Today's potassium was 3.1 I will give her another 40 mill equivalent potassium rider. Right now I think she is hypokalemic because of the diarrhea (3) Acute exacerbation of chronic bronchitis: Impression: She states that she always has a cough. But it got worse when she got sick. When she was admitted she was on 2 L. On the she went as high as 10 L and has been slowly coming down. She went from 4 L to 3 L and back down to baseline 2 L by 01/31 afternoon. She is stable on continued 2 L. On examination there is coarse tubular breath sounds but there is no wheezing or respiratory distress. I ordered a chest x-ray 01/31 because of the hypoxia. She has progressive moderate right pleural effusion and a stable appearing left basilar pulmonary airspace disease. She has baseline hypoxia because of her emphysema and the pleural effusions most likely contributed to the hypoxia. Her fluid balance was +2006 cc on January 28. She is +1100 cc on January 29. 787 cc on January 30. 01/31 negative to about 650 cc. 02/01 she was negative to 2643 cc. I stopped the LR 02/01 because she is now on TPN . I gave her one dose of lasix 02/01 to make sure she wasn't developing fluid overload. Since the she was +437 cc on the . 290 cc on the . Today 530 cc. Last weight was January 30. At home she takes Singulair and albuterol. Here she is on DuoNeb and Singulair, as well as single agent albuterol. No changes for now Other than I will ask nursing to make sure she is weighed. (4) Urinary tract infection: Impression: She completed 7 days of Rocephin on February 02. Pal was placed in the OR for the surgery. She was draining a thick urine that is cloudy and is having sediment that is settling at the base of the urine collection system. I had initially plan for 5 days of UTI treatment. But with the description of the turbidity and thickness of the urine in the OR, I extended therapy to 7 days. Urine culture shows E. coli which is pansensitive so she is on the appropriate antibiotic. She is getting out of bed to go to the bathroom. I reminded nurses to get the Pal out and they have done so. No Pal today Qualifiers: Urinary tract infection type: site unspecified Hematuria presence: w ithout hematuria Qualified Code(s): N39.0 - Urinary tract infection, site not specified (5) Leukocytosis: Impression: Resolved. Likely reactive to above.She was only found the first day at 12.4. Since January 27 she has been normal. Qualifiers: Leukocytosis type: unspecified Qualified Code(s): D72.829 - Elevated white blood cell count, unspecified (6) Diabetes mellitus type 2, controlled, without complications: Impression: I started her TPN 02/01. TPN will stopped 02/03 at 7 PM. Yesterday's glucose was 214 fasting, 211 before lunch, 240 before dinner. She is on sliding scale insulin before meals. This morning she was 193 before breakfast. 201 before lunch. At home she takes metformin. That will not be resumed while she is in the hospital. She can resume it in the outpatient setting I would like slightly better glucose control. Add like her to be below 150. I will add Lantus 5 units at night. 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 She was mildly hypertensive but blood pressure was over 200 before she went to the OR. Postoperatively I gave her her meds at night via IV form. Then on postop day 1 I gave her her usual home medications, clamped the NG tube for 1 hour. Blood pressure came down with that. But she is consistently in the 140s and as high as the 170s systolic. She is on losartan 50 mg twice a day. Amlodipine 5 mg p.o. twice daily. Both of these medications are double her usual home medication. I am opting not to change her medication any further than I am right now. As long as she does not get above 180 systolic or becomes symptomatic. This afternoon she is 135/64 (8) DVT (deep venous thrombosis): Impression: Records reviewed from [facility]. Patient is no longer taking Eliquis for DVT as she was a high fall risk, as well as a bleeding risk. But I do have her on Lovenox 40 mg subcu daily for prophylaxis. Qualifiers: DVT location: lower extremity Affected thrombotic vein of extremity: u nspecified vein of extremity Chronicity: unspecified Laterality: unspecified laterality Qualified Code(s): I82.409 - Acute embolism and thrombosis of unspecified deep veins of unspecified lower extremity (9) PTSD (post-traumatic stress disorder): Impression: I resumed her bupropion, fluoxetine this morning (10) Bipolar 1 disorder: Impression: I resumed her bupropion, fluoxetine this morning
--- NOTE | 2025-02-04 15:00 | PROVIDER PROGRESS NOTE ---
Subjective General Admit Date: 01/27/25 Procedure Date: 01/30/25 Post Op Days: 5 Procedure Performed: ex lap with lysis of adhesions Other Other Information/Narrative: Tolerated clears and fulls yesterday. Continued BM. This AM had soft diet and some epigastric discomfort. Got out of bed yesterday. Review of Systems Status of ROS: 10 or more systems reviewed and unremarkable except as noted in history and below Exam Exam Vital Signs: Vital Signs x48h Temp Pulse Resp BP Pulse Ox O2 Flow Rate 02/04/25 12:35 36.6 C 72 20 135/64 H 96 2 02/04/25 09:22 2 Constitutional normal general appearance and no apparent distress Respiratory normal respiratory effort Cardiovascular normal heart rate noted Gastrointestinal mildly distended, but very soft and nontender incision with robert is CDI. ABD and abdominal binder replaced. Extremities normal to inspection Impression/Plan Problem List (1) Partial small bowel obstruction: Plan: 79F s/p ex lap with LETY on 4/8 POD#5, +ROBF - multi modal pain regimen ordered - Continue diet as tolerated - replace potassium (K 3.1 today) - ppx: lovenox, scd's, famotidine - [facility], pending PT. Ensure Daughter updated on dispo. Dnoita De La Torre DO, FACS General Surgeon, [facility] (2) Hypokalemia: (3) Acute exacerbation of chronic bronchitis: (4) Urinary tract infection: Qualifiers: Urinary tract infection type: site unspecified Hematuria presence: without hematuria Qualified Code(s): N39.0 - Urinary tract infection, site not specified (5) Leukocytosis: Qualifiers: Leukocytosis type: unspecified Qualified Code(s): D72.829 - Elevated white blood cell count, unspecified (6) Diabetes mellitus type 2, controlled, without complications: Qualifiers: Diabetes mellitus continuous churn buttermaker insulin use: unspecified continuous churn buttermaker insulin use status Qualified Code(s): E11.9 - Type 2 diabetes mellitus without complications (7) Hypertension, essential, benign: (8) DVT (deep venous thrombosis): Qualifiers: DVT location: lower extremity Affected thrombotic vein of extremity: unspecified vein of extremity Chronicity: unspecified Laterality: unspecified laterality Qualified Code(s): I82.409 - Acute embolism and thrombosis of unspecified deep veins of unspecified lower extremity (9) PTSD (post-traumatic stress disorder): (10) Bipolar 1 disorder:
[2025-02-04] MEDS: ceFAZolin 2 GM VIAL IVP SCH (17:12)
[2025-02-04] MEDS: INSULIN GLARGINE-YFGN 300 UNIT/3 ML PEN SUBQ SCH (20:57)
[2025-02-05 04:57] LABS: CALCIUM 8.5 mg/dL (8.5-10.3); CREATININE 1.1 mg/dL (0.6-1.3); POTASSIUM 2.9 mmol/L (3.5-4.5)
[2025-02-05] MEDS: TAMSULOSIN 0.4 MG CAPSULE PO SCH (09:48)
--- NOTE | 2025-02-05 11:00 | PROVIDER PROGRESS NOTE ---
Subjective Prog Note Date Prog Note Date: 02/05/25 Prog Note Time: 10:57 Subjective Pt reports feeling: Improved Subjective: Tolerating a full liquid diet. Yesterday had advance her to regular diet she had terrific cramping and diarrhea. So I changed her back to a full liquid diet for dinner last night and breakfast this morning. She states she is hungry and she is up for trying some eggs or egg salad for lunch time. In the late afternoon yesterday, patient asked to see me bc of skin pain just below the antecubital fossa. It was where an IV had been (IV now above the antecubital). large 10 cm area of red induration, painful to touch and the small skin lac from old IV was purulent. It did not involve elbow joint. able to flex and extend at the elbow. I started her on Ancef. Today the redness has receded to 2 cm around the IV site. Much less painful. The diarrhea is C. difficile negative. No chest pain, no palpitations, no shortness of breath. Very fatigued just try to get out of bed and do simple things like go to the bathroom. Current Medications Current Medications Current Medications: Current Medications Generic Name Dose Route Start Last Admin Trade Name Freq PRN Reason Stop Dose Admin Acetaminophen 500 mg 01/31/25 18:42 02/05/25 02:50 Acetaminophen 500 Mg Tablet PO 500 mg Q4HR PRN Administration Pain or Fever > 38C (100.4F) Albuterol 2.5 mg 01/30/25 22:10 Albuterol Neb 2.5 Mg/3 Ml INH Q4H PRN Shortness of Air/Wheezing Albuterol/Ipratropium 3 ml 01/26/25 16:39 01/26/25 16:59 Ipratropium/Albuterol 3 Ml Neb INH 3 ml Q4HR PRN Administration Wheezing Amlodipine Besylate 5 mg 01/30/25 21:26 02/05/25 09:48 Amlodipine 5 Mg Tablet PO 5 mg BID ARLEN Administration Atorvastatin Calcium 10 mg 01/30/25 21:26 02/04/25 21:02 Atorvastatin 10 Mg Tablet PO 10 mg HS ARLEN Administration Bupropion HCl 150 mg 01/31/25 09:00 02/05/25 09:49 Bupropion Xl 150 Mg Tablet PO 150 mg DAILY ARLEN Administration Cefazolin Sodium 2 gm 02/04/25 17:00 02/05/25 09:27 Cefazolin 2 Gm Vial IVP 2 gm Q8H ARLEN Administration Enoxaparin Sodium 40 mg 01/27/25 09:00 02/05/25 09:26 Enoxaparin 40 Mg/0.4 Ml Syringe SUBQ 40 mg DAILY ARLEN Administration Famotidine 20 mg 02/02/25 12:00 02/05/25 09:27 Famotidine 20 Mg/2 Ml Vial IVP 20 mg BID ARLEN Administration Fluoxetine HCl 10 mg 01/31/25 09:00 02/05/25 09:48 Fluoxetine 10 Mg Capsule PO 10 mg DAILY ARLEN Administration Fluticasone Propionate 1 sprays 01/30/25 21:26 02/05/25 09:48 Fluticasone Nasal [place] JUD Not Given BID ARLEN Gabapentin 100 mg 01/31/25 09:00 02/05/25 09:47 Gabapentin 100 Mg Capsule PO 100 mg DAILY ARLEN Administration Gabapentin 400 mg 01/30/25 22:00 02/04/25 21:02 Gabapentin 400 Mg Capsule PO 400 mg HS ARLEN Administration Guaifenesin 10 ml 01/26/25 14:23 01/28/25 21:09 Guaifenesin/Dextromethorphan 10 Ml Udc PO 10 ml Q6HR PRN Administration Cough Hydralazine HCl 10 mg 02/01/25 21:31 Hydralazine Inj 20 Mg/Ml Vial IVP DAILY PRN SBP greater than 180 Insulin Glargine-yfgn 5 unit 02/04/25 21:00 02/04/25 20:57 Insulin Glargine-Yfgn 300 Unit/3 Ml Pen SUBQ 5 unit QPM ARLEN Administration Insulin Human Lispro 1 - 9 unit 02/03/25 12:00 02/05/25 09:25 Insulin Lispro 300 Unit/3 Ml Pen SUBQ 1 unit 0800,1200,1700,2100 ARLEN Administration Protocol Loratadine 10 mg 01/31/25 21:00 02/04/25 21:01 Loratadine 10 Mg Tablet PO 10 mg HS ARLEN Administration Losartan Potassium 50 mg 01/30/25 23:00 02/05/25 09:48 Losartan 50 Mg Tablet PO 50 mg BID ARLEN Administration Metoprolol Succinate 75 mg 02/03/25 21:00 02/05/25 09:48 Metoprolol Succinate 50 Mg Tablet PO 75 mg BID ARLEN Administration Montelukast Sodium 10 mg 01/31/25 09:00 02/05/25 09:48 Montelukast 10 Mg Tablet PO 10 mg DAILY ARLEN Administration Morphine Sulfate 2 mg 01/26/25 16:38 02/01/25 09:24 Morphine 2 Mg/Ml Carpuject IVP 2 mg Q4HR PRN Administration Severe Pain (Level 7-10) Ondansetron HCl 4 mg 01/26/25 14:23 Ondansetron Odt 4 Mg Tablet TL Q6HR PRN Nausea / Vomiting Prazosin HCl 1 mg 02/03/25 21:00 02/04/25 21:00 Prazosin 1 Mg Capsule PO 1 mg HS ARLEN Administration Prochlorperazine Edisylate 5 mg 01/27/25 00:14 01/30/25 15:50 Prochlorperazine 10 Mg/2 Ml Vial IVP 5 mg Q6HR PRN Administration Nausea / Vomiting Sodium Chloride 10 ml 01/26/25 14:23 Sodium Chloride Flush 0.9% 10 Ml Syringe IVP PRN PRN NEEDED PER PROVIDER ORDERS Sodium Chloride 10 ml 01/26/25 17:00 02/05/25 09:28 Sodium Chloride Flush 0.9% 10 Ml Syringe IVP 10 ml 0100,0900,1700 ARLEN Administration Solifenacin 5 mg 01/31/25 09:00 02/05/25 09:47 Solifenacin Succinate 5 Mg Tablet PO 5 mg DAILY ARLEN Administration Tamsulosin HCl 0.4 mg 02/05/25 09:00 02/05/25 09:48 Tamsulosin 0.4 Mg Capsule PO 0.4 mg DAILY ARLEN Administration Objective Vital Signs/Intake & Output Reviewed Vital Signs: Yes Vital Signs: Vital Signs x48h Temp Pulse Resp BP Pulse Ox O2 Flow Rate 02/05/25 08:53 2 02/05/25 08:50 36.5 C 63 16 135/57 H 96 2 02/05/25 05:15 36.7 C 78 16 116/61 93 2 Intake & Output: Intake & Output 02/02/25 02/03/25 02/04/25 02/05/25 23:59 23:59 23:59 23:59 Intake Total 3087 / 3087 1149 / 1149 2030 Output Total 2650 / 2650 850 / 850 1600 / 1600 300 / 300 Balance 437 / 437 299 / 299 431 / 431 1672 / 1672 Weight (kg) 109 kg Objective General Appearance: positive No acute distress and Other (Alert and oriented. Cooperative. Sleeping at first and wakes easily to my voice. Overweight elderly female. 5 foot 6 inches, 109 kg) Eyes Bilateral: positive PERRL and EOMI ENT: positive No signs of dehydration Neck: positive No JVD; negative Stiff neck Respiratory: positive No respiratory distress and Rhonchi (Mid chest, faint, with sling, and clear with a deep cough) Cardiovascular: positive Regular rate & rhythm Abdomen: positive Nml bowel sounds, Tenderness (Over incision) and Other (distended with air); negative Guarding Skin: positive Warm, Dry, Pallor and Puncture wound (just below L antecubital fossa. surrounding redness and heat from yesterday was 10 cm, now 2 cm. no drainage. ) Extremities: positive Full ROM and No pedal edema Neurologic/Psychiatric: positive Oriented x3, CN's nml (2-12), Motor nml and Weakness (needs assist for ADLs, follows commands, can use walker) Lab Results 01/30/25 05:22 02/05/25 04:16 Other Labs: Lab Results x24hrs 02/05/25 02/05/25 02/04/25 Range/Units 08:44 04:16 14:02 Sodium 136 (135-145) mmol/L Potassium 2.9 L (3.5-4.5) mmol/L Chloride 98 L (101-111) mmol/L Carbon Dioxide 31 (21-32) mmol/L Anion Gap 7.0 (6-13) BUN 16 (6-20) mg/dL Creatinine 1.1 (0.6-1.3) mg/dL Estimated GFR (MDRD) 48 L (>89) Glucose 183 H (74-104) mg/dL POC Whole Bld Glucose 175 (70-100) mg/dL Calcium 8.5 (8.5-10.3) mg/dL Stl C. diff Tox B Gene NEGATIVE (NEGATIVE) 02/04/25 Range/Units 11:49 Sodium (135-145) mmol/L Potassium (3.5-4.5) mmol/L Chloride (101-111) mmol/L Carbon Dioxide (21-32) mmol/L Anion Gap (6-13) BUN (6-20) mg/dL Creatinine (0.6-1.3) mg/dL Estimated GFR (MDRD) (>89) Glucose (74-104) mg/dL POC Whole Bld Glucose 201 (70-100) mg/dL Calcium (8.5-10.3) mg/dL Stl C. diff Tox B Gene (NEGATIVE) Assessment/Plan Problem List (1) Cellulitis of left forearm: Impression: Present at IV site. I am not seeing evidence of thrombophlebitis. And the tenderness is much improved today. Today's Ancef day # 2. I will switch her over to oral medications tomorrow. Keflex. (2) Partial small bowel obstruction: Impression: When she was admitted, NG tube was placed and we hoped that the partial SBO would resolve on its own. It did not. Gastrografin challenge did not result in success. As such, she went to the operating room January 30. She underwent a simple lysis of 2 large adhesions. Today's postoperative day #6. Because she had not been eating for several days, she did receive 36 hours of TPN. The last bag ran out at 7 PM on 02/03, POD #4. On postop day 4 she had a bowel movement and nausea and pain were controlled. As such I ordered that the NG be pulled and that she be started her on clear liquids. She tolerated that. On postop day 5 , I advanced her diet to regular. She did not tolerate breakfast or lunch. Breakfast alone induced quite a bit of abdominal cramping and, after lunchtime, she has had 2 large liquid bowel movements that were foul-smelling. No blood. C Diff Tox B negative on PCR 02/04. Pal was not discontinued February 01. I thought it was. I wrote a new order 02/04 for Pal discontinuation. I have once again advanced her diet to a soft, low fiber diet for lunch today. Once she is eating regular diet and tolerating that, I will discharge to care home facility for rehab. PT is seeing her today (3) Hypokalemia: Impression: Attributed to decreased p.o. intake, repeated episodes of emesis As well as the NG she had for a while. She has been supplemented appropriately. She received potassium phosphate rider the . and Riders on the , . Today's potassium is 2.9 that I am attributing to the diarrhea. I will give her 80 mill equivalent potassium rider today. (4) Acute exacerbation of chronic bronchitis: Impression: She states that she always has a cough. But it got worse when she got sick. When she was admitted she was on 2 L. On the she went as high as 10 L and has been slowly coming down. She went from 4 L to 3 L and back down to baseline 2 L by 01/31 afternoon. She is stable on continued 2 L. On examination there is coarse tubular breath sounds but there is no wheezing or respiratory distress. I ordered a chest x-ray 01/31 because of the hypoxia. She has progressive moderate right pleural effusion and a stable appearing left basilar pulmonary airspace disease. She has baseline hypoxia because of her emphysema and the pleural effusions most likely contributed to the hypoxia. Her fluid balance was +2006 cc on January 28. She is +1100 cc on January 29. 787 cc on January 30. 01/31 negative to about 650 cc. 02/01 she was negative to 2643 cc. I stopped the LR 02/01 because she is now on TPN . I gave her one dose of lasix 02/01 to make sure she wasn't developing fluid overload. Since the she was +437 cc on the . 290 cc on the . (+) 431 cc. Today (+) 1672. Last weight was January 30 where she was 114 Kg. Today she is 109. So I dont' think she has chf as cause of cough or arredondo. At home she takes Singulair and albuterol. Here she is on DuoNeb and Singulair, as well as single agent albuterol. (5) Urinary tract infection: Impression: She completed 7 days of Rocephin on February 02. Pal was placed in the OR for the surgery. She was draining a thick urine that is cloudy and is having sediment that is settling at the base of the urine collection system. I had initially plan for 5 days of UTI treatment. But with the description of the turbidity and thickness of the urine in the OR, I extended therapy to 7 days. Urine culture shows E. coli which is pansensitive so she is on the appropriate antibiotic. She is getting out of bed to go to the bathroom. I reminded nurses to get the Pal out and they have done so 02/04. Qualifiers: Urinary tract infection type: site unspecified Hematuria presence: w ithout hematuria Qualified Code(s): N39.0 - Urinary tract infection, site not specified (6) Leukocytosis: Impression: Resolved. Likely reactive to above.She was only found the first day at 12.4. Since January 27 she has been normal. Qualifiers: Leukocytosis type: unspecified Qualified Code(s): D72.829 - Elevated white blood cell count, unspecified (7) Diabetes mellitus type 2, controlled, without complications: Impression: I started her TPN 02/01. TPN stopped 02/03 at 7 PM. 02/03 her glucose was 214 fasting, 211 before lunch, 240 before dinner. She is on sliding scale insulin before meals. on 02/04 she was 193 before breakfast. 201 before lunch. I added lantus 5 units last night and continued SS insulin. At home she takes metformin. That will not be resumed while she is in the hospital. She can resume it in the outpatient setting This morning she is 175. No change for tonight. Qualifiers: Diabetes mellitus ferry terminal agent insulin use: unspecified ferry terminal agent insulin use status Qualified Code(s): E11.9 - Type 2 diabetes mellitus without complications (8) Hypertension, essential, benign: Impression: She was unable to take her medications before she went to the OR because she been NPO. She was mildly hypertensive but blood pressure was over 200 before she went to the OR. Postoperatively I gave her her meds at night via IV form. Then on postop day 1 I gave her her usual home medications, clamped the NG tube for 1 hour. Blood pressure came down with that. But she is consistently in the 140s and as high as the 170s systolic. She is on losartan 50 mg twice a day. Amlodipine 5 mg p.o. twice daily. Both of these medications are double her usual home medication. I am opting not to change her medication any further than I am right now. As long as she does not get above 180 systolic or becomes symptomatic. This afternoon she is 135/57 (9) DVT (deep venous thrombosis): Impression: Records reviewed from [facility]. Patient is no longer taking Eliquis for DVT as she was a high fall risk, as well as a bleeding risk. But I do have her on Lovenox 40 mg subcu daily for prophylaxis. Qualifiers: DVT location: lower extremity Affected thrombotic vein of extremity: u nspecified vein of extremity Chronicity: unspecified Laterality: unspecified laterality Qualified Code(s): I82.409 - Acute embolism and thrombosis of unspecified deep veins of unspecified lower extremity (10) PTSD (post-traumatic stress disorder): Impression: I resumed her bupropion, fluoxetine 02/04 (11) Bipolar 1 disorder: Impression: I resumed her bupropion, fluoxetine 02/04
[2025-02-05] MEDS: POTASSIUM CHLOR 10 MEQ/100 ML 10 MEQ/100 ML BAG IV SCH (11:46)
[2025-02-05] MEDS: MULTIVITAMIN W/MINERALS TABLET PO SCH (11:54)
[2025-02-06 04:56] LABS: ALBUMIN 2.9 g/dL (3.2-5.5); BILIRUBIN,TOTAL 0.3 mg/dL (0.2-1.0); CALCIUM 8.2 mg/dL (8.5-10.3); MAGNESIUM 1.7 mg/dL (1.7-2.3); PHOSPHORUS 2.6 mg/dL (2.5-5.0); POTASSIUM 3.2 mmol/L (3.5-4.5); TOTAL PROTEIN 5.8 g/dL (6.4-8.9)
[2025-02-06] MEDS: cephALEXin 500 MG CAPSULE PO SCH (12:03)
[2025-02-06] MEDS: POTASSIUM CHLORIDE 20 MEQ TABLET PO ONE (13:16)
--- NOTE | 2025-02-06 17:34 | PROVIDER PROGRESS NOTE ---
Subjective Prog Note Date Prog Note Date: 02/06/25 Prog Note Time: 17:29 Subjective Pt reports feeling: Improved Subjective: Pt reports she feels better today. Minimal abd pain. Tolerating po intake low fiber bland diet. Multiple episodes of liquid stool today. no n/v. Current Medications Current Medications Current Medications: Current Medications Generic Name Dose Route Start Last Admin Trade Name Freq PRN Reason Stop Dose Admin Acetaminophen 500 mg 01/31/25 18:42 02/05/25 02:50 Acetaminophen 500 Mg Tablet PO 500 mg Q4HR PRN Administration Pain or Fever > 38C (100.4F) Albuterol 2.5 mg 01/30/25 22:10 Albuterol Neb 2.5 Mg/3 Ml INH Q4H PRN Shortness of Air/Wheezing Albuterol/Ipratropium 3 ml 01/26/25 16:39 01/26/25 16:59 Ipratropium/Albuterol 3 Ml Neb INH 3 ml Q4HR PRN Administration Wheezing Amlodipine Besylate 5 mg 01/30/25 21:26 02/06/25 08:19 Amlodipine 5 Mg Tablet PO 5 mg BID ARLEN Administration Atorvastatin Calcium 10 mg 01/30/25 21:26 02/05/25 20:55 Atorvastatin 10 Mg Tablet PO 10 mg HS ARLEN Administration Bupropion HCl 150 mg 01/31/25 09:00 02/06/25 08:19 Bupropion Xl 150 Mg Tablet PO 150 mg DAILY ARLEN Administration Cephalexin 500 mg 02/06/25 12:00 02/06/25 17:12 Cephalexin 500 Mg Capsule PO 02/09/25 18:01 500 mg Q6HR ARLEN Administration Enoxaparin Sodium 40 mg 01/27/25 09:00 02/06/25 08:36 Enoxaparin 40 Mg/0.4 Ml Syringe SUBQ 40 mg DAILY ARLEN Administration Famotidine 20 mg 02/02/25 12:00 02/06/25 08:19 Famotidine 20 Mg/2 Ml Vial IVP 20 mg BID ARLEN Administration Fluoxetine HCl 10 mg 01/31/25 09:00 02/06/25 08:19 Fluoxetine 10 Mg Capsule PO 10 mg DAILY ARLEN Administration Fluticasone Propionate 1 sprays 01/30/25 21:26 02/06/25 08:36 Fluticasone Nasal [place] JUD 1 sprays BID ARLEN Administration Gabapentin 100 mg 01/31/25 09:00 02/06/25 08:19 Gabapentin 100 Mg Capsule PO 100 mg DAILY ARLEN Administration Gabapentin 400 mg 01/30/25 22:00 02/05/25 20:55 Gabapentin 400 Mg Capsule PO 400 mg HS ARLEN Administration Guaifenesin 10 ml 01/26/25 14:23 02/06/25 01:15 Guaifenesin/Dextromethorphan 10 Ml Udc PO 10 ml Q6HR PRN Administration Cough Insulin Glargine-yfgn 5 unit 02/04/25 21:00 02/05/25 20:55 Insulin Glargine-Yfgn 300 Unit/3 Ml Pen SUBQ 5 unit QPM ARLEN Administration Insulin Human Lispro 1 - 9 unit 02/03/25 12:00 02/06/25 17:10 Insulin Lispro 300 Unit/3 Ml Pen SUBQ 3 unit 0800,1200,1700,2100 ARLEN Administration Protocol Loratadine 10 mg 01/31/25 21:00 02/05/25 20:52 Loratadine 10 Mg Tablet PO 10 mg HS ARLEN Administration Losartan Potassium 50 mg 01/30/25 23:00 02/06/25 08:19 Losartan 50 Mg Tablet PO 50 mg BID ARLEN Administration Metoprolol Succinate 75 mg 02/03/25 21:00 02/06/25 08:19 Metoprolol Succinate 50 Mg Tablet PO 75 mg BID ARLEN Administration Montelukast Sodium 10 mg 01/31/25 09:00 02/06/25 08:19 Montelukast 10 Mg Tablet PO 10 mg DAILY ARLEN Administration Morphine Sulfate 2 mg 01/26/25 16:38 02/06/25 01:16 Morphine 2 Mg/Ml Carpuject IVP 2 mg Q4HR PRN Administration Severe Pain (Level 7-10) Multivitamins/Minerals 1 tab 02/05/25 12:00 02/06/25 08:19 Multivitamin W/Minerals Tablet PO 1 tab DAILYWM ARLEN Administration Ondansetron HCl 4 mg 01/26/25 14:23 Ondansetron Odt 4 Mg Tablet TL Q6HR PRN Nausea / Vomiting Prazosin HCl 1 mg 02/03/25 21:00 02/05/25 20:52 Prazosin 1 Mg Capsule PO 1 mg HS ARLEN Administration Prochlorperazine Edisylate 5 mg 01/27/25 00:14 02/06/25 01:16 Prochlorperazine 10 Mg/2 Ml Vial IVP 5 mg Q6HR PRN Administration Nausea / Vomiting Sodium Chloride 10 ml 01/26/25 14:23 Sodium Chloride Flush 0.9% 10 Ml Syringe IVP PRN PRN NEEDED PER PROVIDER ORDERS Sodium Chloride 10 ml 01/26/25 17:00 02/06/25 17:26 Sodium Chloride Flush 0.9% 10 Ml Syringe IVP 10 ml 0100,0900,1700 ARLEN Administration Solifenacin 5 mg 01/31/25 09:00 02/06/25 08:37 Solifenacin Succinate 5 Mg Tablet PO 5 mg DAILY ARLEN Administration Tamsulosin HCl 0.4 mg 02/05/25 09:00 02/06/25 08:19 Tamsulosin 0.4 Mg Capsule PO 0.4 mg DAILY ARLEN Administration Objective Vital Signs/Intake & Output Reviewed Vital Signs: Yes Vital Signs: Vital Signs x48h Temp Pulse Resp BP Pulse Ox O2 Flow Rate 02/06/25 15:56 36.6 C 60 20 132/56 H 96 2 Intake & Output: Intake & Output 02/03/25 02/04/25 02/05/25 02/06/25 23:59 23:59 23:59 23:59 Intake Total 1149 / 1149 2031 / 2031 3701 / 3701 1020 / 1020 Output Total 850 / 850 1600 / 1600 1700 / 1700 1150 / 1150 Balance 299 / 299 431 / 431 2000 / 2000 -130 / -130 Weight (kg) 109 kg 109 kg Objective Comments/Other: older woman sitting in bed, NAD, sclera anicteric, MMM LCTAB, nonlabored RRR, S1S2, abd soft, mild diffuse tenderness to palpation, no guarding, BS+ LUE: antecubital fossa with palpable induration/cord, mild erythema decreased from skin markings outlines, no fluctuance or drainage alert, poor memory and insight, AAOx3 Lab Results 01/30/25 05:22 02/06/25 04:10 Other Labs: Lab Results x24hrs 02/06/25 02/06/25 02/06/25 Range/Units 16:45 11:36 07:43 Sodium (135-145) mmol/L Potassium (3.5-4.5) mmol/L Chloride (101-111) mmol/L Carbon Dioxide (21-32) mmol/L Anion Gap (6-13) BUN (6-20) mg/dL Creatinine (0.6-1.3) mg/dL Estimated GFR (MDRD) (>89) Glucose (74-104) mg/dL POC Whole Bld Glucose 221 194 182 (70-100) mg/dL Calcium (8.5-10.3) mg/dL Phosphorus (2.5-5.0) mg/dL Magnesium (1.7-2.3) mg/dL Total Bilirubin (0.2-1.0) mg/dL AST (10-42) IU/L ALT (10-60) IU/L Alkaline Phosphatase (42-121) IU/L Total Protein (6.4-8.9) g/dL Albumin (3.2-5.5) g/dL Globulin (2.1-4.2) g/dL Albumin/Globulin Ratio (1.0-2.2) Prealbumin (17-34) mg/dL 02/06/25 02/05/25 Range/Units 04:10 20:45 Sodium 136 (135-145) mmol/L Potassium 3.2 L (3.5-4.5) mmol/L Chloride 101 (101-111) mmol/L Carbon Dioxide 29 (21-32) mmol/L Anion Gap 6.0 (6-13) BUN 13 (6-20) mg/dL Creatinine 1.0 (0.6-1.3) mg/dL Estimated GFR (MDRD) 54 L (>89) Glucose 234 H (74-104) mg/dL POC Whole Bld Glucose 182 (70-100) mg/dL Calcium 8.2 L (8.5-10.3) mg/dL Phosphorus 2.6 (2.5-5.0) mg/dL Magnesium 1.7 (1.7-2.3) mg/dL Total Bilirubin 0.3 (0.2-1.0) mg/dL AST 13 (10-42) IU/L ALT 6 L (10-60) IU/L Alkaline Phosphatase 70 (42-121) IU/L Total Protein 5.8 L (6.4-8.9) g/dL Albumin 2.9 L (3.2-5.5) g/dL Globulin 2.9 (2.1-4.2) g/dL Albumin/Globulin Ratio 1.0 (1.0-2.2) Prealbumin 9 L (17-34) mg/dL Assessment/Plan Problem List (1) Partial small bowel obstruction: Impression: 79 yo F with pmhx of Bipolar d/o, PTSD presenting with abdominal pain and found to have partial SBO. Obstruction did not improve with conservative measures, NG, and pt was taken for operative repair. S/p ex lap on 01/30/25 with lysis of adhesions. 1. partial SBO: now tolerating po intake, passing liquid stool. POD 7. - f/u with surgery for any further recs, dressing changes - soft, low fiber diet for now 2. diarrhea: ? due to prior/recovering SBO. C. diff neg. - monitor 3. hypokalemia: due to diarrhea and poor po intake. - replete po , trend BMP 4. LUE cellulitis/superficial thrombophlebitis: Improving. - switch cefazolin to cephalexin to complete total 5 day course - continue cold and warm compresses prn - analgesics prn 5. acute exacerbation of chronic bronchitis: remains on 2 L NC. Respiratory symptoms improving. - duonebs prn, singulair, guaifenesin prn - wean NC O2 with goal sat > 90% 6. DM2: - continue glargine, SSI 7. Chronic TAINA: reprots home CPAP use. - noc CPAP while here. Get home settings if possible. dvt ppx: lovenox Dispo plan and GOC: Came from home alone. Has guardian. Plan SNF pending surgery clearance.
--- NOTE | 2025-02-06 17:41 | PROVIDER PROGRESS NOTE ---
Subjective General Admit Date: 01/27/25 Procedure Date: 01/30/25 Post Op Days: 7 Procedure Performed: ex lap with lysis of adhesions Other Other Information/Narrative: Patient doing exceedingly well. Sitting up eating dinner. Has finished her tray. Wondering why she needs an abdominal binder as it is riding high and not binding her abdomen. It is located underneath her breasts. Pal in place. Wound Assessment Wound/Incisions: positive Healing well and No drainage; negative Erythema Review of Systems Status of ROS: 10 or more systems reviewed and unremarkable except as noted in history and below Exam Exam Vital Signs: Vital Signs x48h Temp Pulse Resp BP Pulse Ox O2 Flow Rate 02/06/25 15:56 36.6 C 60 20 132/56 H 96 2 General: 79-year old female, appears stated age, well developed, well nourished evaluated in room 2307 at [facility] MedSurg unit HEENT: Normocephalic, atraumatic, extraocular movement intact, mucous membranes pink and moist, sclera anicteric and not injected Neck: Supple without pain on palpation, mass or bruit Cardiac: Regular rate and rhythm without rub, gallop, or murmur Chest: Clear to auscultation bilaterally Abdomen: Soft, nontender, normoactive bowel sounds, no hepatomegaly, no splenomegaly, midline wound held in place with robert, no surrounding erythema, no surrounding ecchymosis, no exudate, no indication or findings that are consistent with herniation Genitourinary: Deferred Rectal: Deferred Extremities: No gross neurovascular problem, no clubbing, or cyanosis Gait: Not evaluated Psychiatric: Alert and oriented to person place and time, asks and answers questions appropriately, mood and affect appropriate Impression/Plan Problem List (1) Acute exacerbation of chronic bronchitis: (2) Urinary tract infection: Qualifiers: Urinary tract infection type: site unspecified Hematuria presence: without hematuria Qualified Code(s): N39.0 - Urinary tract infection, site not specified (3) Leukocytosis: Qualifiers: Leukocytosis type: unspecified Qualified Code(s): D72.829 - Elevated white blood cell count, unspecified (4) Diabetes mellitus type 2, controlled, without complications: Qualifiers: Diabetes mellitus insole reinforcer insulin use: unspecified insole reinforcer insulin use status Qualified Code(s): E11.9 - Type 2 diabetes mellitus without complications (5) Hypertension, essential, benign: (6) DVT (deep venous thrombosis): Qualifiers: DVT location: lower extremity Affected thrombotic vein of extremity: unspecified vein of extremity Chronicity: unspecified Laterality: unspecified laterality Qualified Code(s): I82.409 - Acute embolism and thrombosis of unspecified deep veins of unspecified lower extremity (7) PTSD (post-traumatic stress disorder): (8) Bipolar 1 disorder: (9) History of lysis of adhesions: Plan: Patient is postoperative day 7 following adhesiolysis. Her bowel function has returned as is evidenced by her tolerating a general diet without nausea and vomiting. Good bowel function. From a surgical standpoint this patient can be discharged or transferred once the Pal has been removed. The patient should have the robert either removed before she is discharged home or in follow-up with Dr. Saez in approximately 1 week. Due to the patient's body habitus I would recommend that the robert be removed in one week's time. With regards to the abdominal binder as well as dressing I would not place it on the wound as it is simply not working and it is annoying the patient. Currently there is nothing further that is required surgically other than follow-up with Dr. Saez in one week's time. Call or contact me with any surgical questions and/or concerns. CPT 48037
[2025-02-07 04:48] LABS: BASOPHILS # (AUTO) 0.1 10^3/uL (0.0-0.1); BASOPHILS % (AUTO) 0.6 %; EOSINOPHILS # (AUTO) 0.7 10^3/uL (0.0-0.7); EOSINOPHILS % (AUTO) 5.9 %; HCT - HEMATOCRIT 32.4 % (37.0-47.0); HGB - HEMOGLOBIN 10.4 g/dL (12.0-16.0); LYMPHOCYTES % (AUTO) 17.2 %; MEAN CORPUSCULAR HEMOGLOBIN 29.6 pg (27.0-31.0); MEAN CORPUSCULAR HGB CONC 32.1 g/dL (32.0-36.0); MEAN CORPUSCULAR VOLUME 92.3 fL (81.0-99.0); MEAN PLATELET VOLUME 10.9 fL (7.9-10.8); MONOCYTES # (AUTO) 0.9 10^3/uL (0.0-1.0); MONOCYTES % (AUTO) 7.3 %; NEUTROPHILS % (AUTO) 67.7 %; PLT - PLATELET COUNT 286 10^3/uL (130-450); RED BLOOD COUNT 3.51 10^6/uL (4.20-5.40); RED CELL DISTRIBUTION WIDTH 14.2 % (12.0-15.0); WHITE BLOOD COUNT 11.7 x10^3/uL (4.8-10.8)
[2025-02-07 05:03] LABS: CALCIUM 8.3 mg/dL (8.5-10.3); PHOSPHORUS 2.7 mg/dL (2.5-5.0); POTASSIUM 3.4 mmol/L (3.5-4.5)
[2025-02-07] MEDS ORDERED: oxyCODONE 5 MG TABLET PO PRN (07:48)
[2025-02-07] MEDS: POTASSIUM CHLORIDE 20 MEQ TABLET PO ONE (08:23)
[2025-02-07] MEDS: NEOMYCIN/BACITRA/POLYMYX OINT PACKET TOP SCH (12:56)
--- NOTE | 2025-02-07 14:39 | Discharge Summary ---
Discharge Summary Admit Date: 01/26/25 Discharge Date: 02/07/25 Discharging Provider: Nabeel Elena MD Code Status: Attempt Resuscitation DIAGNOSES Admission Diagnoses: partial small bowel obstruction acute exacerbation of chronic bronchitis leukocytosis hypokalemia DM2 HTN chronic DVT PTSD Bipolar d/o Discharge Diagnoses with Status of Each Condition: partial small bowel obstruction, resolved acute exacerbation of chronic bronchitis, resolved leukocytosis, resolved cellulitis/superficial thrombophlebitis Left forearm acute urinary retention hypokalemia DM2 HTN chronic DVT PTSD Bipolar d/o normocytic anemia UTI, resolved chronic TAINA on CPAP HPI History of Present Illness: From admission note: "79-year-old female with a history of breast cancer s/p lumpectomy, DVT not on anticoagulation due to high risk of falls, hypertension, type 2 diabetes mellitus, bipolar disorder, PTSD who presented with worsening abdominal pain. She states the pain started yesterday. She describes it as epigastric, with no radiation. She also describes it as sharp. She has associated nausea. She also has had repeated episodes of emesis. She denies any fevers or chills. She states that she has chronic bronchitis, and sometimes uses oxygen at night. She has had increasing cough for the past few days as well. She has had a poor appetite over the last few days. She does endorse a bowel movement earlier today, but states that she has not been passing gas since. In the ER, she was hypertensive with blood pressure as high as 175/75, heart rate was 70, she was afebrile, saturating 95% on room air. Lab work was reviewedher revealed a mild leukocytosis of 12.4, her potassium was low at 3.1, her lipase was within normal limits. Imaging was done, abdomen/pelvis CT which showed fluid-filled small bowel loops most consistent with partial small bowel obstruction.? HOSPITAL COURSE Hospital Course: 1. partial SBO: Obstruction did not improve with conservative measures, NG, and pt was taken for operative repair. S/p ex lap on 01/30/25 with lysis of adhesions. by Dr. Saez. Pt tolerating po intake, passing more formed stool, no n/v/abd pain. She had diarrhea for a few days after operation that has resolved. C. diff testing negative. She was cleared for discharge by surgery service. She will have a follow up appointment with Dr. Se in approx 1 week and have robert removed at that time. She can continue soft, low fiber diet for now and advance as tolerated. 2. acute exacerbation of chronic bronchitis: Treated steffanie guzman and yonasonepatricio. Symptoms improved. Pt now comfortable on RA. 3. LUE cellulitis/superficial thrombophlebitis: At site of peripheral i.v. Treated with iv cefazolin and then transitioned to cephalexin to complete 5 day course (through 02/09/25). Small amount of purulence from old iv site today, no fluctuance, no evidence of deeper abscess. Topical antibiotic ointment started and can continue this for 5-7 days. continue cold and warm compresses prn. analgesics prn. 4. acute urinary retention: Likely caused by immobility, anesthesia, opioids post op. Failed trial of void on 02/04/25 and newsome replaced. Would leave newsome in place for 1-2 weeks and attempt trial of void at SNF. 5. UTI: Urine culture grew E. coli. Treated with antibiotic course that is finished. 6. hypokalemia: Due to diarrhea and poor po intake. Improving with supplements and improved po intake. 7. DM2: Pt required basal-bolus insulin regimen for several days during her stay. Uncontrolled sugars due in part to stress from acute illness and surgery. Will resume home metformin and d/c insulin on discharge. Would follow sugars at SNF and adjust regimen as indicated. 8. Chronic DVT: Pt is no longer on anticoagulation based on outpt records and risk for bleeding and falls. 9. normocytic anemia: Hgb dropped to 10.4 from 13 prior in stay. No gross bleeding post op. Suspect due to poor nutrition and infections, chronic disease. Can trend as outpt in 1-2 wks and conduct further w/u at that time if indicated. ALLERGIES Allergies Allergy/AdvReac Type Severity Reaction Status Date / Time aspirin Allergy Intermediate Hives Verified 01/26/25 09:48 iodine Allergy Intermediate Hives Verified 01/26/25 09:48 acyclovir Allergy Unknown Verified 01/26/25 09:48 amoxicillin Allergy Unknown Verified 01/26/25 09:48 doxycycline Allergy Unknown Verified 01/26/25 09:48 naproxen (From Naprosyn) Allergy Unknown Verified 01/26/25 09:48 risperidone (From Risperdal) Allergy Unknown Verified 01/26/25 09:48 Tetanus Vaccines and Toxoid Allergy Hives Verified 01/26/25 09:48 (Tetanus Vaccines & Toxoid) hydromorphone AdvReac Intermediate Itching Verified 01/26/25 09:48 adhesive tape AdvReac Mild Rash Verified 01/26/25 09:48 hydrocodone bitartrate * AdvReac Mild Itching Verified 01/26/25 09:48 (From Vicodin) MEDICATIONS Ambulatory Orders Medication Instructions Recorded Confirmed calcium carbonate 1,200 mg PO DAILY 02/24/21 01/26/25 cholecalciferol (vitamin D3) 25 25 mcg PO DAILY 02/24/21 01/26/25 mcg (1,000 unit) tablet oxybutynin chloride 5 mg tablet 10 mg PO DAILY 09/03/22 01/26/25 acetaminophen 650 mg rectal 650 mg PO TID PRN Pain 1-4 09/22/23 01/26/25 suppository albuterol sulfate 90 mcg/actuation 1 - 2 puff inhalation Q4HR PRN 02/04/24 01/26/25 aerosol inhaler (Ventolin HFA) Shortness Of Air/Wheezing fluticasone propionate 50 1 sprays intranasal BID 02/04/24 01/26/25 mcg/actuation nasal spray,suspension olopatadine 0.2 % eye drops (Eye 1 drp EACHEYE BID 02/04/24 01/26/25 Allergy Itch Relief) polyethylene glycol 3350 17 17 g PO DAILY #238 grams 02/14/24 01/26/25 gram/dose oral powder potassium chloride 10 mEq 10 meq PO BID 08/21/24 01/26/25 capsule,extended release metoprolol succinate 50 mg See Rx Instructions .Route 09/07/24 01/26/25 tablet,extended release 24 hr .COMPLEX #135 tabs prazosin 5 mg capsule See Rx Instructions .Route 10/05/24 01/26/25 .COMPLEX #90 caps cetirizine 10 mg tablet 10 mg PO HS #30 tabs 10/27/24 01/26/25 montelukast 10 mg tablet See Rx Instructions .Route 11/03/24 01/26/25 .COMPLEX #90 tabs atorvastatin 20 mg tablet See Rx Instructions .Route 11/06/24 01/26/25 .COMPLEX #90 tabs metformin 500 mg tablet See Rx Instructions .Route 11/06/24 01/26/25 .COMPLEX #180 tabs amlodipine 2.5 mg tablet See Rx Instructions .Route 11/07/24 01/26/25 .COMPLEX #180 tabs bupropion HCl 300 mg 24 hr tablet, See Rx Instructions .Route 11/07/24 01/26/25 extended release .COMPLEX #90 tabs fluoxetine 20 mg capsule See Rx Instructions .Route 11/07/24 01/26/25 .COMPLEX #90 caps gabapentin 100 mg capsule See Rx Instructions .Route 11/27/24 01/26/25 .COMPLEX #240 caps losartan 50 mg tablet See Rx Instructions .Route 11/29/24 01/26/25 .COMPLEX #180 tabs acetaminophen 500 mg tablet 500 mg PO Q4HR PRN Pain Or Fever > 02/07/25 38c (100.4f) #60 tabs cephalexin 500 mg capsule 500 mg PO Q6HR #8 caps 02/07/25 yjpmugjjkqlo-sjiuhtmk-vsab 1 tab PO DAILYWM #30 tabs 02/07/25 fumarate 19 mg-folic acid 400 mcg tablet (Therapeutic-M) neomycin-bacitracn Zn-polymyxn 3.5 1 applic topical DAILY #25 ea 02/07/25 mg-400 unit-5,000 unit top oint pkt (Triple Antibiotic) PHYSICAL EXAM AT DISCHARGE Vital Signs: Vital Signs x48h Temp Pulse Resp BP Pulse Ox 02/07/25 07:45 36.5 C 68 20 113/51 L 93 Physical Exam Other/Comments: older woman sitting in bed, NAD, sclera anicteric, MMM lugns: few scattered crackles and wheeze, nonlabored RRR, S1S2, abd soft, mild LLQ tenderness to palpation, no guarding, BS+ LUE: antecubital fossa with palpable induration/cord, mild erythema decreased from skin markings outlines, no fluctuance. slight seropurulent drainage alert, poor memory and insight, AAOx3 LABS 02/07/25 04:34 02/07/25 04:34 QUALITY (Female Hip Fx Only) Was patient sent home on osteoporosis medication?: No FOLLOW UP Follow Up: Dr. Patel (surgery) in 1 week TIME SPENT Time Spent in Discharge (Minutes): 35 Discharge Plan Discharge Patient Disposition: [facility] DC/Xfer Condition: Stable Medically Cleared Date:: 02/07/25 Prescriptions: New acetaminophen 500 mg Tablet 500 mg PO Q4HR PRN (Reason: Pain Or Fever > 38c (100.4f)) Qty: 60 0RF cephalexin 500 mg Capsule 500 mg PO Q6HR Qty: 8 0RF Therapeutic-M 19 mg iron- 400 mcg Tablet 1 tab PO DAILYWM Qty: 30 0RF Triple Antibiotic 3.5-400-5,000 jf-orxo-ddow Ointment In Packet 1 applic topical DAILY Qty: 25 0RF Continued metoprolol succinate 50 mg tablet extended release 24 hr See Rx Instructions .ROUTE .COMPLEX Qty: 135 3RF Dose Instruction: TAKE 1 & 1/2 TABLETS BY MOUTH TWICE A DAY Rx Instructions: TAKE 1 & 1/2 TABLETS BY MOUTH TWICE A DAY prazosin 5 mg capsule See Rx Instructions .ROUTE .COMPLEX Qty: 90 3RF Dose Instruction: TAKE 1 CAPSULE BY MOUTH AT BEDTIME FOR SLEEP Rx Instructions: TAKE 1 CAPSULE BY MOUTH AT BEDTIME FOR SLEEP montelukast 10 mg tablet See Rx Instructions .ROUTE .COMPLEX Qty: 90 3RF Dose Instruction: TAKE 1 TABLET BY MOUTH DAILY Rx Instructions: TAKE 1 TABLET BY MOUTH DAILY atorvastatin 20 mg tablet See Rx Instructions .ROUTE .COMPLEX Qty: 90 3RF Dose Instruction: TAKE 1 TABLET BY MOUTH EVERY NIGHT AT BEDTIME Rx Instructions: TAKE 1 TABLET BY MOUTH EVERY NIGHT AT BEDTIME metformin 500 mg tablet See Rx Instructions .ROUTE .COMPLEX Qty: 180 3RF Dose Instruction: TAKE 1 TABLET BY MOUTH TWICE A DAY Rx Instructions: TAKE 1 TABLET BY MOUTH TWICE A DAY amlodipine 2.5 mg tablet See Rx Instructions .ROUTE .COMPLEX Qty: 180 3RF Dose Instruction: TAKE 1 TABLET BY MOUTH TWICE A DAY FOR BLOOD PRESSURE Rx Instructions: TAKE 1 TABLET BY MOUTH TWICE A DAY FOR BLOOD PRESSURE bupropion HCl 300 mg tablet extended release 24 hr See Rx Instructions .ROUTE .COMPLEX Qty: 90 3RF Dose Instruction: TAKE 1 TABLET BY MOUTH DAILY Rx Instructions: TAKE 1 TABLET BY MOUTH DAILY fluoxetine 20 mg capsule See Rx Instructions .ROUTE .COMPLEX Qty: 90 3RF Dose Instruction: TAKE 1 CAPSULE BY MOUTH DAILY Rx Instructions: TAKE 1 CAPSULE BY MOUTH DAILY gabapentin 100 mg capsule See Rx Instructions .ROUTE .COMPLEX Qty: 240 3RF Dose Instruction: TAKE 1 CAPSULE BY MOUTH EVERY MORNING AND TAKE 4 CAPSULES BY MOUTH 2 HOURS PRIOR TO BEDTIME Rx Instructions: TAKE 1 CAPSULE BY MOUTH EVERY MORNING AND TAKE 4 CAPSULES BY MOUTH 2 HOURS PRIOR TO BEDTIME losartan 50 mg tablet See Rx Instructions .ROUTE .COMPLEX Qty: 180 3RF Dose Instruction: TAKE 1 TABLET BY MOUTH TWICE A DAY Rx Instructions: TAKE 1 TABLET BY MOUTH TWICE A DAY calcium carbonate 600 MG tablet 1,200 mg PO DAILY cholecalciferol (vitamin D3) 25 MCG tablet 25 mcg PO DAILY potassium chloride 10 mEq capsule, extended release 10 meq PO BID oxybutynin chloride 5 MG tablet 10 mg PO DAILY acetaminophen 650 MG suppository 650 mg PO TID PRN (Reason: Pain 1-4) albuterol sulfate [Ventolin HFA] 200 PUFFS/18 GM HFA aerosol inhaler 1 - 2 puff inhalation Q4HR PRN (Reason: Shortness Of Air/Wheezing) fluticasone propionate 120 SPRAYS spray,suspension 1 sprays intranasal BID olopatadine [Eye Allergy Itch Relief] 2.5 ML drops 1 drp EACHEYE BID polyethylene glycol 3350 238 GM powder 17 g PO DAILY Qty: 238 0RF Rx Instructions: use while taking narcotic pain medication cetirizine 10 mg tablet 10 mg PO HS Qty: 30 0RF Discontinued meloxicam 7.5 MG tablet 7.5 mg PO BID mupirocin [Centany] 2 % ointment 1 applic topical BID Qty: 22 1RF Activity Restrictions: Activity as Tolerated Diet: Soft Print Language: Persian Patient Instructions: Surgery Anesthesia After Stand Alone Forms: PCP List Follow-up Care: Gosia Borges PA-C [Primary Care Provider] -
[2025-02-07 15:05] VITALS: BP 128/67; TEMP 98.6; O2SAT 94
[2025-02-07] MEDS ORDERED: INSULIN GLARGINE-YFGN 300 UNIT/3 ML PEN SUBQ SCH (21:00)
== END 2025-02-07 15:45 | DRG 336 ==
LOC: ED 09:41 → MS2 09:41 → MS3 13:00
PROVIDERS: ADMIT Internal Medicine; ATTEND Internal Medicine
DX: K56.600 Partial intestinal obstruction, unspecified as to cause; Z85.3 Personal history of malignant neoplasm of breast; I82.409 Acute embolism and thrombosis of unspecified deep veins of unspecified lower extremity; R19.7 Diarrhea, unspecified; K56.51 Intestinal adhesions [bands], with partial obstruction; D64.9 Anemia, unspecified; I10 Essential (primary) hypertension; L03.114 Cellulitis of left upper limb; R63.0 Anorexia; Z68.41 Body mass index [BMI] 40.0-44.9, adult; E11.9 Type 2 diabetes mellitus without complications; B96.20 Unspecified Escherichia coli [E. coli] as the cause of diseases classified elsewhere; E66.01 Morbid (severe) obesity due to excess calories; F43.10 Post-traumatic stress disorder, unspecified; E87.6 Hypokalemia; D72.829 Elevated white blood cell count, unspecified; J42 Unspecified chronic bronchitis; R00.0 Tachycardia, unspecified; Z79.84 Long term (current) use of oral hypoglycemic drugs; R53.1 Weakness; F31.9 Bipolar disorder, unspecified; N39.0 Urinary tract infection, site not specified; J20.9 Acute bronchitis, unspecified; I82.509 Chronic embolism and thrombosis of unspecified deep veins of unspecified lower extremity; G47.33 Obstructive sleep apnea (adult) (pediatric); R33.9 Retention of urine, unspecified; Z99.81 Dependence on supplemental oxygen